=== PATIENT | female | born 2000 | race Caucasian/White ===

== ENCOUNTER 2022-02-15 01:36 | Outpatient (CLI) | payer BC, SELFPAY ==
[2022-02-15 01:51] VITALS: PULSE 109; O2SAT 98
[2022-02-15 01:53] VITALS: BP 129/91; PULSE 98
[2022-02-15 01:55] VITALS: RESP 18; TEMP 37
[2022-02-15 01:56] VITALS: PULSE 97; O2SAT 98
[2022-02-15 02:09] VITALS: BP 124/79; PULSE 98
[2022-02-15 02:24] VITALS: BP 114/77; PULSE 96
[2022-02-15 02:59] LABS: Hematocrit 37.3 % (33.0-51.0); Hemoglobin* 12.6 gm/dL (12.0-16.0); Mean Corpuscular HGB Conc 34 gm/dL (32-36); Mean Corpuscular Hemoglobin 29 pg (26-34); Mean Corpuscular Volume 86 fL (80-100); Platelet Count* 308 K/uL (140-440); Red Blood Count 4.35 m/uL (4.00-5.20); White Blood Count* 15.29 K/uL (4.50-11.00)
[2022-02-15 03:01] LABS: Slide Review Reflex No
[2022-02-15 03:10] LABS: Albumin* 3.7 g/dL (3.3-5.0)
[2022-02-15 03:13] LABS: Aspartate Amino Transferase* 18 U/L (12-35); Bilirubin Direct* 0.2 mg/dL (0.0-0.5); Bilirubin Total* 0.2 mg/dL (0.1-1.5); Total Protein* 6.6 g/dL (6.0-8.3)
[2022-02-15 03:14] LABS: Alanine Aminotransferase* 11 U/L (4-35); Alanine Aminotransferase* 12 U/L (4-35); Alkaline Phosphatase* 138 U/L (40-150); Aspartate Amino Transferase* 19 U/L (12-35); Blood Urea Nitrogen* 11 mg/dL (5-24); Creatinine* 0.7 mg/dL (0.6-1.2); Estimated Glomerular Filt Rate 128 ml/min
--- NOTE | 2022-02-15 03:58 | PC.OBNST ---
NST Note NST Note Start: 02/15/22 01:45 Freq: ONCE Status: Active Protocol: Document 02/15/22 03:30 ANEL (Rec: 02/15/22 03:58 ANEL [id number]) NST Note 1 Para (# of births) 0 EDC 04/03/22 Gestational Age In Weeks & Days 33 Weeks & 2 Days Patient Presented with Complaint(s) of Pain If Pain, describe location abdominal Reactive Yes Appropriate for Gestational Age Yes THOM Ortiz RN Date 02/15/22 Reactive Yes Appropriate for Gestational Age Yes THOM Taylor RNC Date 02/15/22 OB NST charge Yes Complete NST Note via Write Note Yes The provider's electronic signature indicates the NST is reactive/appropriate for gestational age. *Note to provider: If an addendum is required, open the patient's chart and click on the note under the Nurse/Allied Health tab.
== END 2022-02-15 03:35 | disposition home or self-care (01) ==
LOC: OB CLI 01:37 → OB 01:38
PROVIDERS: PCP Family Medicine; Visit Provider Family Medicine
DX: O47.03 False labor before 37 completed weeks of gestation, third trimester (principal); Z3A.33 33 weeks gestation of pregnancy
CPT/HCPCS: 36415; 59025; 80076; 82565; 84450; 84460; 84520; 85027; 99213

== ENCOUNTER 2022-02-24 01:45 | Outpatient (CLI) | payer BC, SELFPAY ==
[2022-02-24] VITALS (10 sets, daily range): BP systolic 125–145; BP diastolic 78–99; PULSE 72–108; RESP 16–18; TEMP 36.6–37.1; O2SAT 96–99; BMI 35.8
[2022-02-24] MEDS: ONDANSETRON ODT 4 MG TAB PO (02:01)
[2022-02-24] MEDS: GI COCKTAIL (VISC LIDO/ANTACID) 30 ML PO (02:13)
--- OUTSIDE RECORDS SUMMARY | 2022-02-24 02:14 | XMS_ITS | Clinical Summary ---
:2000 Author Organization [facility] [place] [address] Care Team Providers Name Role Phone Julita Skelton MD Primary Care Provider Allergies No known active allergies Medications Medication Sig Dispensed Refills Start Date End Date Status multivitamin Chew 1 Tablet by 0 08/23/2021 Active no.36-folate no.6 mouth once daily. (Prenate Chewable) 1 mg chew ondansetron (ZOFRAN Place 4 mg on the 0 09/11/2021 Active ODT) 4 mg tongue every 6 disintegrating tablet hours if needed. aspirin chewable 81 mg Chew 1 Tablet (81 30 Tablet 0 2 Active chewable mg) by mouth once tabletIndications: daily with a COVID-19 affecting meal. Until 36 in third weeks gestation trimester famotidine (PEPCID) 20 Take 1 Tablet (20 60 Tablet 3 2 Active mg tabletIndications: mg) by mouth two Abdominal pain, times daily. epigastric Active Problems Problem Noted Date 08/25/2021 Overview: Formatting of this note is dif ferent from the original. Estimated Date of Delivery: None noted. No LMP recorded. Patient is . Last Tdap- 01/10/2022 Last Flu vaccine- 02/07/2022 Glucose (GTT) result- Component Latest Ref Rng & Units 01/10/2022 ANTIBODY SCREEN Negative Negative SPECIMEN EXPIRATION DATE/TIME 01/13/22 23:59 HEMOGLOBIN 12.0 - 16.0 g/dL 12.5 MCV 80 - 100 fL 87 CREATININE 0.57 - 1.11 mg/dL 0.66 eGFR >90 mL/min/1.73m2 >90 GLUCOSE,GESTATIONAL 65 - 140 mg/dL 93 TREPONEMA PALLIDUM Negative Negative ALT (SGPT) 8 - 45 IU/L 8 AST (SGOT) 2 - 40 IU/L 13 20 week US: FINDINGS: Sonographic imaging demonstrates a singl e living intrauterine gestation. Fetus demonstrates a regular cardiac rate of 150 beats per minute. Fetus has a vertex position. The placenta lies posterior witho ut evidence of placenta previa. Amniotic fluid volume appears normal. Single deepest vertical pocket: 3.6 cm. The cervix is closed and measures 4.2 cm in length. The composite ultrasound gestational age is calculated at 19 weeks 2 days with a n estimated sonographic due date of 04/02/2022. The estimated weight is 278 grams which lies at the 47th %. The following biometric measurements wer e obtained: Biparietal diameter: 4.3 cm/19 weeks 1 d ay 49th% Head circumference: 16.1 cm/19 weeks 0 d ays 30th% Abdominal circumference: 13.4 cm/19 week s 0 days 38th% Femur length: 3.1 cm/19 weeks 4 days 58t h% The HC/AC ratio measures: 1.20 range (1. 09-1.26) On anatomic survey, there is a normal ap pearance of the cerebral ventricles, cavum septi pellucidi, cisterna magna and cerebellum. The nose, lips, and facial profile appear normal. The cervical, t horacic and lumbar spine are well visual ized and appear normal. There is a normal four-chamber heart view and the left and right ventricular outflow tracts appear normal. The diaphragm and stomach appear normal. The kidneys and bladder also appear normal. There is a normal three-vessel cord and cord insertion site. The four extremities appear normal. IMPRESSION: Normal OB ultrasound exam with concordan ce of clinical and sonographic dating. No intrinsic abnormalities noted on anatomic survey. No Known Allergies OB History Para Term AB Living 1 0 0 0 0 0 SAB IAB Ectopic Multiple Live Births 0 0 0 0 0 # Outcome Date GA Lbr Ken[place]/2nd Weight Sex Delivery Anes PTL Lv 1 Current Create lab flowsheet for OB labs- Component Latest Ref Rng & Units 08/23/2021 022 08/23/2021 11:09 AM 11:09 AM 11:09 AM ABORH A Rh Negative ANTIBODY SCREEN Negative Negative SPECIMEN EXPIRATION DATE/TIME 08/26/21 23:59 CHLAMYDIA PROBE N GONORRHOEAE PROBE VARICELLA ZOSTER IGG ANTIBODY Positive 291.4 RUBELLA IGG ANTIBODY HIV-1/HIV-2 ANTIBODY Non-Reactive Non-Reactive TREPONEMA PALLIDUM Negative Negative HBSAG Nonreactive Nonreactive HEPATITIS C ANTIBODY Non-Reactive Non-Reactive Component Latest Ref Rng & Units 08/23/2021 022 08/23/2021 11:09 AM 11:09 AM 11:16 AM ABORH ANTIBODY SCREEN Negative SPECIMEN EXPIRATION DATE/TIME CHLAMYDIA PROBE Negative N GONORRHOEAE PROBE Negative VARICELLA ZOSTER IGG ANTIBODY RUBELLA IGG ANTIBODY Positive 1.51 HIV-1/HIV-2 ANTIBODY Non-Reactive TREPONEMA PALLIDUM Negative HBSAG Nonreactive HEPATITIS C ANTIBODY Non-Reactive Past Medical History: . Date ? ? No Significant Past Medical History Past Surgical History: . Laterality Date ? ? NO PREVIOUS SURGERY No data on file. Problems (from 08/23/21 to pre sent) No problems associated with this episod mango Ramirez RN.....08/25/2021 1:48 PM Sleep concern 07/09/2018 Adjustment disorder with mixed anxiety and depressed m ood 07/09/2018 Estimated Date of Delivery Comments Yes 04/03/2022 Based on Ultrasound Encounters Date Type Specialty Care Team Description 02/21/2022 OB Encounter Julita Skelton, Care (34.1 MD Weeks) 02/21/2022 Travel 02/15/2022 OB Encounter Julita Skelton, ER Follo w up (Seen in ER MD last night for pain along the upper abdomen ); Car e 02/15/2022 Travel 02/07/2022 OB Encounter Julita Skelton, Care (32 weeks MD 1 day) 02/07/2022 Travel 01/26/2022 OB Encounter Julita Skelton, Care (30 weeks MD 3 days); Pregna ncy Problem (unsure of contractions or deborah leach) 01/26/2022 Travel 01/18/2022 Ancillary Procedure 01/18/2022 Office Visit Julita Skelton, Care (29 wks 2 MD days) 01/17/2022 Travel 01/17/2022 Nurse Triage Julita Skelton, Covid-19 Positive Result (OB 29 +1); Sob 01/10/2022 OB Encounter Julita Skelton, Care (28 week 1 MD days) 01/10/2022 Orders Only Lab, [facility] 01/10/2022 Travel 12/08/2021 OB Encounter Julita Skelton, Care (23 wks 3 MD days) 12/08/2021 Travel from Last 3 Months Immunizations Name Administration Dates Next Due DTaP 02/21/2008, 02/21/2007, 04/08/2004, 08/14/2003, 2002 HIB-HepB (Comvax) 04/08/2004, 08/18/2003, 2002 HPV 9 (Gardasil 9) 09/11/2017 Hepatitis A (Peds) 11/12/2017, 08/28/2014 Human Papilloma Virus Vaccine 08/28/2014 Inactivated Polio Vaccine 02/21/2008, 04/08/2005, 04/08/2004 , 08/18/2003, 2002 Influenza, IIV4 02/07/2022, 02/23/2021, 03/25/2019, 04/29/2018 Influenza, IIV4 (=>6mos) MDV 05/13/2019 Influenza,LAIV4 Live Intranasal 03/24/2015 (Flumist) MMR 02/21/2008, 04/08/2004 Meningococcal Vaccine (Menactra) 08/28/2014 Meningococcal Vaccine (Menveo) 08/08/2018 Pneumococcal conj 7-Valent (Prevnar 7) 04/08/2004, 4, 2002 Tdap 01/10/2022, 08/28/2014 Varicella Vaccine 02/21/2008, 04/08/2004 Family History Medical History Relation Name Comments Hyperlipidemia Maternal Grandfather Hypertension Mother Relation Name Status Comments Father (Age 32) suicide Maternal Grandfather Alive Maternal Grandmother Alive Mother Alive Paternal Grandfather Alive Paternal Grandmother Alive Social History Tobacco Use Types Packs/Day Years Used Date Never Smoker Smokeless Tobacco: Never Used Tobacco Cessation: Counseling Given: Yes Comments: no exposure Alcohol Use Standard Drinks/Week Comments No 0 (1 standard drink = 0.6 oz pure alcoho l) Estimated Date of Delivery Comments Yes 04/03/2022 Based on Ultrasound Sex Assigned at Date Recorded Not on file COVID-19 Exposure Response Date Recorded In the last 10 days, have you been in contact with No / Unsu re 02/21/2022 9:34 AM CDT someone who was confirmed or suspected to have Coronavirus/COVID-19? Obstetrics History Para Term AB IAB SAB Ectopic Multiple Living Live Births 1 0 0 0 0 0 0 0 0 0 0 Date Outcome GA Total Labor/2nd/3rd Weight Sex Delivery Anes PTL Beth A 1 A5 Name Clin Labor Current OB Episode Summary Episode Dates Estimated Date of Pregravid Weight TWG (As of ) Delivery 08/23/2021 - Present 04/03/2022 94.6 kg (208 lb 9.6 6.35 kg (14 lb) (02/24/2022) oz) Progress Notes 02/21/2022 - 34w1d - Julita Skelton MD Patient is here for routine pren ata care at 34w1d Concerns: Feels like he has dropped furt her Had contractions yesterday-- felt like t ightening with some pain. Sometimes had to take a break from what she was doing. Had contraction every 10 minutes while at work x 5 hours. Feels it was fairly co nsistent. She is on her feet at work. S he is hoping they will decrease her hours. Did try to hydrate. Paused, then last night had a few more. She is not jillian at all today. No gushes. No bleeding. Had epigastric pain last week. Popped up Sunday again. Hopped in shower and took a warm shower, and that helped. The pepcid is helping with her heart burn. No Headache, vision changes, right upper quadrant pain. Has had some edema. Does have a little m ore swelling on right compared to left. Baby is moving well Discussed signs/symptoms of labo r and when to call. Given contractions have stopped, will not do full work up today-- but would warrant with increasing contractions. Work note given today Reviewed preeclampsia symptoms Follow up in 2 weeks, sooner with concer ns. Julita Skelton MD .................. .. 02/21/2022 10:25 AM CC: [facility] 02/15/2022 - 33w2d - Julita Skelton MD Patient is here for routine pren atal care at 33w2d Concerns: Was at labor and delivery last night for abdominal pain. Had epigastric pain and pain across the upper abdomen. Had pain that worsened with lying down. Lasted for 2-3 hours. [place] like someone was pushing on upper abdomen. Some heart burn, some nausea. Still has gallbladder. No fevers. Had 5 guys for dinner. Had LFTs that were reassuring Has been having pelvic pain today but no abdomen pain today. Pelvic pain: Patient has been having hayley n off and on for the last week. Patient describes achey sharp pain. Has pain in vagina and radiates up. Happens a few times throughout the day. Some contractions on monitor, but not fe eling. Some BH contractions No gushes of fluid. No vaginal discharge. O: BP 128/81 (Cuff Site: Right Arm, Positio n: Sitting, Cuff Size: Adult Regular) Pulse (!) 110 Wt 99.2 kg (218 lb 9.6 oz) LMP 06/01/2021 (Exact Date) SpO2 98% General: Resting comfortably Heart: Regular rate and rhythm Lungs: Clear to auscultation bilaterally Abdomen: gravid, nontender in abdomen Pelvis: Tender over pubic symphysis. Thi s reproduces pain Results for orders placed or performed i n visit on 02/15/22 UA W/ SEDIMENT EXAM REFLEXED PER CRITERI A Result Value Ref Range COLOR Yellow Yellow Color CLARITY Slightly Cloudy (A) Clear Stephenie ty SPECIFIC GRAVITY,URINE 1.020 1.010, 1.0 15, 1.020, 1.025 PH,URINE 7.0 6.0, 7.0, 8.0, 5.5, 6.5, 7 .5, 8.5 UROBILINOGEN,QUALITATIVE Normal Normal EU/dl PROTEIN, URINE Negative Negative mg/dL GLUCOSE, URINE Negative Negative mg/dL KETONES,URINE Negative Negative mg/dL BILIRUBIN,URINE Negative Negative OCCULT BLOOD,URINE Negative Negative NITRITE Negative Negative LEUKOCYTE ESTERASE Negative Negative URINALYSIS MICROSCOPIC Result Value Ref Range RBC 0-2 0-2, None Seen /HPF WBC 0-2 0-2, 3-5, None Seen /HPF BACTERIA Few None Seen, Rare, Few Bacte vianca/HPF EPITHELIAL CELLS Moderate (A) None Seen , Few Epi/HPF Mucus Present A/P: - epigastric pain-- resolved today. Will start pepcid as heart burn has been worse recently. LFTs reassuring. - pubic symphysis pain: Discussed ice, b sapna band, supportive cares Follow up in 1 week as scheduled. Discussed signs/symptoms of labo r and when to call Reviewed preeclampsia symptoms Julita Skelton MD .................. .. 02/15/2022 10:22 AM CC: [facility] 02/07/2022 - 32w1d - Julita Skelton MD Patient is here for routine pren atal care at 32w1d Concerns: No concerns. Some BH contractions. No bleeding, loss of fluid No Headache, vision changes, right upper quadrant pain. Some swelling. Is looking into compression stockings. Baby is moving well Labs today-- none On baby aspirin for history of COVID-19 (will take until 36 weeks) Growth scan at 36 weeks. Flu shot today Discussed signs/symptoms of labo r and when to call Reviewed preeclampsia symptoms RTC in 2 weeks, sooner with concerns. Julita Skelton MD .................. .. 02/07/2022 10:22 AM CC: [facility] 01/26/2022 - 30w3d - Julita Skelton MD Patient is here for routine pren atal care at 30w3d Concerns: Finished COVID-19-- did not ta ke the paxlovid. Has been having more contractions that a re painful. In the past month has been having some BH contractions. At most a few a day. Never more than 4/hour. Is having some back spasms that go up th e back and wrap around. Happens roughly 2 times a day. Yesterday increased. Feels like belly is getting rock hard. She has never had more than 5 in an hour of her contractions. No bleeding, loss of fluid Did have orange urine 3 days ago. No hayley n with urination. No Headache, vision changes, edema, righ t upper quadrant pain. Baby is moving well She is staying hydrated. Doesn't feel she is doing too much. NST done for tachycardia: Baseline 145, moderate vari, accels to 1 65. No decels [place]: No contractions. Will do growth ultrasound at 36 weeks gi loree COVID-19. Discussed signs/symptoms of labo r and when to call. No contractions on monitor. Discussed reasons to return to care. Encouraged stretch, heat, tylenol for ba ck pain. Nontender on exam. Is seeing chiropractics. Reviewed preeclampsia symptoms Follow up in 2 weeks, sooner with concer ns. Julita Skelton MD .................. .. 01/26/2022 1:31 PM CC: [facility] 01/10/2022 - 28w1d - Julita Skelton MD Patient is here for routine pren atal care at 28w1d Concerns: GTT today. Feels good. Yesterday was having some cramping on th e right side. Would lightly touch and it would hurt. However-- this has improved. She feels it is most likely positional with baby as his feet seem to be over there. She is non-tender in RUQ No Contractions, bleeding, loss of fluid No Headache, vision changes, edema Baby is moving well Labs today Results for orders placed or performed i n visit on 01/10/22 GLUCOSE,GESTATIONAL Result Value Ref Range GLUCOSE,GESTATIONAL 93 65 - 140 mg/dL HEMOGLOBIN Result Value Ref Range HEMOGLOBIN 12.5 12.0 - 16.0 g/dL MCV 87 80 - 100 fL Rhogam and Tdap given today. Patient rosalia erated well. Antibody screen pending. Discussed signs/symptoms of labo r and when to call Reviewed preeclampsia symptoms Follow up every 2 weeks until 36, then w eekly until delivery. Julita Skelton MD .................. .. 01/10/2022 9:19 AM CC: [facility] 12/08/2021 - 23w3d - Julita Skelton MD Patient is here for routine pren atal care at 23w3d Concerns: Has been sleeping better. Appetite improved, weight is increasing. No cramping, bleeding, loss of fluid Started lactating last night. No Headache, vision changes, edema, righ t upper quadrant pain. Baby is moving well Follow up in at 28 weeks (4 weeks ) for GTT, Hemoglobin, Rhogam, tdap. Discussed signs/symptoms of labo r and when to call Reviewed preeclampsia symptoms Julita Skelton MD .................. .. 12/08/2021 11:19 AM CC: [facility] 11/08/2021 - w1d - Julita Skelton MD Patient is here for routine pren atal care at 19w1d Concerns: Is not sleeping well. Brain is just raci ng. Having difficulty with anxiety. Can't get to sleep. Has not tried anything over the counter. Melatonin has never worked for her. In the past was on trazodone-- made her too sleepy. Will do trial of unisom Tries to get to bed for about 8 hours. Is not having much of appetite. In the a fternoon she doesn't feel like eating. She doesn't feel hungry in the morning but tries to have breakfast before work. Around 11 for lunch she eats something. Louise sn't have much of an appetite for dinner meal. Last night went to [id number], took a couple bites. No nausea, no heart burn. No Contractions/cramping, bleeding, loss of fluid No Headache, vision changes, edema, righ t upper quadrant pain. Baby is moving -- flutters US OB BASIC ANATOMY SCREEN SINGLE TA Result Date: 11/08/2021 For Patients: As a result of the ntury Cures Act, medical imaging exams and procedure reports are released immediately into your electronic medical record. You may view this report before your re ferring provider. If you have questions, please contact your health care provider. INDICATION: Evaluate anatomy. COMPARISON: 08/23/2021 TECHNIQUE: Real time cárdenas scale imaging of the fetus was per formed as well as color Doppler analysis of the umbilical vessels. FINDINGS: Sonographic imaging demonstrates a single living intrauterine gestation. Fetus demonstrates a regular cardiac rate of 150 leydi ts per minute. Fetus has a vertex positi on. The placenta lies posterior without evidence of placenta previa. Amniotic fluid volume appears normal. Single deepest vertical pocket: 3.6 cm. The cervix is c losed and measures 4.2 cm in length. The composite ultrasound gestational age is calculated at 19 weeks 2 days with an estimated sonographic due date of 04/02/2022. The estimated weight is 278 gra ms which lies at the 47th %. The followi ng biometric measurements were obtained: Biparietal diameter: 4.3 cm/19 weeks 1 day 49th% Head circumference: 16.1 cm/19 weeks 0 days 30th% Abdominal circumferenc e: 13.4 cm/19 weeks 0 days 38th% Femur l ength: 3.1 cm/19 weeks 4 days 58th% The HC/AC ratio measures: 1.20 range (1.09-1.26) On anatomic survey, there is a normal appearance of the cerebral ventricles, cavum septi pellucidi, cisterna magna an d cerebellum. The nose, lips, and facial profile appear normal. The cervical, thoracic and lumbar spine are well visualized and appear normal. There is a no rmal four-chamber heart view and the lef t and right ventricular outflow tracts appear normal. The diaphragm and stomach appear normal. The kidneys and bladder also appear normal. There is a normal three-vessel cord and cord insert ion site. The four extremities appear normal. Normal OB ultrasound exam with concordan ce of clinical and sonographic dating. No intrinsic abnormalities noted on anatomic survey. Dictated by Bogdan Bahena MD @ Nov 08 2021 4:01PM (Electronically Signed) Discussed signs/symptoms of labo r and when to call Reviewed preeclampsia symptoms Follow up in 4 weeks. Julita Skelton MD .................. .. 11/08/2021 9:02 AM CC: [facility] 10/19/2021 - 16w2d - Julita Skelton MD Patient is here for routine pren atal care at 16w2d Concerns: Episode of dizziness yesterday. Started around 10 am. Had eaten lunch and breakfast. Had some juice and that seemed to help some. Did feel hydrated. Was working in a hot kitchen, which didn't help. Working on eating more healthy foods. Encouraged ongoing supportive cares. Chin ght down 8 lbs. No cramping, bleeding, loss of fluid No Headache, vision changes, edema, righ t upper quadrant pain. Baby is moving-- feeling flutters Discussed eating small, frequent meals. Encouraged good hydration. Follow up in 4 weeks for recheck and fet al survey ultrasound. Julita Skelton MD .................. .. 10/19/2021 10:55 AM CC: [facility] 09/21/2021 - 12w2d - Julita Skelton MD Clinic Note: First OB Visit 09/21/2021 Va Tan is a 21 y.o. wit h Estimated Date of Delivery: 04/03/22, here today for a first visit. No significant concerns. Nausea and vomi ting is ok. Feels tired but otherwise ok. 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 /Father of baby: Carlo De Dios Family history of hypertension, le ukemia, brain aneurysm, colitis, brain tumors, diabetes, asthma, ovarian cyst, mental illness. Paternal side: Depression, anxiety, jade ction. Alcoholism. ADHD. ?? Carlo's family history: Low blood press ure, epilepsy (dad and sister, missing heart valve (paternal side). Diabetes, cancer, asthma. MENSTRUAL HISTORY Patient's last menstrual period was 05/05 (exact date).: Cycle Regularity: regular, every 28-30 d ays Flow: normal KARISHMA by LMP Calculator: 03/08/22 Date Reliability: Definite Ultrasound shows dates of 04/03/22. Give n 3 weeks difference, will go with ultrasound dates. IMPRESSION: Single living intrauterine wit h sonographic gestational age 8 weeks 1 day and sonographic due date 04/03/2022. Small mid right subchorionic hemorrhage measuring 14 x 9 x 9 millimeters. MEDICAL HISTORY Medical, surgical, family, and social hi story reviewed today and updated if necessary. Past Medical History: . Date ? ? No Significant Past Medical History Past Surgical History: . Laterality Date ? ? NO PREVIOUS SURGERY Family History Problem Relation Age of Onset ? ? Hypertension Mother ? ? Hyperlipidemia Maternal Grandfather Social History Socioeconomic History ? ? Marital status: Single Tobacco Use ? ? Smoking status: Passive Smoke Exposure - Never Smoker ? ? Smokeless tobacco: Never Used ? ? Tobacco comment: no exposure Vaping Use ? ? Vaping Use: Every day ? ? Substances: Nicotine, Flavoring ? ? Devices: Refillable tank Substance and Sexual Activity ? ? Alcohol use: No ? ? Drug use: No ? ? Sexual activity: Yes Partners: Male control/protection: Condom, Impla nt Current Outpatient Medications Medication Sig Dispense Refill ? ? multivitamin no.36-folate no.6 (Prenate Chewable) 1 mg chew Chew 1 Tablet by mouth once daily. 0 ? ? ondansetron (ZOFRAN ODT) [address] 4 mg on the tongue every 6 hours if needed. RISK FACTORS Seat Belt Use: 100% Alcohol/day: 0 Meds/Drugs/ETOH Since LMP: No Control Method: none High Risk Behavior: body piercing(s) (be lly button) INFECTION HISTORY Current Drug Use: none HIV Risk Evaluation: low risk Hepatitis B Risk Evaluation: low risk Hepatitis B Immunized: yes Personal History of Genital Herpes: no Partner History of Genital Herpes: no Rash/Viral Illness Since LMP: No History of STD: no history of STD's History of Chicken Pox? no Chicken pox i mmunization? yes Family history of - defects: Paternal grandfather has sibling with valve concern. They will get more information about this. Chromosomal problems: no Stillbirths: no Desire Test for CYSTIC FIBROSIS or SMA? no Desire genetic testing otherwise? no REVIEW OF SYSTEMS: General: no fevers, chills, appetite hollie nges, weight changes. + fatigue Eyes: no blurry vision, double vision. L ast saw eye doctor -- not since last year Ears/Nose/Throat: no hearing changes, pa in. Some allergies (nasal congestion). no frequent epistaxis. no throat pain, difficulty swallowing. Last saw dentist years ago. Cardiovascular: no chest pain, chest pre ssure, syncope, orthostatic symptoms Respiratory: no cough, shortness of apple th, dyspnea on exertion, orthopnea Gastrointestinal: + nausea, vomiting. So me constipation. No diarrhea, melena or bright red rectal bleeding Genitourinary - female: no hematuria, dy suria, incontinence, nocturia. no vaginal bleeding, cramping. Musculoskeletal: no back, arm or leg hayley n Skin: no rashes or lesions Neurologic: no numbness, weakness, tingl ing, headaches, falls Psychiatric: no depression, anxiety Endocrine: no polyuria, polydipsia, heat or cold intolerance Heme/Lymphatic: no easy bruising, easy b leeding Allergic/Immunologic: no frequent infect ions PHYSICAL EXAM BP 116/76 (Cuff Site: Left Arm, Position : Sitting, Cuff Size: Adult Regular) Pulse 80 Wt 93.4 kg (205 lb 12.8 oz) LMP 06/01/2021 (Exact Date) SpO2 100% General Appearance: Alert, well-develope d, well-nourished, with appropriate grooming and dress. No acute distress HEENT Exam: PERRL. MMM. TMs pearly bilat erally. Neck / Thyroid Exam: Supple, no masses, nodes or enlargement. Chest/Respiratory Exam: Normal chest wal l and respirations. Clear to auscultation. Breast Exam: deferred Cardiovascular Exam: Regular rate and rh ythm. Normal S1, S2. No murmur, click, gallop, or rubs. Gastrointestinal Exam: Soft, non-tender, no masses or organomegaly. Pelvic Exam: Deferred, no concerns. Not old enough for Pap smear Lymphatic Exam: Non-palpable nodes in ne ck, clavicular regions. Musculoskeletal Exam: Back is straight a nd non-tender, full ROM of upper and lower extremities. Skin: no rash or abnormalities Neurologic Exam: Normal gait and speech, no tremor. DTR's 2+ and symmetric Psychiatric Exam: Alert and oriented, ap propriate affect. Ultrasound: Active fetus on bedside ultr asound. ASSESSMENT/PLAN: ICD-10-CM 1. Supervision of normal first in first trimester Z34.01 US OB BASIC ANATOMY SCREEN SINGLE TA 1. First OB: Satisfactory exam. Demonstrates appropriate and health seeking behaviors toward her . Verbalizes good understanding of care schedule and the importance of coming to each visit as scheduled. Has supporti ve family relationship. Reviewed health maintenance issues including diet, exercise, caffeine intake, handling of cat litter, toxic substances, daily vitamins, ch ild classes, choosing a pediatrici an, and regular exams. - Reviewed lab results - Previously Reviewed [facility] and handouts 2. Nausea/vomiting-- discussed ongoing s upportive cares 3. Dates changed for ultrasound given 3 weeks difference. 4. Declines genetic testing 5. RTC 4 weeks. She was encouraged to ca ll the office with any questions or concerns. Scheduled ultrasound in 8 weeks for survey Follow up sooner with any concerns. Julita Skelton MD .................... 4:19 PM [facility] [phone] CC: [facility] 08/23/2021 - 8w1d - Julita Skelton MD Clinic Note: confirmation Va Tan is a 21 y.o. who is here today for a confirmation. She had a positive test done at home 08/07. LMP was 06/01- 06/04. Was not a typical period for her. Usually they are at least 5 days and this one was only 4. Patient's last menstrual period was 05/05 (exact date). making her estimated due date of 03/08/2022. She is 11w6d today. This was not an intended , and she is happy about it. Has nausea here and there. Vomiting some times in the morning. She has not had pelvic cramping. She trotter s not had any bleeding thus far. This is her first . FOB: Carlo. Family history of hypertension, leukemia , brain aneurysm, coliits, brain tumors, diabets, asthma, ovarian cyst, mental illness. Paternal side: Depression, anxiety, jade ction. Alcoholism. ADHD. Carlo's family history: Low blood press ure, epilepsy (dad and sister0, missing heart valve (paternal side). Diabetes, cancer, asthma. Tolerating vitamin. Works at [employer] Medical, surgical, family, and social hi story reviewed today and updated if necessary. Past Medical History: . Date ? ? No Significant Past Medical History Past Surgical History: . Laterality Date ? ? NO PREVIOUS SURGERY Patient has no known allergies. Family History Problem Relation Age of Onset ? ? Hypertension Mother ? ? Hyperlipidemia Maternal Grandfather OB History Para Term AB Living 1 0 0 0 0 0 SAB IAB Ectopic Multiple Live Births 0 0 0 0 0 # Outcome Date GA Lbr [place]/2nd Weight Sex Delivery Anes PTL Lv 1 Current Current Outpatient Medications Medication Sig ? ? multivitamin no.36-folate no.6 (Prenate Chewable) 1 mg chew Chew 1 Tablet by mouth once daily. No current facility-administered medicat ions for this visit. Medications have been reviewed by me and are current to the best of my knowledge and ability. RISK FACTORS Alcohol/day: 0 Meds/Drugs/ETOH Since LMP: sindi min Street Drug use: none Tobacco use: Does vape, does not smoke c igarettes. Caffeine use: not regularly. Lives with Carlo. PHYSICAL EXAM BP 102/68 (Cuff Site: Left Arm, Position : Sitting, Cuff Size: Adult Large) Pulse 76 Ht 1.665 m (5' 5.55) Wt 94.6 kg (208 lb 9.6 oz) LMP 06/01/2021 (Exact Date) SpO2 100% No BMI 34.13 kg/m?? General Appearance: Alert, well-develope d, well-nourished, with appropriate grooming and dress. No acute distress HEENT Exam: Grossly normal. Chest/Respiratory Exam: Normal chest wal l and respirations. Clear to auscultation. Cardiovascular Exam: Regular rate and rh ythm. Normal S1, S2. No murmur, click, gallop, or rubs. Gastrointestinal Exam: Soft, non-tender, no masses or organomegaly. Uterus not able to be palpated Skin: no rash or abnormalities Neurologic Exam: Normal gait and speech, no tremor. Psychiatric Exam: Alert and oriented, ap propriate affect. Results for orders placed or performed i n visit on 08/23/21 CBC W PLT NO DIFF Result Value Ref Range WHITE BLOOD COUNT 8.6 4.5 - 11.0 thou/c u mm RED BLOOD COUNT 4.79 4.00 - 5.20 mil/cu mm HEMOGLOBIN 13.9 12.0 - 16.0 g/dL HEMATOCRIT 40.5 33.0 - 51.0 % MCV 85 80 - 100 fL MCH 29.0 26.0 - 34.0 pg MCHC 34.3 32.0 - 36.0 g/dL RDW 13.4 11.5 - 15.5 % PLATELET COUNT 324 140 - 440 thou/cu mm MPV 10.3 6.5 - 11.0 fL ANTI HIV 1/2 Result Value Ref Range HIV-1/HIV-2 ANTIBODY Non-Reactive Non-R eactive HBSAG (HBS) Result Value Ref Range HBSAG Nonreactive Nonreactive ANTI HCV Result Value Ref Range HEPATITIS C ANTIBODY Non-Reactive Non-R eactive URINALYSIS W REFLEX MICROSCOPIC IF POSIT NORMAN [59461.2] Result Value Ref Range COLOR Yellow Yellow Color CLARITY Clear Clear Clarity SPECIFIC GRAVITY,URINE 1.015 1.010, 1.0 15, 1.020, 1.025 PH,URINE 7.0 6.0, 7.0, 8.0, 5.5, 6.5, 7 .5, 8.5 UROBILINOGEN,QUALITATIVE Normal Normal EU/dl PROTEIN, URINE Negative Negative mg/dL GLUCOSE, URINE Negative Negative mg/dL KETONES,URINE 15 (A) Negative mg/dL BILIRUBIN,URINE Negative Negative OCCULT BLOOD,URINE Negative Negative NITRITE Negative Negative LEUKOCYTE ESTERASE Negative Negative TYPE AND SCREEN Result Value Ref Range ABORH A Rh Negative ANTIBODY SCREEN Negative Negative SPECIMEN EXPIRATION DATE/TIME 08/26/21 23:59 US OB 1ST TRI SINGLE TA Result Date: 08/23/2021 For Patients: As a result of the ntury Cures Act, medical imaging exams and procedure reports are released immediately into your electronic medical record. You may view this report before your re ferring provider. If you have questions, please contact your health care provider. INDICATION: First trimester scan, establish dates. COMPARISON: None. TECHNIQUE: Real-time cárdenas-scale imaging of the pel vis was performed. FINDINGS: Sonographic imaging demonstrates a single living intrauterine gestation. The embryo demonstrates a regular cardiac rate measuring 170 beats per minute. The embryo`s crown-ru mp length measurement of 1.6 cm correspo nds to a gestational age of 8 weeks 1 day with a sonographic due date of 04/03/2022. There is a normal-appearing yolk sac. There are no gross abnormalities noted within the embryo at this early state of development. The gestational sac has a normal appearance. There is a 14 x 9 x 9 millimeter perigestational hemorrhage. The amount of fluid within the sac appears appropriate for gestational age. The ce rvix is closed. The myometrium appears normal. The ovaries are of normal size. Simple right ovarian cyst measuring 2.3 cm. Corpus luteal cyst left ovary measuring 1.7 cm. There are no suspicious fluid c ollections noted in the cul-de-sac. Single living intrauterine wit h sonographic gestational age 8 weeks 1 day and sonographic due date 04/03/2022. Small mid right subchorionic hemorrhage measuring 14 x 9 x 9 millimeters. Dictate d by Bogdan Bahena MD @ Aug 23 2021 12: 17PM (Electronically Signed) ASSESSMENT/PLAN: 1. Supervision of normal first in first trimester Plan: 1. Dating ultrasound today. KARISHMA by [employer] jonathan is 04/03 at [id number] 2. Routine OB labs ordered including typ e and screen, hemoglobin, HBSAg(HBS), Rubella immune status, Treponema, Urinalysis, Urine culture, HIV 3. Taking vitamin, counseled on its importance. 4. Reviewed health maintenance issues in cluding diet, exercise, foods to avoid, cat litter, and regular exams. Given patient information for first OB including approved OTC medications and beginnings booklet. Return to clinic in 4 weeks for formal f irst OB exam. She was encouraged to call the office or [facility] with any questions or concerns. Julita Skelton MD .................. .. 08/23/2021 9:41 AM Last Filed Vital Signs Vital Sign Reading Time Taken Comments Blood Pressure 126/80 02/21/2022 10:02 AM CDT Pulse 99 02/21/2022 10:02 AM CDT Temperature 37.1 ??C (98.7 ??F) 02/23/2021 10:06 AM CDT Respiratory Rate 20 01/19/2013 9:21 PM CDT Oxygen Saturation 98% 02/21/2022 10:02 AM CDT Inhaled Oxygen Concentration - - Weight 101 kg (222 lb 9.6 oz) 02/21/2022 10:02 AM CDT Height 166.1 cm (5' 5.39) 01/10/2022 9:01 AM CDT Body Mass Index - - Plan of Treatment Upcoming Encounters Date Type Specialty Care Team Description 03/08/2022 Ancillary Procedure 03/08/2022 OB Encounter Julita Skelton MD [address] [phone] (Wo rk) 03/14/2022 OB Encounter Julita Skelton MD [address] [phone] (Wo carmelita) 03/22/2022 OB Encounter Julita Skelton MD [address] [phone] (Wo rk) 03/28/2022 OB Encounter Julita Skelton MD [address] [place] [phone] (Wo rk) Health Maintenance Due Date Last Done Comments Well Child Check for age 3-20 02/22/2008 02/21/2007 COVID-19 vaccine series (3 - 09/21/2021 04/23/2021, 021 Booster for Moderna series) Chlamydia for age 16-24 08/23/2022 08/23/2021, 03/02/2021, 03/25/2019, Additional history exists BMI (ht and wt on same day) for 01/10/2023 01/10/2022, 08/03, age 18+ 02/23/2021, Additional history exists Depression screening for age 12+ 01/26/2023 01/26/2022, , 02/23/2021, Additional history exists Tetanus booster 01/11/2032 01/10/2022, 08/28/2014 HPV series for age 9-26 Completed 09/11/2017, 08/28/2014 Meningococcal series for age 11-21 Completed 08/08/2018, 0 08/28/2014 Hepatitis C screening for age Completed 08/23/2021 18-79 Tdap Completed 01/10/2022, 08/28/2014 Influenza for age 9-49 Completed 02/07/2022, 02/23/2021, 05/13/2019, Additional history exists Procedures Procedure Name Priority Date/Time Associated Diagnosis Comme nts URINALYSIS Routine 02/15/2022 10:41 Pelvic pain in Results f or this MICROSCOPIC AM CDT procedure are i n the results section. PROTEIN/CREAT Routine 02/15/2022 10:41 Abdominal pain, Results for this RATIO,URINE AM CDT epigastric procedure are i n the results section. UA W/ SEDIMENT EXAM Routine 02/15/2022 10:41 Pelvic pain in Re sults for this REFLEXED PER AM CDT procedure are i n CRITERIA the results section. URINE CULTURE Add On 01/26/2022 2:58 PM Urinary symptom or Re sults for this CDT sign procedure are i n the results section. URINALYSIS Routine 01/26/2022 2:58 PM Urinary symptom or Res ults for this MICROSCOPIC CDT sign procedure are i n the results section. UA W/ SEDIMENT EXAM Routine 01/26/2022 2:58 PM Urinary symptom or Results for this REFLEXED PER CDT sign procedure are i n CRITERIA the results section. CREATININE,ISTAT Routine 01/18/2022 4:06 PM COVID-19 virus Res ults for this CDT infection procedure are i n the results section. US OB BIOPHYSICAL Routine 01/18/2022 3:51 PM COVID-19 virus Re sults for this PROFILE SINGLE WO CDT infection procedure are in NST with 29 the result s completed weeks section. gestation ANTIBODY SCREEN Routine 01/10/2022 10:00 Supervision of Result s for this AM CDT normal first procedure are i n in second the resu lts trimester section. CREATININE Routine 01/10/2022 10:00 Right flank pain Results for this AM CDT procedure are i n the results section. AST (SGOT) Routine 01/10/2022 10:00 Right flank pain Results for this AM CDT procedure are i n the results section. ALT (SGPT) Routine 01/10/2022 10:00 Right flank pain Results for this AM CDT procedure are i n the results section. TREPONEMA PALLIDUM Routine 01/10/2022 10:00 Supervision of Res ults for this AM CDT normal first procedure are i n in second the resu lts trimester section. HEMOGLOBIN Routine 01/10/2022 10:00 Supervision of Results f or this AM CDT normal first procedure are i n in second the resu lts trimester section. GLUCOSE,GESTATIONAL Routine 01/10/2022 10:00 Supervision of Re sults for this AM CDT normal first procedure are i n in second the resu lts trimester section. from Last 3 Months Results (ABNORMAL) URINALYSIS MICROSCOPIC (02/15/2022 10:41 AM CDT)Only the most recent of2 resultswithin the time period is included. [facility] gist Method Time Signature RBC 0-2 0-2, None 02/15/2022 [facility] Seen /HPF 10:54 AM CDT [facility] WBC 0-2 0-2, 3-5, 02/15/2022 [facility] None Seen 10:54 AM CDT [place] /HPF CLINIC BACTERIA Few None 02/15/2022 [facility] Seen, 10:54 AM CDT [place] Rare, Few CLINIC Bacteria/ HPF EPITHELIAL Moderate (A) None 02/15/2022 [facility] CELLS Seen, Few 10:54 AM CDT [place] Epi/HPF CLINIC Mucus Present 02/15/2022 [facility] 10:54 AM CDT [facility] Specimen Anatomical Collection Method Collection Time Receive d Time (Source) Location / / Volume Laterality Urine URINE SPECIMEN / Non-Blood / 02/15/2022 10:41 022 Unknown Unknown AM CDT 10:42 AM CDT Julita Skelton MD URINE Performing Organization Address City/State/ZIP Code Phon e Number [facility] [address] [place] [address] PROTEIN/CREAT RATIO,URINE (02/15/2022 10:41 AM CDT) P athologist Signature PROTEIN 13 <=14 mg/dL 02/15/2022 [facility] QUANT,RAND 8:33 PM CDT LABORATORY-CENT URINE RAL LABORATORY CREAT,RANDOM 91.5 mg/dL 02/15/2022 [facility] URINE 8:33 PM CDT LABORATORY-CENT RAL LABORATORY PROT/CREAT 0.1 <0.2 02/15/2022 [facility] RATIO,UR 8:33 PM CDT LABORATORY-CENT RAL LABORATORY Specimen Anatomical Collection Method Collection Time Receive d Time (Source) Location / / Volume Laterality Urine URINE SPECIMEN / Non-Blood / 02/15/2022 10:41 022 Unknown Unknown AM CDT 10:42 AM CDT Julita Skelton MD URINE Performing Organization Address City/State/ZIP Code Phon e Number [facility] [address] [place] [address] LABORATORY-CENTRAL 1999 LABORATORY (ABNORMAL) UA W/ SEDIMENT EXAM REFLEXED PER CRITERIA (02/15/2022 10:41 AM CDT) Only the most recent of2 resultswithin the time period is included. [facility] Method Time Signature COLOR Yellow Yellow Color 02/15/2022 [facility] 10:54 AM [facility] CLARITY Slightly Clear 02/15/2022 [facility] Cloudy (A) Clarity 10:54 AM [facility] SPECIFIC 1.020 1.010, 02/15/2022 [facility] GRAVITY,URINE 1.015, 10:54 AM [place] 1.020, 1.025 [facility] PH,URINE 7.0 6.0, 7.0, 02/15/2022 [facility] 8.0, 5.5, 10:54 AM [place] 6.5, 7.5, T CLINIC 8.5 UROBILINOGEN, Normal Normal EU/dl 02/15/2022 [facility] QUALITATIVE 10:54 AM [facility] PROTEIN, Negative Negative 02/15/2022 [facility] URINE mg/dL 10:54 AM [facility] GLUCOSE, Negative Negative 02/15/2022 [facility] URINE mg/dL 10:54 AM [facility] KETONES,URINE Negative Negative 02/15/2022 [facility] mg/dL 10:54 AM [facility] BILIRUBIN,URI Negative Negative 02/15/2022 [facility] NE 10:54 AM [facility] OCCULT Negative Negative 02/15/2022 [facility] BLOOD,URINE 10:54 AM [facility] NITRITE Negative Negative 02/15/2022 [facility] 10:54 AM [facility] LEUKOCYTE Negative Negative 02/15/2022 [facility] ESTERASE 10:54 AM [facility] Specimen Anatomical Collection Method Collection Time Receive d Time (Source) Location / / Volume Laterality Urine URINE SPECIMEN / Non-Blood / 02/15/2022 10:41 022 Unknown Unknown AM CDT 10:42 AM CDT Julita Skelton MD URINE Performing Organization Address City/State/ZIP Code Phon e Number [facility] [address] [place] [address] URINE CULTURE (01/26/2022 2:58 PM CDT) [facility] Method Time Signature CULTURE 10-50,000 CFU/mL 01/28/2022 [facility] H of multiple 6:58 PM CDT LABORATORY-[facility] organisms, TRAL probable LABORATORY contaminants Specimen Anatomical Collection Method Collection Time Receive d Time (Source) Location / / Volume Laterality Urine URINE SPECIMEN / Non-Blood / 01/26/2022 2:58 PM 01/26 2:58 Unknown Unknown CDT PM CDT Julita Skelton MD MICROBIOLOGY Performing Organization Address City/State/ZIP Code Phon e Number [facility] [address] [place] [address] LABORATORY-CENTRAL 2000 LABORATORY (ABNORMAL) CREATININE,ISTAT (01/18/2022 4:06 PM CDT) Analysis Performed At Patho logist Time Signature CREATININE, 0.50 (L) 0.57 - 01/18/2022 [facility] POCT 1.11 mg/dL 4:09 PM CDT [facility] Comment: Caution: Patients taking Hydrox yurea have falsely increased iStat Creatinine results. Verify creatinine results order ing a Creatinine (68393.2) eGFR >90 >90 mL/min/1.73m2 01/18/2022 4:09 PM CDT [facility] Comment: As of 2021, eGFR is calcu lated by the CKD-EPI creatinine equation without race adjustment. eGFR can be inf luenced by muscle mass, exercise, and diet. The reported eGFR is an estimation only and is only applicable if the renal function is stable. Specimen Anatomical Collection Method Collection Time Receive d Time (Source) Location / / Volume Laterality Blood BLOOD SPECIMEN / 01/18/2022 4:06 PM 01/18 4:09 Unknown CDT PM CDT Julita Skelton MD CHEMISTRY Performing Organization Address City/State/ZIP Code Phon e Number [facility] [address] [place] [address] US OB BIOPHYSICAL PROFILE SINGLE WO NST (01/18/2022 3:51 PM CDT) Anatomical Region Laterality Modality Ultrasound Specimen (Source) Anatomical Collection Method Collection Time Re ceived Time Location / / Volume Laterality 01/18/2022 4:01 PM CDT Impressions 01/18/2022 4:01 PM CDT Normal biophysical profile score of 8 out of 8. Dictated by Bogdan Bahena MD @ Jan 18 2 022 ??4:01PM (Electronically Signed) ?? Narrative 01/18/2022 4:01 PM CDT For Patients: ??As a result of the Cures Act, medical imaging exams and procedure report s are released immediately into your [facility] medical record. ??You may view this report before your referring provider. ??If you have questions, please contact your health care provider. INDICATION: COVID in COMPARISON: 11/08/2021 TECHNIQUE: Real time cárdenas scale imaging of the fetu s was performed as well as color Doppler and spectral Doppler analysis of the umbilical artery. Without non-stress testing. FINDINGS: Sonographic imaging demonstrates a singl e living intrauterine gestation. ??Fetus demonstrates a regular cardiac rate of 151 beats per minute. ??Fetus has a vertex position. The umbilical artery demonstr ates adequate diastolic blood flow. ??Th e S/D ratio measures 2.7. The amniotic fluid volume appears normal and there is a single deepest pocket measurement of 4.8 cm. ??The fetus was active and demonstr ated normal breathing movements. There w as normal flexion and extension of the trunk and extremities. ?? Procedure Note Bogdan Bahena MD - 01/18/2022For matting of this note might be different from the original. For Patients: As a result of the Cures Act, medical imaging exams and procedure reports are released immediately into your electronic medical record. You may view this report before your referring provider. If you have questions, please contact yo ur health care provider. INDICATION: COVID in COMPARISON: 11/08/2021 TECHNIQUE: Real time cárdenas scale imaging of the fetu s was performed as well as color Doppler and spectral Doppler analysis of the umbilical artery. Without non-stress testing. FINDINGS: Sonographic imaging demonstrates a singl e living intrauterine gestation. Fetus demonstrates a regular cardiac rate of 151 beats per minute. Fetus has a vertex position. The umbilical artery demonstrates adequate diastolic blood flow. The S/D ratio bubba ures 2.7. The amniotic fluid volume appears normal and there is a single deepest pocket measurement of 4.8 cm. The fetus was active and demonstrated normal breathing movements. There was normal flexion and extension o f the trunk and extremities. IMPRESSION: Normal biophysical profile score of 8 ou t of 8. Dictated by Bogdan Bahena MD @ Jan 18 2 022 4:01PM (Electronically Signed) Julita Skelton MD TREPONEMA PALLIDUM (01/10/2022 10:00 AM CDT) Analysis Performed At Patho logist Time Signature TREPONEMA Negative Negative 01/11/2022 [facility] PALLIDUM 9:44 AM CDT LABORATORY-[facility] TRAL LABORATORY Specimen Anatomical Collection Method / Collection Time Recei lionel Time (Source) Location / Volume Laterality Blood BLOOD SPECIMEN / Venipuncture / 01/10/2022 10:00 01/10 Unknown Unknown AM CDT 10:04 AM CDT Julita Skelton MD SEND OUTS Performing Organization Address City/State/ZIP Code Phon e Number [facility] [address] [place] [id number] LABORATORY-CENTRAL 2000 LABORATORY ANTIBODY SCREEN (01/10/2022 10:00 AM CDT) [facility] gist Method Time Signature ANTIBODY Negative Negative 01/10/2022 [facility] SCREEN 5:31 PM CDT LAB-CENTRAL LAB BLOOD BANK SPECIMEN 01/13/22 01/10/2022 [facility] EXPIRATION 23:59 5:31 PM CDT LAB-CENTRAL DATE/TIME LAB BLOOD BANK Specimen Anatomical Collection Method / Collection Time Recei lionel Time (Source) Location / Volume Laterality Blood BLOOD SPECIMEN / Venipuncture / 01/10/2022 10:00 01/10 Unknown Unknown AM CDT 10:04 AM CDT Julita Skelton MD BLOOD BANK Performing Organization Address City/State/ZIP Code Phon e Number [email or web address] LAB-CENTRAL LAB [address] [place] [phone] BLOOD BANK HEMOGLOBIN (01/10/2022 10:00 AM CDT) P athologist Signature HEMOGLOBIN 12.5 12.0 - 16.0 01/10/2022 [facility] g/dL 10:07 AM CDT [facility] MCV 87 80 - 100 fL 01/10/2022 [facility] 10:07 AM CDT [facility] Specimen Anatomical Collection Method / Collection Time Recei lionel Time (Source) Location / Volume Laterality Blood BLOOD SPECIMEN / Venipuncture / 01/10/2022 10:00 01/10 Unknown Unknown AM CDT 10:04 AM CDT Julita Skelton MD HEMATOLOGY Performing Organization Address City/[facility]/ZIP Code Phon e Number [facility] [address] [place] [address] GLUCOSE,GESTATIONAL (01/10/2022 10:00 AM CDT) athologist Signature GLUCOSE,GESTAT 93 65 - 140 01/10/2022 [facility] IONAL mg/dL 10:12 AM CDT [facility] Specimen Anatomical Collection Method / Collection Time Recei lionel Time (Source) Location / Volume Laterality Blood BLOOD SPECIMEN / Venipuncture / 01/10/2022 10:00 01/10 Unknown Unknown AM CDT 10:04 AM CDT Julita Skelton MD CHEMISTRY Performing Organization Address [facility] Phon e Number [facility] [address] [place] [address] CREATININE (01/10/2022 10:00 AM CDT) athologist Signature CREATININE 0.66 0.57 - 1.11 01/10/2022 [facility] mg/dL 5:50 PM CDT LABORATORY-CENT RAL LABORATORY eGFR >90 >90 01/10/2022 [facility] mL/min/1.73 5:50 PM CDT LABORATORY-CENT m2 RAL LABORATORY Comment: As of 2021, eGFR is calcu lated by the CKD-EPI creatinine equation without race adjustment. eGFR can be inf luenced by muscle mass, exercise, and diet. The reported eGFR is an estimation only and is only applicable if the renal function is stable. Specimen Anatomical Collection Method / Collection Time Recei lionel Time (Source) Location / Volume Laterality Blood BLOOD SPECIMEN / Venipuncture / 01/10/2022 10:00 01/10 Unknown Unknown AM CDT 10:04 AM CDT Julita Skelton MD CHEMISTRY Performing Organization Address City/[facility]/ZIP Code Phon e Number [facility] [address] [place], [place] [address] [address] LABORATORY-CENTRAL 2000 LABORATORY ALT (SGPT) (01/10/2022 10:00 AM CDT) athologist Signature ALT (SGPT) 8 8 - 45 IU/L 01/10/2022 [facility] 5:52 PM CDT LABORATORY-CENT [facility] LABORATORY Specimen Anatomical Collection Method / Collection Time Recei lionel Time (Source) Location / Volume Laterality Blood BLOOD SPECIMEN / Venipuncture / 01/10/2022 10:00 01/10 Unknown Unknown AM CDT 10:04 AM CDT Julita Skelton MD CHEMISTRY Performing Organization Address City/State/ZIP Code Phon e Number [email or web address] [address] [place] [address] LABORATORY-CENTRAL 2000 LABORATORY AST (SGOT) (01/10/2022 10:00 AM CDT) athologist Signature AST (SGOT) 13 2 - 40 IU/L 01/10/2022 [facility] 5:52 PM CDT LABORATORY-CENT [facility] LABORATORY Specimen Anatomical Collection Method / Collection Time Recei lionel Time (Source) Location / Volume Laterality Blood BLOOD SPECIMEN / Venipuncture / 01/10/2022 10:00 01/10 Unknown Unknown AM CDT 10:04 AM CDT Julita Skelton MD CHEMISTRY Performing Organization Address City/State/ZIP Code Phon e Number [email or web address] [address] [place] [address] LABORATORY-CENTRAL 2000 LABORATORY from Last 3 Months Insurance Payer Benefit Plan / Subscriber ID Effective Dates Phone Addre ss Type Group [employer] MVA PROGRESSIVE [id number] 2019-Prese [address] [place] [address] BLUE CROSS BLUE CROSS OF [id number] 2020-Prese [id number] 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
[2022-02-24] MEDS: MORPHINE 4 MG/ML INJ IVP (02:22)
[2022-02-24 02:26] LABS: Basophils Percent Auto 0.2 % (0.0-3.0); Eosinophils Percent Auto 0.9 % (0.0-7.0); Hematocrit 39.6 % (33.0-51.0); Hemoglobin* 13.4 gm/dL (12.0-16.0); Immature Granulocytes Abs Auto 0.04 K/uL (0.00-0.30); Lymphocytes Percent Auto 18.5 % (20-44); Mean Corpuscular HGB Conc 34 gm/dL (32-36); Mean Corpuscular Hemoglobin 29 pg (26-34); Mean Corpuscular Volume 85 fL (80-100); Neutrophils Percent Auto 69.2 % (42.0-72.0); Platelet Count* 360 K/uL (140-440); RDW Coefficient of Variation % 12.7 % (11.5-15.5); Red Blood Count 4.64 m/uL (4.00-5.20); White Blood Count* 17.05 K/uL (4.50-11.00)
[2022-02-24 02:30] LABS: Slide Review Reflex No
[2022-02-24 02:35] LABS: Appearance Urine Clear (Clear); Bilirubin Urine 1+ (Negative); Blood Urine Negative (Negative); Color Urine Yellow (Yellow); Glucose Urine Negative (Negative); Ketones Urine Negative (Negative); Leukocyte Esterase Urine 1+ (Negative); Nitrite Urine Negative (Negative); Protein Urine 2+ (Negative); Urobilinogen Urine >=8.0 (0.2-1.0); pH Urine 7.5 (5.0-8.5)
[2022-02-24 02:37] LABS: Bacteria Urine Moderate; Squamous Epithelial Cell Urine Moderate (None-Few); WBC Urine 25-50 (0-5)
[2022-02-24 02:38] LABS: Amorphous Sediment Urine Moderate; Chloride* 107 mmol/L (96-114); Potassium* 4.3 mmol/L (3.6-5.1); Sodium* 137 mmol/L (135-149)
--- NOTE | 2022-02-24 02:39 | ED.GENADULT ---
HPI - General Adult General Date Seen: 02/24/22 Chief complaint: Chest Pain Stated complaint: 34wk , chest pain Time Seen by Provider: 02/24/22 01:51 History of Present Illness HPI narrative: Patient is a 21-year-old, , who presents with epigastric pain, nausea and vomiting which started at about 11:00 p.m.. She comes into the ER at around 2:00 a.m.. She tells me that pain was initially somewhat mild to moderate, but she was unable to sleep so she took a shower which helped a little bit. However, pain became progressively worse to the point that it is now severe. She says that she had pain somewhat like this about a week ago, was seen in the center and they thought it was probably acid reflux. She was started on an acid medication and has felt okay until tonight. She says the pain is worse when she lays back, she feels somewhat better sitting up. She has had 2 episodes of vomiting, 1 after arrival here. She has not had any diarrhea. She denies any urinary symptoms or fevers. She presented saying was chest pain but it is really epigastric, slightly to the left of the epigastrium. She does not have right upper quadrant pain. She denies any lower abdominal pain, has not had any vaginal bleeding. Has not had any trauma. She is at 34+ 4 weeks by dates. She has been managed at [facility], says that she has not had any complications to this point, blood pressures by her report have been normal. Related Data Home Medications Medication Instructions Recorded Confirmed aspirin 81 mg chewable tablet 81 mg PO DAILY 02/15/22 02/24/22 multivitamin no.36-folate 1 tab PO DAILY 02/15/22 02/24/22 combination no.6 1 mg chewable tablet (Prenate Chewable) ondansetron 4 mg disintegrating 4 mg translingual Q6H PRN 02/15/22 02/24/22 tablet famotidine 20 mg tablet 20 mg PO DAILY 02/24/22 02/24/22 Allergies Allergy/AdvReac Type Severity Reaction Status Date / Time No Known Drug Allergies Allergy Verified 02/24/22 02:01 Review of Systems Status of ROS: Reports: 10 or more systems reviewed and unremarkable except as noted in History and below PFSH PFS Social History Smoking Status: Former smoker Do you use any of these nicotine containing products: None Second hand tobacco smoke exposure: No How often do you have a drink containing alcohol: never How often do you have six or more drinks on one occasion: Never AUDIT-C Alcohol total score: 0 Non-prescribed substance use: denies use Exam Narrative: Exam Narrative: Vital signs as noted above. In general, an alert, nontoxic young woman, she looks uncomfortable. Head: Normocephalic, atraumatic. Eyes: Pupils are equal reactive. Extraocular movements are full. Conjunctivae are normal. ENT: Mucous membranes are moist. Throat is normal. Neck: Supple without lymphadenopathy. Heart: Regular rate and rhythm. No murmur or rub. Lungs: Clear bilaterally. No increased work of breathing, crackles or wheezes. Abdomen: Gravid, epigastric and left upper quadrant tenderness without rebound guarding or rigidity. No right upper quadrant tenderness. Some CVA tenderness on the left. Extremities: Well perfused. Trace edema in bilateral ankles and feet. No calf tenderness. Pulses intact. Neurologic: Patient is alert and oriented to person and place. Speech is fluent. Face is symmetric. Moves all extremities equally. Affect: Normal. Skin: Warm and dry. Well perfused. Const: Vital Signs, click to edit/add: Vital Signs - 24 hr 02/24/22 01:51 02/24/22 02:29 02/24/22 02:31 Temperature 98.8 F Pulse Rate Pulse Rate [Right Pulse Oximeter] 105 H 91 Respiratory Rate 18 18 Blood Pressure Blood Pressure [Ri ght Upper Arm] 145/89 H 135/89 Pulse Oximetry 99 99 96 Oxygen Delivery Me thod Room Air Room Air 02/24/22 02:33 02/24/22 02:47 Temperature Pulse Rate 108 H 90 Pulse Rate [Right Pulse Oximeter] Respiratory Rate Blood Pressure 132/96 H 141/99 H Blood Pressure [Ri ght Upper Arm] Pulse Oximetry 97 96 Oxygen Delivery Me thod Documenting provider has reviewed patient's vital signs: yes Course Course Hospital Course: Following initial evaluation, we gave her Zofran 0 DT. Labs were drawn an IV was placed. I did try giving her GI cocktail, but she vomited that back up. We then gave her initially 4 mg of morphine, and when that did not help, I gave her 0.5 mg of Dilaudid. She was more comfortable thereafter, but blood pressure remained elevated in the 140/100 range. Diagnostic considerations included gastroesophageal reflux, peptic ulcer disease, pancreatitis, cholecystitis, biliary colic, preeclampsia. Labs were drawn and a urine sample obtained. Urinalysis showed 2+ protein but also showed 25-50 white blood cells. White blood cell count was elevated at 17,000 thousand although I would note that it was 15,000 when checked last week. Platelets were normal. Metabolic panel was entirely within normal limits. LFTs however were elevated with an AST of 154 and an ALT of 78, alk-phos of 195. Lipase was normal. I spoke with Dr. Logan Tijerina who recommended transfer to the center for management of preeclampsia and likely transfer given that the patient is under 35 weeks. She recommended against antihypertensives given that the blood pressures under 160 systolic. At the time of leaving the emergency department, pain was well controlled and patient was comfortable. No new complaints. I explained the plan going forward and she is understandably somewhat distraught about the change in plans, at this time she is here by herself, was calling family for support. Vital Signs Vital signs: Initial Vital Signs Temperature 98.8 F 02/24/22 01:51 Temperature Source Temporal Artery Scan 02/24/22 01:51 Pulse Rate 105 H 02/24/22 01:51 Respiratory Rate 18 02/24/22 01:51 Blood Pressure 145/89 H 02/24/22 01:51 Blood Pressure Mean 107 02/24/22 01:51 Blood Pressure Position Sitting 02/24/22 01:51 Pulse Oximetry 99 02/24/22 01:51 Oxygen Delivery Method 02/24/22 01:51 Vital Signs Temperature 98.8 F 02/24/22 01:51 Pulse Rate 105 H 02/24/22 01:51 Respiratory Rate 18 02/24/22 01:51 Blood Pressure 145/89 H 02/24/22 01:51 Pulse Oximetry 99 02/24/22 01:51 Oxygen Delivery Method 02/24/22 01:51 Temperature 98.8 F 02/24/22 01:51 Pulse Rate 90 02/24/22 02:47 Respiratory Rate 18 02/24/22 02:29 Blood Pressure 141/99 H 02/24/22 02:47 Pulse Oximetry 96 02/24/22 02:47 Oxygen Delivery Method 02/24/22 02:29 Medical Decision Making Lab Data Labs: Lab Results 02/24/22 02/24/22 02/24/22 Range/Units 02:08 02:08 02:08 WBC 17.05 H (4.50-11.00) K/uL RBC 4.64 (4.00-5.20) m/uL Hgb 13.4 (12.0-16.0) gm/dL Hct 39.6 (33.0-51.0) % MCV 85 (80-100) fL MCH 29 (26-34) pg MCHC 34 (32-36) gm/dL RDW Coeff of Farhan 12.7 (11.5-15.5) % Plt Count 360 (140-440) K/uL Neut % (Auto) 69.2 (42.0-72.0) % Lymph % (Auto) 18.5 L (20-44) % Alcorn % (Auto) 11.0 (0.0-11.0) % Eos % (Auto) 0.9 (0.0-7.0) % Baso % (Auto) 0.2 (0.0-3.0) % Neut # (Auto) 11.80 H (1.7-7.0) K/uL Lymph # (Auto) 3.20 H (0.90-2.90) K/uL Alcorn # (Auto) 1.90 H (0.00-0.90) K/UL Eos # (Auto) 0.20 (0.00-0.50) K/uL Baso # (Auto) 0.00 (0.00-0.30) K/uL Abs Immat Gran (auto) 0.04 (0.00-0.30) K/uL Sodium 137 (135-149) mmol/L Potassium 4.3 (3.6-5.1) mmol/L Chloride 107 (96-114) mmol/L Carbon Dioxide 20 (20-32) mmol/L BUN 11 (5-24) mg/dL Creatinine 0.7 (0.6-1.2) mg/dL Estimated Creat Clear 116.32 Estimated GFR 128 ml/min Glucose 106 (60-115) mg/dL Calcium 9.2 (8.7-10.8) mg/dL Total Bilirubin (0.1-1.5) mg/dL Direct Bilirubin (0.0-0.5) mg/dL AST (12-35) U/L ALT (4-35) U/L Alkaline Phosphatase (40-150) U/L Total Protein (6.0-8.3) g/dL Albumin (3.3-5.0) g/dL Lipase (23-300) U/L Urine Color Yellow (Yellow) Urine Appearance Clear (Clear) Urine pH 7.5 (5.0-8.5) Ur Specific Quinton 1.020 (1.000-1.030) Urine Protein 2+ A (Negative) Urine Glucose (UA) Negative (Negative) Urine Ketones Negative (Negative) Urine Blood Negative (Negative) Urine Nitrite Negative (Negative) Urine Bilirubin 1+ A (Negative) Urine Urobilinogen >=8.0 (0.2-1.0) Ur Leukocyte Esterase 1+ A (Negative) Urine RBC 2-5 A (0-2) Urine WBC 25-50 A (0-5) Ur Squamous Epith Cells Moderate A (None-Few) Amorphous Sediment Moderate A (None) Urine Bacteria Moderate A (None) 02/24/22 Range/Units 02:08 WBC (4.50-11.00) K/uL RBC (4.00-5.20) m/uL Hgb (12.0-16.0) gm/dL Hct (33.0-51.0) % MCV (80-100) fL MCH (26-34) pg MCHC (32-36) gm/dL RDW Coeff of Farhan (11.5-15.5) % Plt Count (140-440) K/uL Neut % (Auto) (42.0-72.0) % Lymph % (Auto) (20-44) % Alcorn % (Auto) (0.0-11.0) % Eos % (Auto) (0.0-7.0) % Baso % (Auto) (0.0-3.0) % Neut # (Auto) (1.7-7.0) K/uL Lymph # (Auto) (0.90-2.90) K/uL Alcorn # (Auto) (0.00-0.90) K/UL Eos # (Auto) (0.00-0.50) K/uL Baso # (Auto) (0.00-0.30) K/uL Abs Immat Gran (auto) (0.00-0.30) K/uL Sodium (135-149) mmol/L Potassium (3.6-5.1) mmol/L Chloride (96-114) mmol/L Carbon Dioxide (20-32) mmol/L BUN (5-24) mg/dL Creatinine (0.6-1.2) mg/dL Estimated Creat Clear Estimated GFR ml/min Glucose (60-115) mg/dL Calcium (8.7-10.8) mg/dL Total Bilirubin 0.8 (0.1-1.5) mg/dL Direct Bilirubin 0.6 H (0.0-0.5) mg/dL AST 154 H (12-35) U/L ALT 78 H (4-35) U/L Alkaline Phosphatase 195 H (40-150) U/L Total Protein 6.5 (6.0-8.3) g/dL Albumin 3.8 (3.3-5.0) g/dL Lipase 114 (23-300) U/L Urine Color (Yellow) Urine Appearance (Clear) Urine pH (5.0-8.5) Ur Specific Quinton (1.000-1.030) Urine Protein (Negative) Urine Glucose (UA) (Negative) Urine Ketones (Negative) Urine Blood (Negative) Urine Nitrite (Negative) Urine Bilirubin (Negative) Urine Urobilinogen (0.2-1.0) Ur Leukocyte Esterase (Negative) Urine RBC (0-2) Urine WBC (0-5) Ur Squamous Epith Cells (None-Few) Amorphous Sediment (None) Urine Bacteria (None) Discharge Plan Discharge Prescriptions: No Action ondansetron 4 mg tablet,disintegrating 4 mg translingual Q6H PRN Label Comments: DISSOLVE 1 TABLET ON THE TONGUE EVERY 6 HOURS NEEDED Prenate Chewable 1 mg tablet,chewable 1 tab PO DAILY aspirin 81 mg tablet,chewable 81 mg PO DAILY famotidine 20 mg tablet 20 mg PO DAILY Follow Up/Referrals: Julita Skelton MD [Primary Care Provider] -
[2022-02-24 02:40] LABS: Creatinine* 0.7 mg/dL (0.6-1.2); Est. Creatinine Clearance* 116.32; Estimated Glomerular Filt Rate 128 ml/min
[2022-02-24 02:41] LABS: Blood Urea Nitrogen* 11 mg/dL (5-24); Calcium* 9.2 mg/dL (8.7-10.8); Carbon Dioxide* 20 mmol/L (20-32); Glucose* 106 mg/dL (60-115)
[2022-02-24] MEDS: HYDROmorphone 0.5 mg/0.5 ml inj IVP (02:42)
[2022-02-24 02:49] LABS: Albumin* 3.8 g/dL (3.3-5.0)
[2022-02-24 02:52] LABS: Alanine Aminotransferase* 78 U/L (4-35); Alkaline Phosphatase* 195 U/L (40-150); Aspartate Amino Transferase* 154 U/L (12-35); Bilirubin Direct* 0.6 mg/dL (0.0-0.5); Bilirubin Total* 0.8 mg/dL (0.1-1.5); Lipase* 114 U/L (23-300); Total Protein* 6.5 g/dL (6.0-8.3)
--- NOTE | 2022-02-24 03:05 | ED.NURSE ---
pt. transferred to OB via wheelchair for further monitoring.
--- OUTSIDE RECORDS SUMMARY | 2022-02-24 03:10 | XMS_ITS | Clinical Summary ---
:2000 Author Organization [employer] [place] [address] Care Team Providers Name Role Phone Julita [...] MD .................. .. 02/21/2022 10:25 AM CC: [facility] 02/15/2022 - 33w2d - Julita Skelton MD Patient is here for routine pren atal care at 33w2d Concerns: Was at labor and delivery last night for abdominal pain. Had epigastric pain and pain across the upper abdomen. Had pain that worsened with lying down. Lasted for 2-3 hours. [place] like someone was pushing on upper abdomen. [...] MD .................. .. 02/15/2022 10:22 AM CC: [facility] 02/07/2022 - 32w1d - Julita Skelton MD [...] MD .................. .. 02/07/2022 10:22 AM CC: [facility] 01/26/2022 - 30w3d - Julita Skelton MD [...] vari, accels to 1 65. No decels [place]: No contractions. Will do growth ultrasound at [...] MD .................. .. 01/26/2022 1:31 PM CC: [facility] 01/10/2022 - 28w1d - Julita Skelton [...] MD .................. .. 01/10/2022 9:19 AM CC: [facility] 12/08/2021 - 23w3d - Julita Skelton MD [...] MD .................. .. 12/08/2021 11:19 AM CC: [facility] 11/08/2021 - w1d - Julita Skelton MD [...] for dinner meal. Last night went to [id number], took a couple bites. No nausea, no [...] MD .................. .. 11/08/2021 9:02 AM CC: [facility] 10/19/2021 - 16w2d - Julita Skelton MD [...] MD .................. .. 10/19/2021 10:55 AM CC: [facility] 09/21/2021 - 12w2d - Julita Skelton MD Clinic Note: First OB Visit 09/21/2021 Va Tan is a 21 y.o. wit h Estimated Date of Delivery: 04/03/22, here today for a first visit. No significant concerns. Nausea and vomi ting is ok. Feels tired but otherwise ok. 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 /Father of baby: Carlo De Dios [...] concerns. Julita Skelton MD .................... 4:19 PM [facility] [phone] CC: [facility] 08/23/2021 - 8w1d - [...] Diabetes, cancer, asthma. Tolerating vitamin. Works at [employer] MEDICAL HISTORY Medical, surgical, family, and social [...] URINALYSIS W REFLEX MICROSCOPIC IF POSIT NORMAN [24429.2] Result Value Ref Range COLOR Yellow Yellow [...] Plan: 1. Dating ultrasound today. KARISHMA by [employer] jonathan is 04/03 at [id number] 2. Routine OB labs ordered including typ [...] to call the office or log into [employer] with any questions or concerns. Julita Skelton [...] Encounter Julita Skelton MD [address] [place], [place] [address] (Wo rk) Health Maintenance [...] of2 resultswithin the time period is included. [facility] gist Method Time Signature RBC 0-2 0-2, None 02/15/2022 [facility] Seen /HPF 10:54 AM CDT [facility] WBC 0-2 0-2, 3-5, 02/15/2022 [facility] None Seen 10:54 AM CDT [place] /[facility]INIC BACTERIA Few None 02/15/2022 [facility] Seen, 10:54 AM CDT [place] Rare, Few CLINIC Bacteria/ HPF EPITHELIAL Moderate (A) None 02/15/2022 [facility] CELLS Seen, Few 10:54 AM CDT [place] Epi/HPF CLINIC Mucus Present 02/15/2022 [facility] 10:54 AM CDT [facility] Specimen Anatomical Collection Method Collection Time Receive d Time (Source) Location / / Volume Laterality Urine URINE SPECIMEN / Non-Blood / 02/15/2022 10:41 022 Unknown Unknown AM CDT 10:42 AM CDT Julita Skelton MD URINE Performing Organization Address City/State/ZIP Code Phon e Number [facility] [address] [place] [address] PROTEIN/CREAT RATIO,URINE (02/15/2022 10:41 AM CDT) P athologist Signature PROTEIN 13 <=14 mg/dL 02/15/2022 [facility] QUANT,RAND 8:33 PM CDT LABORATORY-CENT URINE RAL LABORATORY CREAT,RANDOM 91.5 mg/dL 02/15/2022 [facility] URINE 8:33 PM CDT LABORATORY-CENT RAL LABORATORY PROT/CREAT 0.1 <0.2 02/15/2022 [facility] RATIO,UR 8:33 PM CDT LABORATORY-CENT RAL LABORATORY Specimen Anatomical Collection Method Collection Time Receive d Time (Source) Location / / Volume Laterality Urine URINE SPECIMEN / Non-Blood / 02/15/2022 10:41 022 Unknown Unknown AM CDT 10:42 AM CDT Julita Skelton MD URINE Performing Organization Address City/State/ZIP Code Phon e Number [facility] [address] [place] [address] LABORATORY-CENTRAL 1999 LABORATORY (ABNORMAL) UA W/ SEDIMENT EXAM REFLEXED PER CRITERIA (02/15/2022 10:41 AM CDT) Only the most recent of2 resultswithin the time period is included. [facility] Method Time Signature COLOR Yellow Yellow Color 02/15/2022 [facility] 10:54 AM [facility] CLARITY Slightly Clear 02/15/2022 [facility] Cloudy (A) Clarity 10:54 AM [facility] SPECIFIC 1.020 1.010, 02/15/2022 [facility] GRAVITY,URINE 1.015, 10:54 AM [place] 1.020, 1.025 [facility] PH,URINE 7.0 6.0, 7.0, 02/15/2022 [facility] 8.0, 5.5, 10:54 AM [place] 6.5, 7.5, T CLINIC 8.5 UROBILINOGEN, Normal Normal EU/dl 02/15/2022 [facility] QUALITATIVE 10:54 AM [facility] PROTEIN, Negative Negative 02/15/2022 [facility] URINE mg/dL 10:54 AM [facility] GLUCOSE, Negative Negative 02/15/2022 [facility] URINE mg/dL 10:54 AM [facility] KETONES,URINE Negative Negative 02/15/2022 [facility] mg/dL 10:54 AM [facility] BILIRUBIN,URI Negative Negative 02/15/2022 [facility] NE 10:54 AM [facility] OCCULT Negative Negative 02/15/2022 [facility] BLOOD,URINE 10:54 AM [facility] NITRITE Negative Negative 02/15/2022 [facility] 10:54 AM [facility] LEUKOCYTE Negative Negative 02/15/2022 [facility] ESTERASE 10:54 AM [facility] Specimen Anatomical Collection Method Collection Time Receive d Time (Source) Location / / Volume Laterality Urine URINE SPECIMEN / Non-Blood / 02/15/2022 10:41 022 Unknown Unknown AM CDT 10:42 AM CDT Julita Skelton MD URINE Performing Organization Address City/State/ZIP Code Phon e Number [facility] [address] [place] [address] URINE CULTURE (01/26/2022 2:58 PM CDT) [facility] Method Time Signature CULTURE 10-50,000 CFU/mL 01/28/2022 [facility] H of multiple 6:58 PM CDT LABORATORY-MALISSA organisms, TRAL probable LABORATORY contaminants Specimen Anatomical Collection Method Collection Time Receive d Time (Source) Location / / Volume Laterality Urine URINE SPECIMEN / Non-Blood / 01/26/2022 2:58 PM 01/26 2:58 Unknown Unknown CDT PM CDT Julita Skelton MD MICROBIOLOGY Performing Organization Address City/State/ZIP Code Phon e Number [facility] [address] [place] [address] LABORATORY-CENTRAL 2000 LABORATORY (ABNORMAL) CREATININE,ISTAT (01/18/2022 4:06 PM CDT) Analysis Performed At Patho logist Time Signature CREATININE, 0.50 (L) 0.57 - 01/18/2022 [facility] POCT 1.11 mg/dL 4:09 PM CDT [facility] Comment: Caution: Patients taking Hydrox yurea have falsely increased iStat Creatinine results. Verify creatinine results order ing a Creatinine (02158.2) eGFR >90 >90 mL/min/1.73m2 01/18/2022 4:09 PM CDT [facility] Comment: As of 2021, eGFR is [...] Organization Address City/State/ZIP Code Phon e Number [facility] [address] [place] [address] US OB BIOPHYSICAL PROFILE SINGLE WO NST [...] s are released immediately into your [facility] medical record. ??You may view this report [...] Organization Address City/State/ZIP Code Phon e Number [facility] [address] [place] [address] LABORATORY-CENTRAL 2000 LABORATORY ANTIBODY SCREEN (01/10/2022 10:00 AM CDT) [facility] Method Time Signature ANTIBODY Negative Negative 01/10/2022 [facility] SCREEN 5:31 PM CDT LAB-CENTRAL LAB [...] Organization Address City/State/ZIP Code Phon e Number [employer] LAB-CENTRAL LAB [address] [place] [phone] BLOOD BANK HEMOGLOBIN (01/10/2022 10:00 AM CDT) P athologist Signature HEMOGLOBIN 12.5 12.0 - 16.0 01/10/2022 [facility] g/dL 10:07 AM CDT [facility] MCV 87 80 - 100 fL 01/10/2022 [facility] 10:07 AM CDT [facility] Specimen Anatomical Collection Method / Collection Time Recei lionel Time (Source) Location / Volume Laterality Blood BLOOD SPECIMEN / Venipuncture / 01/10/2022 10:00 01/10 Unknown Unknown AM CDT 10:04 AM CDT Julita Skelton MD HEMATOLOGY Performing Organization Address City/[facility]/ZIP Code Phon e Number [facility] [address] [place] [address] GLUCOSE,GESTATIONAL (01/10/2022 10:00 AM CDT) athologist Signature GLUCOSE,GESTAT 93 65 - 140 01/10/2022 [facility] IONAL mg/dL 10:12 AM CDT [facility] Specimen Anatomical Collection Method / Collection Time Recei lionel Time (Source) Location / Volume Laterality Blood BLOOD SPECIMEN / Venipuncture / 01/10/2022 10:00 01/10 Unknown Unknown AM CDT 10:04 AM CDT Julita Skelton MD CHEMISTRY Performing Organization Address [facility] Phon e Number [facility] [address] [place] [address] CREATININE (01/10/2022 10:00 AM CDT) athologist Signature [...] Julita Skelton MD CHEMISTRY Performing Organization Address City/[facility]/ZIP Code Phon e Number [facility] [address] [place], [place] [address] [address] LABORATORY-CENTRAL 2000 LABORATORY ALT (SGPT) (01/10/2022 10:00 AM CDT) athologist Signature ALT (SGPT) 8 8 - 45 IU/L 01/10/2022 [facility] 5:52 PM CDT LABORATORY-[facility] LABORATORY Specimen Anatomical Collection Method / Collection Time Recei lionel Time (Source) Location / Volume Laterality Blood BLOOD SPECIMEN / Venipuncture / 01/10/2022 10:00 01/10 Unknown Unknown AM CDT 10:04 AM CDT Julita Skleton MD CHEMISTRY Performing Organization Address City/State/ZIP Code Phon e Number [employer] [address] [place] [address] LABORATORY-CENTRAL 2000 LABORATORY AST (SGOT) (01/10/2022 10:00 AM CDT) athologist Signature AST (SGOT) 13 2 - 40 IU/L 01/10/2022 [facility] 5:52 PM CDT LABORATORY-[facility] LABORATORY Specimen Anatomical Collection Method / Collection Time Recei lionel Time (Source) Location / Volume Laterality Blood BLOOD SPECIMEN / Venipuncture / 01/10/2022 10:00 01/10 Unknown Unknown AM CDT 10:04 AM CDT Julita Skelton MD CHEMISTRY Performing Organization Address City/State/ZIP Code Phon e Number [employer] [address] [place] [address] LABORATORY-CENTRAL 2000 LABORATORY from Last 3 Months Insurance Payer Benefit Plan / Subscriber ID Effective Dates Phone Addre ss Type Group [employer]GRESSIVE [id number] 2019-Prese [address] [place] [address] BLUE CROSS BLUE CROSS OF [id number] 2020-Prese [address] [facility] [place] [address] BLUE CROSS BLUE CROSS OF [id number] 2018-Presen [id number] [facility] 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
[2022-02-24 03:24] LABS: Total Protein Urine 57 mg/dL
[2022-02-24 03:26] LABS: Creatinine Urine 159.7 mg/dL
[2022-02-24] MEDS: BETAMETHASONE SOD PHOS/ACETATE 6 MG/ML ML 12 MG IM (03:32)
[2022-02-24] MEDS: LACTATED RINGERS 1000 ML 1,000 ML 75 ML IV (03:33)
--- NOTE | 2022-02-24 04:49 | PM.OBHPAP1 ---
OB - H&P; HPI Antepartum History of Present Illness Date Seen: 02/24/22 Chief complaint: 34wk , chest pain Narrative: Va Tan is a 21 year old female who presented to the ER with severe upper abdominal pain that started at 10:00 on 02/23/22. In ER her BP was noted to be elevated and labs were done. She was noted to have elevated AST 154, ALT 78. She was started on Magnesium. She has h/o of covid at 29 wks. She chose not to take Paxlovid and was started on baby ASA. She has h/o of abdominal pain approx 2 wks ago. She had resolution by the time she presented to hospital. R/O labs and bp at that time were normal. She has taken Pepcid as needed. Tonight, when presenting to ER her pain was epigastric and severe. She was given Morphine and Dilaudid in ER for the pain. She has had vomiting. She has noted some LE swelling recently. Currently she denies LOPEZ. She was able to sleep after the pain started but was awoke from sleep with pain. History of Present Dating criteria: other (Early [place]) care: good care complications: infection Infection details: other (None) complications comment: Covid infection at 29 wks Labs Blood type: A (-) negative Rubella: immune RPR/VDLR: nonreactive GBS status: unknown HBsAG: negative Review of Systems Narrative: Positive for Abdominal pain, vomiting and LE swelling. She has no LOPEZ. See HPI otherwise no other symptoms. Abdominal pain resolved prior to transfer Meds Home Medications and Allergies Home Medications Medication Instructions Recorded Confirmed Type aspirin 81 mg chewable tablet 81 mg PO DAILY 02/15/22 02/24/22 History multivitamin no.36-folate 1 tab PO DAILY 02/15/22 02/24/22 History combination no.6 1 mg chewable tablet (Prenate Chewable) ondansetron 4 mg disintegrating 4 mg translingual Q6H PRN 02/15/22 02/24/22 History tablet famotidine 20 mg tablet 20 mg PO DAILY 02/24/22 02/24/22 History Allergies Allergy/AdvReac Type Severity Reaction Status Date / Time No Known Drug Allergies Allergy Verified 02/24/22 02:01 OB - H&P: Exam Physical Exam: Vital signs: Temp Pulse Resp BP Pulse Ox O2 Del Method 97.8 F 87 18 138/89 99 02/24/22 03:15 02/24/22 03:14 02/24/22 03:15 02/24/22 03:14 02/24/22 03:15 02/24/22 03:01 Narrative: HEENT: Eyes: no scleral icterus redness Ears: normal external ears Nose: no drainagel Heart RRR no murmur Lungs: clear Abdomen: pos bowel sounds. She has epigastric tenderness. No RUQ pain to palpation. HSM : gravid non tender uterus Skin: pink and warm Ext: non pitting edema Neurologic: 1 beat clonus on rt slightly less prominent on lt Mental status: appropriate OB - Results Labs Labs: Short CBC 02/24/22 Range/Units 02:08 WBC 17.05 H (4.50-11.00) K/uL Hgb 13.4 (12.0-16.0) gm/dL Hct 39.6 (33.0-51.0) % Plt Count 360 (140-440) K/uL BMP 02/24/22 02:08 Sodium 137 Potassium 4.3 Chloride 107 Carbon Dioxide 20 BUN 11 Creatinine 0.7 Glucose 106 Calcium 9.2 Liver Function 02/24/22 Range/Units 02:08 Total Bilirubin 0.8 (0.1-1.5) mg/dL Direct Bilirubin 0.6 H (0.0-0.5) mg/dL AST 154 H (12-35) U/L ALT 78 H (4-35) U/L Alkaline Phosphatase 195 H (40-150) U/L Albumin 3.8 (3.3-5.0) g/dL Urine 02/24/22 Range/Units 02:08 Urine Color Yellow (Yellow) Urine Appearance Clear (Clear) Urine pH 7.5 (5.0-8.5) Ur Specific [place] 1.020 (1.000-1.030) Urine Protein 2+ A (Negative) Urine Glucose (UA) Negative (Negative) OB - A/P Antepartum Assessment and Plan (1) Pre-eclampsia: Status: Acute (2) : Status: Acute (3) History of COVID-19: Status: Acute Plan 34.4 wk patient with Preeclampsia. She received first dose of Betamethasone at 3:32 and Mag 4 mg loading dose at 0328 followed by maintenance dosing. Discussed case with Dr Krishna who has accepted transfer of the patient to [facility]. Since discussion with Dr Krishna , Patient reports her abdominal pain has now resolved.
--- NOTE | 2022-02-24 05:44 | PM.DST ---
Transfer Discharge Sum: Prov Provider Date Seen: 02/24/22 Primary care physician: Julita Skelton MD Admitting clinician: Kimberly Savage Attending physician on discharge: Kimberly Savage DS: Diagnosis Discharge Diagnosis (1) : Status: Acute (2) Pre-eclampsia: Status: Acute Transfer Discharge Sum: Med Medications Active and Home Medications: Home Medications aspirin 81 mg chewable tablet 81 mg PO DAILY 02/15/22 [History Confirmed 02/24/22] multivitamin no.36-folate combination no.6 1 mg chewable tablet (Prenate Chewable) 1 tab PO DAILY 02/15/22 [History Confirmed 02/24/22] ondansetron 4 mg disintegrating tablet 4 mg translingual Q6H PRN 02/15/22 [History Confirmed 02/24/22] famotidine 20 mg tablet 20 mg PO DAILY 02/24/22 [History Confirmed 02/24/22] Active Medications Betamethasone Acet/Betameth SodPhos (Betamethasone Sod Phos/Acetate 6 Mg/Ml Ml) 12 mg IM Q24H [facility] Stop: 02/25/22 03:31 Last Admin: 02/24/22 03:32 Dose: 12 mg Lactated Ringer's (Lactated Ringers 1000 Ml) 1,000 mls @ 75 mls/hr IV .[id number] [facility] Last Admin: 02/24/22 03:33 Dose: 75 mls/hr Magnesium Sulfate (Magnesium Iv) 40 gm in 1,000 mls @ 50 mls/hr IVPB .Q20H [facility] Last Admin: 02/24/22 04:02 Dose: 2 gm/hr, 50 mls/hr Transfer Discharge Sum: Hosp Hospital Course Hospital course: Va Tan is a 21 year old female who presented to the ER with abdominal pain that started at 10:00 on 02/23/22. In ER her BP was noted to be elevated and labs were done. She was noted to have elevated AST 154, ALT 78. She was started on Magnesium. She has h/o of covid at 29 wks. She chose not to take Paxlovid and was started on baby ASA. She has h/o of abdominal pain approx 2 wks ago. She had resolution by the time she presented to hospital. R/O labs and bp at that time were normal. She has taken Pepcid as needed. Tonight, when presenting to ER her pain was epigastric and severe. She was given Morphine and Dilaudid in ER for the pain. She has noted some LE swelling recently. Currently she denies LOPEZ. She was able to sleep after the pain started but was awoke from sleep with pain. Since transer has been arranged she has had resolution of her abdominal pain Time Spent with Patient Time attestation: Total time spent providing and/or coordinating transfer services: Exam Narrative: Exam Narrative: HEENT: Eyes: no scleral icterus redness Ears: normal external ears Nose: no drainagel Heart RRR no murmur Lungs: clear Abdomen: pos bowel sounds. She has epigastric tenderness. No RUQ pain to palpation. HSM : gravid non tender uterus Skin: pink and warm Ext: non pitting edema Neurologic: 1 beat clonus on rt slightly less prominent on lt Mental status: appropriate Const: Vital Signs, click to edit/add: Vital Signs - 24 hr 02/24/22 01:51 02/24/22 02:29 02/24/22 02:31 Temperature 98.8 F Pulse Rate Pulse Rate [Right Pulse Oximeter] 105 H 91 Respiratory Rate 18 18 Blood Pressure Blood Pressure [Ri ght Upper Arm] 145/89 H 135/89 Pulse Oximetry 99 99 96 Oxygen Delivery Me thod Room Air Room Air 02/24/22 02:33 02/24/22 02:47 02/24/22 03:01 Temperature 98.8 F Pulse Rate 108 H 90 Pulse Rate [Right Pulse Oximeter] 91 Respiratory Rate 18 Blood Pressure 132/96 H 141/99 H Blood Pressure [Ri ght Upper Arm] 141/89 H Pulse Oximetry 97 96 96 Oxygen Delivery Me thod Room Air 02/24/22 03:14 02/24/22 03:15 02/24/22 03:15 Temperature 97.8 F Pulse Rate 87 Pulse Rate [Right Pulse Oximeter] Respiratory Rate 18 Blood Pressure 138/89 Blood Pressure [Ri ght Upper Arm] Pulse Oximetry 99 Oxygen Delivery Me thod 02/24/22 05:01 Temperature Pulse Rate 83 Pulse Rate [Right Pulse Oximeter] Respiratory Rate Blood Pressure 139/88 Blood Pressure [Ri ght Upper Arm] Pulse Oximetry Oxygen Delivery Me thod Discharge Plan Discharge Disposition: er Other Primary Care Provider: Julita Skelton Activity Restrictions/Additional Instructions: Patient verbalized understanding of reviewed discharge instructions. Discharge Medications: No Action ondansetron 4 mg tablet,disintegrating 4 mg translingual Q6H PRN Label Comments: DISSOLVE 1 TABLET ON THE TONGUE EVERY 6 HOURS NEEDED Prenate Chewable 1 mg tablet,chewable 1 tab PO DAILY aspirin 81 mg tablet,chewable 81 mg PO DAILY famotidine 20 mg tablet 20 mg PO DAILY [facility]
--- NOTE | 2022-02-24 06:39 | PC.OBNST ---
NST Note NST Note Start: 02/24/22 05:33 Freq: ONCE Status: Active Protocol: Document 02/24/22 05:35 GUICHO (Rec: 02/24/22 05:36 GUICHO [id number]) NST Note 1 Para (# of births) 0 EDC 04/03/22 Gestational Age In Weeks & Days 34 Weeks & 4 Days High Risk Factors High Blood Pressure - Gestational Patient Presented with Complaint(s) of Nausea and vomiting,Headache, Other If Pain, describe location midline epigastric pain Other Complaints pre-eclampsia diagnosis in ER, transferred to OB for tx and transfer to higher acuity facility Reactive Yes Appropriate for Gestational Age Yes THOM Murray RNC Date 02/24/22 Reactive Yes Appropriate for Gestational Age Yes THOM Taylor RN Date 02/24/22 OB NST charge Yes Complete NST Note via Write Note Yes The provider's electronic signature indicates the NST is reactive/appropriate for gestational age. *Note to provider: If an addendum is required, open the patient's chart and click on the note under the Nurse/Allied Health tab.
== END 2022-02-24 06:27 | disposition other institution (70) ==
LOC: ED 02:12 → OB OUT 03:08 → OB 03:09
PROVIDERS: Emergency Provider Emergency Medicine; PCP Family Medicine; Visit Provider Obstetrics & Gynecology
DX: O14.93 Unspecified pre-eclampsia, third trimester (principal); O21.2 Late vomiting of pregnancy; R07.9 Chest pain, unspecified; R10.13 Epigastric pain; Z86.16 Personal history of COVID-19; Z3A.34 34 weeks gestation of pregnancy
CPT/HCPCS: 36415; 59025; 80048; 80076; 81001; 82570; 83690; 84156; 85025; 87086; 94761; 96372; 96374; 96375; 96376; 99199; 99213; 99239; 99284; A9270; J0702; J1170; J2270; J3475; J7120

== ENCOUNTER 2022-02-24 06:20 | Outpatient (CLI) | payer BC, SELFPAY ==
--- OUTSIDE RECORDS SUMMARY | 2022-03-28 06:06 | XMS_ITS | Clinical Summary ---
:2000 Author Organization [employer] [place] [address] Care Team Providers Name Role Phone Julita Skelton MD Primary Care Provider Allergies Active Allergy Reactions Severity Noted Date Comments Blood-Group Specific Other - Describe In 02/24/2022 Patient has probable Substance Comment Field passive D anti body and a nonspecific a ntibody. Blood products may be delayed. Draw p atient 24 hours prior to transfusion. Fo r GRAVIDI testing, draw one red top and two [...] twice daily. Active Problems Problem Noted Date Symptomatic cholelithiasis 03/23/2022 Vaginal delivery 02/26/2022 Preeclampsia, severe, third trimester [...] Encounters Date Type Specialty Care Team Description 03/27/2022 Office Visit Patricia العلي [facility] eula Martinez MD 03/23/2022 Preop Visit Julita Skelton, Pre-Op E marcelo BROOKE (laparoscopice Cholecystectomy , Dr. العلي, [facility] 03/27/22) 03/23/2022 Travel 03/22/2022 Transcribe Orders Michelle العلي MD 03/22/2022 Telephone [facility] eula Martinez MD 03/21/2022 Telephone Julita Skelton MD 03/20/2022 Office Visit Severiano Consult (gallbl adder) MD Michelle 03/20/2022 Travel 03/15/2022 Nurse Triage Julita Skelton, Abdomina l Pain/problem 03/13/2022 Orders Only Scanner <No scans attac hed> 03/13/2022 Orders Only Scanner <No scans attac hed> 03/08/2022 Office Visit Julita Skelton, Blood Rafael marion MD 03/08/2022 Travel 03/03/2022 Office Visit Julita Skelton, Hospital F/U (03/01 MD discharge) 03/03/2022 Travel 03/02/2022 Telephone [facility] 02/26/2022 Anesthesia Event Deepthi Garcia MD 02/24/2022 - Hospital Encounter Hospitalist, [facility] [place] Rafael eeclampsia, severe, third trimester (Primary Dx); 03/01/2022 Ob Encounter for p ostpartum care of lactating mother Discharge Summary - Eduardo Hayes MD - 03/01/2022 7:52 AM CDT OB HOSPITALIST DISCHARGE [facility] ADMISSION DATE: 02/24/2022 DISCHARGE DATE: 03/01/2022 Primary OB Provider: Julita Skelton ([place]) Referring Provider: Julita Skelton ([place]) INFANT DELIVERY INFORMATION: Baby is a male Delivery [...] Provider during Hosp italization: on-nida or NIcu Infant Provider/Clinic after discharge - specify city or individual clinic name: [facility] Infants last name: Dawit feeding preference [facility] hospital stay: Exclusive /Breastmilk Circumcision preference for male : Yes Preference for Hepatitis B V accine for ?: Yes HOSPITAL COURSE: Va Tan is a 21 y.o. female, whose Estimated Date of Delivery: 04/03/22. The patient was transferred to [facility] secondary to preeclampsia with severe features, severe based on el evated LFTs. Discharged from [facility] in stable condition on day# 3. [...] pumping and planning to breastfeed the infant. Her milk is in. Physical Exam: Patient [...] need: 99 months (lifetime use) Associated Diagnoses: Amrita moreno for care of lactating mother labetaloL (TRANDATE) [...] appointment(s): Return to Clinic in 4-6 wee ks When to follow up: Other Co mment [...] of discharge. [facility]? For the vaginal of a baby. LABS: [...] 10 days, have you been in contact No / Unsure 03/23/2022 12:43 PM CDT with someone who was confirmed or suspected to have Coronavirus/COVID-19? Obstetrics History Para Term AB IAB SAB Ectopic Multiple Living Live Births 1 1 0 1 0 0 0 0 0 1 1 Date Outcome GA Total Labor/2nd/3rd Weight Sex Delivery Anes PTL Beth A 1 A5 Name Clin Labor 02/26 34w 44h 43h 45m/0h 2.11 kg M VAGINAL Epidu Aziza 8 9 ALDRI /2021 6d 35m 47m/0h 03m (4 lb JOHN ral ng CH ,BB n, 10.4 [facility] Yoselyn oz) DO Peg Complications: None Delivery Location: Hospital ([facility] [address] L&D TRIAGE) OB Episode Summary Episode Dates Estimated Date of Pregravid Weight TWG (As of ) Delivery 08/23/2021 - Present 04/03/2022 94.6 kg (208 lb 9.6 17.2 kg (37 lb 14.4 oz) (03/28/2022) oz) Date GA Fund Present FHR Mvmt BP Weight Edema Alb Glu Ket Dil/Eff/S ta 02/26/2022 34w6d Inpatient data not d isplayed here. See encounter summary. 02/26/2022 34w6d Inpatient data not d isplayed here. See encounter summary. 02/24/2022 34w6d Inpatient data not d isplayed here. See encounter summary. Progress Notes 03/08/2022 - 34wd - Julita Skelton MD Clinic Note - [...] MD .................. .. 03/08/2022 10:42 AM Family Medicine [facility] 03/03/2022 - 34w6d - Julita Skelton MD [...] alone Communication Method: Patient is active on [employer] and has been instructed that results/communications will be made via [employer] If a phone call is needed, the [...] Outpatient Provi arsh: Admission and discharge dates ([facility] on ly - last 30 days): 02/24/2022-03/01/2022 Recommendations for outpatient provider from [facility] discharges (past 30 days): No recommendations to [...] Center 03/08/2022 2:00 PM Julita Skelton MD [facility] 03/14/2022 7:55 AM [facility]ita Skelton MD 03/01/2022 - 34w6d - Kaela Segovia R N Problem: DISCHARGE PLANNING Goal: CLINICAL DC CRITERIA MET AND ALISSON EPSTEINY FOLLOW-UP INFORMATION IS AVAILABLE PRIOR TO DISCHARGE Note: Pt discharged home at 1300. Pt edu cated on blood pressure cuff use, BP parameters to notify MD and s/s preeclampsia. Pt given filled labetalol and knows to take medication every 8 hours. Discharge instructions and follow up appointments reviewed with and understood by pt. 03/01/2022 - 34w6clarke - Ignacia Valentine, RN Problem: SAFETY Goal: [...] at 1600 was 131/66 Dr.Hert key called junior copywriter and stated that she wanted pt Labetalol dose to be increased from 300 mg's to 400 mg's every 8 hours. Pt's BP have been 120's-130's/60-70's the st of the evening. Pt denies having [...] DO, 02/28/2022, 7 :42 AM 03/01/2022 - 34w6clarke - Janny Polk, RN Problem: HEMODYNAMIC STABILITY Goal: BLOOD PRESSURE WILL [...] the shift. 03/01/2022 - 34w6d - Daniella Meehan RNF [...] monitor. 03/01/2022 - 34w6d - Danelle Jc MForma tting of this note is different from the original. [facility] Progress Note. Patient [...] Integrat norman Medicine Practitioner 10:23 AM Ext #[id number] 03/01/2022 - 34w6d - Rhiannon Cowart cia, [...] report given. Action: Patient given orientation to [employer] m (nurse call system, room lights/thermostat/ menu/ordering meals). Learning materials given to patient. Patient/family informed about infant safety/security (see note in infant's chart). Plan of care w ent over with patient (pertinent safety issues--to call nurse if needing assistance out of bed re: post epidural/dizziness/pain); pain medication schedule placed on patient's Care Board. Response: Patient/family understands abo ve information and have no further questions at this time. STACY FREEDMAN R.N. 02/26/2022 11:28 AM 03/01/2022 - 34w6d - Khloe Bobby RNFor matting of this [...] who will assume all cares. 03/01/2022 - 34w6clarke - Khloe Bobby RNFor matting of this note might be different from the original. contacted to confirm [facility] lab orders. Orders received to draw [facility] labs. 03/01/2022 - 34w6d - Yoselyn Sifuentes R N of male [...] RN .................... 02/26/2022 6:53 AM 03/01/2022 - 34w6d - Yoselyn Sifuentes R N 2310: Bedside [...] 2:15 AM 03/01/2022 - 34w6d - Monico Llanes RN Problem: SAFETY Goal: CRITICAL LAB VALUES REPORTED TO [facility] Description: - Note lab results and info danica BROOKE of critical values 02/25/20222245 by Monico Llanes RN Note: At 2225 critical Magnesium level c alled to junior copywriter by lab at 6.5. Dr Castro called [...] Llanes RN Note: At 1915 lab called junior copywriter with a c ritical Magnesium level at [...] monitor applied. Patient reported contraction pain a 10/10. Magnesium Sulfate level re -drawn. Call-light within [...] Height: FHT: mod linda, +accels, no decels Lawtell:irregular CX: fingertip/high/anterior/med, Cook ca theter placement attempt [...] in labor Magnesium for seizure prophylaxis Yoselyn Castro DO 02/25/2022 8:41 PM 03/01/2022 - 34w6clarke - [...] SAFETY Goal: CRITICAL LAB VALUES REPORTED TO [facility] Description: - Note lab results and info rm of critical values Note: At 1915 lab called junior copywriter with a c ritical Magnesium level at [...] SAFETY Goal: CRITICAL LAB VALUES REPORTED TO [facility] Note: Report given [...] feeling more cramping than before. 03/01/2022 - 34w6d - Milana Guido, Cervidil removed. Cervix soft, posterior, closed/60/high P/ vaginal cytotec now, Cook when possib le. 03/01/2022 - 34w6d - Milana Guido son, OB Hospitalist Induction Note 34w5d SUBJECTIVE: Pt [...] .............. ...... 02/25/2022 10:00 AM 03/01/2022 - 34w6d - Gina Orozco RNF ormatting of this note might be different from the original. 0715: Report given to Brittany TOMAS. Safety checks completed. Cares relinquished. Gina Orozco RN .................... 7:18 AM 03/01/2022 - 34Gina Hernandez RNF ormatting of this note might be different from the original. 2237: Discussion with Dr. Hayes. Humaira ent requesting [...] still appropriate Note: 2026: Communication with Dr. Silvio braun regarding plan of care. Last dose of Cytotec was at 1815, cervix remained closed at that time. Werner 2. Orders received to place Cervidil Gina Orozco RN .................... 8:30 PM 03/01/2022 - 34benja - Gina Orozco RNF ormatting of this note might be different from the original. 1914: Report received from Allison Cedillo RN. Safety checks performed. Patient resting. Cares assumed. Gina Orozco RN .................... 7:24 PM 03/01/2022 - 34w6d - Carter, Allison L, RN Problem: SAFETY Goal: PATIENT WILL BE KNOWLEDGEABLE REGA RDING NEWLY ORDERED MEDS, INTENDED AND SIDE EFFECTS OF EACH Note: 1514 Bedside report received from Sylvester Zapien RN. Assumed care of patient. Bedside safety check completed. 1914 Verbal report given to Gina Peña RN, patient sleeping at this time. Relinquished care of patient. 03/01/2022 - 34w6d - Violeta Jeffers R N Problem: SAFETY Goal: PATIENT/FAMILY UNDERSTANDS LABOR/D ELIVERY PROCESS AND CARES INVOLVED. Description: - Instruct re-process of la bor and , medical plans for care. Outcome: Transitioning or discharged wit h plan in place* Note: Report given to incoming nurse Brendan Cortez.Care relinquished. Violeta Jeffers RN .................... 02/24/2022 3:19 PM 03/01/2022 - 34w6clarke - Violeta Jeffers R N Problem: PROGRESSION [...] h plan in place* Note: Transfer from [place] ED via am bulance for Upper gastric [...] RN .................... 02/24/2022 11:31 AM 03/01/2022 - 34w6d - Eduardo Hayes MD Patient was seen this morning by SENTHIL, vasyl scussed that she has a diagnosis of [...] MD .................. .. 02/21/2022 10:25 AM CC: [facility] 02/15/2022 - 33w2d - Julita Skelton MD Patient is here for routine pren atal care at 33w2d Concerns: Was at labor and delivery last night for abdominal pain. Had epigastric pain and pain across the upper abdomen. Had pain that worsened with lying down. Lasted for 2-3 hours. Manquin like someone was pushing on upper abdomen. [...] Yellow Color CLARITY Slightly Cloudy (A) Clear Setphenie ty SPECIFIC GRAVITY,URINE 1.020 1.010, 1.0 15, [...] MD .................. .. 02/15/2022 10:22 AM CC: [facility] 02/07/2022 - 32w1d - Julita Skelton [...] MD .................. .. 02/07/2022 10:22 AM CC: [facility] 01/26/2022 - 30w3d - Julita Skelton [...] vari, accels to 1 65. No decels Lawtell: No contractions. Will do growth ultrasound at [...] MD .................. .. 01/26/2022 1:31 PM CC: [facility] 01/10/2022 - 28w1d - Julita Skleton MD Patient is here for routine pren [...] MD .................. .. 01/10/2022 9:19 AM CC: [facility] 12/08/2021 - 233d - Julita Skelton MD Patient is here [...] MD .................. .. 12/08/2021 11:19 AM CC: [facility] 11/08/2021 - - Julita Skelton MD Patient is here [...] for dinner meal. Last night went to [employer], took a couple bites. No nausea, no [...] MD .................. .. 11/08/2021 9:02 AM CC: [facility] 10/19/2021 - 16w2d - Julita Skelton [...] MD .................. .. 10/19/2021 10:55 AM CC: [facility] 09/21/2021 - 12w2d Julita Ackerman MD Clinic Note: First OB Visit 09/21/2021 Va Tan is a 21 y.o. wit h Estimated Date of Delivery: 04/03/22, here today for a first visit. No significant concerns. Nausea and vomi ting is ok. Feels tired but otherwise ok. 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 /Father of baby: Carlo De Dios [...] concerns. Julita Skelton MD .................... 4:19 PM [facility] [phone] CC: [facility] 08/23/2021 - 8w1d - Costa, Julita Santizo MD Clinic Note: confirmation Va Tan is [...] Diabetes, cancer, asthma. Tolerating vitamin. Works at [employer] MEDICAL HISTORY Medical, surgical, family, and social [...] URINALYSIS W REFLEX MICROSCOPIC IF POSIT NORMAN [80907.2] Result Value Ref Range COLOR Yellow Yellow [...] Plan: 1. Dating ultrasound today. KARISHMA by ultra sound is 04/03 at [id number] 2. Routine OB labs ordered including typ [...] to call the office or [facility] into [facility] with any questions or concerns. Julita Skelton MD .................. .. 08/23/2021 9:41 AM Last Filed Vital Signs Vital Sign Reading Time Taken Comments Blood Pressure 119/80 03/23/2022 12:50 PM CDT Pulse 76 03/23/2022 12:59 PM CDT Temperature 36.7 ??C (98 ??F) 03/23/2022 12:50 PM CDT Respiratory Rate 16 03/01/2022 7:00 AM CDT Oxygen Saturation 96% 03/23/2022 12:50 PM CDT Inhaled Oxygen Concentration - - Weight 91.4 kg (201 lb 9.6 oz) 03/23/2022 12:50 PM CDT Height 167.3 cm (5' 5.87) 03/23/2022 12:50 PM CDT Body Mass Index 32.67 03/23/2022 12:50 PM CDT Plan of Treatment Upcoming Encounters Date Type Specialty Care Team Description 04/03/2022 Office Visit Jennifer العلي MD [phone] (Wo carmelita) 04/10/2022 Office Visit Jennifer العلي MD [phone] (Soco mae) Health Maintenance Due Date Last Done Comments Well Child Check for age 3-20 02/22/2008 02/21/2007 COVID-19 vaccine series (3 - 06/18/2021 04/23/2021, 021 Booster for Moderna series) Chlamydia for age 16-24 08/23/2022 08/23/2021, 03/02/2021, 03/25/2019, Additional history exists Depression screening for age 12+ 01/26/2023 01/26/2022, , 02/23/2021, Additional history exists BMI (ht and wt on same day) for 03/23/2023 03/23/2022, 1010/2021, age 18+ 03/03/2022, Additional history exists Tetanus booster 01/11/2032 01/10/2022, 08/28/2014 HPV series for age 9-26 Completed 09/11/2017, 08/28/2014 Meningococcal series for age 11-21 Completed 08/08/2018, 0 08/28/2014 Hepatitis C screening for age Completed 08/23/2021 18-79 Tdap Completed 01/10/2022, 08/28/2014 Influenza for age 9-49 Completed 02/07/2022, 02/23/2021, 05/13/2019, Additional history exists Procedures Procedure Name Priority Date/Time Associated Comments Diagnosis URINE Routine 03/23/2022 1:12 Pre-op exam Results f or this PM CDT procedure are i n the results section. HEPATIC FUNCTION PANEL Routine 03/20/2022 12:43 Biliary colic Results for this PM CDT procedure are i n the results section. SCAN-LABORATORY REPORT 03/13/2022 12:14 R esults for this AM CDT procedure are i n the results section. SCAN-ULTRASOUND REPORT 03/13/2022 12:00 R esults for this AM CDT procedure [...] procedure are i n the results section. [facility] TUBING PR5 Routine 02/26/2022 12:44 Results for this AM CDT procedure are i n the results section. [facility] LABOR EPIDURAL Routine 02/26/2022 12:44 Resu lts for this INITIAL AM CDT procedure are i n the results section. EPIDURAL BLOCK Routine 02/26/2022 12:44 Results f or this AM CDT procedure are i n the results section. [facility] DRSG PR1 Routine 02/26/2022 12:44 Results fo r this AM CDT procedure are i n the results section. [facility] KIT EPIDURAL PR10 Routine 02/26/2022 12:44 R [...] trimester section. from Last 3 Months Results URINE (03/23/2022 1:12 PM CDT) Analysis Performed At [facility] Time Signature ,URIN Negative Negative 03/23/2022 [facility] 1:24 PM CDT [facility] Specimen Anatomical Collection Method Collection Time Receive d Time (Source) Location / / Volume Laterality Urine URINE SPECIMEN / Non-Blood / 03/23/2022 1:12 PM 03/23 1:19 Unknown Unknown CDT PM CDT Julita Skelton MD URINE Performing Organization Address City/State/ZIP Code Phon e Number [facility] [address] [place], [place] [phone] (ABNORMAL) HEPATIC FUNCTION PANEL (03/20/2022 12:43 PM CDT) Analysis Performed At [facility] Time Signature ALBUMIN 4.2 3.5 - 5.2 03/21/2022 [facility] g/dL 9:29 AM CDT [facility]AT[facility] TR[facility] LABORATORY PROTEIN,TOTAL 6.8 6.0 - 8.0 03/21/2022 [facility] g/dL 9:29 AM CDT [facility] GLOBULIN 2.6 2.0 - 3.7 03/21/2022 [facility] g/dL 9:29 AM CDT [facility] A/G RATIO 1.6 1.0 - 2.0 03/21/2022 [facility] 9:29 AM CDT [facility] LABOR[facility] BILIRUBIN,TOTAL 0.4 0.2 - 1.2 03/21/2022 [facility] mg/dL 9:29 AM CDT [facility] LABORATORY BILIRUBIN,DIRECT 0.2 0.1 - 0.5 03/21/2022 [facility] mg/dL 9:29 AM CDT [facility] LABOR[facility] BILIRUBIN,INDIRE 0.2 0.2 - 0.8 03/21/[address] [facility] [address] mg/dL 9:29 AM CDT [facility] LABOR[facility] ALK PHOSPHATASE 197 58 - 237 03/21/2022 [facility] IU/L 9:29 AM CDT [facility] ALT (SGPT) 49 (H) 8 - 45 03/21/2022 [facility] IU/L 9:29 AM CDT [facility] AST (SGOT) 18 2 - 40 03/21/2022 [facility] IU/L 9:29 AM CDT [facility] Specimen Anatomical Collection Method / Collection Time Recei lionel Time (Source) Location / Volume Laterality Blood BLOOD SPECIMEN / Venipuncture / 03/20/2022 12:43 03/20 Unknown Unknown PM CDT 12:45 PM CDT Michelle العلي MD CHEMISTRY Performing Organization Address City/State/ZIP Code Phon e Number [facility] [address] [place] [phone] LABORATORY-[facility] [address] LABORATORY SCAN-LABORATORY REPORT (03/13/2022 12:14 AM CDT) Narrative This result has an attachment that is no t available. Scanner OTHER SCAN-ULTRASOUND REPORT (03/13/2022 12:00 AM CDT) Narrative This result has an attachment that is no t available. Scanner OTHER (ABNORMAL) Type & Screen (02/27/2022 3:20 PM CDT)Only the most recent of2 resultswithin the time period is included. [facility] Method Time Signature ABORH A Rh 02/27/2022 [facility] Negative 6:00 PM CDT HOSPITAL LABORATORY BLOOD BANK ANTIBODY Positive (A) Negative 02/27/2022 [facility] SCREEN 6:00 PM CDT [facility] LABORATORY BLOOD BANK SPECIMEN 03/02/22 02/27/2022 [facility] EXPIRATION 23:59 6:00 PM CDT HOSPITAL DATE/TIME LABORATORY BLOOD BANK Specimen Anatomical Collection Method / Collection Time Recei lionel Time (Source) Location / Volume Laterality Blood BLOOD SPECIMEN / Venipuncture / 02/27/2022 3:20 2021 3:29 Unknown Unknown PM CDT PM CDT [facility] BLOOD BANK Performing Organization Address City/[facility]/ZIP Code Phon e Number [facility] [address] [place] [address] BLOOD BANK (ABNORMAL) ANTIBODY IDENTIFICATION LAB USE ONLY (02/27/2022 3:20 PM CDT)Only the most recent of2 resultswithin the time period is included. Monitor Method Time Signature ANTIBODY Non-speci 02/27/2022 [facility] IDENTIFICATION fic (A) 6:05 PM CDT [facility] BLOOD BANK Specimen Anatomical Collection Method / Collection Time Recei lionel Time (Source) Location / Volume Laterality Blood BLOOD SPECIMEN / Venipuncture / 02/27/2022 3:20 2021 3:29 Unknown Unknown PM CDT PM CDT Narrative [facility] BLOOD BANK - 02/27/2022 6:05 [...] is required, please contact the performing laboratory [facility] BLOOD BANK Performing Organization Address City/[facility] Phon e Number [facility] [address] [place] [id number] BLOOD BANK ANTIBODY IDENTIFICATION EACH PANEL (02/27/2022 3:20 PM CDT)Only the most recent of2 resultswithin the time period is included. Monitor Method Time Signature QUANTITY 1 [facility] BLOOD BANK PANEL SHABBIR ID Panel [facility] Antibody ID [facility] BLOOD BANK Specimen (Source) Anatomical Location Collection Method / Collectio n Time Received Time / Laterality Volume [facility] BLOOD BANK Performing Organization Address City/[facility] Phon e Number [facility] [address] [place] [id number] BLOOD BANK RED BLOOD CELLS EA UNIT (02/27/2022 3:20 PM CDT)Only the most recent of2 results within the time period is included. [facility] Method Time Signature CROSSMATCH Compatible Compatible [facility] BLOOD BANK PRODUCT BLOOD A Rh Negative [facility] BLOOD BANK PRODUCT ID [id number] [facility] BLOOD BANK PRODUCT STATUS /Relea [facility] BLOOD BANK PRODUCT RBC -1 LR [facility] BLOOD BANK PRODUCT CODE [id number] [facility] BLOOD BANK Specimen (Source) Anatomical Location Collection Method / Collectio n Time Received Time / Laterality Volume [facility] KilpatrickCastro DO BLOOD BANK Performing Organization Address City/[facility] Phon e Number [facility] [address] [place] [phone] BLOOD BANK RH IMMUNE GLOBULIN PREP (02/27/2022 2:34 PM CDT) P athologist Signature QUANTITY 1 02/27/2022 [facility] 2:52 PM CDT LABORATORY BLOOD BANK Specimen Anatomical Collection Method / Collection Time Recei lionel Time (Source) Location / Volume Laterality Blood BLOOD SPECIMEN / Venipuncture / 02/27/2022 2:34 2021 2:44 Unknown Unknown PM CDT PM CDT Yoselyn Peg [facility] BLOOD BANK Performing Organization Address City/[facility] Phon e Number [facility] [address] [place] [phone] BLOOD BANK (ABNORMAL) CBC W PLT NO DIFF (02/26/2022 7:34 AM CDT)Only the most recent of2 resultswithin the time period is included. [facility] Method Time Signature WHITE BLOOD 16.7 (H) 4.5 - 11.0 02/26/2022 [facility] COUNT thou/cu mm 7:57 AM T HOSPITAL LABORATORY RED BLOOD COUNT 3.72 (L) 4.00 - 02/26/2022 [facility] 5.20 7:57 AM [facility] mil/cu mm LABORATORY HEMOGLOBIN 10.6 (L) 12.0 - 02/26/2022 [facility] 16.0 g/dL 7:57 AM T HOSPITAL LABORATORY HEMATOCRIT 31.7 (L) 33.0 - 02/26/2022 [facility] 51.0 % 7:57 AM [facility] LABORATORY MCV 85 80 - 100 02/26/2022 [facility] fL 7:57 AM T HOSPITAL LABORATORY MCH 28.5 26.0 - 02/26/2022 [facility] 34.0 pg 7:57 AM T HOSPITAL LABORATORY MCHC 33.4 32.0 - 02/26/2022 [facility] 36.0 g/dL 7:57 AM T HOSPITAL LABORATORY RDW 13.1 11.5 - 02/26/2022 [facility] 15.5 % 7:57 AM T HOSPITAL LABORATORY PLATELET COUNT 213 140 - 440 02/26/2022 [place] thou/cu mm 7:57 AM T HOSPITAL LABORATORY MPV 10.9 6.5 - 11.0 02/26/2022 [place] fL 7:57 AM T HOSPITAL LABORATORY NRBC 0.0 % 02/26/2022 [facility] 7:57 AM T HOSPITAL LABORATORY ABS NRBC 0.0 thou /cu 02/26/2022 [facility] [place] mm 7:57 AM [facility] Specimen Anatomical Collection Method / Collection Time Recei lionel Time (Source) Location / Volume Laterality Blood BLOOD SPECIMEN / Venipuncture / 02/26/2022 7:34 2021 7:52 Unknown Unknown AM CDT AM CDT Yoselyn Castro DO HEMATOLOGY Performing Organization Address City/State/ZIP Code Phon e Number [facility] LABORATORY SENDOUT INTERNAL ZIP [place] [phone] [place] [address] CREATININE (02/26/2022 7:34 AM CDT)Only the most recent of6 resultswithin the time period is included. P athologist Signature CREATININE 0.80 0.57 - 1.11 02/26/2022 [facility] mg/dL 8:20 AM CDT LABORATORY eGFR >90 >90 02/26/2022 [facility] mL/min/1.73 8:20 AM CDT LABORATORY [...] Yoselyn Castro DO CHEMISTRY Performing Organization Address City/[facility]/ZIP [facility] [place] Number [facility] LABORATORY SENDOUT INTERNAL [place] [phone] [place] [address] AST (SGOT) (02/26/2022 7:34 AM CDT)Only the most recent of6 resultswithin the time period is included. P athologist Signature AST (SGOT) 25 2 - 40 IU/L 02/26/2022 [facility] 8:22 AM CDT LABORATORY Specimen Anatomical Collection Method / Collection Time Recei lionel Time (Source) Location / Volume Laterality Blood BLOOD SPECIMEN / Venipuncture / 02/26/2022 7:34 2021 7:52 Unknown Unknown AM CDT AM CDT Yoselyn Castro DO CHEMISTRY Performing Organization Address [facility] Phon e Number [facility] LABORATORY SENDOUT INTERNAL [place] [phone] [place] [address] (ABNORMAL) Magnesium - PRN (02/26/2022 7:34 AM CDT)Only the most recent of3 resultswithin the time period is included. P athologist Signature MAGNESIUM 4.7 (H) 1.7 - 2.2 02/26/2022 [facility] mg/dL 8:50 AM CDT LABORATORY Specimen Anatomical Collection Method / Collection Time Recei lionel Time (Source) Location / Volume Laterality Blood BLOOD SPECIMEN / Venipuncture / 02/26/2022 7:34 2021 7:52 Unknown Unknown AM CDT AM CDT Yoselyn Castro DO CHEMISTRY Performing Organization Address City/[facility] Phon e Number [facility] LABORATORY SENDOUT INTERNAL [place] [phone] [place] [address] PATH TISSUE EXAM (02/26/2022 7:09 AM CDT) Component Value Ref Test Analysis Performed At Patholo gist Range Method Time Signature Case Report Pathology Report ?Case: [id number] ? 03/01/2022 [facility] Authorizing Provider: ??Lizbeth hernadez, Yoselyn Ruvalcaba, DO ? Collected: ? 02/26/2022 0709 ? 2:19 PM HEALTH Ordering Location: ? [facility] ?Received: ?02/27/2022 0733 ? CDT L ABORATORY-C Pathologist: ? Kristopher Iyer MD ? ENTRAL Specimen: ?Placenta ? LABORATORY Final A) PLACENTA, VAGINAL DELIVERY: 2 [facility] Electronically Diagnosis 1. Third trimester stein placenta with the following characteristics: 2:19 PM HEALTH signed by Clarke watt, ?? a. Weight: 265 grams (< 5th percentile for gestational age 34 weeks) CDT LABORATORY-Liliya Ruiz, ?? b. Membranes with no significant [...] weeks ?? wt (g): 2110 grams ?? sex: Female [...] entire surface. ??No other lesions are identified. Soil Science Professor sections are submitted: 1. ?? membranes [...] appropriate sections of all specimens. Additional 03/01/2022 [facility] Information Interpreted at [facility], Central Laboratory - [address], [place] [address] 2:19 PM HEALTH CDT LABORATORY-C ENTRAL LABORATORY Specimen Anatomical Collection Method Collection Time Receive d Time (Source) Location / / Volume Laterality Other SPECIMEN FROM Non-Blood / 02/26/2022 7:09 AM 02/28/20 22 7:33 PLACENTA / Unknown Unknown CDT AM [...] Organization Address City/State/ZIP Code Phon e Number [facility] [address] [place] [address] LABORATORY-CENTRAL 2000 LABORATORY [facility] LABORATORY SENDOUT INTERNAL ZIP [place] [phone] [place] [address] HCHG KIT EPIDURAL PR10, HCHG DRSG PR1, [...] lumbar Needle and Epidural Catheter Needle type: VideoClix Needle gauge: 18 G Needle length: 3.5 [...] PLATELET COUNT 246 140 - 440 02/26/2022 [facility] L thou/cu mm 12:23 AM CDT LABORATORY MPV 10.8 6.5 - 11.0 02/26/2022 [facility] fL 12:23 AM CDT LABORATORY Specimen Anatomical Collection Method / Collection Time Recei lionel Time (Source) Location / Volume Laterality Blood BLOOD SPECIMEN / Non-Lab 02/26/2022 12:15 022 Unknown Venipuncture / AM CDT 12:21 AM CDT Unknown Deepthi Garcia MD HEMATOLOGY Performing Organization Address City/[facility]/ZIP Code Phon e Number [facility] LABORATORY SENDOUT INTERNAL [place] [phone] [place] [address] APTT (02/26/2022 12:15 AM CDT) P athologist Signature APTT 25 24 - 33 sec 02/26/2022 [facility] 12:33 AM CDT LABORATORY Specimen Anatomical Collection Method / Collection Time Recei lionel Time (Source) Location / Volume Laterality Blood BLOOD SPECIMEN / Non-Lab 02/26/2022 12:15 022 Unknown Venipuncture / AM CDT 12:21 AM CDT Unknown Narrative [facility] LABORATORY - 02/26/2022 12:33 AM CDT Therapeutic Range: 70-95 seconds Deepthi Garcia MD HEMATOLOGY Performing Organization Address City/State/ZIP Code Phon e Number [facility] LABORATORY SENDOUT INTERNAL [place] [phone] [place] [address] (ABNORMAL) PROTIME-INR (02/26/2022 12:15 AM CDT) P athologist Signature INR 0.9 <1.3 02/26/2022 [facility] 12:32 AM CDT LABORATORY PROTIME 11.8 (L) 12.0 - 13.8 02/26/2022 [facility] sec 12:32 AM CDT LABORATORY Specimen Anatomical Collection Method / Collection Time Recei lionel Time (Source) Location / Volume Laterality Blood BLOOD SPECIMEN / Non-Lab 02/26/2022 12:15 022 Unknown Venipuncture / AM CDT 12:21 AM CDT Unknown Narrative [facility] LABORATORY - 02/26/2022 12:32 AM CDT ?Therapeutic [...] Deepthi Garcia MD HEMATOLOGY Performing Organization Address [facility] e Number [facility] LABORATORY SENDOUT INTERNAL [place] [phone] [place] [address] (ABNORMAL) ALT (SGPT) (02/25/2022 5:55 AM CDT)Only the most recent of4 results within the time period is included. P athologist Signature ALT (SGPT) 79 (H) 8 - 45 IU/L 02/25/2022 [facility] 6:34 AM CDT LABORATORY Specimen Anatomical Collection Method / Collection Time Recei lionel Time (Source) Location / Volume Laterality Blood BLOOD SPECIMEN / Non-Lab 02/25/2022 5:55 02/26/20 22 6:07 Unknown Venipuncture / AM CDT AM CDT Unknown Eduardo Hayes MD CHEMISTRY Performing Organization Address [facility] Phon e Number [facility] LABORATORY SENDOUT INTERNAL [place] [phone] [place] [address] Brain Natriuetric Peptide (BNP) (02/24/2022 9:49 AM CDT) P athologist Signature BRAIN MAINOR 18 <150 pg/mL 02/24/2022 [facility] 10:30 AM CDT LABORATORY Specimen Anatomical Collection Method / Collection Time Recei lionel Time (Source) Location / Volume Laterality Blood BLOOD SPECIMEN / Non-Lab 02/24/2022 9:49 02/25/20 9:59 Unknown Venipuncture / AM CDT AM CDT Unknown Eduardo Hayes MD CHEMISTRY Performing Organization Address City/State/ZIP Code Phon e Number [facility] LABORATORY SENDOUT INTERNAL ZIP [place], [place] [phone] [place] [address] VAGINAL/RECTAL OB STREP PCR (02/24/2022 9:41 AM CDT) Analysis Performed At Patho logist Time Signature Vaginal/Rectal Negative 02/26/2022 [facility] OB Strep B PCR 12:32 PM CDT LABORATORY-C EN TRAL LABORATORY Specimen Anatomical Collection Method Collection Time Receive d Time (Source) Location / / Volume Laterality Other Non-Blood / 02/24/2022 9:41 AM 9:59 (Vaginal/Rectal) Unknown CDT AM CDT Eduardo Hayes MD MICROBIOLOGY Performing Organization Address City/[facility]/ZIP Code Phon e Number [facility] [address] [place] [address] LABORATORY-CENTRAL 2000 LABORATORY (ABNORMAL) PROTEIN/CREAT RATIO,URINE (02/24/2022 9:41 AM CDT)Only the most recent of2 resultswithin the time period is included. P athologist Signature PROTEIN 9 <=14 mg/dL 02/24/2022 [facility] 10:25 AM CDT [facility] URINE LABORATORY CREAT,RANDOM 45.3 mg/dL 02/24/2022 [facility] URINE 10:25 AM CDT [facility] LABORATORY PROT/CREAT 0.2 (H) <0.2 02/24/2022 [facility] RATIO,UR 10:25 AM CDT HOSPITAL LABORATORY Specimen Anatomical Collection Method Collection Time Receive d Time (Source) Location / / Volume Laterality Urine URINE SPECIMEN / Non-Blood / 02/24/2022 9:41 AM 02/24 9:58 Unknown Unknown CDT AM CDT Eduardo Hayes MD URINE Performing Organization Address City/[facility]/ZIP Code Phon e Number [facility] LABORATORY SENDOUT INTERNAL ZIP [place], [place] [phone] [place] [address] (ABNORMAL) URINALYSIS MICROSCOPIC (02/15/2022 10:41 AM CDT)Only the most recent of2 resultswithin the time period is included. [facility] Method Time Signature RBC 0-2 0-2, None 02/15/2022 [facility] Seen /HPF 10:54 AM T [facility] WBC 0-2 0-2, 3-5, 02/15/2022 [facility] None Seen 10:54 AM CDT [place] /HPF CLINIC BACTERIA Few None 02/15/2022 [facility] Seen, 10:54 AM T [place] Rare, Few CLINIC Bacteria/ [facility]PF EPITHELIAL Moderate (A) None 02/15/2022 [facility] CELLS Seen, Few 10:54 AM T [place] Epi/HPF CLINIC Mucus Present 02/15/2022 [facility] 10:54 AM [facility] Specimen Anatomical Collection Method Collection Time Receive d Time (Source) Location / / Volume Laterality Urine URINE SPECIMEN / Non-Blood / 02/15/2022 10:41 022 Unknown Unknown AM CDT 10:42 AM CDT Julita Skelton MD URINE Performing Organization Address City/State/ZIP Code Phon e Number [facility] [address] [place] [address] (ABNORMAL) UA W/ SEDIMENT EXAM REFLEXED PER CRITERIA (02/15/2022 10:41 AM CDT) Only the most recent of2 resultswithin the time period is included. [facility] Method Time Signature COLOR Yellow Yellow Color 02/15/2022 [facility] 10:54 AM [facility] CLARITY Slightly Clear 02/15/2022 [facility] Cloudy (A) Clarity 10:54 AM [facility] SPECIFIC 1.020 1.010, 02/15/2022 [facility] GRAVITY,URINE 1.015, 10:54 AM [place] 1.020, 1.025 [facility] PH,URINE 7.0 6.0, 7.0, 02/15/2022 [facility] 8.0, 5.5, 10:54 AM [place] 6.5, 7.5, T CLINIC 8.5 UROBILINOGEN, Normal Normal EU/dl 02/15/2022 [facility] 10:54 AM [facility] PROTEIN, Negative Negative 02/15/2022 [facility] URINE mg/dL 10:54 AM [facility] GLUCOSE, Negative Negative 02/15/2022 [facility] URINE mg/dL 10:54 AM [facility] KETONES,URINE Negative Negative 02/15/2022 [facility] mg/dL 10:54 AM [facility] BILIRUBIN,URI Negative Negative 02/15/2022 [facility] NE 10:54 AM [facility] OCCULT Negative Negative 02/15/2022 [facility] BLOOD,URINE 10:54 AM [facility] NITRITE Negative Negative 02/15/2022 [facility] 10:54 AM [facility] LEUKOCYTE Negative Negative 02/15/2022 [facility] ESTERASE 10:54 AM [facility] Specimen Anatomical Collection Method Collection Time Receive d Time (Source) Location / / Volume Laterality Urine URINE SPECIMEN / Non-Blood / 02/15/2022 10:41 022 Unknown Unknown AM CDT 10:42 AM CDT Julita Skelton MD URINE Performing Organization Address City/State/ZIP Code Phon e Number [facility] [address] [place] [address] URINE CULTURE (01/26/2022 2:58 PM CDT) [facility] Method Time Signature CULTURE 10-50,000 CFU/mL 01/28/2022 [facility] H of multiple 6:58 PM CDT LABORATORY-[place] organisms, TRAL probable LABORATORY contaminants Specimen Anatomical Collection Method Collection Time Receive d Time (Source) Location / / Volume Laterality Urine URINE SPECIMEN / Non-Blood / 01/26/2022 2:58 PM 01/26 2:58 Unknown Unknown CDT PM CDT Julita Skelton MD MICROBIOLOGY Performing Organization Address City/State/ZIP Code Phon e Number [facility] [address] [place] [phone] LABORATORY-CENTRAL 2000 LABORATORY (ABNORMAL) CREATININE,ISTAT (01/18/2022 4:06 PM CDT) Analysis Performed At [facility] logist Time Signature CREATININE, 0.50 (L) 0.57 - 01/18/2022 [facility] POCT 1.11 mg/dL 4:09 PM CDT [facility] Comment: Caution: Patients taking Hydrox yurea have falsely increased iStat Creatinine results. Verify creatinine results order ing a Creatinine (92261.2) eGFR >90 >90 mL/min/1.73m2 01/18/2022 4:09 PM CDT [facility] Comment: As of 2021, eGFR [...] Organization Address City/State/ZIP Code Phon e Number [facility] [address] [place] [address] US OB BIOPHYSICAL PROFILE SINGLE WO NST [...] For Patients: ??As a result of the 21st Century Cures Act, medical imaging exams and procedure report s are released immediately into your [facility] medical record. ??You may view this report [...] provider. If you have questions, please contact [facility] care provider. INDICATION: COVID in COMPARISON: 11/08/2021 [...] logist Time Signature TREPONEMA Negative Negative 01/11/2022 [facility] [place] 9:44 AM CDT LABORATORY-[place] TRAL LABORATORY Specimen Anatomical Collection Method / Collection Time Recei lionel Time (Source) Location / Volume Laterality Blood BLOOD SPECIMEN / Venipuncture / 01/10/2022 10:00 01/10 Unknown Unknown AM CDT 10:04 AM CDT Julita Skelton MD SEND OUTS Performing Organization Address City/State/ZIP Code Phon e Number [facility] [address] [place] [address] LABORATORY-CENTRAL 2000 LABORATORY ANTIBODY SCREEN (01/10/2022 10:00 AM CDT) [facility] Method Time Signature ANTIBODY Negative Negative 01/10/2022 [facility] SCREEN 5:31 PM CDT LAB-CENTRAL LAB BLOOD [...] Organization Address City/State/ZIP Code Phon e Number [facility] LAB-CENTRAL LAB [address] [place], [place] [address] BLOOD BANK HEMOGLOBIN (01/10/2022 10:00 AM CDT) athologist Signature HEMOGLOBIN 12.5 12.0 - 16.0 01/10/2022 [facility] g/dL 10:07 AM CDT [facility] MCV 87 80 - 100 fL 01/10/2022 [facility] 10:07 AM CDT [facility] Specimen Anatomical Collection Method / Collection Time Recei lionel Time (Source) Location / Volume Laterality Blood BLOOD SPECIMEN / Venipuncture / 01/10/2022 10:00 01/10 Unknown Unknown AM CDT 10:04 AM CDT Julita Skelton MD HEMATOLOGY Performing Organization Address City/State/ZIP Code Phon e Number [facility] [address] [place] [address] GLUCOSE,GESTATIONAL (01/10/2022 10:00 AM CDT) athologist Signature GLUCOSE,GESTAT 93 65 - 140 01/10/2022 [facility] ION[facility] mg/dL 10:12 AM CDT [facility] Specimen Anatomical Collection Method / Collection Time Recei lionel Time (Source) Location / Volume Laterality Blood BLOOD SPECIMEN / Venipuncture / 01/10/2022 10:00 01/10 Unknown Unknown AM CDT 10:04 AM CDT Julita Skelton MD CHEMISTRY Performing Organization Address City/State/ZIP Code Phon e Number [facility] [address] [place] [address] from Last 3 Months Insurance Payer Benefit Plan / Subscriber ID Effective Dates Phone Addre ss Type Group [employer] [id number] 2019-Prese [address] [place] [address] [employer] OF [id number] 2020-Prese [id number] [place] [address] (Home) [place], [place] [phone] [address] (Work) [employer] Father [address] (Home) WAY [phone] EMMY SABRINA , ([place]) [place] [address] Advance Directives Latest Code Status on File Code Status Date Activated Date Inactivated Comments Full Code 02/24/2022 8:52 AM 03/01/2022 6:26 PM Code Status Discussion: Reviewed Preferences Care Teams [employer] Relationship Specialty Start Date End Date Julita Skelton MD PCP - General Family Practice 08/23/21 [address] [place] [address]
== END 2022-02-24 06:21 | disposition home or self-care (01) ==
LOC: AMB 03-28 06:04
PROVIDERS: PCP Family Medicine; Visit Provider Emergency Medicine
DX: O14.93 Unspecified pre-eclampsia, third trimester (principal); Z3A.34 34 weeks gestation of pregnancy
CPT/HCPCS: A0425; A0434

== ENCOUNTER 2022-03-12 22:27 | Emergency (ER) | payer BC, MEDICAID, SELFPAY ==
[2022-03-12 22:45] VITALS: BP 120/74; PULSE 84; RESP 18; TEMP 36.7; O2SAT 99; BMI 34.1
--- NOTE | 2022-03-12 23:00 | ED.GENADULT ---
HPI - General Adult General Time Seen by Provider: 23:00 Date Seen: 03/12/22 Chief complaint: Abdominal Pain Stated complaint: Abdominal Pain Time Seen by Provider: 03/12/22 22:28 Source: patient Mode of arrival: ambulatory Limitations: no limitations History of Present Illness HPI narrative: Patient is a 21 year white female has had history of epigastric pain during her , she had preeclampsia and delivered her baby vaginally 2 weeks ago at 34 weeks and epigastric pain radiates across her abdomen, not associated with food or 5th eating S, no other symptoms, she has not had an ultrasound of her gallbladder. Her blood pressures been under good control. She sees Dr. Cancino is aunt at a [facility] for primary care no leg swelling or edema, no history of chronic abdominal pain prior to . Related Data Home Medications Medication Instructions Recorded Confirmed aspirin 81 mg chewable tablet 81 mg PO DAILY 02/15/22 03/12/22 famotidine 20 mg tablet 20 mg PO DAILY 02/24/22 03/12/22 labetalol 200 mg tablet 200 mg PO TID 03/12/22 03/12/22 Allergies Allergy/AdvReac Type Severity Reaction Status Date / Time No Known Drug Allergies Allergy Verified 03/12/22 22:50 Review of Systems Status of ROS: Reports: 6 or more systems reviewed and unremarkable except as noted in History and below [facility] Medical History (Updated 03/12/22 @ 23:06 by Mik Collins MD) Adjustment disorder with mixed anxiety and depressed mood Pre-eclampsia, severe, third trimester Surgical History (Updated 03/12/22 @ 23:02 by Carlos Dang RN) No significant past surgical history Social History Smoking Status: Former smoker Do you use any of these nicotine containing products: None Second hand tobacco smoke exposure: No How often do you have a drink containing alcohol: never How often do you have six or more drinks on one occasion: Never AUDIT-C Alcohol total score: 0 Non-prescribed substance use: denies use Exam Narrative: Exam Narrative: Objective: The patient reports the pain is gone now last about 45 minutes today Vital signs unremarkable Abdomen benign soft nontender no masses no peritonitis no rebound Extremities are no edema neurologic nonfocal Const: Vital Signs, click to edit/add: Vital Signs - 24 hr 10/09/22 22:45 Temperature 98.0 F Pulse Rate [Right Pulse Oximeter] 84 Respiratory Rate 18 Blood Pressure [Ri ght Upper Arm] 120/74 Pulse Oximetry 99 Oxygen Delivery Me thod Room Air Course Vital Signs Vital signs: Initial Vital Signs Temperature 98.0 F 03/12/22 22:45 Temperature Source Temporal Artery Scan 03/12/22 22:45 Pulse Rate 84 03/12/22 22:45 Respiratory Rate 18 03/12/22 22:45 Blood Pressure 120/74 03/12/22 22:45 Blood Pressure Mean 89 03/12/22 22:45 Blood Pressure Position Sitting 03/12/22 22:45 Pulse Oximetry 99 03/12/22 22:45 Oxygen Delivery Method 03/12/22 22:45 Vital Signs Temperature 98.0 F 03/12/22 22:45 Pulse Rate 84 03/12/22 22:45 Respiratory Rate 18 03/12/22 22:45 Blood Pressure 120/74 03/12/22 22:45 Pulse Oximetry 99 03/12/22 22:45 Oxygen Delivery Method 03/12/22 22:45 Temperature 98.0 F 03/12/22 22:45 Pulse Rate 84 03/12/22 22:45 Respiratory Rate 18 03/12/22 22:45 Blood Pressure 120/74 03/12/22 22:45 Pulse Oximetry 99 03/12/22 22:45 Oxygen Delivery Method 03/12/22 22:45 Medical Decision Making MDM Narrative Medical decision making narrative: The patient has a history of epigastric pain vital signs look unremarkable at this time, concern would be for gastritis versus biliary colic patient should get an ultrasound of her gallbladder, this will be ordered for tomorrow, will check labs tonight to make sure she has no inflammatory condition, currently she is asymptomatic. The patient's white count is at the upper limit of normal, her rest of her labs are pending. She is asymptomatic at present would like to go home I think that is reasonable, will get an ultrasound scheduled for tomorrow, she can follow up with Dr. Singh in the next few days. Light diet recommended, light activity. Lab Data Labs: Lab Results 03/12/22 Range/Units 23:15 WBC 11.86 H (4.50-11.00) K/uL RBC 4.23 (4.00-5.20) m/uL Hgb 12.1 (12.0-16.0) gm/dL Hct 37.6 (33.0-51.0) % MCV 89 (80-100) fL MCH 29 (26-34) pg MCHC 32 (32-36) gm/dL RDW Coeff of Farhan 12.6 (11.5-15.5) % Plt Count 407 (140-440) K/uL Neut % (Auto) 62.3 (42.0-72.0) % Lymph % (Auto) 22.7 (20-44) % [place] % (Auto) 6.2 (0.0-11.0) % Eos % (Auto) 7.9 H (0.0-7.0) % Baso % (Auto) 0.4 (0.0-3.0) % Neut # (Auto) 7.40 H (1.7-7.0) K/uL Lymph # (Auto) 2.70 (0.90-2.90) K/uL [place] # (Auto) 0.70 (0.00-0.90) K/UL Eos # (Auto) 0.90 H (0.00-0.50) K/uL Baso # (Auto) 0.00 (0.00-0.30) K/uL Abs Immat Gran (auto) 0.06 (0.00-0.30) K/uL Discharge Plan Discharge Clinical Impression: Abdominal pain Patient Disposition: Home, Self-Care Condition: Improved Additional Instructions: Will try and get an ultrasound tomorrow, NPO after midnight, Tylenol or Advil as needed, light low-fat diet, follow-up with Dr. Reyna within the next couple of days, ultrasound will be ordered for tomorrow. Activity Level: Light activity Discharge Diet: Low Fat/Low Cholesterol Prescriptions: No Action aspirin 81 mg tablet,chewable 81 mg PO DAILY famotidine 20 mg tablet 20 mg PO DAILY labetalol 200 mg tablet 200 mg PO TID Follow Up/Referrals: Julita Skelton MD [Primary Care Provider] - Stand Alone Forms: [employer] Info Instructions
--- OUTSIDE RECORDS SUMMARY | 2022-03-12 23:15 | XMS_ITS | Clinical Summary ---
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 Labetalol dose to be increased from 300 mg's to 400 mg's every 8 hours. Pt's BP have been 120's-130's/60-70's the re st of the evening. Pt denies having any PIH sx's. Pt has been pumped every 2-3 hours and is getting 40 ml's out at a time. Pt likes to spend most of her time over in the NICU. Will continue to monitor. 03/01/2022 - 34w6d - Kaela Segovia R N Problem: HEMODYNAMIC STABILITY Goal: BLOOD PRESSURE WILL BE MAINTAINED BETWEEN DEFINED PARAMETERS THROUGHOUT HOSPITAL STAY. Note: BP stable, denies s/s preeclampsia , good urine output. 03/01/2022 - 34w6d - Charis Qiu DO PROGRESS NOTE ASSESSMENT Va Tan is a 21 y.o. female at H ospital Day ( LOS: 4 days ) Day 2 s/p spontaneous vaginal delivery Hemodynamically stable, showing good GI function, afebrile. Severe preeclampsia Principal Problem: Vaginal delivery Active Problems: Preeclampsia, severe, third trimester PLAN Continue routine care Labetalol started just after midnight th is morning; will increase to 300mg PO q8h this morning. Anticipate discharge home tomorrow; Armando cavanaugh is hopeful to go home tomorrow SUBJECTIVE Va feels well. She does not have any complaints. Her pain is Controlled with current medications. Her baby is doing well in NICU. OBJECTIVE BP 133/80 (Cuff Size: Adult Large) Pul se 87 Temp 98.2 ??F (36.8 ??C) Resp 16 Ht 1.651 m (5' 5) Wt 100.6 kg (221 lb 11.2 oz) LMP 06/01/2021 (Exact Date) SpO2 97% Yes BMI 36.89 kg/m?? General: healthy, alert and cooperative Lungs: nonlabored breathing I&O: Intake/Output Summary (Last 24 hours) at 02/28/2022 0742 Last data filed at 02/27/2022 2110 Gross per 24 hour Intake 3200 ml Output 4250 ml Net -1050 ml Lab Review: No results found for this or any previou s visit (from the past 12 hour(s)). SIGNED: Charis Qiu DO, 02/28/2022, 7 :42 AM 03/01/2022 - 34w6d - Janny Polk, JOHANAormatting of this note might be different from the original. Problem: HEMODYNAMIC STABILITY Goal: BLOOD PRESSURE WILL BE MAINTAINED BETWEEN DEFINED PARAMETERS THROUGHOUT HOSPITAL STAY. Outcome: Problem reviewed and goal still appropriate Provider Notification Note DATA Reason for Notification: Patient's BP 15 4/87 upon shift change assessment. Rechecked again after 15 mins = 157/87. Asymptomatic. Neuros intact. BLE +1 pitting edema. Denies any pain. ACTION Provider Notified: Dr. Cowart at 0025 via Phone call RESPONSE New orders received. Start labetalol 200 mg Q8H. BP came down to 139/79 upon recheck. Aric quent VS continued per protocol. Will continue to monitor s/s of HTN throughout the shift. 03/01/2022 - 34w6d - Daniella Meehan, JOHANA ormatting of this note might be different from the original. Problem: HEMODYNAMIC STABILITY Goal: BLOOD PRESSURE WILL BE MAINTAINED BETWEEN DEFINED PARAMETERS THROUGHOUT HOSPITAL STAY. Description: - Monitor vital signs per o rders and acuity - Intake and output and daily weights - Note edema, location and degree of jad ma - Monitor lung sounds and observe for sy mptoms of pulmonary edema - Observe for elevated liver function la bs and decreasing platelets - Observe for worsening signs of preecla mpsia i.e. labs, headache, epigastric pain or visual disturbances; edema and weight gain - Administer IV and /or oral antihyperte nsive medications using the appropriate order set. - Administer magnesium sulfate per order s and observe for signs and symptoms of complications from magnesium use ie check hand grasps, reflexes , lung sounds, daily weight s, intake and out put Note: Pt's BP this evening was 135/81. P t denies having any blurred vision, epigastric pain, RUQ pain,SOB or headaches. Pt has been voiding large amount urine and her feet are less swollen then yesterda y. Pt has normal reflexes and no clonus. Will continue to monitor. 03/01/2022 - 34w6d - Danelle Jc tting of this note is different from the original. [facility] Progress Note. Patient unavailable. Please refer to ? Therapeutic Session/[facility] Therapeutic Session? Doc Flowsheet for detailed data on the interventions performed during this session. Consult received via automatic order set from physician. Attempted to see patient today for assessment of needs in PP. Upon arrival the patient was unavailable/ not present in room. Will make 2nd attempt. Plan of Care This treatment plan will be re-assessed each morning based on clinical indications and staff availability. Thank you for involving [facility] in the care of this patient. ELISA Jason, LMT, RYT [facility] Practitioner 10:23 AM Ext #[phone] 03/01/2022 - 34w6clarke - Rhiannon Cowart cia, MD OB Hospitalist Progress Note Day 1 : Vaginal Delivery at 3 4w6d weeks complicated by PreE with severe features based on LFTs and epigastric pain Patient Active Problem List Diagnosis Code ? ? Sleep concern Z76.89 ? ? Adjustment disorder with mixed anxiety and depressed mood F43.23 ? ? Z34.90 ? ? Preeclampsia, severe, third trimester O14.13 ? ? Vaginal delivery O80 Subjective: The patient feels well. The pain is well controlled with current medications. She has no new complaints. Urinary outp ut is adequate and she is voiding without difficulty. Has a good appetite, is tolerating a general diet. Has small amount of rubra lochia. She is ambulating well. She denies headache, RUQ/ epigastric pa in, vision disturbance, chest pain, SOB. The patient is pumping and planning to breastfeed the . Objective: BP 131/82 (Cuff Size: Adult Large) Pul se 80 Temp 98 ??F (36.7 ??C) Resp 18 Ht 1.651 m (5' 5) Wt 111.8 kg (246 lb 8 oz) LMP 06/01/2021 (Exact Date) SpO2 98% Unknown BMI 41.02 kg/m?? BP 131/82 (Cuff Size: Adult Large) Pul se 80 Temp 98 ??F (36.7 ??C) Resp 18 Ht 1.651 m (5' 5) Wt 111.8 kg (246 lb 8 oz) LMP 06/01/2021 (Exact Date) SpO2 98% Unknown BMI 41.02 kg/m?? Temp (24hrs), Av.2 ??F (36.8 ??C), M in:98 ??F (36.7 ??C), Max:98.6 ??F (37 ??C) Patient Vitals for the past 72 hrs: Weight 02/24/22 0759 111.8 kg (246 lb 8 oz) Intake/Output Summary (Last 24 hours) at 02/27/2022 0757 Last data filed at 02/27/2022 0430 Gross per 24 hour Intake 5337.5 ml Output 3600 ml Net 1737.5 ml GENERAL APPEARANCE:normal affect, alert, no distress MOOD: appropriate CHEST: Non labored respirations ABDOMEN: soft, non-tender the uterine fu ndus is Status: Firm;Midline;U/1 and is appropriate for the stage of recovery. PERINEUM: deferred EXTREMITIES: Trace edema LABS Recent Labs 02/26/22 0734 02/26/22 0015 02/25/22 1829 02/25/22 0555 02/24/22 1614 02/24/22 0949 AST 25 -- 39 59 H 119 H 186 H ALT -- -- -- 79 H 112 H 140 H CREATININE 0.80 -- 0.83 0.72 0.71 0.72 PLT 213 246 232 204 241 234 HGB 10.6 L -- 12.2 -- -- -- Recent Labs 02/24/22 0941 02/15/22 1041 PROTCREATUR 0.2 H 0.1 No results for input(s): PROTTIMEDUR in the last 720 hours. ABORH Date Value Ref Range Status 02/24/2022 A Rh Negative Final , No results found for: RUBABY HEMOGLOBIN Date Value Ref Range Status 02/26/2022 10.6 (L) 12.0 - 16.0 g/dL Fin al 02/25/2022 12.2 12.0 - 16.0 g/dL Final 01/10/2022 12.5 12.0 - 16.0 g/dL Final Assessment/Plan: 21 y.o. y.o. PPD# 1 with PreE wi th severe features 1) Normal course. 2) NO signs/ symptoms of worsening Preec lampsia 3) Start antihypertensives when indicate d All questions answered, plan of care rev iewed, patient in agreeance Rhiannon Cowart MD .............. ...... 02/27/2022 7:56 AM 03/01/2022 - 34w6d - Kimberly Murray R N Problem: PAIN/COMFORT Goal: PATIENTS' PAIN IS </= STATED ACCEP TABLE COMFORT GOAL THROUGHOUT HOSPITALIZATION Outcome: Problem reviewed and goal still appropriate Care Plan Progress Note Data: Patient is stable, vital signs are stable and afebrile. Patient c/o of uterine cramping and rates the cramps 2/10. Patient's OB's checks are WNL. Patient's Magnesium was stopped at 0430. Action: Assessed and anticipated patient needs during the night. Patient received schedule tylenol and Ibuprofen for pain. all light within reach. Response: Patient sleeping during rounds . Up to the bathroom x1. Will continue to monitor patient. 03/01/2022 - 34w6d - Daniella Meehan RNF ormatting of this note might be different from the original. Problem: HEMODYNAMIC STABILITY Goal: BLOOD PRESSURE WILL BE MAINTAINED BETWEEN DEFINED PARAMETERS THROUGHOUT HOSPITAL STAY. Description: - Monitor vital signs per o rders and acuity - Intake and output and daily weights - Note edema, location and degree of jad ma - Monitor lung sounds and observe for sy mptoms of pulmonary edema - Observe for elevated liver function la bs and decreasing platelets - Observe for worsening signs of preecla mpsia i.e. labs, headache, epigastric pain or visual disturbances; edema and weight gain - Administer IV and /or oral antihyperte nsive medications using the appropriate order set. - Administer magnesium sulfate per order s and observe for signs and symptoms of complications from magnesium use ie check hand grasps, reflexes , lung sounds, daily weight s, intake and out put Note: Care Plan Progress Note Data: Pt continues on magnesium sulfate per orders, vital signs have been stable and BP within normal limits. Pt denies any headache, visual changes, epigastric pain or RUQ pain. Pt voiding large amount s. Fundus firm and lochia minimal. MD vargas ated that pt can go over to the NICU for 2 hours at a time to see her baby while her IV Magnesium is running. Action: Pt medicated with ibuprofen and Tylenol per orders for pain relief. Will reassess pain/comfort and offer alternate intervention as appropriate. Continue to observe for signs and symptoms of complications from magnesium. 03/01/2022 - 34w6d - Stacy Freedman RN Problem: SAFETY Goal: MOTHER AND INFANT PHYSICAL SAFETY NEEDS WILL BE MET THROUGHOUT HOSPITALIZATION Description: - Complete communication of patient status to other caregivers at time of admission, transfer, and discharge - Instruct pt/family on safety and secur ity measures, hand washing and contact precautions - Implement fall risk interventions if f all risk score >5 - Provide safety measures--bed in low po sition, light in reach, adequate lighting, unobstructed walkway - Note lab results and inform MD of crit ical values Note: TRANSFER & INTRODUCTION TO ROOM NOTE Data: Patient received into room 2334 Re port received from Khloe, LDU nurse, and bedside report given. Action: Patient given orientation to mary m (nurse call system, room lights/thermostat/ menu/ordering meals). Learning materials given to patient. Patient/family informed about safety/security (see note in infant's chart). Plan of care w ent over with patient (pertinent safety issues--to call nurse if needing assistance out of bed re: post epidural/dizziness/pain); pain medication schedule placed on patient's Care Board. Response: Patient/family understands abo ve information and have no further questions at this time. STACY FREEDMAN R.N. 02/26/2022 11:28 AM 03/01/2022 - 34w6clarke - Khloe Bobby RNFor matting of this note might be different from the original. MD updated on preeclampsia order set not in place . Orders received for preeclampsia orderset with LR at 75 mL/hr, no PO antihypertensives, and continue magnesium sulfate at 0.5. Patient transferred to 2334, following N ICU visit with . Patient VS are stable and WNL. Report given to THOM Orellana who will assume all cares. 03/01/2022 - 34wjose - Khloe Bobby RNFor matting of this note might be different from the original. MD contacted to confirm PIH lab orders. Orders received to draw PIH labs. 03/01/2022 - 34benja - Yoselyn Sifuentes R N of male born at 0432. Baby pl aced on mother's abdomen and dried and stimulated. Baby brought to warmer to be assessed by NICU d/t GA. No laceration needing repair. QBL: 200cc. TXA, pitocin, a nd cytotec given prophylactic for bleedi ng. See Dr. Castro's delivery note for further details. Yoselyn Sifuentes RN .................... 02/26/2022 6:53 AM 03/01/2022 - 34benja - Yoselyn Sifuentes R N 2310: Bedside report received from Monico Jeong RN. Care assumed. IV lines double checked. Pt breathing through ctx at this time. Ctx palpate moderate. 2330: Pt's Magnesium had been turned off d/t elevated mag level. DTR's at this time 2+, 1 beat of clonus noted on left side. Pt reports she does not feel as weak and her TROTTER has subsided. Pt just uncomfortable with her ctx at this time. 2334: Dr. Castro notified of above infor mation. Orders received to restart Magnesium at 0.5g/hr, and recheck cervix when next dose of Cytotec is due. 2340: IV fentanyl given as noted in MAR per pt request. Pt reports some relief with fentanyl, but states it is not providing as much relief anymore. 2352: SVE 1.5/90/-2 and pt jillian e very 2-3 minutes palpating moderate. Cytotec held at this time. Pt requesting labor epidural for pain management as fentanyl is not helping as much anymore. 2358: Dr. Garcia called to notify of pt request for epidural. Orders received to draw coag's because of severe pre-eclampsia diagnosis. Labs drawn and sent. Okay for pt to only receive 500cc fluid bolus as well. 0010: IV fluid bolus started. 0018: Dr. Castro notified of above infor mation. Okay with pt getting epidural at this time. Orders received to start pitocin augmentation if contractions space out. 0038: Coag results back. Called Dr. Dakotah lowe to come to bedside for epidural placement. 0045: Dr. Garcia at bedside for placeme nt. See Dr. Garcia's note for further details on placement. Pt did have +test dose with ringing in ears and elevated HR. Dr. Garcia replaced epidural catheter w ith no positive test dose the second jan e. Pt tolerated procedure well. 0130: Pt resting comfortably on right la teral side after placement. Reports adequate pain relief. 0135: SVE 3.5/90/-2. Pt repositioned to left lateral side and resting with adequate pain relief at this time. Yoselyn Sifuentes RN .................... 02/26/2022 2:15 AM 03/01/2022 - 34w6d - Monico Llanes, RN Problem: SAFETY Goal: CRITICAL LAB VALUES REPORTED TO [place] [facility] NECESSARY THROUGHOUT HOSPITALIZATION Description: - Note lab results and info rm of critical values 02/25/20222245 by Monico Llanes, RN Note: At 2225 critical Magnesium level c alled to narrative writer by lab at 6.5. Dr Castro called and updated. Order received to stop Magnesium Sulfate for 1 hour then reevaluate patient for Magnesium toxicity an d update Dr Castro. Magnesium Sulfate of f at 2230. Patient also reports her contractions are back to 10/10 on the pain scale. Patient is noted to be breathing through contractions. Fentanyl 100 mcg IVP given. Will continue to monitor. MONICO LLANES RN .................... 02/25/2022 10:50 PM 02/25/20221920 by Monico Llanes RN Note: At 1915 lab called narrative writer with a c ritical Magnesium level at 7.8. Dr Castro called and informed of lab result and order received to decrease Magnesium Sulfate to 0.5 g/hr. Magnesium Sulfate decrea sed. Patient alert and able to ambulate to the bathroom. Will place an order for a Magnesium level re-check in 2 hrs from decrease dose. Will continue to monitor. MONICO LLANES RN .................... 02/25/2022 7:23 PM 03/01/2022 - 34w6d - Monico Llanes, RN Problem: PAIN/COMFORT Goal: PATIENT'S PAIN IS </= STATED ACCEP TABLE COMFORT GOAL. Description: - Evaluate effectiveness of pain management-revise plan if necessary. 02/25/20222212 by Monico Llanes, RN Note: At [address] Castro and pain re-evaluated. Headache resolved per patient report. Dr Castro attempted to place a cervical ripening balloon and it was unsuccessful. Patient very uncomfort ably during the procedure and refused fu rther attempt at that time. Plan made to give Cytotec 50mcg IV X 2 doses then re-evaluate. At 2099 Cytotec 50mcg placed and patient repositioned to LL position. P atient was offered Fentanyl for discomfo rt and patient agreed. At 2124 Fentanyl 50 mcg given IV push. O2 saturation monitor applied. Patient reported contraction pain a 03/13. Magnesium Sulfate level re -drawn. Call-light within reach. Will co ntinue to monitor. MONICO LLANES RN .................... 02/25/2022 10:20 PM 02/25/20222008 by Monico Llanes RN Note: Patient reported a headache she ra mike 08/11. Tylenol offered and given at 1950. Will continue to monitor. MONICO LLANES RN .................... 02/25/2022 8:10 PM 03/01/2022 - 34w6d - Yoselyn Castro, DO OB Hospitalist Labor Progress Note Subjective: Headache improved. No concer ns. Magnesium at 0.5g/h. S/p ORAL cyotec, cervidil, PV 25mcg cytotec. Objective: Vitals: 02/25/22 0900 02/25/22 1030 02/25/22 13 00 02/25/22 1700 BP: 125/86 105/53 108/59 Cuff Size: Adult Large Adult Large Pulse: 96 90 91 Resp: 16 16 16 Temp: 98.2 ??F (36.8 ??C) 97.9 ??F (36.6 ??C) 98.5 ??F (36.9 ??C) SpO2: 96% 98% Weight: Height: FHT: mod linda, +accels, no decels [place]:irregular CX: fingertip/high/anterior/med, Cook ca theter placement attempt with speculum and ring forceps as well as by feel was unsuccessful. Active Problems: Preeclampsia, severe, third trimester Assessment: 21 y.o. with intrauterine at 34w5d undergoing IOL 2' preeclampsia with severe features and abnormal LFTs GBS: pending Plan: Cytotec 50mcg PV x 2 Fentanyl IV now Analgesia: Labor Epidural as needed Amp in labor Magnesium for seizure prophylaxis Yoselyn Castro, 02/25/2022 8:41 PM 03/01/2022 - 34w6d - Monico Llanes, RN Problem: PAIN/COMFORT Goal: PATIENT'S PAIN IS </= STATED ACCEP TABLE COMFORT GOAL. Description: - Evaluate effectiveness of pain management-revise plan if necessary. Note: Patient reported a headache she ra mike 3/10. Tylenol offered and given at 1950. Will continue to monitor. MONICO LLANES RN .................... 02/25/2022 8:10 PM 03/01/2022 - 34w6d - Monico Llanes, RN Problem: SAFETY Goal: CRITICAL LAB VALUES REPORTED TO [place] [facility] NECESSARY THROUGHOUT HOSPITALIZATION Description: - Note lab results and info danica BROOKE of critical values Note: At 1915 lab called narrative writer with a c ritical Magnesium level at 7.8. Dr Castro called and informed of lab result and order received to decrease Magnesium Sulfate to 0.5 g/hr. Magnesium Sulfate decrea sed. Patient has been alert and able to ambulate to the bathroom but upon explaining the lab result, patient reported she is feeling very weak and is noticing a headache that she rates 3/10. Will place an order for a Magnesium level re-check in 2 hrs from decrease dose and update Dr Castro on patient current symptoms. Will continue to monitor. MONICO LLANES RN .................... 02/25/2022 7:23 PM 03/01/2022 - 34w6d - Monico Llanes RN Problem: SAFETY Goal: PATIENT WILL BE KNOWLEDGEABLE REGA RDING NEWLY ORDERED MEDS, INTENDED AND SIDE EFFECTS OF EACH Description: - Provide care notes for ea ch medication, answer any questions about meds Note: At 1515 bedside shift report recei lionel. Safety checks performed. IV infusing and site intact. Second SL in place and intact. Discussed POC with patient and mom present at bedside. Patient denies pa in or discomfort at this time. Instructe d on room service menu. Call light within reach. Will continue to monitor. MONICO LLANES RN .................... 02/25/2022 3:41 PM 03/01/2022 - 34w6clarke - Brittany Adorno R N Problem: SAFETY Goal: CRITICAL LAB VALUES REPORTED TO [place] [facility] NECESSARY THROUGHOUT HOSPITALIZATION Note: Report given to Monico Jeong RN at 151 5. Care relinquished. 03/01/2022 - 34w6clarke - Brittany Adorno R N Problem: PROGRESSION OF LABOR Goal: PRESUMED ADEQUATE OXYGENATIO N THROUGHOUT LABOR AND Note: [address] Mery posey. Pt agreeable to vaginal cytotec 1138 Vaginal cytotec administered 1445 second dose of Cytotec administered . Pt states she is feeling more cramping than before. 03/01/2022 - 34w6clarke - Milana Guido MD Cervidil removed. Cervix soft, posterior, closed/60/high P/ vaginal cytotec now, Cook when possib le. 03/01/2022 - 34w6d - Milana Guido MD OB Hospitalist Induction Note 34w5d SUBJECTIVE: Pt is comfortable after cervidil overni ght. No complaints. A little sleepy from magnesium, otherwise tolerating it well. No headache or visual changes. Baby is a boy (Tru) OBJECTIVE: BP 123/69 Pulse 80 Temp 98.2 ??F (3 6.8 ??C) Resp 16 Ht 1.651 m (5' 5) Wt 111.8 kg (246 lb 8 oz) LMP 06/01/2021 (Exact Date) SpO2 98% Yes BMI 41.02 kg/m?? Patient Vitals for the past 24 hrs: BP Temp Pulse Resp SpO2 02/25/22 0900 -- 98.2 ??F (36.8 ??C) -- 16 -- 02/25/22 0845 123/69 -- 80 -- -- 02/25/22 0458 132/74 97.9 ??F (36.6 ??C) 93 16 98 % 02/25/22 0116 120/55 97.8 ??F (36.6 ??C) 93 16 97 % 02/24/22 2109 122/74 97.8 ??F (36.6 ??C) 96 18 98 % 02/24/22 1715 117/62 -- 75 20 97 % 02/24/22 1515 116/70 97.7 ??F (36.5 ??C) 85 20 98 % 02/24/22 1457 -- -- -- -- 97 % 02/24/22 1455 -- -- -- -- 97 % 02/24/22 1452 -- -- -- -- 97 % 02/24/22 1447 -- -- -- -- 98 % 02/24/22 1442 -- -- -- -- 98 % 02/24/22 1437 -- -- -- -- 98 % 02/24/22 1432 -- -- -- -- 97 % 02/24/22 1422 -- -- -- -- 97 % 02/24/22 1300 118/73 -- 83 -- -- 02/24/22 1224 125/81 -- 75 -- -- 02/24/22 1216 -- -- -- -- 97 % 02/24/22 1156 -- -- -- -- 97 % 02/24/22 1155 99/54 -- 67 -- -- 02/24/22 1146 -- -- -- -- 98 % 02/24/22 1141 -- -- -- -- 97 % 02/24/22 1125 95/53 -- 75 -- -- 02/24/22 1121 -- -- -- -- 97 % 02/24/22 1116 -- -- -- -- 97 % 02/24/22 1111 -- -- -- -- 97 % 02/24/22 1100 115/73 -- 82 -- 97 % 02/24/22 1056 -- -- -- -- 97 % 02/24/22 1051 -- -- -- -- 98 % 02/24/22 1046 -- -- -- -- 98 % 02/24/22 1041 -- -- -- -- 98 % 02/24/22 1036 -- -- -- -- 97 % 02/24/22 1026 -- -- -- -- 97 % HEENT: within normal limits Lungs: clear Heart: RRR w/o murmur Abd: soft NT; contractions mild, q 3-4 Ext: 1+ edema, DTRs 0, no clonus EFM: Baseline FHR: 130 Accelerations:present Monitor Mode: External/US Movement: Present Decelerations / Type: None Cervix: Will check with Cervidil removal at 11 AST (SGOT) Date Value Ref Range Status 02/25/2022 59 (H) 2 - 40 IU/L Final CREATININE Date Value Ref Range Status 02/25/2022 0.72 0.57 - 1.11 mg/dL Final PLATELET COUNT Date Value Ref Range Status 02/25/2022 204 140 - 440 thou/cu mm Tawnya l HEMOGLOBIN Date Value Ref Range Status 01/10/2022 12.5 12.0 - 16.0 g/dL Final ASSESSMENT : 21 y.o. at 34w5d with ripening cervix. Patient Active Problem List Diagnosis Code ? ? Sleep concern Z76.89 ? ? Adjustment disorder with mixed anxiety and depressed mood F43.23 ? ? Z34.90 ? ? Preeclampsia, severe, third trimester O14.13 PLAN: Continue magnesium Recheck labs at 6 pm Remove Cervidil at 11, consider Cook if cx <3 Milana Guido MD .............. ...... 02/25/2022 10:00 AM 03/01/2022 - 34w6clarke - Gina Orozco RNF ormatting of this note might be different from the original. 0715: Report given to Brittany TOMAS. Safety checks completed. Cares relinquished. Gina Orozco RN .................... 7:18 AM 03/01/2022 - 34w6clarke - Gina Orozco RNF ormatting of this note might be different from the original. 2238: Discussion with Dr. Hayes. Humaira ent requesting pain medication prior to Cervidil placement. Verbal order received for Fentanyl 50-100 mcg Q1H PRN. Discussion regarding lab draw frequency- plan to draw PreE labs at 0600 and discontinue the Q6H lab draws per Dr. Hayes. Gina Orozco RN .................... 11:04 PM 03/01/2022 - 34w6clarke - Gina Orozco RNF ormatting of this note might be different from the original. Problem: PROGRESSION OF LABOR Goal: PRESUMED ADEQUATE OXYGENATIO N THROUGHOUT LABOR AND Outcome: Problem reviewed and goal still appropriate Note: 2026: Communication with Dr. Anguiano son regarding plan of care. Last dose of Cytotec was at 1815, cervix remained closed at that time. Werner 2. Orders received to place Cervidil Gina Orozco RN .................... 8:30 PM 03/01/2022 - 34w6d - Gina Orozco RNF ormatting of this note might be different from the original. 1914: Report received from Allison Cedillo RN. Safety checks performed. Patient resting. Cares assumed. Gina Orozco RN .................... 7:24 PM 03/01/2022 - 34w6d - Allison Carter, RN Problem: SAFETY Goal: PATIENT WILL BE KNOWLEDGEABLE REGA RDING NEWLY ORDERED MEDS, INTENDED AND SIDE EFFECTS OF EACH Note: 1514 Bedside report received from Sylvester Zapien RN. Assumed care of patient. Bedside safety check completed. 1914 Verbal report given to Gina Peña RN, patient sleeping at this time. Relinquished care of patient. 03/01/2022 - 34w6Violeta Zamora R N Problem: SAFETY Goal: PATIENT/FAMILY UNDERSTANDS LABOR/D ELIVERY PROCESS AND CARES INVOLVED. Description: - Instruct re-process of la bor and , medical plans for care. Outcome: Transitioning or discharged wit h plan in place* Note: Report given to incoming nurse Brendan Cortez.Care relinquished. Violeta Jeffers RN .................... 02/24/2022 3:19 PM 03/01/2022 - 34w6d - Violeta Jeffers R N Problem: PROGRESSION OF LABOR Goal: PATIENT DEMONSTRATES NORMAL PROGRE SSION THROUGHOUT LABOR AND WITHOUT COMPLICATIONS Outcome: Transitioning or discharged wit h plan in place* Note: Patient feeling one ctx and still comfortable. Violeta Jeffers RN .................... 02/24/2022 2:53 PM Problem: HEMODYNAMIC STABILITY Goal: BLOOD PRESSURE WILL BE MAINTAINED BETWEEN DEFINED PARAMETERS THROUGHOUT HOSPITAL STAY. Description: - Monitor vital signs per o rders and acuity - Intake and output and daily weights - Administer IV and /or oral antihyperte nsive medications using the appropriate order set - Observe for worsening signs of preecla mpsia i.e. labs, headache, epigastric pain or visual disturbances; edema and weight gain - Administer magnesium sulfate per order s and observe for signs and symptoms of complications from magnesium use i.e. check hand grasps, reflexes, lung sounds, daily weight, monitor Intake and Output Outcome: Transitioning or discharged wit h plan in place* Note: Denies any TROTTER,blurry vision or epi gastric pain. BP 120/70 in this shift one above 140/90 when she came in. Violeta Jeffers RN .................... 02/24/2022 2:52 PM Problem: STABILITY Goal: PATIENT HAS A NONPALPABLE BLADDER. Description: - Assess/monitor fluid volu me status. - Monitor for s/s retention/bladder dist ention. - Consider placement of urinary catheter based on patient condition Outcome: Transitioning or discharged wit h plan in place* Note: Denies any lightheadedness when wa lking to bathroom. Violeta Jeffers RN .................... 02/24/2022 2:53 PM 03/01/2022 - 34w6d - Chary Burgess RN [id number] RN got a call from Blood bank, they relayed that patient has positive antibody in type and screen. 03/01/2022 - 34w6d - Violeta Jeffers R N Problem: SAFETY Goal: INFANT/MOTHER SAFETY IS MAINTAINED DURING LABOR AND DELIVERY PERIOD Description: - Instruct patient/family o n safety and security measures. - Up with assist per fall risk assessmen t. Outcome: Transitioning or discharged wit h plan in place* Note: Transfer from [facility] via am bulance for Upper gastric pain. Rule pre-eclampsia lab AST,alt was elevated And UA PCR was 0.30 ,They started amg lo ading dose and !st dose betamethasone at 0332. Admitted for cervical ripening for pre-e clampsia. Us at Bedside done and head down by .MPP was seen today.Lab drawn TS,ALT,AST, GBS Ua PCR was sent .Denies any pain, TROTTER,blurry vision or epigastric pain.Lower extremities edema noted Violeta Jeffers RN .................... 02/24/2022 11:31 AM 03/01/2022 - 34w6clarke - Eduardo Hayes MD Patient was seen this morning by [facility], di scussed that she has a diagnosis of severe preeclampsia and delivery is indicated. Bedside ultrasound by myself: vertex. SVE: closed, thick, high. Will proceed with IOL with PO cytotec. P atient understands process and has no questions or concerns. Eduardo Hayes MD I reviewed the patient's chart and plan of care. The Compass has not been completed. Eduardo Hayes MD 02/21/2022 - 34w1d - Julita Skelton MD Patient is here for routine pren atal care at 34w1d Concerns: Feels like he [...] MD .................. .. 02/21/2022 10:25 AM CC: [facility] 02/15/2022 - 33w2d - Julita Skelton MD Patient is here for routine pren atal care at 33w2d Concerns: Was at labor and delivery last night for abdominal pain. Had epigastric pain and pain across the upper abdomen. Had pain that worsened with lying down. Lasted for 2-3 hours. [place] like someone was pushing on upper abdomen. [...] MD .................. .. 02/15/2022 10:22 AM CC: [facility] 02/07/2022 - 32w1d - Julita Skelton [...] MD .................. .. 02/07/2022 10:22 AM CC: [facility] 01/26/2022 - 30w3d - Julita Skelton [...] vari, accels to 1 65. No decels [place]: No contractions. Will do growth ultrasound at [...] MD .................. .. 01/26/2022 1:31 PM CC: [facility] 01/10/2022 - w - Julita Skelton MD Patient is here [...] MD .................. .. 01/10/2022 9:19 AM CC: [facility] 12/08/2021 - w3d - Julita Skelton MD Patient is here [...] MD .................. .. 12/08/2021 11:19 AM CC: [facility] 11/08/2021 - 19w1d - Julita Skelton MD Patient is here [...] for dinner meal. Last night went to [id number], took a couple bites. No nausea, no [...] MD .................. .. 11/08/2021 9:02 AM CC: [facility] 10/19/2021 - w2d - Julita Skelton MD Patient is here for routine pren ata care at 16w2d Concerns: Episode of dizziness [...] MD .................. .. 10/19/2021 10:55 AM CC: [facility] 09/21/2021 - w2d - Julita Skelton MD Clinic Note: First OB Visit 09/21/2021 Va Tan is a 21 y.o. wit h Estimated Date of Delivery: 04/03/22, here today for a first visit. No significant concerns. Nausea and vomi ting is ok. Feels tired but otherwise ok. 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 /Father of baby: Carlo De Dios Family [...] concerns. Julita Skelton MD .................... 4:19 PM [facility] [phone] CC: [facility] 08/23/2021 - 8w1d - Julita [...] Diabetes, cancer, asthma. Tolerating vitamin. Works at [employer] MEDICAL HISTORY Medical, surgical, family, and social [...] URINALYSIS W REFLEX MICROSCOPIC IF POSIT NORMAN [10493.2] Result Value Ref Range COLOR Yellow Yellow [...] Plan: 1. Dating ultrasound today. KARISHMA by [employer] sound is 04/03 at [id number] 2. Routine OB labs ordered including typ [...] to call the office or log into TASCET[employer] with any questions or concerns. Julita Skelton MD .................. .. 08/23/2021 9:41 AM Last Filed Vital Signs Vital Sign Reading Time Taken Comments Blood Pressure 100/69 03/08/2022 10:10 AM CDT Pulse 93 03/08/2022 10:10 AM CDT Temperature 36.7 ??C (98.1 ??F) 03/03/2022 12:51 PM CDT Respiratory Rate 16 03/01/2022 7:00 AM CDT Oxygen Saturation 96% 03/08/2022 10:10 AM CDT Inhaled Oxygen Concentration - - Weight 92.8 kg (204 lb 9.6 oz) 03/08/2022 10:10 AM CDT Height 167.8 cm (5' 6.06) 03/08/2022 10:10 AM CDT Body Mass Index 32.96 03/08/2022 10:10 AM CDT Plan of Treatment Health Maintenance Due Date Last Done Comments Well Child Check for age 3-20 02/22/2008 02/21/2007 COVID-19 vaccine series (3 - 06/18/2021 04/23/2021, 021 Booster for Moderna series) Chlamydia for age 16-24 08/23/2022 08/23/2021, 03/02/2021, 03/25/2019, Additional history exists Depression screening for age 12+ 01/26/2023 01/26/2022, , 02/23/2021, Additional history exists BMI (ht and wt on same day) for 03/08/2023 03/08/2022, 02/04, age 18+ 01/10/2022, Additional history exists Tetanus booster 01/11/2032 01/10/2022, 08/28/2014 HPV series for age 9-26 Completed 09/11/2017, 08/28/2014 Meningococcal series for age 11-21 Completed 08/08/2018, 0 08/28/2014 Hepatitis C screening for age Completed 08/23/2021 18-79 Tdap Completed 01/10/2022, 08/28/2014 Influenza for age 9-49 Completed 02/07/2022, 02/23/2021, 05/13/2019, Additional history exists Procedures Procedure Name Priority Date/Time Associated Comments Diagnosis RED BLOOD CELLS EA UNIT STAT 02/27/2022 3:20 R esults for this PM CDT procedure are i n the results section. RED BLOOD CELLS EA UNIT STAT 02/27/2022 3:20 R esults for this PM CDT procedure are i n the results section. ANTIBODY IDENTIFICATION STAT 02/27/2022 3:20 R esults for this LAB USE ONLY PM CDT procedure are i n the results section. ANTIBODY IDENTIFICATION STAT 02/27/2022 3:20 R esults for this EACH PANEL PM CDT procedure are i n the results section. TYPE & SCREEN STAT 02/27/2022 3:20 Results for this PM CDT procedure are i n the results section. RH IMMUNE GLOBULIN PREP Today 02/27/2022 2:34 R esults for this PM CDT procedure are i n the results section. CREATININE Timed 02/26/2022 7:34 Results for this AM CDT procedure are i n the results section. MAGNESIUM Timed 02/26/2022 7:34 Results for this AM CDT procedure are i n the results section. CBC W PLT NO DIFF Timed 02/26/2022 7:34 Results for this AM CDT procedure are i n the results section. AST (SGOT) Timed 02/26/2022 7:34 Results for this AM CDT procedure are i n the results section. PATH TISSUE EXAM Today 02/26/2022 7:09 Results for this AM CDT procedure are i n the results section. [facility] TUBING PR5 Routine 02/26/2022 12:44 Results for this AM CDT procedure are i n the results section. [facility] LABOR EPIDURAL Routine 02/26/2022 12:44 Resu lts for this INITIAL AM CDT procedure are i n the results section. EPIDURAL BLOCK Routine 02/26/2022 12:44 Results f or this AM CDT procedure are i n the results section. [facility] DRSG PR1 Routine 02/26/2022 12:44 Results fo r this AM CDT procedure are i n the results section. [facility] KIT EPIDURAL PR10 Routine 02/26/2022 12:44 R esults for this AM CDT procedure are i n the results section. PLATELET COUNT STAT 02/26/2022 12:15 Results f or this AM CDT procedure are i n the results section. APTT STAT 02/26/2022 12:15 Results for this AM CDT procedure are i n the results section. PROTIME-INR STAT 02/26/2022 12:15 Results for this AM CDT procedure are i n the results section. MAGNESIUM Timed 02/25/2022 9:38 Results for this PM CDT procedure are i n the results section. MAGNESIUM Timed 02/25/2022 6:29 Results for this PM CDT procedure are i n the results section. CBC W PLT NO DIFF Timed 02/25/2022 6:29 Results for this PM CDT procedure are i n the results section. CREATININE Timed 02/25/2022 6:29 Results for this PM CDT procedure are i n the results section. AST (SGOT) Timed 02/25/2022 6:29 Results for this PM CDT procedure are i n the results section. PLATELET COUNT Early AM 02/25/2022 5:55 Results fo r this AM CDT procedure are i n the results section. CREATININE Early AM 02/25/2022 5:55 Results for this AM CDT procedure are i n the results section. ALT (SGPT) Early AM 02/25/2022 5:55 Results for this AM CDT procedure are i n the results section. AST (SGOT) Early AM 02/25/2022 5:55 Results for this AM CDT procedure are i n the results section. PLATELET COUNT Timed 02/24/2022 4:14 Results fo r this PM CDT procedure are i n the results section. CREATININE Timed 02/24/2022 4:14 Results for this PM CDT procedure are i n the results section. ALT (SGPT) Timed 02/24/2022 4:14 Results for this PM CDT procedure are i n the results section. AST (SGOT) Timed 02/24/2022 4:14 Results for this PM CDT procedure are i n the results section. ANTIBODY IDENTIFICATION Timed 02/24/2022 9:49 R esults for this LAB USE ONLY AM CDT procedure are i n the results section. ANTIBODY IDENTIFICATION Today 02/24/2022 9:49 R esults for this EACH PANEL AM CDT procedure are i n the results section. TYPE & SCREEN Today 02/24/2022 9:49 Results for this AM CDT procedure are i n the results section. BRAIN NATRIURETIC STAT 02/24/2022 9:49 Results for this PEPTIDE AM CDT procedure are i n the results section. CREATININE PARVIN 02/24/2022 9:49 Results for this AM CDT procedure are i n the results section. PLATELET COUNT PARVIN 02/24/2022 9:49 Results fo r this AM CDT procedure are i n the results section. ALT (SGPT) Today 02/24/2022 9:49 Results for this AM CDT procedure are i n the results section. AST (SGOT) PARVIN 02/24/2022 9:49 Results for this AM CDT procedure are i n the results section. VAGINAL/RECTAL OB STREP Today 02/24/2022 9:41 R esults for this PCR AM CDT procedure are i n the results section. PROTEIN/CREAT Today 02/24/2022 9:41 Results for this RATIO,URINE AM CDT procedure are i n the results section. URINALYSIS MICROSCOPIC Routine 02/15/2022 10:41 Pelvic pain in Results for this AM CDT procedure are i n the results section. PROTEIN/CREAT Routine 02/15/2022 10:41 Abdominal pain, Results for this RATIO,URINE AM CDT epigastric procedure are i n the results section. UA W/ SEDIMENT EXAM Routine 02/15/2022 10:41 Pelvic pain in Re sults for this REFLEXED PER CRITERIA AM CDT proced ure are in the results section. URINE CULTURE Add On 01/26/2022 2:58 Urinary symptom or Resul ts for this PM CDT sign procedure are i n the results section. URINALYSIS MICROSCOPIC Routine 01/26/2022 2:58 Urinary symptom or Results for this PM CDT sign procedure are i n the results section. UA W/ SEDIMENT EXAM Routine 01/26/2022 2:58 Urinary symptom or Results for this REFLEXED PER CRITERIA PM CDT sign proced ure are in the results section. CREATININE,ISTAT Routine 01/18/2022 4:06 COVID-19 virus Result s for this PM CDT infection procedure are i n the results section. US OB BIOPHYSICAL Routine 01/18/2022 3:51 COVID-19 virus Resul ts for this PROFILE SINGLE WO NST PM CDT infection procedure are in with 29 the result s completed weeks [...] section. from Last 3 Months Results (ABNORMAL) Type & Screen (02/27/2022 3:20 PM CDT)Only the most recent of2 resultswithin the time period is included. [facility] Method Time Signature ABORH A Rh 02/27/2022 [facility] Negative 6:00 PM CDT [facility] BLOOD BANK ANTIBODY Positive (A) Negative 02/27/2022 [facility] SCREEN 6:00 PM T [facility] BLOOD BANK SPECIMEN 03/02/22 02/27/2022 [facility] EXPIRATION 23:59 6:00 PM T HOSPITAL DATE/TIME LABORATORY BLOOD BANK Specimen Anatomical Collection Method / Collection Time Recei lionel Time (Source) Location / Volume Laterality Blood BLOOD SPECIMEN / Venipuncture / 02/27/2022 3:20 2021 3:29 Unknown Unknown PM CDT PM CDT Yoselyn Castro DO BLOOD BANK Performing Organization Address City/State/ZIP Code Phon e Number [facility] [address] [place] [address] BLOOD BANK (ABNORMAL) ANTIBODY IDENTIFICATION LAB USE ONLY (02/27/2022 3:20 PM CDT)Only the most recent of2 resultswithin the time period is included. [facility] Method Time Signature ANTIBODY Non-speci 02/27/2022 [facility] IDENTIFICATION fic (A) 6:05 PM T [facility] BLOOD BANK Specimen Anatomical Collection Method / Collection Time Recei lionel Time (Source) Location / Volume Laterality Blood BLOOD SPECIMEN / Venipuncture / 02/27/2022 3:20 2021 3:29 Unknown Unknown PM CDT PM CDT Narrative [facility] BLOOD BANK - 02/27/2022 6:05 PM CDT Blood products may be delayed. Draw patient 24 hours prior to transfusion. Draw one red top and two purple top tubes for all Type and Screen orders. This patient's serological work-up may h ave included protocols and/or reagents that have not been cleared or approved by the U.S. Food and Drug Administration. If specific information is required, please contact the performing laboratory [facility] BLOOD BANK Performing Organization Address City/[facility] Phon e Number [address] [address] BLOOD BANK ANTIBODY IDENTIFICATION EACH PANEL (02/27/2022 3:20 PM CDT)Only the most recent of2 resultswithin the time period is included. [facility] Glycobia Method Time Signature QUANTITY 1 [facility] BLOOD BANK PANEL SHABBIR ID Panel [place] Antibody ID [facility] BLOOD BANK Specimen (Source) Anatomical Location Collection Method / Collectio n Time Received Time / Laterality Volume [facility] BLOOD BANK Performing Organization Address City/[facility] Phon e Number [address] [address] BLOOD BANK RED BLOOD CELLS EA UNIT (02/27/2022 3:20 PM CDT)Only the most recent of2 results within the time period is included. [facility] Method Time Signature CROSSMATCH Compatible Compatible [facility] BLOOD BANK PRODUCT BLOOD A Rh Negative [facility] BLOOD BANK PRODUCT ID [id number] [facility] BLOOD BANK PRODUCT STATUS /Relea [facility] BLOOD BANK PRODUCT RBC -1 LR [facility] BLOOD BANK PRODUCT CODE [id number] [facility] BLOOD BANK Specimen (Source) Anatomical Location Collection Method / Collectio n Time Received Time / Laterality Volume [facility] BLOOD BANK Performing Organization Address City/[facility] Phon e Number [address] [address] BLOOD BANK RH IMMUNE GLOBULIN PREP (02/27/2022 2:34 PM CDT) P athologist Signature QUANTITY 1 02/27/2022 [facility] 2:52 PM CDT LABORATORY BLOOD BANK Specimen Anatomical Collection Method / Collection Time Recei lionel Time (Source) Location / Volume Laterality Blood BLOOD SPECIMEN / Venipuncture / 02/27/2022 2:34 2021 2:44 Unknown Unknown PM CDT PM CDT Yoselynthalia Ruvalcaba Matthew DO BLOOD BANK Performing Organization Address City/State/ZIP Code Phon e Number [facility] [address] [place] [address] BLOOD BANK (ABNORMAL) CBC W PLT NO DIFF (02/26/2022 7:34 AM CDT)Only the most recent of2 resultswithin the time period is included. Patholo gist Method Time Signature WHITE BLOOD 16.7 (H) 4.5 - 11.0 02/26/2022 [facility] COUNT thou/cu mm 7:57 AM T HOSPITAL LABORATORY RED BLOOD COUNT 3.72 (L) 4.00 - 02/26/2022 [facility] 5.20 7:57 AM [facility] mil/cu mm LABORATORY HEMOGLOBIN 10.6 (L) 12.0 - 02/26/2022 [facility] 16.0 g/dL 7:57 AM T HOSPITAL LABORATORY HEMATOCRIT 31.7 (L) 33.0 - 02/26/2022 [facility] 51.0 % 7:57 AM T [facility]OSPITAL LABORATORY MCV 85 80 - 100 02/26/2022 [facility] fL 7:57 AM [facility] LABORATORY MCH 28.5 26.0 - 02/26/2022 [facility] 34.0 pg 7:57 AM [facility] LABORATORY MCHC 33.4 32.0 - 02/26/2022 [facility] 36.0 g/dL 7:57 AM [facility] LABORATORY RDW 13.1 11.5 - 02/26/2022 [facility] 15.5 % 7:57 AM T [facility]OSPITAL LABORATORY PLATELET COUNT 213 140 - 440 02/26/2022 [facility] thou/cu mm 7:57 AM [facility] LABORATORY MPV 10.9 6.5 - 11.0 02/26/2022 [facility] fL 7:57 AM [facility] LABORATORY NRBC 0.0 % 02/26/2022 [facility] 7:57 AM T [facility]OSPITAL LABORATORY ABS NRBC 0.0 thou /cu 02/26/2022 [facility] mm 7:57 AM CDT HOSPITAL LABORATORY Specimen Anatomical Collection Method / Collection Time Recei lionel Time (Source) Location / Volume Laterality Blood BLOOD SPECIMEN / Venipuncture / 02/26/2022 7:34 2021 7:52 Unknown Unknown AM CDT AM CDT Yoselynthalia Wintersafshan Castro DO HEMATOLOGY Performing Organization Address City/[facility] e Number [facility] S[employer] [place] [phone] [place] [address] CREATININE (02/26/2022 7:34 AM CDT)Only the most recent of6 resultswithin the time period is included. athologist Signature CREATININE 0.80 0.57 - 1.11 02/26/2022 [facility] mg/dL 8:20 AM CDT LABORATORY eGFR >90 >90 02/26/2022 [facility] mL/min/1.73 8:20 AM CDT LABORATORY m2 Comment: As of 2021, eGFR is calcu [...] Laterality Blood BLOOD SPECIMEN / Venipuncture / 02/26/2022 7:34 2021 7:52 Unknown Unknown AM CDT AM CDT Yoselyn Peg Castro DO CHEMISTRY Performing Organization Address City/[facility] Phon e Number [facility] [employer] [place] [place] [phone] [place] [address] AST (SGOT) (02/26/2022 7:34 AM CDT)Only the most recent of6 resultswithin the time period is included. athologist Signature AST (SGOT) 25 2 - 40 IU/L 02/26/2022 [facility] 8:22 AM CDT LABORATORY Specimen Anatomical Collection Method / Collection Time Recei lionel Time (Source) Location / Volume Laterality Blood BLOOD SPECIMEN / Venipuncture / 02/26/2022 7:34 2021 7:52 Unknown Unknown AM CDT AM CDT Yoselyn Castro DO CHEMISTRY Performing Organization Address City/State/ZIP Code Phon e Number [facility] SENDOUT INTERNAL ZIP [place] [phone] [place] [address] (ABNORMAL) Magnesium - PRN (02/26/2022 7:34 AM CDT)Only the most recent of3 resultswithin the time period is included. P athologist Signature MAGNESIUM 4.7 (H) 1.7 - 2.2 02/26/2022 [facility] mg/dL 8:50 AM CDT LABORATORY Specimen Anatomical Collection Method / Collection Time Recei lionel Time (Source) Location / Volume Laterality Blood BLOOD SPECIMEN / Venipuncture / 02/26/2022 7:34 2021 7:52 Unknown Unknown AM CDT AM CDT Yoselyn Castro DO CHEMISTRY Performing Organization Address City/[facility] Code Phon e Number [facility] [employer] [place] [place] [phone] [place] [address] PATH TISSUE EXAM (02/26/2022 7:09 AM CDT) Component Value Ref Test Analysis Performed At Patholo gist Range Method Time Signature Case Report Pathology Report ?Case: [id number] ? 03/01/2022 [facility] Authorizing Provider: ??Lizbeth on, Yoselynthalia Ruvalcaba, DO ? Collected: ? 02/26/2022 0709 ? 2:19 PM HEALTH Ordering Location: ? [facility] ?Received: ?02/27/2022 0733 ? CDT L ABORATORY-C Pathologist: ? Kristopher Iyer MD ? ENTRAL Specimen: ?Placenta ? LABORATORY Final A) PLACENTA, VAGINAL DELIVERY: 2 [facility] Electronically Diagnosis 1. Third trimester stein placenta with the following characteristics: 2:19 PM HEALTH signed by Clarke watt, ?? a. Weight: 265 grams (< 5th percentile for gestational age 34 weeks) CDT LABORATORY-C Kristopher Ruiz, ?? b. Membranes with no significant histologic alterations ENTRAL MD on 03/01/2022 ?? c. Three vessel umbilical cord with no signi ficant histologic alterations LABORATORY at 2:19 PM ?d. Subchorionic fibrin ?? e. Placental disc with infarcts (< 5% placental volume) ?? f. Placental disc without intervillous thrombi ?? g. Chorionic villi hyper mature for gestational age with increased syncytial knotting ?? h. Decidual arteriopathy present 2. Negative for chorioamnionitis, funisitis, and villitis Comment The patient's clinical histo ry of hypertension is noted. Some histologic features include decidual arteriopathy, infarcts, villous maldevelopment (all seen here), or abruption can be associated with hyp [facility] ertension/eclampsia. Of note these placental pathologic features do not necessarily correlate with the severity of clinical disease. Decidual arteriopathy has also been associated with chronic hypertens 2:19 PM HEALTH ion (as opposed to induced hypertension). CDT LABORATORY-C ENTRAL Subchorionic fibrin is a nor mal finding in placentas, often increasing in amount with advancing gestational age.??When severe, it may be associated with maternal coagulopathies or hypertension/preeclampsia. LABORATORY Clinical Indications- ?? 03/01/2022 [facility] Information : Prematurity ?? 2:19 PM HEALTH Maternal: Pre-Eclampsia CDT LABORA TORY-C Infections specimen (eg. Maternal HIV or HCV)? No ENTRAL Delivery- ??Date: 02/26/2022 ??Time: 431 ?? LABORATORY Type: Vaginal ?? Live born: Yes ? Gestational age (wks): 34w6d weeks ?? wt (g): 2110 grams ?? Infant sex: Female Pertinent maternal history- ?? , Term, Premature, AB, Living: ?? Diabetes: no ?? Hypertension: yes ?? Eclampsia: no ?? Smoking: no ?? Other: none Autopsy info: Not applicable Gross A) Received fresh labeled wi th the patient's name and placenta, is a 265 gram, 15.0 x 13.7 x 2.3 cm stein placenta. The surface is blue-cárdenas with evenly distributed vasculature. 03/01/2022 UNIT ED Description 2:19 PM HOSPITAL The 36.0 cm long, 1.5 cm chayo meter trivascular glistening white umbilical cord is eccentrically inserted 1.8 cm from the nearest edge of the placental plate. ??The cord displays 2-3 twists per 10 cm. ??T CDT LABORATORY rue knots are not present. ? ?No lesions are identified. ??The marginally inserted extraplacental membranes are proctor-pink and semitranslucent. The maternal surface is red- brown and displays focally disrupted cotyledons that can be reapproximated with loosely adherent blood clots. ??Sectioning reveals a proctor-pink, spongy cut surface with a singl e 1.3 x 1.0 x 0.8 cm proctor-bro wn, slightly firm and discolored area resembling a thrombus and a 0.4 cm in greatest dimension yellow-proctor, firm, basal area, both encompassing less than 5% of the entire surface. ??No other lesions are identified. Computer Engineering Professor sections are submitted: 1. ?? membranes and insertion 2. ??Umbilical cord 3. ??Umbilical cord resection site, full-thickness 4-5. ??Central sections, full-thickness 6. ??Possible thrombus 7. ??Yellow-proctor slightly discolored area Time and date in formalin: 1049 on 02/27/2022 DS 02/27/2022 Microscopic The final 03/01/2022 [facility] Description diagnosis is 2:19 PM HEALTH based on CDT LABORATORY-C microscopic ENTRAL examination of LABORATORY appropriate sections of all specimens. Additional 03/01/2022 [facility] Information Interpreted at [facility] Laboratory, Central Laboratory - [address], [place] [address] 2:19 PM HEALTH CDT LABORATORY-C ENTRAL LABORATORY Specimen Anatomical Collection Method Collection Time Receive d Time (Source) Location / / Volume Laterality Other SPECIMEN FROM Non-Blood / 02/26/2022 7:09 AM 02/28/20 7:33 PLACENTA / Unknown Unknown CDT AM CDT Comment: Recommended:Indications- : Prematurity Maternal: Pre-EclampsiaInfections specimen (eg. Ma ternal HIV or HCV)? NoDelivery- Date: 02/26/2022 Time: 431 Type: Vaginal Live born: Yes Gestational age (wks): 34w6d weeks Infant wt (g): 2110 grams s ex: FemalePertinent maternal history- , Term, Premature, AB, Living: Diabetes: no Hypertension: yes Eclampsia: no Smoking: no Other: noneAut opsy info: Not applicable Yoselyn Castro DO PATHOLOGY/CYTOLOGY Performing Organization Address City/State/ZIP Code Phon e Number [employer] [address] [place] [address] LABORATORY-CENTRAL [address] [facility] LABORATORY SENDOUT INTERNAL ZIP [place] [phone] [place] [address] HCHG KIT EPIDURAL PR10, HCHG DRSG PR1, EPIDURAL BLOCK, HCHG LABOR EPIDURAL INITIAL, HCHG TUBING PR5 (02/26/2022 12:44 AM CDT) Narrative Deepthi Garcia MD - 02/26/2022 12:4 4 AM CDT Deepthi Garcia MD ? 02/26/2022 ??1:12 AM Labor Analgesia Labor Analgesia Type: epidural Patient location during procedure: OB Time Requested: 02/26/2022 12:40 AM Start time: 02/26/2022 12:44 AM End time: 02/26/2022 1:06 AM Diagnosis: labor pain ASA: 3 Completed: patient identified, risks and benefits discussed, timeout performed, chloraprep used and completel y dried prior to procedure and surgical consent Patient position: sitting Patient monitoring: continuous pulse oxi metry and blood pressure Approach: midline Prep: chloraprep Lumbar location: L2-3 Skin Infiltration: lidocaine 1% CLARI: saline Epidural Location: lumbar Needle and Epidural Catheter Needle type: Natali Needle gauge: 18 G Needle length: 3.5 in Needle insertion depth: 6 cm Catheter type: closed tip Catheter size: 20 G Aspiration of Catheter: negative Catheter at skin depth: 12 cm Test dose amount: 3 ml Test dose result: positive IV Assessment Events: other event and other event Additional Notes Initial catheter placed, aspiration nega tive for heme/CSF. ??Test dose given and patient immediately had an inc rease in HR and stated that her ears were ringing. ??Catheter aspirated again and small amount of heme noted. ??Catheter removed, replaced easi ly at the same level, where aspiration was negative for heme again, but test dose was also negative. ?? Epidural slowly dosed. ??Ringing in ears resolved before epidural was dosed. Electronically signed by Deepthi Garcia MD ? Deepthi Garcia MD ANESTHESIA PX NOTE ORDERABLE S PLATELET COUNT (02/26/2022 12:15 AM CDT)Only the most recent of4 resultswithin the time period is included. P athologist Signature PLATELET COUNT 246 140 - 440 02/26/2022 [facility] L thou/cu mm 12:23 AM CDT LABORATORY MPV 10.8 6.5 - 11.0 02/26/2022 [facility] fL 12:23 AM CDT LABORATORY Specimen Anatomical Collection Method / Collection Time Recei lionel Time (Source) Location / Volume Laterality Blood BLOOD SPECIMEN / Non-Lab 02/26/2022 12:15 022 Unknown Venipuncture / AM CDT 12:21 AM CDT Unknown Deepthi Garcia MD HEMATOLOGY Performing Organization Address City/[facility]/ZIP Code Phon e Number [facility] LABORATORY SENDOUT INTERNAL [place] [phone] [place] [address] APTT (02/26/2022 12:15 AM CDT) P athologist Signature APTT 25 24 - 33 sec 02/26/2022 [facility] 12:33 AM CDT LABORATORY Specimen Anatomical Collection Method / Collection Time Recei lionel Time (Source) Location / Volume Laterality Blood BLOOD SPECIMEN / Non-Lab 02/26/2022 12:15 022 Unknown Venipuncture / AM CDT 12:21 AM CDT Unknown [facility] LABORATORY - 02/26/2022 12:33 AM CDT Therapeutic Range: 70-95 seconds Deepthi Garcia MD HEMATOLOGY Performing Organization Address [facility] Phon e Number [facility] LABORATORY SENDOUT INTERNAL [place] [phone] [place] [address] (ABNORMAL) PROTIME-INR (02/26/2022 12:15 AM CDT) P athologist Signature INR 0.9 <1.3 02/26/2022 [facility] 12:32 AM CDT LABORATORY PROTIME 11.8 (L) 12.0 - 13.8 02/26/2022 [facility] sec 12:32 AM CDT LABORATORY Specimen Anatomical Collection Method / Collection Time Recei lionel Time (Source) Location / Volume Laterality Blood BLOOD SPECIMEN / Non-Lab 02/26/2022 12:15 022 Unknown Venipuncture / AM CDT 12:21 AM CDT Unknown [facility] LABORATORY - 02/26/2022 12:32 AM CDT ?Therapeutic Range 2.0-3.0 for most anticoagulated patients 2.5-3.5 or 4.0 for high risk patients The INR is only used for patients on sta ble oral anticoagulant therapy. It makes no significant contribution to the diagnosis or treatment of patients whose Protime is prolonged f or other reasons. INR results are increased when heparin l evels exceed 1.0 U/mL, which corresponds to an aPTT >125 seconds if the patient is on UFH. Deepthi Garcia MD HEMATOLOGY Performing Organization Address City/[facility]/ZIP Code Phon e Number [facility] LABORATORY SENDOUT INTERNAL [place], [place] [phone] [place] [address] (ABNORMAL) ALT (SGPT) (02/25/2022 5:55 AM CDT)Only the most recent of4 results within the time period is included. P athologist Signature ALT (SGPT) 79 (H) 8 - 45 IU/L 02/25/2022 [facility] 6:34 AM CDT LABORATORY Specimen Anatomical Collection Method / Collection Time Recei lionel Time (Source) Location / Volume Laterality Blood BLOOD SPECIMEN / Non-Lab 02/25/2022 5:55 02/26/20 6:07 Unknown Venipuncture / AM CDT AM CDT Unknown Eduardo Hayes MD CHEMISTRY Performing Organization Address [facility] Code Phon e Number [facility] LABORATORY SENDOUT INTERNAL [place] [phone] [place] [address] Brain Natriuetric Peptide (BNP) (02/24/2022 9:49 AM CDT) P athologist Signature BRAIN MAINOR 18 <150 pg/mL 02/24/2022 [facility] PEPTIDE 10:30 AM CDT LABORATORY Specimen Anatomical Collection Method / Collection Time Recei lionel Time (Source) Location / Volume Laterality Blood BLOOD SPECIMEN / Non-Lab 02/24/2022 9:49 02/25/20 22 9:59 Unknown Venipuncture / AM CDT AM CDT Unknown Eduardo Hayes MD CHEMISTRY Performing Organization Address City/[facility] Phon e Number [facility] LABORATORY SENDOUT INTERNAL [place] [phone] [place] [address] VAGINAL/RECTAL OB STREP PCR (02/24/2022 9:41 AM CDT) Analysis Performed At Patho logist Time Signature Vaginal/Rectal Negative 02/26/[address] [facility] OB Strep B PCR 12:32 PM CDT LABORATORY-C EN TRAL LABORATORY Specimen Anatomical Collection Method Collection Time Receive d Time (Source) Location / / Volume Laterality Other Non-Blood / 02/24/2022 9:41 AM 9:59 (Vaginal/Rectal) Unknown CDT AM CDT Eduardo Hayes MD MICROBIOLOGY Performing Organization Address City/State/ZIP Code Phon e Number [facility] [address] [place] [address] LABORATORY-CENTRAL [facility] LABORATORY (ABNORMAL) PROTEIN/CREAT RATIO,URINE (02/24/2022 9:41 AM CDT)Only the most recent of2 resultswithin the time period is included. P athologist Signature PROTEIN 9 <=14 mg/dL 02/24/2022 [facility] QUANT,RAND 10:25 AM CDT [facility] URINE LABORATORY CREAT,RANDOM 45.3 mg/dL 02/24/2022 [facility] URINE 10:25 AM CDT [facility] LABORATORY PROT/CREAT 0.2 (H) <0.2 02/24/2022 [facility] RATIO,UR 10:25 AM [facility] LABORATORY Specimen Anatomical Collection Method Collection Time Receive d Time (Source) Location / / Volume Laterality Urine URINE SPECIMEN / Non-Blood / 02/24/2022 9:41 AM 02/24 9:58 Unknown Unknown CDT AM CDT Eduardo Hayes MD URINE Performing Organization Address City/State/ZIP Code Phon e Number [facility] LABORATORY SENDOUT INTERNAL ZIP [place] [phone] [place] [address] (ABNORMAL) URINALYSIS MICROSCOPIC (02/15/2022 10:41 AM CDT)Only the most recent of2 resultswithin the time period is included. [facility] Method Time Signature RBC 0-2 0-2, None 02/15/[address] [facility] Seen /HPF 10:54 AM CDT [facility] WBC 0-2 0-2, 3-5, 02/15/[address] [facility] None Seen 10:54 AM CDT [facility] /HPF CLINIC BACTERIA Few None 02/15/[address] [facility] Seen, 10:54 AM CDT [facility] Rare, Few CLINIC Bacteria/ HPF EPITHELIAL Moderate (A) None 02/15/[address] [facility] CELLS Seen, Few 10:54 AM CDT [facility] Epi/HPF CLINIC Mucus Present 02/15/[address] [facility] 10:54 AM T [facility] Specimen Anatomical Collection Method Collection Time Receive d Time (Source) Location / / Volume Laterality Urine URINE SPECIMEN / Non-Blood / 02/15/2022 10:41 022 Unknown Unknown AM CDT 10:42 AM CDT Julita Skelton MD URINE Performing Organization Address City/State/ZIP Code Phon e Number [facility] [address] [place] [address] (ABNORMAL) UA W/ SEDIMENT EXAM REFLEXED PER CRITERIA (02/15/2022 10:41 AM CDT) Only the most recent of2 resultswithin the time period is included. [facility] Method Time Signature COLOR Yellow Yellow Color 02/15/[address] [facility] 10:54 AM [facility] CLARITY Slightly Clear 02/15/[address] [facility] Cloudy (A) Clarity 10:54 AM [facility] SPECIFIC 1.020 1.010, 02/15/[address] [facility] GRAVITY,URINE 1.015, 10:54 AM [facility] 1.020, 1.025 T [facility] PH,URINE 7.0 6.0, 7.0, 02/15/[address] [facility] 8.0, 5.5, 10:54 AM [facility] 6.5, 7.5, T CLINIC 8.5 UROBILINOGEN, Normal Normal EU/dl [facility]20[facility] 10:54 AM [facility] PROTEIN, Negative Negative 02/15/[address] [facility] URINE mg/dL 10:54 AM [facility] GLUCOSE, Negative Negative 02/15/[address] [facility] URINE mg/dL 10:54 AM [facility] KETONES,URINE Negative Negative 02/15/[address] [facility] mg/dL 10:54 AM [facility] BILIRUBIN,URI Negative Negative 02/15/[address] [facility] NE 10:54 AM [facility] OCCULT Negative Negative 02/15/[address] [facility] BLOOD,URINE 10:54 AM [facility] NITRITE Negative Negative 02/15/[address] [facility] 10:54 AM [facility] LEUKOCYTE Negative Negative 02/15/[address] [facility] ESTERASE 10:54 AM [facility] Specimen Anatomical Collection Method Collection Time Receive d Time (Source) Location / / Volume Laterality Urine URINE SPECIMEN / Non-Blood / 02/15/2022 10:41 022 Unknown Unknown AM CDT 10:42 AM CDT Julita Skelton MD URINE Performing Organization Address City/State/ZIP Code Phon e Number [facility] [address] [place] [address] URINE CULTURE (01/26/2022 2:58 PM CDT) [facility] gist Method Time Signature CULTURE 10-50,000 CFU/mL 01/28/2022 [...] Organization Address City/State/ZIP Code Phon e Number [facility] [address] [facility] [place] [address] LABORATORY-CENTRAL 2000 LABORATORY (ABNORMAL) CREATININE,ISTAT (01/18/2022 4:06 PM CDT) [facility] Signature CREATININE, 0.50 (L) 0.57 - 01/18/[address] [facility] POCT 1.11 mg/dL 4:09 PM CDT [facility] Comment: Caution: Patients taking Hydrox yurea have falsely increased iStat Creatinine results. Verify creatinine results order ing a Creatinine (99808.2) eGFR >90 >90 mL/min/1.73m2 01/18/2022 4:[address] [facility] Comment: As of 2021, eGFR [...] Organization Address City/State/ZIP Code Phon e Number [facility] [address] [place] [address] US OB BIOPHYSICAL PROFILE SINGLE WO NST [...] s are released immediately into your [facility]. ??You may view this report [...] provider. If you have questions, please contact [facility] health care provider. INDICATION: COVID in COMPARISON: [...] Organization Address City/State/ZIP Code Phon e Number [employer] [address] [place] [address] LABORATORY-CENTRAL 2000 LABORATORY ANTIBODY SCREEN (01/10/2022 10:00 AM CDT) Patholo gist Method Time Signature ANTIBODY Negative Negative 01/10/2022 [facility] SCREEN 5:31 PM CDT LAB-CENTRAL LAB [...] Organization Address City/State/ZIP Code Phon e Number [facility] LAB-CENTRAL LAB [address] [place], [place] [address] BLOOD BANK HEMOGLOBIN (01/10/2022 10:00 AM CDT) athologist Signature HEMOGLOBIN 12.5 12.0 - 16.0 01/10/[address] [facility] g/dL 10:07 AM CDT [facility] MCV 87 80 - 100 fL 01/10/[address] [facility] 10:07 AM CDT [facility] Specimen Anatomical Collection Method / Collection Time Recei lionel Time (Source) Location / Volume Laterality Blood BLOOD SPECIMEN / Venipuncture / 01/10/2022 10:00 01/10 Unknown Unknown AM CDT 10:04 AM CDT Julita Skelton MD HEMATOLOGY Performing Organization Address City/[facility]/ZIP Code Phon e Number [facility] [address] [place] [address] GLUCOSE,GESTATIONAL (01/10/2022 10:00 AM CDT) athologist Signature GLUCOSE,GESTAT 93 65 - 140 01/10/[address] [facility] IONAL mg/dL 10:12 AM CDT [facility] Specimen Anatomical Collection Method / Collection Time Recei lionel Time (Source) Location / Volume Laterality Blood BLOOD SPECIMEN / Venipuncture / 01/10/2022 10:00 01/10 Unknown Unknown AM CDT 10:04 AM CDT Julita Skelton MD CHEMISTRY Performing Organization Address City/[facility]/ZIP Code Phon e Number [facility] [address] [place] [address] from Last 3 Months Insurance Payer Benefit Plan / Subscriber ID Effective Dates Phone Addre ss Type Group [employer] [id number] 2019-Prese [address] [place] [address] BLUE CROSS BLUE [employer] OF [id number] 2020-Prese [id number] [place] [facility] [place] [phone] (Home) [place] [phone] (Work) [employer] Father [id number] [employer] (Home) [facility] [phone] [place] ([place]) [place] [address] Advance Directives Latest Code Status on File Code Status Date Activated Date Inactivated Comments Full Code 02/24/2022 8:52 AM 03/01/2022 6:26 PM Code Status Discussion: Reviewed Preferences Care Teams Cyber Instructor Relationship Specialty Start Date End Date Julita Skelton MD PCP - General Family Practice 08/23/21 [address] [place] [id number]
[2022-03-12 23:30] VITALS: BP 118/74; PULSE 79; RESP 18; TEMP 36.7; O2SAT 99
[2022-03-12 23:31] LABS: Basophils Percent Auto 0.4 % (0.0-3.0); Eosinophils Percent Auto 7.9 % (0.0-7.0); Hematocrit 37.6 % (33.0-51.0); Hemoglobin* 12.1 gm/dL (12.0-16.0); Immature Granulocytes Abs Auto 0.06 K/uL (0.00-0.30); Lymphocytes Percent Auto 22.7 % (20-44); Mean Corpuscular HGB Conc 32 gm/dL (32-36); Mean Corpuscular Hemoglobin 29 pg (26-34); Mean Corpuscular Volume 89 fL (80-100); Monocytes Percent Auto 6.2 % (0.0-11.0); Neutrophils Percent Auto 62.3 % (42.0-72.0); Platelet Count* 407 K/uL (140-440); RDW Coefficient of Variation % 12.6 % (11.5-15.5); Red Blood Count 4.23 m/uL (4.00-5.20); White Blood Count* 11.86 K/uL (4.50-11.00)
[2022-03-12 23:36] LABS: Slide Review Reflex No
[2022-03-12 23:46] LABS: Albumin* 4.4 g/dL (3.3-5.0)
[2022-03-12 23:47] LABS: Chloride* 100 mmol/L (96-114); Sodium* 138 mmol/L (135-149)
[2022-03-12 23:48] LABS: Potassium* 4.1 mmol/L (3.6-5.1)
[2022-03-12 23:49] LABS: Aspartate Amino Transferase* 72 U/L (12-35); Bilirubin Direct* 0.2 mg/dL (0.0-0.5); Bilirubin Total* 0.3 mg/dL (0.1-1.5); Total Protein* 7.2 g/dL (6.0-8.3)
[2022-03-12 23:50] LABS: Alanine Aminotransferase* 39 U/L (4-35); Alkaline Phosphatase* 154 U/L (40-150); Amylase* 62 U/L (18-89); Creatinine* 0.9 mg/dL (0.6-1.2); Est. Creatinine Clearance* 90.47; Estimated Glomerular Filt Rate 94 ml/min
[2022-03-12 23:51] LABS: Blood Urea Nitrogen* 19 mg/dL (5-24); Calcium* 9.7 mg/dL (8.7-10.8); Carbon Dioxide* 29 mmol/L (20-32); Glucose* 87 mg/dL (60-115)
[2022-03-13] LABS: C Reactive Protein* < 0.5 mg/dL (0.5-1.0)
== END 2022-03-12 23:30 | disposition home or self-care (01) ==
LOC: ED 23:13
PROVIDERS: Emergency Provider Family Medicine; PCP Family Medicine
DX: R10.9 Unspecified abdominal pain (principal)
CPT/HCPCS: 36415; 80048; 80076; 82150; 85025; 86140; 99282; 99283; 99284

== ENCOUNTER 2022-03-13 13:52 | Outpatient (CLI) | payer BC, SELFPAY ==
--- OUTSIDE RECORDS SUMMARY | 2022-03-13 13:55 | XMS_ITS | Clinical Summary ---
:2000 Author Organization [employer] [place] [address] Care Team Providers Name Role Phone Julita Skelton MD Primary Care Provider Allergies Active Allergy Reactions Severity Noted Date Comments Blood-Group Specific Other - Describe In 02/24/2022 Patient has probable Substance Comment Field passive D anti body and a nonspecific a ntibody. Blood products may be delayed. Draw p atient 24 hours prior to transfusion. Fo r Disconnect testing, draw one red top and two [...] 0 0 # Outcome Date GA Lbr Kenryo/2nd Weight Sex Delivery Anes PTL Lv 1 [...] DATE: 03/01/2022 Primary OB Provider: Julita Skelton ([place]) Referring Provider: Julita Skelton ([place]) DELIVERY INFORMATION: Baby is a male Delivery [...] - specify city or individual clinic name: [facility] Infants last name: Dawit Infant feeding preference du ring hospital stay: Exclusive /Breastmilk Circumcision preference for male : Yes Preference for Hepatitis B V accine for ?: Yes HOSPITAL COURSE: Va Tan is a 21 y.o. female, whose Estimated Date of Delivery: 04/03/22. The patient was transferred to [facility] secondary to preeclampsia with severe features, severe based on el evated LFTs. Discharged from [facility] in stable condition on day# 3. Labor [...] appointment(s): Return to Clinic in 4-6 wee wy When to follow up: Other Co mment [...] of discharge. [facility] For the vaginal of a baby. [...] DO Peg Complications: None Delivery Location: Hospital ([address] L&D TRIAGE) OB Episode Summary Episode Dates Estimated Date of Pregravid Weight TWG (As of ) Delivery 08/23/2021 - Present 04/03/2022 94.6 kg (208 lb 9.6 17.2 kg (37 lb 14.4 oz) (03/13/2022) oz) Date GA Fund Present FHR Mvmt [...] MD .................. .. 03/08/2022 10:42 AM Family [facility] 03/03/2022 - 34w6d - Julita Skelton [...] alone Communication Method: Patient is active on Osito and has been instructed that results/communications will be made via Osito If a phone call is needed, the [...] Outpatient Provi arsh: Admission and discharge dates ([facility] ly - last 30 days): 02/24/2022-03/01/2022 Recommendations for outpatient provider from [facility] discharges (past 30 days): No [...] Valentine, RN Problem: SAFETY Goal: MOTHER AND INFANT [...] at 1600 was 131/66 Dr.Hert key called auto service writer and stated that she wanted pt [...] this note is different from the original. [facility] Progress Note. Patient unavailable. [...] [facility]at [facility] Practitioner 10:23 AM Ext #[id number] 03/01/2022 - 34w6clarke - Rhiannon Cowart cia, [...] is pumping and planning to breastfeed the infant. Objective: BP 131/82 (Cuff Size: Adult Large) [...] materials given to patient. Patient/family informed about infant safety/security (see note in 's chart). Plan of care w ent over [...] - Yoselyn Sifuentes R N of male infant born at 0432. Baby pl aced on [...] SAFETY Goal: CRITICAL LAB VALUES REPORTED TO [facility] Description: - Note lab results and info rm of critical values 02/25/20222245 by Monico Llanes, RN Note: At 2225 critical Magnesium level c alled to auto service writer by lab at 6.5. Dr Castro [...] Llanes RN Note: At 1915 lab called auto service writer with a c ritical Magnesium level [...] Height: FHT: mod linda, +accels, no decels [place]:irregular CX: fingertip/high/anterior/med, Cook ca theter placement attempt [...] SAFETY Goal: CRITICAL LAB VALUES REPORTED TO [facility] Description: - Note lab results and info danica BROOKE of critical values Note: At 1915 lab called auto service writer with a c ritical Magnesium level [...] SAFETY Goal: CRITICAL LAB VALUES REPORTED TO [facility]PITAL[facility]ATION Note: Report given [...] h plan in place* Note: Transfer from [place] [facility] via [facility] for Upper gastric [...] MD Patient was seen this morning by [facility], di scussed that she has a diagnosis [...] MD .................. .. 02/21/2022 10:25 AM CC: [facility] 02/15/2022 - 33w2d - Julita Skelton MD Patient is here for routine pren atal care at 33w2d Concerns: Was at labor and delivery last night for abdominal pain. Had epigastric pain and pain across the upper abdomen. Had pain that worsened with lying down. Lasted for 2-3 hours. [place] like someone was pushing on upper abdomen. [...] MD .................. .. 02/15/2022 10:22 AM CC: [facility] 02/07/2022 - 32w1d - Julita Skelton [...] MD .................. .. 02/07/2022 10:22 AM CC: [facility] 01/26/2022 - 30w3d - Julita [...] vari, accels to 1 65. No decels [place]: No contractions. Will do growth ultrasound at [...] MD .................. .. 01/26/2022 1:31 PM CC: [facility] 01/10/2022 - w - Julita Skelton [...] MD .................. .. 01/10/2022 9:19 AM CC: [facility] 12/08/2021 - w3d - Julita Skelton [...] MD .................. .. 12/08/2021 11:19 AM CC: [facility] 11/08/2021 - 19w1d - Julita Skelton [...] for dinner meal. Last night went to [id number], took a couple bites. No nausea, no [...] MD .................. .. 11/08/2021 9:02 AM CC: [facility] 10/19/2021 - w2d - Julita Skelton [...] MD .................. .. 10/19/2021 10:55 AM CC: [facility] 09/21/2021 - w2d - Julita Skelton MD Clinic Note: First OB Visit 09/21/2021 Va Tan is a 21 y.o. wit h Estimated Date of Delivery: 04/03/22, here today for a first visit. No significant concerns. Nausea and vomi ting is ok. Feels tired but otherwise ok. 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 /Father of baby: Carlo De Dios Family [...] concerns. Julita Skelton MD .................... 4:19 PM [facility] [phone] CC: [facility] 08/23/2021 - 8w1d - Julita Skelton [...] Diabetes, cancer, asthma. Tolerating vitamin. Works at [employer] MEDICAL HISTORY Medical, surgical, family, and social [...] URINALYSIS W REFLEX MICROSCOPIC IF POSIT NORMAN [[id number]] Result Value Ref Range COLOR Yellow Yellow [...] Plan: 1. Dating ultrasound today. KARISHMA by [place] sound is 04/03 at [id number] 2. Routine OB labs ordered including typ [...] to call the office or log into [employer] with any questions or concerns. Julita Skelton [...] procedure are i n the results section. [facility] TUBING PR5 Routine 02/26/2022 12:44 Results for this AM CDT procedure are i n the results section. [facility] LABOR EPIDURAL Routine 02/26/2022 12:44 Resu lts for this INITIAL AM CDT procedure are i n the results section. EPIDURAL BLOCK Routine 02/26/2022 12:44 Results f or this AM CDT procedure are i n the results section. [facility] DRSG PR1 Routine 02/26/2022 12:44 Results fo r this AM CDT procedure are i n the results section. [facility] KIT EPIDURAL PR10 Routine 02/26/2022 12:44 R [...] of2 resultswithin the time period is included. [facility] Method Time Signature ABORH A Rh 02/27/2022 [facility] Negative 6:00 PM CDT [facility] LABORATORY BLOOD BANK ANTIBODY Positive (A) Negative 02/27/2022 [facility] SCREEN 6:00 PM T [facility] LABORATORY BLOOD BANK SPECIMEN 03/02/22 02/27/2022 [facility] EXPIRATION 23:59 6:00 PM T HOSPITAL DATE/TIME LABORATORY BLOOD BANK Specimen Anatomical Collection Method / Collection Time Recei lionel Time (Source) Location / Volume Laterality Blood BLOOD SPECIMEN / Venipuncture / 02/27/2022 3:20 2021 3:29 Unknown Unknown PM CDT PM CDT Yoselyn Castro DO BLOOD BANK Performing Organization Address City/State/ZIP Code Phon e Number [facility] LABORATORY [address] [place] [address] BLOOD BANK (ABNORMAL) ANTIBODY IDENTIFICATION LAB USE ONLY (02/27/2022 3:20 PM CDT)Only the most recent of2 resultswithin the time period is included. [facility] Method Time Signature ANTIBODY Non-speci 02/27/2022 [facility] IDENTIFICATION fic (A) 6:05 PM T [facility] LABORATORY BLOOD BANK Specimen Anatomical Collection Method / Collection Time Recei lionel Time (Source) Location / Volume Laterality Blood BLOOD SPECIMEN / Venipuncture / 02/27/2022 3:20 2021 3:29 Unknown Unknown PM CDT PM CDT Narrative [facility] BLOOD BANK - 02/27/2022 6:05 PM [...] is required, please contact the performing laboratory [facility] BLOOD BANK Performing Organization Address City/[facility] Phon e Number [address] [address] BLOOD BANK ANTIBODY IDENTIFICATION EACH PANEL (02/27/2022 3:20 PM CDT)Only the most recent of2 resultswithin the time period is included. [facility] Layer Method Time Signature QUANTITY 1 [facility] BLOOD BANK PANEL SHABBIR ID Panel [place] Antibody ID [facility] BLOOD BANK Specimen (Source) Anatomical Location Collection Method / Collectio n Time Received Time / Laterality Volume [facility] BLOOD BANK Performing Organization Address City/[facility] Phon e Number [address] [address] BLOOD BANK RED BLOOD CELLS EA UNIT (02/27/2022 3:20 PM CDT)Only the most recent of2 results within the time period is included. [facility] gist Method Time Signature CROSSMATCH Compatible Compatible [facility] BLOOD BANK PRODUCT BLOOD A Rh Negative [facility] BLOOD BANK PRODUCT ID [id number] [facility] BLOOD BANK PRODUCT STATUS /[facility] BLOOD BANK PRODUCT RBC -1 LR [facility] BLOOD BANK PRODUCT CODE [id number] [facility] BLOOD BANK Specimen (Source) Anatomical Location Collection Method / Collectio n Time Received Time / Laterality Volume [facility] BLOOD BANK Performing Organization Address City/[facility] Phon e Number [address] [address] BLOOD BANK RH IMMUNE GLOBULIN PREP (02/27/2022 2:34 PM CDT) P athologist Signature QUANTITY 1 02/27/2022 [facility] 2:52 PM CDT LABORATORY BLOOD BANK Specimen Anatomical Collection Method / Collection Time Recei lionel Time (Source) Location / Volume Laterality Blood BLOOD SPECIMEN / Venipuncture / 02/27/2022 2:34 2021 2:44 Unknown Unknown PM CDT PM CDT Yoselynthalia Ruvalcaba Matthew DO BLOOD BANK Performing Organization Address City/State/ZIP Code Phon e Number [facility]OR[facility]ORY [address] [place] [address] BLOOD BANK (ABNORMAL) CBC W PLT NO DIFF (02/26/2022 7:34 AM CDT)Only the most recent of2 resultswithin the time period is included. Patholo gist Method Time Signature WHITE BLOOD 16.7 (H) 4.5 - 11.0 02/26/2022 [facility] COUNT thou/cu mm 7:57 AM T HOSPITAL LABORATORY RED BLOOD COUNT 3.72 (L) 4.00 - 02/26/2022 [facility] 5.20 7:57 AM [facility] mil/cu mm LABORATORY HEMOGLOBIN 10.6 (L) 12.0 - 02/26/2022 [facility] 16.0 g/dL 7:57 AM T [facility]OS[facility]ITAL LABORATORY HEMATOCRIT 31.7 (L) 33.0 - 02/26/2022 [facility] 51.0 % 7:57 AM [facility] LABORATORY MCV 85 80 - 100 02/26/2022 [facility] fL 7:57 AM [facility] LABORATORY MCH 28.5 26.0 - 02/26/2022 [facility] 34.0 pg 7:57 AM [facility] LABORATORY MCHC 33.4 32.0 - 02/26/2022 [facility] 36.0 g/dL 7:57 AM [facility] LABORATORY RDW 13.1 11.5 - 02/26/2022 [facility] 15.5 % 7:57 AM T [facility]ITAL LABORATORY PLATELET COUNT 213 140 - 440 02/26/2022 [facility] thou/cu mm 7:57 AM [facility] LABORATORY MPV 10.9 6.5 - 11.0 02/26/2022 [facility] fL 7:57 AM [facility] LABORATORY NRBC 0.0 % 02/26/2022 [facility] [...] Wintersafshan Castro DO HEMATOLOGY Performing Organization Address City/[facility] e Number [facility] LABORATORY SENDOUT [place]NAL [place] [phone] [place] [address] CREATININE (02/26/2022 7:34 AM CDT)Only the most recent of6 resultswithin the time period is included. athologist Signature CREATININE 0.80 0.57 - 1.11 02/26/2022 [facility] mg/dL 8:20 AM CDT LABORATORY eGFR >90 >90 02/26/2022 [facility] mL/min/1.73 8:20 AM CDT LABORATORY m2 Comment: [...] Peg Castro DO CHEMISTRY Performing Organization Address City/[facility] Phon e Number [facility] LABORATORY SENDOUT [place] [phone] [place] [address] AST (SGOT) (02/26/2022 7:34 AM CDT)Only the most recent of6 resultswithin the time period is included. athologist Signature AST (SGOT) 25 2 - 40 IU/L 02/26/2022 [facility] 8:22 AM CDT LABORATORY Specimen Anatomical Collection Method / Collection Time Recei lionel Time (Source) Location / Volume Laterality Blood BLOOD SPECIMEN / Venipuncture / 02/26/2022 7:34 2021 7:52 Unknown Unknown AM CDT AM CDT Yoselyn Castro DO CHEMISTRY Performing Organization Address City/State/ZIP Code Phon e Number [facility] LABORATORY SENDOUT INTERNAL ZIP [place] [phone] [place] [address] (ABNORMAL) Magnesium - PRN (02/26/2022 7:34 AM CDT)Only the most recent of3 resultswithin the time period is included. P athologist Signature MAGNESIUM 4.7 (H) 1.7 - 2.2 02/26/2022 [facility] mg/dL 8:50 AM CDT LABORATORY Specimen Anatomical Collection Method / Collection Time Recei lionel Time (Source) Location / Volume Laterality Blood BLOOD SPECIMEN / Venipuncture / 02/26/2022 7:34 2021 7:52 Unknown Unknown AM CDT AM CDT Yoselyn Castro DO CHEMISTRY Performing Organization Address City/[facility] Code Phon e Number [facility] LABORATORY SENDOUT [place] [phone] [place] [address] PATH TISSUE EXAM (02/26/2022 7:09 AM CDT) Component Value Ref Test Analysis Performed At [facility] Method Time Signature Case Report Pathology Report ?Case: [id number] ? 03/01/2022 [facility] Authorizing Provider: ??Lizbeth on, Yoselynthalia Ruvalcaba, DO ? Collected: ? 02/26/2022 0709 ? 2:19 PM HEALTH Ordering Location: ? [facility] ?Received: ?02/27/2022 0733 ? CDT L ABORATORY-C [...] ? Gestational age (wks): 34w6d weeks ?? Infant wt (g): 2110 grams ?? sex: Female Pertinent maternal history- ?? , [...] entire surface. ??No other lesions are identified. Ballroom Dancer sections are submitted: 1. ?? membranes and [...] appropriate sections of all specimens. Additional 03/01/2022 [facility] Information Interpreted at [facility], Central Laboratory - [address], [place] [address] 2:19 PM HEALTH CDT LABORATORY-C ENTRAL LABORATORY [...] born: Yes Gestational age (wks): 34w6d weeks wt (g): 2110 grams Infant s ex: FemalePertinent maternal history- , Term, Premature, AB, Living: Diabetes: no Hypertension: yes Eclampsia: no Smoking: no Other: noneAut opsy info: Not applicable Yoselyn Castro DO PATHOLOGY/CYTOLOGY Performing Organization Address City/State/ZIP Code Phon e Number [facility] [address] [place] [address] LABORATORY-CENTRAL [address] LABORATORY [facility] LABORATORY SENDOUT INTERNAL ZIP [place] [phone] [place] [address] HCHG KIT EPIDURAL PR10, HCHG DRSG PR1, [...] PLATELET COUNT 246 140 - 440 02/26/2022 [facility] L thou/cu mm 12:23 AM CDT LABORATORY MPV 10.8 6.5 - 11.0 02/26/2022 [facility] fL 12:23 AM CDT LABORATORY Specimen Anatomical Collection Method / Collection Time Recei lionel Time (Source) Location / Volume Laterality Blood BLOOD SPECIMEN / Non-Lab 02/26/2022 12:15 022 Unknown Venipuncture / AM CDT 12:21 AM CDT Unknown Deepthi Garcia MD HEMATOLOGY Performing Organization Address City/[facility]/ZIP Code Phon e Number [facility] LABORATORY SEND[place] [phone] [place] [address] APTT (02/26/2022 12:15 AM CDT) P athologist Signature APTT 25 24 - 33 sec 02/26/2022 [facility] 12:33 AM CDT LABORATORY Specimen Anatomical Collection Method / Collection Time Recei lionel Time (Source) Location / Volume Laterality Blood BLOOD SPECIMEN / Non-Lab 02/26/2022 12:15 022 Unknown Venipuncture / AM CDT 12:21 AM CDT Unknown [facility] LABORATORY - 02/26/2022 12:33 AM CDT Therapeutic Range: 70-95 seconds Deepthi Garcia MD HEMATOLOGY Performing Organization Address [facility] Phon e Number [facility] LABORATORY SEND[place] [phone] [place] [address] (ABNORMAL) PROTIME-INR (02/26/2022 12:15 AM CDT) P athologist Signature INR 0.9 <1.3 02/26/2022 [facility] 12:32 AM CDT LABORATORY PROTIME 11.8 (L) 12.0 - 13.8 02/26/2022 [facility] sec 12:32 AM CDT LABORATORY Specimen Anatomical [...] Deepthi Garcia MD HEMATOLOGY Performing Organization Address City/[facility]/ZIP Code Phon e Number [facility] LABORATORY SENDOUT [place]NAL [place], [place] [phone] [place] [address] (ABNORMAL) ALT (SGPT) (02/25/2022 5:55 AM CDT)Only the most recent of4 results within the time period is included. P athologist Signature ALT (SGPT) 79 (H) 8 - 45 IU/L 02/25/2022 [facility] 6:34 AM CDT LABORATORY Specimen Anatomical Collection Method / Collection Time Recei lionel Time (Source) Location / Volume Laterality Blood BLOOD SPECIMEN / Non-Lab 02/25/2022 5:55 02/26/20 6:07 Unknown Venipuncture / AM CDT AM CDT Unknown Eduardo Hayes MD CHEMISTRY Performing Organization Address [facility] Code Phon e Number [facility] LABORATORY SENDOUT [place] [phone] [place] [address] Brain Natriuetric Peptide (BNP) (02/24/2022 9:49 AM CDT) P athologist Signature BRAIN MAINOR 18 <150 pg/mL 02/24/2022 [facility] PEPTIDE 10:30 AM CDT LABORATORY Specimen Anatomical Collection Method / Collection Time Recei lionel Time (Source) Location / Volume Laterality Blood BLOOD SPECIMEN / Non-Lab 02/24/2022 9:49 02/25/20 22 9:59 Unknown Venipuncture / AM CDT AM CDT Unknown Eduardo Hayes MD CHEMISTRY Performing Organization Address City/[facility] Phon e Number [facility] LABORATORY SEND[place] [phone] [place] [address] VAGINAL/RECTAL OB STREP PCR (02/24/2022 9:41 AM CDT) Analysis Performed At Patho logist Time Signature Vaginal/Rectal Negative 02/26/2022 [facility] OB Strep B PCR 12:32 PM CDT LABORATORY-C EN TRAL LABORATORY Specimen Anatomical Collection Method Collection Time Receive d Time (Source) Location / / Volume Laterality Other Non-Blood / 02/24/2022 9:41 AM 9:59 (Vaginal/Rectal) Unknown CDT AM CDT Eduardo Hayes MD MICROBIOLOGY Performing Organization Address City/State/ZIP Code Phon e Number [facility] [address] [place] [address] LABORATORY-CENTRAL [facility] LABORATORY (ABNORMAL) PROTEIN/CREAT RATIO,URINE (02/24/2022 9:41 AM CDT)Only the most recent of2 resultswithin the time period is included. P athologist Signature PROTEIN 9 <=14 mg/dL 02/24/2022 [facility] 10:25 AM CDT [facility] URINE LABORATORY CREAT,RANDOM 45.3 mg/dL 02/24/2022 [facility] URINE 10:25 AM CDT [facility] LABORATORY PROT/CREAT 0.2 (H) <0.2 02/24/2022 [facility] RATIO,UR 10:25 AM [facility] LABORATORY Specimen Anatomical Collection Method Collection Time Receive d Time (Source) Location / / Volume Laterality Urine URINE SPECIMEN / Non-Blood / 02/24/2022 9:41 AM 02/24 9:58 Unknown Unknown CDT AM CDT Eduardo Hayes MD URINE Performing Organization Address City/State/ZIP Code Phon e Number [facility] LABORATORY SENDOUT INTERNAL [place]IP [place] [phone] [place] [address] (ABNORMAL) URINALYSIS MICROSCOPIC (02/15/2022 10:41 AM CDT)Only the most recent of2 resultswithin the time period is included. [facility] Method Time Signature RBC 0-2 0-2, None [facility] /H[facility] 10:54 AM CDT [place] [facility] WBC 0-2 0-2, 3-5, 02/15/2022 [facility] None Seen 10:54 AM CDT [place] /HPF CLINIC BACTERIA Few None 02/[facility]/2022 [facility] Seen, 10:54 AM CDT [place] Rare, Few CLINIC Bacteria/ [facility] EPITHELIAL Moderate (A) None 02/15/2022 [facility] CELLS Seen, Few 10:54 AM CDT [place] Epi/HPF CLINIC Mucus Present 02/15/2022 [facility] 10:54 AM T [facility] Specimen Anatomical Collection Method Collection Time Receive d Time (Source) Location / / Volume Laterality Urine URINE SPECIMEN / Non-Blood / 02/15/2022 10:41 022 Unknown Unknown AM CDT 10:42 AM CDT Julita Skelton MD URINE Performing Organization Address City/State/ZIP Code Phon e Number [facility] [address] [place] [address] (ABNORMAL) UA W/ SEDIMENT EXAM REFLEXED PER CRITERIA (02/15/2022 10:41 AM CDT) Only the most recent of2 resultswithin the time period is included. [facility] Method Time Signature COLOR Yellow Yellow Color 02/15/2022 [facility] 10:54 AM [facility] CLARITY Slightly Clear 02/15/2022 [facility] Cloudy (A) Clarity 10:54 AM [facility] SPECIFIC 1.020 1.010, 02/15/2022 [facility] GRAVITY,URINE 1.015, 10:54 AM [place] 1.020, 1.025 T [facility] PH,URINE 7.0 6.0, 7.0, 02/15/2022 [facility] 8.0, 5.5, 10:54 AM [place] 6.5, 7.5, T CLINIC 8.5 UROBILINOGEN, Normal Normal EU/dl 02/15/2022 [facility] 10:54 AM [facility] PROTEIN, Negative Negative 02/15/2022 [facility] URINE mg/dL 10:54 AM [facility] GLUCOSE, Negative Negative 02/15/2022 [facility] URINE mg/dL 10:54 AM [facility] KETONES,URINE Negative Negative 02/15/2022 [facility] mg/dL 10:54 AM [facility] BILIRUBIN,URI Negative Negative 02/15/2022 [facility] NE 10:54 AM [facility] OCCULT Negative Negative 02/15/2022 [facility] BLOOD,URINE 10:54 AM [facility] NITRITE Negative Negative 02/15/2022 [facility] 10:54 AM [facility] LEUKOCYTE Negative Negative 02/15/2022 [facility] ESTERASE 10:54 AM [facility] Specimen Anatomical Collection Method Collection Time Receive d Time (Source) Location / / Volume Laterality Urine URINE SPECIMEN / Non-Blood / 02/15/2022 10:41 022 Unknown Unknown AM CDT 10:42 AM CDT Julita Skelton MD URINE Performing Organization Address City/State/ZIP Code Phon e Number [facility] [address] [place] [address] URINE CULTURE (01/26/2022 2:58 PM CDT) [facility] gist Method Time Signature CULTURE 10-50,000 CFU/mL 01/28/2022 [facility] H of multiple 6:58 PM CDT LABORATORY-[place]ALIS[place] organisms, TRAL probable LABORATORY contaminants Specimen Anatomical Collection Method Collection Time Receive d Time (Source) Location / / Volume Laterality Urine URINE SPECIMEN / Non-Blood / 01/26/2022 2:58 PM 01/26 2:58 Unknown Unknown CDT PM CDT Julita Skelton MD MICROBIOLOGY Performing Organization Address City/State/ZIP Code Phon e Number [facility] [address] [place] [address] LABORATORY-CENTRAL 2000 LABORATORY (ABNORMAL) CREATININE,ISTAT (01/18/2022 4:06 PM CDT) [facility] CREATININE, 0.50 (L) 0.57 - 01/18/2022 [facility] POCT 1.11 mg/dL 4:09 PM CDT [facility] Comment: Caution: Patients taking Hydrox yurea have falsely increased iStat Creatinine results. Verify creatinine results order ing a Creatinine (30292.2) eGFR >90 >90 mL/min/1.73m2 01/18/2022 4:09 PM CDT [facility] Comment: As of 2021, eGFR is calcu [...] Organization Address City/State/ZIP Code Phon e Number [facility] [address] [place] [address] US OB BIOPHYSICAL PROFILE SINGLE WO NST [...] s are released immediately into your [facility]. ??You may view this report [...] provider. If you have questions, please contact [facility] health care provider. INDICATION: COVID in [...] Organization Address City/State/ZIP Code Phon e Number [facility] [address] [place] [id number] LABORATORY-CENTRAL 2000 LABORATORY ANTIBODY SCREEN (01/10/2022 10:00 [...] Organization Address City/State/ZIP Code Phon e Number [facility] LAB-CENTRAL LAB [address] [place], [place] [address] BLOOD BANK HEMOGLOBIN (01/10/2022 10:00 AM CDT) athologist Signature HEMOGLOBIN 12.5 12.0 - 16.0 01/10/2022 [facility] g/dL 10:07 AM CDT [facility] MCV 87 80 - 100 fL 01/10/2022 [facility] 10:07 AM CDT [facility] Specimen Anatomical Collection Method / Collection Time Recei lionel Time (Source) Location / Volume Laterality Blood BLOOD SPECIMEN / Venipuncture / 01/10/2022 10:00 01/10 Unknown Unknown AM CDT 10:04 AM CDT Julita Skelton MD HEMATOLOGY Performing Organization Address City/[facility]/ZIP Code Phon e Number [facility] [address] [place] [address] GLUCOSE,GESTATIONAL (01/10/2022 10:00 AM CDT) athologist Signature GLUCOSE,GESTAT 93 65 - 140 01/10/2022 [facility] IONAL mg/dL 10:12 AM CDT [facility] Specimen Anatomical Collection Method / Collection Time Recei lionel Time (Source) Location / Volume Laterality Blood BLOOD SPECIMEN / Venipuncture / 01/10/2022 10:00 01/10 Unknown Unknown AM CDT 10:04 AM CDT Julita Skelton MD CHEMISTRY Performing Organization Address City/[facility]/ZIP Code Phon e Number [facility] [address] [place] [address] from Last 3 Months Insurance Payer Benefit Plan / Subscriber ID Effective Dates Phone Addre ss Type Group [employer] [id number] 2019-Prese [address] [place] [address] [employer] OF [id number] 2020-Prese [address] [place] [address] (Home) [place] [phone] [id number] (Work) [employer] Father [id number] [employer] (Home) [facility] [phone] [place] ([place]) [place] [id number] Advance Directives Latest Code Status on File Code Status Date Activated Date Inactivated Comments Full Code 02/24/2022 8:52 AM 03/01/2022 6:26 PM Code Status Discussion: Reviewed Preferences Care Teams Residential Youth Counselor Relationship Specialty Start Date End Date Julita Skelton MD PCP - General Family Practice 08/23/21 [address] [place] [id number]
--- NOTE | 2022-03-13 14:00 | CRLHL7_ITS ---
For Patients: As a result of the Century Cures Act, medical imaging exams and procedure reports are released immediately into your electronic medical record. You may view this report before your referring provider. If you have questions, please contact your health care provider. INDICATION: RUQ PAIN COMPARISON: none TECHNIQUE: Real time cárdenas scale imaging and color Doppler analysis was performed of the right upper quadrant. FINDINGS: The patient`s liver is of normal size and has uniform echogenicity. There is a normal appearance of the hepatic IVC and proximal abdominal aorta. There is no evidence of ascites. The gallbladder is slightly contracted. Multiple echogenic stones are present within the gallbladder lumen. There is also a non mobile echogenic focus associated with the nondependent wall measuring 5 millimeters. The gallbladder wall measures 4 mm in thickness. The common bile duct is of normal size and measures 4 mm in diameter at the level of the criselda hepatis. The pancreas appears normal. There is no evidence of a stone or hydronephrosis within the right kidney. The right kidney measures 9.8 cm in length. IMPRESSION: Multiple gallstones in the gallbladder lumen which is slightly contracted compatible with cholelithiasis. The gallbladder wall is mildly thickened and there is an echogenic focus associated with the nondependent gallbladder wall measuring 5 millimeters representing either adherent sludge ball or polyp. Surgical consultation recommended. Dictated by Bogdan Bahena MD @ 03/14/2022 8:53:03 AM (Electronically Signed)
== END 2022-03-13 13:53 | disposition home or self-care (01) ==
PROVIDERS: PCP Family Medicine; Visit Provider Family Medicine
DX: R10.11 Right upper quadrant pain (principal); K80.80 Other cholelithiasis without obstruction
CPT/HCPCS: 76705

== ENCOUNTER 2022-03-15 23:55 | Emergency (ER) | payer BC, MEDICAID, SELFPAY ==
[2022-03-16 00:12] VITALS: BP 120/85; PULSE 80; RESP 18; TEMP 36.7; O2SAT 99; BMI 30.4
[2022-03-16] MEDS: ONDANSETRON ODT 4 MG TAB PO (00:30)
--- NOTE | 2022-03-16 00:39 | ED.ABDPAIN ---
HPI - Abdominal Pain General Chief Complaint: Abdominal Pain Stated Complaint: Abdominal Pain Time Seen by Provider: 03/16/22 00:16 History of Present Illness HPI narrative: 21-year-old young woman presenting with pain in the epigastrium similar to pain she has experienced before prompting presentation to this emergency department 4 days ago. Was arranged for outpatient ultrasound and surgical consultation in follow-up. Numerous episodes of epigastric pain throughout the . Second episode in 4 days. This is the most intense 1 to date. Due to preeclampsia delivered at 34 weeks approximately 2 and half weeks ago. She is nauseated but has not vomited. Pain present for about 5 minutes prior to presenting to this emergency department tonight. No pain medications available. Findings from ultrasound IMPRESSION: Multiple gallstones in the gallbladder lumen which is slightly contracted compatible with cholelithiasis. The gallbladder wall is mildly thickened and there is an echogenic focus associated with the nondependent gallbladder wall measuring 5 millimeters representing either adherent sludge ball or polyp. Surgical consultation recommended. Related Data Home Medications Medication Instructions Recorded Confirmed aspirin 81 mg chewable tablet 81 mg PO DAILY 02/15/22 03/12/22 famotidine 20 mg tablet 20 mg PO DAILY 02/24/22 03/12/22 labetalol 200 mg tablet 200 mg PO TID 03/12/22 03/12/22 Allergies Allergy/AdvReac Type Severity Reaction Status Date / Time No Known Drug Allergies Allergy Verified 03/12/22 22:50 [facility] Medical History Adjustment disorder with mixed anxiety and depressed mood Pre-eclampsia, severe, third trimester Surgical History No significant past surgical history Social History Smoking Status: Former smoker Do you use any of these nicotine containing products: None Second hand tobacco smoke exposure: No How often do you have a drink containing alcohol: never How often do you have six or more drinks on one occasion: Never AUDIT-C Alcohol total score: 0 Non-prescribed substance use: denies use Exam Narrative: Exam Narrative: She is standing trembling in clear discomfort. Diaphoretic. Labored in her breathing. Lungs appear to be clear. Cardiovascular with regular rate and rhythm Abdomen is soft and tender in the epigastrium little bit into the right upper quadrant just under the ribs as well. Extremities are without edema. No flank pain. Const: Vital Signs, click to edit/add: Vital Signs - 24 hr 03/16/22 00:12 Temperature 98.0 F Pulse Rate [Right Pulse Oximeter] 80 Respiratory Rate 18 Blood Pressure [Ri ght Upper Arm] 120/85 Pulse Oximetry 99 Oxygen Delivery Me thod Room Air Documenting provider has reviewed patient's vital signs: yes Course Course Hospital Course: Just had evaluation with outpatient plan. She preferred a try to break the pain 1st. Did not have pain medication otherwise available to try. While intense and perhaps her most intense yet has only been present briefly. Given IM ketorolac, ODT Zofran, IM Dilaudid as understandably requesting more immediate relief of pain if possible. Reevaluation(s) Reevaluation #1: Marked improvement on re-evaluation. Clearly more relaxed. And felt she could return home. Vital Signs Vital signs: Initial Vital Signs Temperature 98.0 F 03/16/22 00:12 Temperature Source Temporal Artery Scan 03/16/22 00:12 Pulse Rate 80 03/16/22 00:12 Respiratory Rate 18 03/16/22 00:12 Blood Pressure 120/85 03/16/22 00:12 Blood Pressure Mean 96 03/16/22 00:12 Blood Pressure Position Sitting 03/16/22 00:12 Pulse Oximetry 99 03/16/22 00:12 Oxygen Delivery Method 03/16/22 00:12 Vital Signs Temperature 98.0 F 03/16/22 00:12 Pulse Rate 80 03/16/22 00:12 Respiratory Rate 18 03/16/22 00:12 Blood Pressure 120/85 03/16/22 00:12 Pulse Oximetry 99 03/16/22 00:12 Oxygen Delivery Method 03/16/22 00:12 Temperature 98.0 F 03/16/22 01:20 Pulse Rate 74 03/16/22 01:20 Respiratory Rate 18 03/16/22 01:20 Blood Pressure 118/78 03/16/22 01:20 Pulse Oximetry 99 03/16/22 01:20 Oxygen Delivery Method 03/16/22 01:20 Discharge Plan Discharge Clinical Impression: Epigastric abdominal pain, Biliary colic Patient Disposition: Home w/ Parent or Adult Condition: Improved Additional Instructions: Stay well-hydrated. Please follow-up for your preop and surgical consultation as planned. If pain returns, take anti-nausea meds and pain pills as prescribed. If not improved in 1/2-2 hours or having intractable vomiting such that you cannot maintain your medications or experiencing fever, return to the emergency department. Zofran and Percocet from [facility] Prescriptions: No Action aspirin 81 mg tablet,chewable 81 mg PO DAILY famotidine 20 mg tablet 20 mg PO DAILY labetalol 200 mg tablet 200 mg PO TID Follow Up/Referrals: Julita Skelton MD [Primary Care Provider] - Stand Alone Forms: [employer] Info Instructions
[2022-03-16 00:40] VITALS: TEMP 36.7
[2022-03-16] MEDS: KETOROLAC 60 MG/2 ML inj IM (00:40)
--- OUTSIDE RECORDS SUMMARY | 2022-03-16 00:40 | XMS_ITS | Clinical Summary ---
:2002 Author Organization [employer] [place] [address] Care Team Providers Name Role Phone Julita Skelton MD Primary Care Provider Allergies Active Allergy Reactions Severity Noted Date Comments Blood-Group Specific Other - Describe In 02/24/2022 Patient has probable Substance Comment Field passive D anti body and a nonspecific a ntibody. Blood products may be delayed. Draw p atient 24 hours prior to transfusion. Fo r [employer] testing, draw one red top and two [...] Encounters Date Type Specialty Care Team Description 03/15/2022 Telephone Julita Skelton, TAMIE gilbert MD 03/08/2022 Office Visit Julita Skelton, Blood Rfaael marion MD 03/08/2022 Travel 03/03/2022 Office Visit Julita Skelton, Hospital F/U (03/01 MD discharge) 03/03/2022 Travel 03/02/2022 Telephone [facility] 02/26/2022 Anesthesia Event Deepthi Garcia MD 02/24/2022 - Hospital Encounter HospitalistUnited Pr eeclampsia, severe, third trimester (Primary Dx); 03/01/2022 Ob Encounter for p ostpartum care of lactating mother Discharge Summary - Eduardo Hayes MD - 03/01/2022 7:52 AM CDT OB HOSPITALIST DISCHARGE AYALA ENGLISH ADMISSION DATE: 02/24/2022 DISCHARGE DATE: 03/01/2022 Primary OB Provider: Julita Skelton ([place]) Referring Provider: Julita Skelton ([place]) DELIVERY INFORMATION: Baby is a male Delivery [...] - specify city or individual [facility] Infants last name: Dawit feeding preference [facility] stay: Exclusive /Breastmilk Circumcision preference for male : Yes Preference for Hepatitis B V accine for ?: Yes HOSPITAL COURSE: Va Tan is a 21 y.o. female, whose Estimated Date of Delivery: 04/03/22. The patient was transferred to [facility] secondary to preeclampsia with severe features, severe based on el evated LFTs. Discharged from [facility] in stable condition on day# 3. [...] (36.7 ??C) 89 16 97 % -- 02/28/22 2051 137/69 -- -- - - -- -- [...] appointment(s): Return to Clinic in 4-6 wee ok When to follow up: Other Co mment [...] of discharge. [facility]? For the vaginal of a baby. LABS: [...] M VAGINAL Epidu Aziza 8 9 ALDRI Benso /2021 6d 35m 47m/0h 03m (4 lb JOHN ral ng CH ,BB n, 10.4 VABRENDEN Topete oz) DO Peg Complications: None Delivery Location: Hospital ([facility] 1999 L&D TRIAGE) OB Episode Summary Episode Dates Estimated Date of Pregravid Weight TWG (As of ) Delivery 08/23/2021 - Present 04/03/2022 94.6 kg (208 lb 9.6 17.2 kg (37 lb 14.4 oz) (03/16/2022) oz) Date GA Fund Present FHR Mvmt [...] MD .................. .. 03/08/2022 10:42 AM Family [facility] 03/03/2022 - 34w6d - Julita [...] alone Communication Method: Patient is active on [employer] and has been instructed that results/communications will be made via [employer] If a phone call is needed, the [...] Outpatient Provi arsh: Admission and discharge dates ([facility] - last 30 days): 02/24/2022-03/01/2022 Recommendations for outpatient provider from [facility] discharges (past 30 [...] 03/08/2022 2:00 PM Julita Skelton MD NFLD NF 03/14/2022 7:55 AM [facility] MD 03/01/2022 - 34w6d - [...] at 1600 was 131/66 Dr.Hert key called life insurance underwriter and stated that she wanted pt Labetalol [...] came down to 139/79 upon recheck. Aric arteaga VS continued per protocol. Will continue to [...] this note is different from the original. [facility] Progress Note. Patient [...] cine in the care of this patient. Danelle Jc, ELISA, LMT, RYT Integr [facility] Medicine Practitioner 10:23 AM Ext #[phone] 03/01/2022 - 34w6d - Rhiannon Cowart cia, MD OB Hospitalist [...] Freedman RN Problem: SAFETY Goal: MOTHER AND PHYSICAL [...] into room 2334 Re port received from ADITYA Ledbetter nurse, and bedside report given. Action: Patient [...] who will assume all cares. 03/01/2022 - 34benja - Khloe Bobby RNFor matting of this [...] SAFETY Goal: CRITICAL LAB VALUES REPORTED TO [facility]OUT HOSPITALIZATION Description: - Note lab results and info rm MD of critical values 02/25/2022 224 by Monico Llanes RN Note: At 2225 critical Magnesium level c alled to life insurance underwriter by lab at 6.5. Dr Castro called [...] Llanes RN Note: At 1915 lab called life insurance underwriter with a c ritical Magnesium level at [...] management-revise plan if necessary. 02/25/20222212 by Monico Llanes RN Note: At 2029 in room with [...] MONICO LLANES RN .................... 02/25/2022 10:20 PM 02/25/2022 2009 by Monico Llanes RN Note: Patient reported a headache she ra mike 08/11. Tylenol offered and given at 1949. Will continue to monitor. MONICO LLANES RN [...] Height: FHT: mod linda, +accels, no decels [place]:irregular CX: fingertip/high/anterior/med, [facility] ca theter placement attempt [...] Yoselyn Castro, 02/25/2022 8:41 PM 03/01/2022 - 34w6clarke - Monico Llanes, RN Problem: PAIN/COMFORT Goal: PATIENT'S PAIN IS </= STATED ACCEP TABLE COMFORT GOAL. Description: - Evaluate effectiveness of pain management-revise plan if necessary. Note: Patient reported a headache she ra mike 3/10. Tylenol offered and given at 1950. Will continue to monitor. MONICO LLANES RN .................... 02/25/2022 8:10 PM 03/01/2022 - 34w6clarke - Monico Llanes, RN Problem: SAFETY Goal: CRITICAL LAB VALUES REPORTED TO [facility]OSPITALIZATION Description: - Note lab results and info danica BROOKE of critical values Note: At 1915 lab called life insurance underwriter with a c ritical Magnesium level at [...] RN .................... 02/25/2022 3:41 PM 03/01/2022 - 34w6d - Brittany Adorno R N Problem: SAFETY Goal: CRITICAL LAB VALUES REPORTED TO [facility] HOSPITALIZATION Note: Report given to Monico Jeong RN at 151 5. Care relinquished. 03/01/2022 - 34w6d - Brittany Adorno R N Problem: PROGRESSION OF LABOR Goal: PRESUMED ADEQUATE OXYGENATIO N THROUGHOUT LABOR AND Note: [address] Mery posey. Pt agreeable to vaginal cytotec 1138 Vaginal cytotec administered 1445 second dose of Cytotec administered . Pt states she is feeling more cramping than before. 03/01/2022 - 34w6clarke - Milana Guido son, MD Cervidil removed. Cervix soft, posterior, closed/60/high P/ vaginal cytotec now, [facility] when possib le. 03/01/2022 - 34w6d - Milana Guido son, MD OB Hospitalist Induction Note 34w5d SUBJECTIVE: [...] .............. ...... 02/25/2022 10:00 AM 03/01/2022 - 346clarke - Gina Orozco RNF ormatting of this note might be different from the original. 0715: Report given to Brittany TOMAS. Safety checks completed. Cares relinquished. Gina Orozco RN .................... 7:18 AM 03/01/2022 - 34daren6clarke - Gina Orozco RNF ormatting of this note might be different from the original. 2235: Discussion with Dr. Hayes. Humaira ent requesting pain medication prior to Cervidil placement. Verbal order received for Fentanyl 50-100 mcg Q1H PRN. Discussion regarding lab draw frequency- plan to draw PreE labs at 0600 and discontinue the Q6H lab draws per Dr. Hayes. Gina Orozco RN .................... 11:04 PM 03/01/2022 - 34Gina Hernandez RNF ormatting of this note might be [...] Orozco RN .................... 7:24 PM 03/01/2022 - 34w6clarke - Allison Carter RN Problem: SAFETY Goal: PATIENT WILL BE KNOWLEDGEABLE REGA RDING NEWLY ORDERED MEDS, INTENDED AND SIDE EFFECTS OF EACH Note: 1514 Bedside report received from Sylvester Zapien RN. Assumed care of patient. Bedside safety check completed. 1914 Verbal report given to Gina Peña RN, patient sleeping at this time. Relinquished care of patient. 03/01/2022 - 34w6d Violeta Oh R N Problem: SAFETY Goal: PATIENT/FAMILY UNDERSTANDS [...] screen. 03/01/2022 - 34w6d - Violeta Jeffers V R N Problem: SAFETY Goal: INFANT/MOTHER SAFETY IS MAINTAINED DURING LABOR AND DELIVERY PERIOD Description: - Instruct patient/family o n safety and security measures. - Up with assist per fall risk assessmen t. Outcome: Transitioning or discharged wit h plan in place* Note: Transfer from [place] ED via am [place] for Upper gastric pain. Rule pre-eclampsia lab AST,alt was elevated And UA PCR was 0.30 ,They started amg lo ading dose and !st dose betamethasone at 0332. Admitted for cervical ripening for pre-e clampsia. Us at Bedside done and head down by .SENTHIL was seen today.Lab drawn TS,ALT,AST, GBS Ua PCR was sent .Denies any pain, TROTTER,blurry vision or epigastric pain.Lower extremities edema noted Violeta Jeffers RN .................... 02/24/2022 11:31 AM 03/01/2022 - 34w6clarke - Eduardo Hayes MD Patient was seen this morning by SENTHIL, di scussed that she has a diagnosis [...] MD .................. .. 02/21/2022 10:25 AM CC: [facility] 02/15/2022 - 33w2d - Julita Skelton MD Patient is here for routine pren atal care at 33w2d Concerns: Was at labor and delivery last night for abdominal pain. Had epigastric pain and pain across the upper abdomen. Had pain that worsened with lying down. Lasted for 2-3 hours. [place] like someone was pushing on upper abdomen. [...] MD .................. .. 02/15/2022 10:22 AM CC: [facility] 02/07/2022 - 32w1d - Julita Skelton MD [...] MD .................. .. 02/07/2022 10:22 AM CC: [facility] 01/26/2022 - 30w3d - Julita Skelton MD [...] vari, accels to 1 65. No decels [place]: No contractions. Will do growth ultrasound at [...] MD .................. .. 01/26/2022 1:31 PM CC: [facility] 01/10/2022 - 28w1d - Julita Skelton MD Patient is here for routine pren ata care at 28w1d Concerns: GTT today. Feels [...] MD .................. .. 01/10/2022 9:19 AM CC: [facility] 12/08/2021 - 23w3d - Julita Skelton MD [...] MD .................. .. 12/08/2021 11:19 AM CC: [facility] 11/08/2021 - 19w1d - Julita Skelton [...] for dinner meal. Last night went to [id number], took a couple bites. No nausea, no [...] MD .................. .. 11/08/2021 9:02 AM CC: [facility] 10/19/2021 - 16w2d - Julita Skelton MD [...] MD .................. .. 10/19/2021 10:55 AM CC: [facility] 09/21/2021 - w2d - Julita Skelton MD Clinic Note: First OB Visit 09/21/2021 Va Tan is a 21 y.o. wit h Estimated Date of Delivery: 04/03/22, here today for a first visit. No significant concerns. Nausea and vomi ting is ok. Feels tired but otherwise ok. 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 /Father of baby: Carlo De Dois Family history of hypertension, le ukemia, brain [...] ? Substances: Nicotine, Flavoring ? ? Devices: [employer] tank Substance and Sexual Activity ? ? [...] concerns. Julita Skelton MD .................... 4:19 PM [facility] [phone] CC: [facility] 08/23/2021 - 8w1d - Julita Skelton [...] Diabetes, cancer, asthma. Tolerating vitamin. Works at [employer] MEDICAL HISTORY Medical, surgical, family, and social [...] URINALYSIS W REFLEX MICROSCOPIC IF POSIT NORMAN [80875.2] Result Value Ref Range COLOR Yellow Yellow [...] 9 x 9 millimeters. Dictate d by Bogdna Bahena MD @ Aug 23 2021 12: 17PM (Electronically Signed) ASSESSMENT/PLAN: 1. Supervision of normal first in first trimester Plan: 1. Dating ultrasound today. KARISHMA by banner is 04/03 at [id number] 2. Routine OB labs ordered including typ [...] to call the office or log into [employer] with any questions or concerns. Julita Skelton [...] procedure are i n the results section. [facility] TUBING PR5 Routine 02/26/2022 12:44 Results for this AM CDT procedure are i n the results section. [facility] LABOR EPIDURAL Routine 02/26/2022 12:44 Resu lts for this INITIAL AM CDT procedure are i n the results section. EPIDURAL BLOCK Routine 02/26/2022 12:44 Results f or this AM CDT procedure are i n the results section. [facility] DRSG PR1 Routine 02/26/2022 12:44 Results fo r this AM CDT procedure are i n the results section. [facility] KIT EPIDURAL PR10 Routine 02/26/2022 12:44 [...] of2 resultswithin the time period is included. [facility] [employer] Method Time Signature ABORH A Rh 02/27/2022 [facility] Negative 6:00 PM CDT [facility] BLOOD BANK ANTIBODY Positive (A) Negative 02/27/2022 [facility] SCREEN 6:00 PM T [facility] BLOOD BANK SPECIMEN 03/02/22 02/27/2022 [facility] EXPIRATION 23:59 6:00 PM T HOSPITAL DATE/TIME LABORATORY BLOOD BANK Specimen Anatomical Collection Method / Collection Time Recei lionel Time (Source) Location / Volume Laterality Blood BLOOD SPECIMEN / Venipuncture / 02/27/2022 3:20 2021 3:29 Unknown Unknown PM CDT PM CDT Yoselyn Castro DO BLOOD BANK Performing Organization Address City/State/ZIP Code Phon e Number [facility] [address] [place] [address] BLOOD BANK (ABNORMAL) ANTIBODY IDENTIFICATION LAB USE ONLY (02/27/2022 3:20 PM CDT)Only the most recent of2 resultswithin the time period is included. [facility] [employer] Method Time Signature ANTIBODY Non-speci 02/27/2022 [facility] IDENTIFICATION fic (A) 6:05 PM CDT [facility] BLOOD BANK Specimen Anatomical Collection Method / Collection Time Recei lionel Time (Source) Location / Volume Laterality Blood BLOOD SPECIMEN / Venipuncture / 02/27/2022 3:20 2021 3:29 Unknown Unknown PM CDT PM CDT Narrative [facility] BLOOD BANK - 02/27/2022 6:05 PM CDT [...] is required, please contact the performing laboratory Yoselyn Castro BLOOD BANK Performing Organization Address City/[facility] Phon e Number [address] [address] BLOOD BANK ANTIBODY IDENTIFICATION EACH PANEL (02/27/2022 3:20 PM CDT)Only the most recent of2 resultswithin the time period is included. [facility] Method Time Signature QUANTITY 1 [facility] BLOOD BANK PANEL SHABBIR ID Panel [place] Antibody ID [facility] BLOOD BANK Specimen (Source) Anatomical Location Collection Method / Collectio n Time Received Time / Laterality [facility] Performing Organization Address City/[facility] Phon e Number [address] [address] BLOOD BANK RED BLOOD CELLS EA UNIT (02/27/2022 3:20 PM CDT)Only the most recent of2 results within the time period is included. [facility] Method Time Signature CROSSMATCH Compatible Compatible [facility] BLOOD BANK PRODUCT BLOOD A Rh Negative [facility] BLOOD BANK PRODUCT ID [id number] [facility] BLOOD BANK PRODUCT STATUS /[facility] BLOOD BANK PRODUCT RBC -1 LR [facility] BLOOD BANK PRODUCT CODE [id number] [facility] BLOOD BANK Specimen (Source) Anatomical Location Collection Method / Collectio n Time Received Time / Laterality Volume [facility] Performing Organization Address City/[facility] Phon e Number [address] [address] BLOOD BANK RH IMMUNE GLOBULIN PREP (02/27/2022 2:34 PM CDT) P athologist Signature QUANTITY 1 02/27/2022 [facility] 2:52 PM CDT LABORATORY BLOOD BANK Specimen Anatomical Collection Method / Collection Time Recei lionel Time (Source) Location / Volume Laterality Blood BLOOD SPECIMEN / Venipuncture / 02/27/2022 2:34 2021 2:44 Unknown Unknown PM CDT PM CDT Yoselyn Castro DO BLOOD BANK Performing Organization Address City/State/ZIP Code Phon e Number [facility] [address] [place] [address] BLOOD BANK (ABNORMAL) CBC W PLT NO DIFF (02/26/2022 7:34 AM CDT)Only the most recent of2 resultswithin the time period is included. Patholo gist Method Time Signature WHITE BLOOD 16.7 (H) 4.5 - 11.0 02/26/2022 [facility] COUNT thou/cu mm 7:57 AM T [facility]ITAL LABORATORY RED BLOOD COUNT 3.72 (L) 4.00 - 02/26/2022 [facility] 5.20 7:57 AM [facility] HOSPITAL mil/cu mm LABORATORY HEMOGLOBIN 10.6 (L) 12.0 - 02/26/2022 [facility] 16.0 g/dL 7:57 AM T [facility] LABORATORY HEMATOCRIT 31.7 (L) 33.0 - 02/26/2022 [facility] 51.0 % 7:57 AM [facility]PITAL LABORATORY MCV 85 80 - 100 02/26/2022 [facility] fL 7:57 AM T [facility] LABORATORY MCH 28.5 26.0 - 02/26/2022 [facility] 34.0 pg 7:57 AM [facility] LABORATORY MCHC 33.4 32.0 - 02/26/2022 [facility] 36.0 g/dL 7:57 AM [facility] LABORATORY RDW 13.1 11.5 - 02/26/2022 [facility] 15.5 % 7:57 AM T [facility]OSPITAL LABORATORY PLATELET COUNT 213 140 - 440 02/26/2022 [facility] thou/cu mm 7:57 AM [facility]PITAL LABORATORY MPV 10.9 6.5 - 11.0 02/26/2022 [facility] fL 7:57 AM [facility]PITAL LABORATORY NRBC 0.0 % 02/26/2022 [facility] 7:57 AM CDT HOSPITAL LABORATORY ABS NRBC 0.0 thou /cu 02/26/2022 [facility] 7:57 AM CDT HOSPITAL LABORATORY Specimen Anatomical Collection Method / Collection Time Recei lionel Time (Source) Location / Volume Laterality Blood BLOOD SPECIMEN / Venipuncture / 02/26/2022 7:34 2021 7:52 Unknown Unknown AM CDT AM CDT Yoselyn Castro DO HEMATOLOGY Performing Organization Address [facility] Phon e Number [facility] [address] [place] [phone] [place] [address] CREATININE (02/26/2022 7:34 AM CDT)Only the most recent of6 resultswithin the time period is included. athologist Signature CREATININE 0.80 0.57 - 1.11 02/26/2022 [facility] mg/dL 8:20 AM CDT LABORATORY eGFR >90 >90 02/26/2022 [facility] mL/min/1.73 8:20 AM CDT LABORATORY m2 Comment: [...] Yoselyn Castro DO CHEMISTRY Performing Organization Address City/[facility] Phon e Number [facility] [address] [place] [phone] [place] [address] AST (SGOT) (02/26/2022 7:34 AM CDT)Only the most recent of6 resultswithin the time period is included. athologist Signature AST (SGOT) 25 2 - 40 IU/L 02/26/2022 [facility] 8:22 AM CDT LABORATORY Specimen Anatomical Collection Method / Collection Time Recei lionel Time (Source) Location / Volume Laterality Blood BLOOD SPECIMEN / Venipuncture / 02/26/2022 7:34 2021 7:52 Unknown Unknown AM CDT AM CDT Yoselyn Castro DO CHEMISTRY Performing Organization Address City/State/ZIP Code Phon e Number [facility] [place] ZIP [place] [phone] [place] [address] (ABNORMAL) Magnesium - PRN (02/26/2022 7:34 AM CDT)Only the most recent of3 resultswithin the time period is included. P athologist Signature MAGNESIUM 4.7 (H) 1.7 - 2.2 02/26/2022 [facility] mg/dL 8:50 AM CDT LABORATORY Specimen Anatomical Collection Method / Collection Time Recei lionel Time (Source) Location / Volume Laterality Blood BLOOD SPECIMEN / Venipuncture / 02/26/2022 7:34 2021 7:52 Unknown Unknown AM CDT AM CDT Yoselyn Castro CHEMISTRY Performing Organization Address City/[facility] Code Phon e Number [facility] [address] [place] [place] [address] [phone] [place] [address] PATH TISSUE EXAM (02/26/2022 7:09 AM CDT) Component Value Ref Test Analysis Performed At Patholo gist Range Method Time Signature Case Report Pathology Report ?Case: [id number] ? 03/01/2022 [facility] Authorizing Provider: ??Lizbeth on, Yoselyn Peg, DO ? Collected: ? 02/26/2022 0709 ? 2:19 PM HEALTH Ordering Location: ? [facility] ?Received: ?02/27/2022 0733 ? CDT L ABORATORY-C Pathologist: ? Kristopher Iyer MD ? ENTRAL Specimen: ?Placenta ? LABORATORY Final A) PLACENTA, VAGINAL DELIVERY: [facility] Electronically Diagnosis 1. Third trimester stein [...] ?? Infant wt (g): 2110 grams ?? Infant sex: [...] entire surface. ??No other lesions are identified. Cannon Pinion Adjuster sections are submitted: 1. ?? membranes and [...] appropriate sections of all specimens. Additional 03/01/2022 [place] Information Interpreted at [facility], Central Laboratory - [address], [place] [address] 2:19 PM HEALTH CDT LABORATORY-C ENTRAL LABORATORY [...] 34w6d weeks Infant wt (g): 2110 grams Infant s ex: FemalePertinent maternal history- , Term, Premature, AB, Living: Diabetes: no Hypertension: yes Eclampsia: no Smoking: no Other: noneAut opsy info: Not applicable Yoselyn Castro DO PATHOLOGY/CYTOLOGY Performing Organization Address City/State/ZIP Code Phon e Number [facility] [address] [place] [address] LABORATORY-CENTRAL [address] LABORATORY [facility] [address] INTER[address] ZIP [place] [phone] [place] [address] [facility]CH[facility] KIT EPIDURAL PR10, [facility] DRSG PR1, [...] PLATELET COUNT 246 140 - 440 02/26/2022 [facility] L thou/cu mm 12:23 AM CDT LABORATORY MPV 10.8 6.5 - 11.0 02/26/2022 [facility] fL 12:23 AM CDT LABORATORY Specimen Anatomical Collection Method / Collection Time Recei lionel Time (Source) Location / Volume Laterality Blood BLOOD SPECIMEN / Non-Lab 02/26/2022 12:15 022 Unknown Venipuncture / AM CDT 12:21 AM CDT Unknown Deepthi Garcia MD HEMATOLOGY Performing Organization Address City/[facility]/ZIP Code Phon e Number [facility] [address] [place] [place] [phone] [place] [address] APTT (02/26/2022 12:15 AM CDT) P athologist Signature APTT 25 24 - 33 sec 02/26/2022 [facility] 12:33 AM CDT LABORATORY Specimen Anatomical Collection Method / Collection Time Recei lionel Time (Source) Location / Volume Laterality Blood BLOOD SPECIMEN / Non-Lab 02/26/2022 12:15 022 Unknown Venipuncture / AM CDT 12:21 AM CDT Unknown Narrative [facility] - 02/26/2022 12:33 AM CDT Therapeutic Range: 70-95 seconds Deepthi Garcia MD HEMATOLOGY Performing Organization Address [facility] Phon e Number [facility] [address] [place] [place], [place] [phone] [place] [address] (ABNORMAL) PROTIME-INR (02/26/2022 12:15 AM CDT) P athologist Signature INR 0.9 <1.3 02/26/2022 [facility] 12:32 AM CDT LABORATORY PROTIME 11.8 (L) 12.0 - 13.8 02/26/2022 [facility] sec 12:32 AM CDT LABORATORY Specimen Anatomical Collection Method / Collection Time Recei lionel Time (Source) Location / Volume Laterality Blood BLOOD SPECIMEN / Non-Lab 02/26/2022 12:15 022 Unknown Venipuncture / AM CDT 12:21 AM CDT Unknown Narrative [facility] - 02/26/2022 12:32 AM CDT ?Therapeutic [...] Deepthi Garcia MD HEMATOLOGY Performing Organization Address City/[facility]/ZIP Code Phon e Number [facility] [address] [place], [place] [phone] [place] [address] (ABNORMAL) ALT (SGPT) (02/25/2022 5:55 AM CDT)Only the most recent of4 results within the time period is included. P athologist Signature ALT (SGPT) 79 (H) 8 - 45 IU/L 02/25/2022 [facility] 6:34 AM CDT LABORATORY Specimen Anatomical Collection Method / Collection Time Recei lionel Time (Source) Location / Volume Laterality Blood BLOOD SPECIMEN / Non-Lab 02/25/2022 5:55 02/26/20 22 6:07 Unknown Venipuncture / AM CDT AM CDT Unknown Eduardo Hayes MD CHEMISTRY Performing Organization Address [facility]/ZIP Code Phon e Number [facility] [place], [place] [phone] [place] [address] Brain Natriuetric Peptide (BNP) (02/24/2022 9:49 AM CDT) athologist [facility] BRAIN MAINOR 18 <150 pg/mL 02/24/2022 [facility] PEPTIDE 10:30 AM CDT LABORATORY Specimen Anatomical Collection Method / Collection Time Recei lionel Time (Source) Location / Volume Laterality Blood BLOOD SPECIMEN / Non-Lab 02/24/2022 9:49 02/25/20 22 9:59 Unknown Venipuncture / AM CDT AM CDT Unknown Eduardo Hayes MD CHEMISTRY Performing Organization Address City/[facility]/ZIP [facility] [place] Phon e Number [facility] S[place], [place] [id number] [place] [address] VAGINAL/RECTAL OB STREP PCR (02/24/2022 9:41 AM CDT) Analysis Performed At Path logist Time Signature Vaginal/Rectal Negative 02/26/2022 [facility] OB Strep B PCR 12:32 PM CDT LABORATORY-C EN TRAL LABORATORY Specimen Anatomical Collection Method Collection Time Receive d Time (Source) Location / / Volume Laterality Other Non-Blood / 02/24/2022 9:41 AM 9:59 (Vaginal/Rectal) Unknown CDT AM CDT Eduardo Hayes MD MICROBIOLOGY Performing Organization Address City/State/ZIP Code Phon e Number [facility] [address] [place] [address] LABORATORY-CENTRAL 2000 LABORATORY (ABNORMAL) PROTEIN/CREAT RATIO,URINE (02/24/2022 9:41 AM CDT)Only the most recent of2 resultswithin the time period is included. athologist Signature PROTEIN 9 <=14 mg/dL 02/24/2022 [place] QUANT,RAND 10:25 AM CDT [facility] LABORATORY CREAT,RANDOM 45.3 mg/dL 02/24/2022 [place] URINE 10:25 AM CDT [facility] PROT/CREAT 0.2 (H) <0.2 02/24/2022 [place] RATIO,UR 10:25 AM CDT [facility] Specimen Anatomical Collection Method Collection Time Receive d Time (Source) Location / / Volume Laterality Urine URINE SPECIMEN / Non-Blood / 02/24/2022 9:41 AM 02/24 9:58 Unknown Unknown CDT AM CDT Eduardo Hayes MD URINE Performing Organization Address City/State/ZIP Code Phon e Number [facility] SEND[facility] INTERNAL ZIP [place], [place] [phone] [place] [address] (ABNORMAL) URINALYSIS MICROSCOPIC (02/15/2022 10:41 AM CDT)Only the most recent of2 resultswithin the time period is included. [facility] gist Method Time Signature RBC 0-2 0-2, None 02/15/2022 [facility] Seen /HPF 10:54 AM CDT [facility] WBC 0-2 0-2, 3-5, 02/15/2022 [facility] None Seen 10:54 AM CDT [facility] BACTERIA Few None 02/15/2022 [facility] Seen, 10:54 AM CDT [facility] Rare, Few CLINIC Bacteria/ HPF EPITHELIAL Moderate (A) None 02/15/2022 [facility] CELLS Seen, Few 10:54 AM CDT [facility] Epi/[facility]PF CLINIC Mucus Present 02/15/2022 [facility] 10:54 AM CDT [facility] Specimen Anatomical Collection Method Collection Time Receive d Time (Source) Location / / Volume Laterality Urine URINE SPECIMEN / Non-Blood / 02/15/2022 10:41 022 Unknown Unknown AM CDT 10:42 AM CDT Julita Skelton MD URINE Performing Organization Address City/State/ZIP Code Phon e Number [facility] [address] [place] [address] (ABNORMAL) UA W/ SEDIMENT EXAM REFLEXED PER CRITERIA (02/15/2022 10:41 AM CDT) Only the most recent of2 resultswithin the time period is included. [facility] Method Time Signature COLOR Yellow Yellow Color 02/15/2022 [facility] 10:54 AM [facility] CLARITY Slightly Clear 02/15/2022 [facility] Cloudy (A) Clarity 10:54 AM [facility] SPECIFIC 1.020 1.010, 02/15/2022 [facility] GRAVITY,URINE 1.015, 10:54 AM [facility] 1.020, 1.025 [facility] PH,URINE 7.0 6.0, 7.0, 02/15/2022 [facility] 8.0, 5.5, 10:54 AM [facility] 6.5, 7.5, T CLINIC 8.5 UROBILINOGEN, Normal Normal EU/dl 02/15/2022 [facility] 10:54 AM [facility] PROTEIN, Negative Negative 02/15/2022 [facility] URINE mg/dL 10:54 AM [facility] GLUCOSE, Negative Negative 02/15/2022 [facility] URINE mg/dL 10:54 AM [facility] KETONES,URINE Negative Negative 02/15/2022 [facility] mg/dL 10:54 AM [facility] BILIRUBIN,URI Negative Negative 02/15/2022 [facility] NE 10:54 AM [facility] OCCULT Negative Negative 02/15/2022 [facility] BLOOD,URINE 10:54 AM [facility] NITRITE Negative Negative 02/15/2022 [facility] 10:54 AM [facility] LEUKOCYTE Negative Negative 02/15/2022 [facility] ESTERASE 10:54 AM [facility] Specimen Anatomical Collection Method Collection Time Receive d Time (Source) Location / / Volume Laterality Urine URINE SPECIMEN / Non-Blood / 02/15/2022 10:41 022 Unknown Unknown AM CDT 10:42 AM CDT Julita Skelton MD URINE Performing Organization Address City/State/ZIP Code Phon e Number [facility] [address] [place] [address] URINE CULTURE (01/26/2022 2:58 PM CDT) [facility] gist Method Time Signature CULTURE 10-50,000 CFU/mL 01/28/2022 [facility] multiple 6:58 PM CDT LABORATORY-[place] organisms, TRAL probable LABORATORY contaminants Specimen Anatomical Collection Method Collection Time Receive d Time (Source) Location / / Volume Laterality Urine URINE SPECIMEN / Non-Blood / 01/26/2022 2:58 PM 01/26 2:58 Unknown Unknown CDT PM CDT Julita Skelton MD MICROBIOLOGY Performing Organization Address City/State/ZIP Code Phon e Number [facility] [address] [place] [address] LABORATORY-CENTRAL 2000 LABORATORY (ABNORMAL) CREATININE,ISTAT (01/18/2022 4:06 PM CDT) Analysis Performed At [facility] logist Time Signature CREATININE, 0.50 (L) 0.57 - 01/18/2022 [facility] POCT 1.11 mg/dL 4:09 PM CDT [facility] Comment: Caution: Patients taking Hydrox yurea have falsely increased iStat Creatinine results. Verify creatinine results order ing a Creatinine (44387.2) eGFR >90 >90 mL/min/1.73m2 01/18/2022 4:09 PM CDT [facility] Comment: As of 2021, eGFR is calcu [...] Organization Address City/State/ZIP Code Phon e Number [facility] [address] [place] [address] US OB BIOPHYSICAL PROFILE SINGLE WO NST [...] report s are released immediately into your [facility] medical record. ??You may view this report [...] provider. If you have questions, please contact [facility] care provider. INDICATION: COVID in COMPARISON: [...] logist Time Signature TREPONEMA Negative Negative 01/11/2022 [facility] 9:44 AM CDT LABORATORY-[place] TRAL LABORATORY Specimen Anatomical Collection Method / Collection Time Recei lionel Time (Source) Location / Volume Laterality Blood BLOOD SPECIMEN / Venipuncture / 01/10/2022 10:00 01/10 Unknown Unknown AM CDT 10:04 AM CDT Julita Skelton MD SEND OUTS Performing Organization Address City/State/ZIP Code Phon e Number [facility] [address] [place] [address] LABORATORY-CENTRAL 2000 LABORATORY ANTIBODY SCREEN (01/10/2022 10:00 AM CDT) Patholo gist Method Time Signature ANTIBODY Negative Negative 01/10/2022 [facility] SCREEN 5:31 PM CDT LAB-CENTRAL LAB BLOOD BANK SPECIMEN 01/13/22 01/10/2022 [facility] 23:59 5:31 PM CDT LAB-CENTRAL DATE/TIME LAB BLOOD BANK Specimen Anatomical Collection Method / Collection Time Recei lionel Time (Source) Location / Volume Laterality Blood BLOOD SPECIMEN / Venipuncture / 01/10/2022 10:00 01/10 Unknown Unknown AM CDT 10:04 AM CDT Julita Skelton MD BLOOD BANK Performing Organization Address City/State/ZIP Code Phon e Number [facility] LAB-CENTRAL LAB [address] [place], [place] [address] BLOOD BANK HEMOGLOBIN (01/10/2022 10:00 AM CDT) athologist Signature HEMOGLOBIN 12.5 12.0 - 16.0 01/10/2022 [facility] g/dL 10:07 AM CDT [facility] MCV 87 80 - 100 fL 01/10/2022 [facility] 10:07 AM CDT [facility] Specimen Anatomical Collection Method / Collection Time Recei lionel Time (Source) Location / Volume Laterality Blood BLOOD SPECIMEN / Venipuncture / 01/10/2022 10:00 01/10 Unknown Unknown AM CDT 10:04 AM CDT Julita Skelton MD HEMATOLOGY Performing Organization Address City/[facility]/ZIP Code Phon e Number [facility] [address] [place] [address] GLUCOSE,GESTATIONAL (01/10/2022 10:00 AM CDT) athologist Signature GLUCOSE,GESTAT 93 65 - 140 01/10/2022 [facility] IONAL mg/dL 10:12 AM CDT [facility] Specimen Anatomical Collection Method / Collection Time Recei lionel Time (Source) Location / Volume Laterality Blood BLOOD SPECIMEN / Venipuncture / 01/10/2022 10:00 01/10 Unknown Unknown AM CDT 10:04 AM CDT Julita Skelton MD CHEMISTRY Performing Organization Address City/State/ZIP Code Phon e Number [facility] [address] [place] [address] from Last 3 Months Insurance Payer Benefit Plan / Subscriber ID Effective Dates Phone Addre ss Type Group [employer] [id number] 2019-Prese [address] [place] [address] [employer]UE [employer] OF [id number] 2020-Prese [address] [place] [address] (Home) MARY JAIME [phone] [id number] (Work) [employer] Father [id number] (Home) [address] [phone] [place] ([place]) [place] [address] Advance Directives Latest Code Status on File Code Status Date Activated Date Inactivated Comments Full Code 02/24/2022 8:52 AM 03/01/2022 6:26 PM Code Status Discussion: Reviewed Preferences Care Teams Device Repair Technician Relationship Specialty Start Date End Date Julita Skelton MD PCP - General Family Practice 08/23/21 [facility] [place] [address]
[2022-03-16] MEDS: HYDROmorphone 0.5 mg/0.5 ml inj 1 MG IM (00:42)
[2022-03-16 01:15] VITALS: BP 118/78; PULSE 74; RESP 18; TEMP 36.7
[2022-03-16 01:20] VITALS: BP 118/78; PULSE 74; RESP 18; TEMP 36.7; O2SAT 99
== END 2022-03-16 01:15 | disposition home or self-care (01) ==
PROVIDERS: Emergency Provider Family Medicine; PCP Family Medicine
DX: K80.50 Calculus of bile duct without cholangitis or cholecystitis without obstruction (principal)
CPT/HCPCS: 94761; 96372; 99283; 99284; A9270; J1170; J1885

== ENCOUNTER 2022-03-27 09:16 | Day surgery (SDC) | payer BC, SELFPAY ==
[2022-03-27] VITALS (17 sets, daily range): BP systolic 110–143; BP diastolic 70–99; PULSE 51–98; RESP 14–18; TEMP 36.4–36.8; O2SAT 94–99; BMI 73.7
[2022-03-27] MEDS: LACTATED RINGERS 1000 ML 1,000 ML 100 ML IV (08:30)
--- NOTE | 2022-03-27 09:36 | SUR.PREOP ---
pT BROUGHT COVID TEST AND IT WAS NEGATIVE
[2022-03-27 09:41] LABS: HCG Qualitative* Negative (Negative)
--- NOTE | 2022-03-27 10:58 | SUR.PREOP ---
Pt brought covid test from home test negative
[2022-03-27] MEDS: BUPIVACAINE 0.25% 30 ML INJECTION (11:06)
[2022-03-27] MEDS: LIDOCAINE 0.5%-EPI 1:200,000 50 ML VIAL INJECTION (11:06)
--- NOTE | 2022-03-27 11:58 | W.ANESCHARGE ---
Anesthesia Charges Start Date/Time Anesthesia Start Date: 03/27/22 Anesthesia Start Time: 10:34 Stop Date/Time Anesthesia Stop Date: 03/27/22 Anesthesia Stop Time: 11:56 Summary Emergency: No
[2022-03-27] MEDS: fentaNYL 100 MCG/2 ML inj 50 MCG IVP (12:21)
--- NOTE | 2022-03-27 12:31 | W.ANESCHARGE ---
Anesthesia Charges Start Date/Time Anesthesia Start Date: 03/27/22 Anesthesia Start Time: 10:34 Stop Date/Time Anesthesia Stop Date: 03/27/22 Anesthesia Stop Time: 11:56 Summary Emergency: No
--- NOTE | 2022-03-27 14:43 | P.GSOP_ITS ---
Operative Note Date of procedure: 03/27/22 Type of Procedure: 1. Laparoscopic cholecystectomy. Procedure Description: After discussing the risks and benefits of the procedure, the patient signed informed consent.? The operative site was marked and the patient was brought to the operating room and placed on the operating table in supine position.? Care was taken to pad the patient's pressure points.?? The patient was then intubated by anesthesia.?? The operative site was then prepped and draped in the usual sterile fashion.? A time-out was then performed. A 5-mm laparoscopy port was placed in the left upper quadrant guided by a 5-mm laparoscope placed into a translucent trochar.~ Passage through the layers of the abdominal wall was visualized with the laparoscope.~ A pneumoperitoneum was established. A 0-degree 5-mm laparoscope was advanced into the abdomen. The abdomen was briefly surveyed, and no adhesions were noted. A 10-mm port were placed infraumbilically and two more 5 mm ports were placed on the right under direct visualization by laparoscope. The camera was then changed to 10 mm 30- degree scope and placed into the abdomen through the 10 mm port. The left upper quadrant port entrance was examined and no injury to intra-abdominal organs was identified. The gallbladder was identified, the fundus grasped and retracted cephalad. No acute inflammation was noted. The infundibulum was grasped and retracted laterally, exposing the peritoneum overlying the triangle of Calot. This was then divided and exposed in a blunt fashion and with hook cautery. Common bile duct was not identified but care was taken not to injure it. The cystic duct was clearly identified and bluntly dissected circumferentially. Cystic artery was identified and tissues around it were dissected off. The cystic artery was branching off on the gallbladder. The cystic artery was clipped with 5 mm clips first, and divided with Metzenbaum scissors. This allowed for better visualization of tissues posterior to the cystic duct. The cystic duct was then further dissected circumferentially with hook cautery. The cystic duct was clearly going into the gallbladder. The cystic duct was then doubly ligated with surgical clips on the patient's side and singly clipped on the gallbladder side and divided. The gallbladder was dissected from the liver bed in retrograde fashion using hookcautery. A prominent small vein was identified in the mid gallbladder fossa. This was clipped with a 5 mm clip on the side of the liver and divided with cautery near the gallbladder. The gallbladder was placed into an Endo-Catch bag and removed through the infraumbilical incision. Surgical site was examined for bleeding. No bleeding was seen in the surgical field. The fascia of the infraumbilical incision was then closed with 0-0 vicryl using Jose Francisco Natasha needle under direct visualization. Pneumoperitoneum was completely reduced after viewing removal of the trocars under direct vision. The skin was then closed with 4-0 monocryl and steristrips were applied. Instrument, sponge, and needle counts were correct at closure and at the conclusion of the case. The patient was transferred to PACU in stable condition. Findings: No acute inflammation noted. Anesthesia: GETA Surgeon: Michelle العلي MD Condition: stable Disposition: PACU
== END 2022-03-27 13:57 | disposition home or self-care (01) ==
PROVIDERS: Anesthesiology; PCP Family Medicine; Visit Provider Surgery
PROC: 0FT44ZZ Resection of Gallbladder, Percutaneous Endoscopic Approach (ICD-10-PCS; CPT 47562; principal; 2022-03-27 10:30)
DX: K80.10 Calculus of gallbladder with chronic cholecystitis without obstruction (principal)
CPT/HCPCS: 47562; 00790; 84703; J0330; J1100; J1885; J2250; J2405; J2704; J2710; J3010; J3490; J7120

== ENCOUNTER 2024-04-17 15:32 | Outpatient (CLI) | payer BC, SELFPAY ==
[2024-04-17] VITALS (31 sets, daily range): BP systolic 124–144; BP diastolic 78–85; PULSE 72–116; RESP 18; TEMP 36.4–36.6; O2SAT 98–100; BMI 37.4
[2024-04-17] MEDS: ONDANSETRON 2 MG/ML inj 4 MG IVP (17:21)
[2024-04-17] MEDS: LACTATED RINGERS 500 ML 500 ML IV (17:22)
--- OUTSIDE RECORDS SUMMARY | 2024-04-17 19:00 | XMS_ITS | Clinical Summary ---
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 Performing Organization Address City/[facility]/ZIP Co de Phone Number [facility] [address] [place] [address], [place] * ANTI HIV 1/2 (09/11/2023 3:45 PM CDT) Pathologist [facility] HIV-1/HIV-2 SCREEN Non-Reacti ve Non-Reacti ve 09/12/2023 2:46 PM CDT [facility] Comment:HIV-1 p24 and HIV-1/ HIV-2 Ab Not Detected. Blood BLOOD SPECIMEN / Unknown Venipuncture / Unknown 09/11/2023 3:45 PM CDT 09/11/2023 3:46 PM CDT Albania Skelton MD SEND OUTS [facility] [address] [place] [address], from Last 3 Months or Most Recently Relevant to Health Maintenance Advance Directives * Full Code (Latest Code Status on File) Date Activated Date Inactivated Comments 02/24/2022 8:52 AM 03/01/2022 6:26 PM Question Answer Comments Code Status Discussion: Reviewed Preferences Care Teams Va Underwriter Relationship Specialty Start Date End Date Albania Skelton MD [address] [place] [address] PCP - General Family Practice 08/23/21 Albania Skelton MD [address] [place] [address] Referring Provider Family Practice 09/28/23 Bogdan Malik MD [address] [facility] [address] [place] [address] Consulting Physician Cardiology - Pediatric 03/17/24 1
--- NOTE | 2024-04-17 19:29 | PC.OBNST ---
NST Note NST Note Start: 04/17/24 16:15 Freq: ONCE Status: Active Protocol: Document 04/17/24 19:10 PORTC (Rec: 04/17/24 19:28 PORTC Desktop) NST Note 2 Para (# of births) 1 EDC 05/11/24 Gestational Age In Weeks & Days 36 Weeks & 4 Days Patient Presented with Complaint(s) of Nausea and vomiting Reactive Yes Appropriate for Gestational Age Yes RN Maxine Fontaine RN Date 04/17/24 Reactive Yes Appropriate for Gestational Age Yes THOM Laurent RN Date 04/17/24 OB NST charge Yes Complete NST Note via Write Note Yes The provider's electronic signature indicates the NST is reactive/appropriate for gestational age. *Note to provider: If an addendum is required, open the patient's chart and click on the note under the Nurse/Allied Health tab.
--- OUTSIDE RECORDS SUMMARY | 2024-04-17 19:41 | XMS_ITS | Clinical Summary ---
Author Organization [employer] [facility] Address [place], [place] [address] Care Team Providers Care Instructional Assistant Name Role Phone Albania Skelton MD Primary Care Provider Albania Skelton MD Unavailable [phone] Bogdan Malik MD Unavailable [phone] Allergies Active Allergy Reactions Criticality Noted Date Comments Blood-Group Specific Substance Other - Describe In Comment Field 02/24/2022 Patient has probable passive D antibody and a nonspecific antibody. Blood products may be delayed. Draw patient 24 hours prior to transfusion. For [employer] testing, draw one red top and two [...] dose. 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 Supervision of high-risk Overview (03/13/2024): Va Tan : 2000 [facility] ULTRASOUND/TESTING PATIENT Support person name: Carlo ULTRASOUND TYPE: Growth/[facility] Echo REASON FOR VISIT: BMI >30, family [...] ADDED TO PATIENT CARE TEAM Yes GENETICS: [facility] 12/19 CARE COORDINATION: PERTINENT LABS: Labs reviewed? [...] Department Care Team Description 04/10/2024 8:20 AM ORDER ENTRY OB Encounter [facility] [address] [place] [address] Albania Skelton MD Care (35w4d) 04/10/2024 Travel 03/27/2024 8:20 AM CDT OB Encounter [facility] [address] [place] [address] Albania Skelton MD Care (33w4d/); Immunization/Inject ion 03/26/2024 Travel 03/18/2024 1:34 PM CDT - 03/18/2024 11:59 PM CDT Hospital Encounter [facility] [address] [facility] [address] [place] [address] Rhiannon Bauamnn MD Supervision of high risk in third trimester (Primary Dx); Family history of congenital heart disease in father; Obesity in , antepartum, third trimester 03/18/2024 Travel 03/13/2024 10:25 AM CDT OB Encounter [facility] [address] [place] [address] Albania Skelton MD Care (31w4d/) 03/13/2024 Travel 03/12/2024 Telephone [facility] [address] [place] [address] [place]oint[place] 03/10/2024 Telephone [facility] [address] [address] [place]oint[place] 03/06/2024 Telephone [facility] [address] [place] [address] [place], [place]oint[place] 03/04/2024 Telephone [facility] [address] [place] [address] Albania Skelton MD Vomiting 02/28/2024 9:35 AM CDT OB Encounter [address] [address] Albania Skelton MD Care (29w4d) 02/28/2024 8:45 AM CDT Office Visit [facility] [address] [place] [address] Albania Skelton MD Care (29w4d); Error-please disregard (appt cancellation) 02/28/2024 Travel 02/26/2024 Refill [facility] [address] [place] [address] Albania Skelton MD Refill Request (Famotidine) 02/25/2024 1:10 PM CDT Nurse/Clinic Staff Only [address] [address] Immunization/Inject ion (Rhogam) 02/25/2024 12:45 PM CDT Orders Only [address] [address] Lab, [place] [facility] 02/25/2024 Orders Only [facility] Scanner 1 scan: (1-Ord) [facility], MULTIPLE LABS, 02/25/2024 02/25/2024 Orders Only [facility] Scanner 1 scan: (1-Ord) [facility], MULTIPLE LABS, 02/25/2024 02/25/2024 Travel 02/13/2024 8:45 AM CDT Office Visit [facility] [address] [facility] [place] [address] Albania Skelton MD Care (27w3d) 02/13/2024 Travel 01/24/2024 Refill [facility] [address] [place] [address] Albania Skelton MD Refill Request (Famotidine) 01/21/2024 Refill [facility] [address] [place] [address] Albania Skelton MD Refill Request (Famotidine) from [...] CH,BB [facility] BenYoselyn abrams DO Complications:None Delivery Location:[facility] ( [facility] 1999 L&D TRIAGE) Current Summary Episode Dates [...] Skelton MD .................... 04/10/2024 8:43 AM CC: [facility] R ENTRY Progress Notes - OB Encounte r - [...] Costa Alicea MD 03/27/2024 8:36 AM PGY-2 [facility] Precepting Physician Documentation I have [...] 03/13/2024 - GA:31w4d 03/13/2024 - - Ernie Sketlon MD Patient is here for routine care [...] Skelton MD .................... 03/13/2024 10:57 AM CC: [facility] Progress Notes - OB Encounte r [...] and finished anatomy screen. Sent message to [facility] TDaP--given today Flu- given today Discussed signs/symptoms of labor and when to call Reviewed preeclampsia symptoms Rhogam was given Sunday Antibody screen was missed, but apparently can be added. RTC in 2 weeks. Albania Skelton MD .................... 02/28/2024 9:05 AM CC: [facility] Progress Notes - Office Visi t [...] Skelton MD .................... 12/26/2023 8:52 AM CC: [facility] Progress Notes - Hospital En counter - 12/20/2023 - GA:19w4d 12/20/2023 - w4d - Lisa Martines MS, [facility] / Clinic Note Genetic Counseling RE: Va Tan : 2000 MR: [id number] Partner name: Carlo (present) Referred By: Albania [...] improved when she involved appropriate support like MICROGRINDER OPERATOR. She said that after his MICROGRINDER OPERATOR appointment, Tru would talk often, and a similar experience with his motor skills after PT. Va noted that his spout positioner is suspicious that Tru does have autism [...] asymptomatic individuals but are associated with serious continuous churn buttermaker health risks. BAV is a common cause [...] Tru in a couple months to a pediatric intensive physician for evaluation. Va also saw Dr. Baumann [...] questions or concerns. Sincerely, Lisa Martines MS, [facility] Licensed Genetic Counselor Total time: 28 minutes in person [facility] - [address] , [address] [place] [address] 12/20/2023 - 19w4d - Rhiannon Baumann MD [...] needed. Services Provided: Procedures Code DETAIL ANATOMY 14703.0 Progress Notes - OB Encounte r - [...] as needed Follow up in 4 weeks. Albania Skelton MD .................... 11/28/2023 9:08 AM CC: [facility] Progress Notes - OB Encounte r - 11/02/2023 - GA:12w5d 11/02/2023 - 12wd - Ernie Skelton MD Patient is here for routine care at 12w5d Concerns: Feeling better with pepcid. Feeling less dizzy/nauseated. No cramping, bleeding, loss of fluid Labs today- none She is looking into a Milk Runner (has a friend who was recently certified) Hoping for water . Follow up in 4 weeks. Albania Skelton MD .................... 11/02/2023 7:39 AM CC: [facility] Progress Notes - OB Encounte r [...] Increase pepcid to twice daily. - Cancel: WI IV INFUSION THERAPY/PROPHYLAXIS /DX 1ST TO 1 HR - ondansetron (ZOFRAN ODT) 4 mg disintegrating tablet; Place 1 Tablet (4 mg) on the tongue every 8 hours if needed for Nausea/Vomiting. - WI IV INFUSION HYDRATION INITIAL 31 MIN-1 HOUR - WI INFUSION NORMAL SALINE SOLUTION 1000 CC - WI THER PROPH/DX NJX IV PUSH SINGLE/1ST SBST/DRUG Albania Skelton MD .................... 10/24/2023 3:00 PM CC: [facility] Progress Notes - OB Encounte r [...] Marital Status: partnered. 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 with first was complicated with preeclampsia with severe features. 34w3d -- The patient was transferred to [facility] secondary to preeclampsia with severe features, severe based on elevated LFTs. Labor was uncomplicated. She had a vaginal delivery at 34w6d gestation. Delivery was uncomplicated. The baby went to NICU. course was complicated by elevated blood pressures requiring initiation of anti-hypertensive medication. Did not have a great experience at [place]-- hoping to not have to deliver there. [...] MEDICINE 3. Screening for cervical cancer Z12.4 HOG HANDLER THIN PREP PAP SCREEN IMAGED [[id number]] 4. History of delivery, currently O09.899 AMB [...] Total time preparing to see this patient, aabj-pb-rlpt time, and coordinating care time on the same calendar date: 36 minutes. Albania Skelton MD .................... 09/27/2023 2:33 PM [facility] [phone] CC: [facility] Progress Notes - OB Encounte r [...] induced pre-term with Pre-eclampsia Occupation of patient: [employer] Name of Partner or Father of baby: [...] of estimated date of delivery: No Thalassemia (Sami, Belarusian, Mediterranean, or background): MCV less than 80: No Neural tube defect (Meningomyelocele, Spina bifida, or Anencephaly): No Congenital heart defect: Yes (Comment: Dad's great grandpa had PFO) Down syndrome: No Breezy-Sachs (Ashkenazi Sikh, Cajun, Korean Samoan): No Hamlet disease (Ashkenazi Sikh): No Familial dysautonomia (Ashkenazi Sikh): No Sickle cell disease or trait (): No Hemophilia or other blood disorders: No Muscular dystrophy: No Cystic fibrosis: No [place]'s chorea: No Intellectual disability and/or autism: Yes [...] of Beginnings book and book inserts, discussed awtz-lwy-sddrfjs medications, and follow up. - Encouraged patient to call clinic at [phone] with any vaginal bleeding, fluid leaking from [...] Comments Blood Pressure 113/73 04/10/2024 8:32 AM ORDER ENTRY Pulse 90 04/10/2024 8:32 AM ORDER ENTRY Temperature 36.9 ??C (98.4 ??F) 06/23/2022 2:55 PM CS T Respiratory Rate 16 03/01/2022 7:00 AM CDT Oxygen Saturation 98% 04/10/2024 8:32 AM ORDER ENTRY Inhaled Oxygen Concentration - - Weight 98.2 kg (216 lb 9.6 oz) 04/10/2024 8:32 A M ORDER ENTRY Height 168.9 cm (5' 6.5) 09/11/2023 2:43 PM CDT Body Mass Index 34.44 09/11/2023 2:43 PM CDT Plan of Treatment Upcoming Encounters Date Type Department Care Team (Late st Contact Info) Description 04/24/2024 10:00 AM ORDER ENTRY OB Encounter [facility] [address] [place] [address] Albania Skelton MD [address] [place] [address] 04/30/2024 10:00 AM ORDER ENTRY OB Encounter [facility] [address] [place] [address] Albania Skelton MD [address] [place] [address] 05/07/2024 10:25 AM ORDER ENTRY OB Encounter [facility] [address] [place] [address] Albania Skelton MD [address] [place] [address] 05/14/2024 10:25 AM ORDER ENTRY OB Encounter [facility] [address] [place] [address] Albania Skelton MD [address] [place] [address] Health Maintenance Due Date Last Done Comments [...] OB STREP PCR Routine 04/10/2024 9:22 AM ORDER ENTRY Supervision of high risk in third trimester CREATININE Routine 04/10/2024 9:13 AM ORDER ENTRY Hx of preeclampsia, prior , currently CBC W PLT NO DIFF Routine 04/10/2024 9:1 3 AM ORDER ENTRY Hx of preeclampsia, prior , currently AST (SGOT) Routine 04/10/2024 9:13 AM ORDER ENTRY Hx of preeclampsia, prior , currently ALT (SGPT) Routine 04/10/2024 9:13 AM ORDER ENTRY Hx of preeclampsia, prior , currently US [...] CDT SCAN-LABORATORY REPORT 4 12:00 AM CDT HOG HANDLER THIN PREP PAP SCREEN IMAGED Routine 09/27/2023 [...] VAGINAL/RECTAL OB STREP PCR (04/10/2024 9:22 AM ORDER ENTRY) Vaginal/Rectal OB Strep B PCR Negative 04/14/2024 10:37 AM ORDER ENTRY [facility] Other (Vaginal/Rectal) Non-Blood / Unknown 04/10/2024 9:22 AM ORDER ENTRY 04/10/2024 9:22 AM ORDER ENTRY Albania Skelton MD MICROBIOLOGY [facility] [address] [place] [id number] * (ABNORMAL) CBC W PLT NO DIFF (04/10/2024 9:13 AM ORDER ENTRY) WHITE BLOOD CELL COUNT 12.0(H) 3.8 - [...] BLOOD SPECIMEN / Unknown 04/10/2024 9:13 AM ORDER ENTRY 04/10/2024 9:14 AM ORDER ENTRY Albania Skelton MD HEMATOLOGY Performing Organization Address City/[facility]/ZIP Co de Phone Number [facility] [address] [place] [address], [place] [phone] [facility] [address] [place] [address] * CREATININE (04/10/2024 9:13 AM ORDER ENTRY) Only the most recent of2 resultswithin the time period is included. CREATININE 0.64 0.50 - 0.96 mg/dL [facility] EGFR 129 > OR = 60 mL/min/1.73 m2 [facility] Blood BLOOD SPECIMEN / Unknown 04/10/2024 9:13 AM ORDER ENTRY 04/10/2024 9:14 AM ORDER ENTRY Albania Skelton MD CHEMISTRY Performing Organization Address City/[facility]/ZIP Co de Phone Number [facility] [address] [place] [address], [place] [phone] [facility] [address] [place] [address] * ALT (SGPT) (04/10/2024 9:13 AM ORDER ENTRY) Only the most recent of2 resultswithin the time period is included. ALT 10 6 - 29 U/L [facility] Blood BLOOD SPECIMEN / Unknown 04/10/2024 9:13 AM ORDER ENTRY 04/10/2024 9:14 AM ORDER ENTRY Albania Skelton MD CHEMISTRY [facility] [address] [place] [address], [place] [phone] [facility] [address] [place] [address] * AST (SGOT) (04/10/2024 9:13 AM ORDER ENTRY) Only the most recent of2 resultswithin the time period is included. AST 13 10 - 30 U/L [facility] Blood BLOOD SPECIMEN / Unknown 04/10/2024 9:13 AM ORDER ENTRY 04/10/2024 9:14 AM ORDER ENTRY Albania Skelton MD CHEMISTRY [facility] [address] [place] [address], [place] [phone] [facility] [address] [place] [address] * Echocardiogram (CPT 12346) (03/18/2024 2:35 PM CDT) Anatomical Region Laterality [...] of the aorta. Services Provided: US ECHOCARDIOGRAM 07511.0 US DOPPLER COLOR FLOW VELOCITY MAP 53530.0 US DOPPLER ECHO SPECTRAL ?91235.0 Procedure Note Bogdan Malik MD - 03/18/2024 [...] coarctation of the aorta. Services Provided: US [id number] US DOPPLER COLOR FLOW VELOCITY BQJ78007.0 US DOPPLER ECHO SPECTRAL 29670.0 Rhiannon Baumann MD US * Growth Follow Up Any Trimester (CPT 41574) If BPP w/NST needed use Testing section [...] as needed. Medical Decision Making: Low Complexity [address] ?Limited Diagnoses including with BMI>30 ?Limited Data including review of prior ultrasound and review of prior external notes ?Minimal risk of morbidity or mortality to the fetus from additional testing. Services Provided: Procedures Code FOLLOW UP GROWTH ??& PEDS ECHO 62521.0 Procedure Note Angelique Haas MD - 03/18/2024 Referred By: ALBANIA SKELTON MD IndicationsCode 32 weeks gestation of lnfihgcsjV5M.32 Maternal Obesity - BMI >30 2021 34w6d [...] discussed asneeded. Medical Decision Making: Low Complexity 56614 Limited Diagnoses including with BMI>30 Limited Data including review of prior ultrasound and review of priorexternal notes Minimal risk of morbidity or mortality to the fetus from additionaltesting. Services Provided: ProceduresCode FOLLOW UP GROWTH & PEDS RHOR65068.0 Rhiannon Baumann MD US * TREPONEMA PALLIDUM (02/25/2024 2:03 PM CDT) Pathologist [facility] T. PALLIDUM AB NEGATIVE NEGATIVE [facility] [...] Skelton MD SEND OUTS Performing Organization Address City/[facility]/ZIP Co de Phone Number [facility] [address] [facility] [place] [place] [address], [place] [phone] [facility] [address] [facility] [address] * PLATELET COUNT (02/25/2024 2:03 PM CDT) [facility] PLATELET COUNT 311 140 - 400 Thousand/u L [facility] Blood BLOOD SPECIMEN / Unknown 02/25/2024 2:03 PM CDT 02/25/2024 2:03 PM CDT Albania Skelton MD HEMATOLOGY [facility] [address] [place] [address], [place] [phone] [facility] [address] [place] [address] * HEMOGLOBIN (02/25/2024 2:03 PM CDT) [facility] HEMOGLOBIN 11.7 11.7 - 15.5 g/dL [facility] Blood BLOOD SPECIMEN / Unknown 02/25/2024 2:03 PM CDT 02/25/2024 2:03 PM CDT Albania Skelton MD HEMATOLOGY [facility] [address] [place] [address], [facility] [address] [place] [address] * GLUCOSE,GESTATIONAL (02/25/2024 2:03 PM CDT) GLUCOSE, GESTATIONAL SCREEN (50G)-140 CUTOFF 108 <140 mg/dL [facility] Blood BLOOD SPECIMEN / Unknown 02/25/2024 2:03 PM CDT 02/25/2024 2:03 PM CDT Albania Skelton MD CHEMISTRY [facility] [address] [place] [address], [facility] [address] [place] [address] * SCAN-LABORATORY REPORT (02/25/2024 12:00 AM CDT) Only the most recent of2 resultswithin the time period is included. Scanner OTHER * HOG HANDLER THIN PREP PAP SCREEN IMAGED [[id number]] (09/27/2023 3:01 PM CDT) Case Report Gynecologic Cytology Report ? Case: [id number] ? Authorizing Provider: ??Albania Skelton MD ? Collected: ? 09/27/2023 1501 ? Ordering Location: ? [facility] ?? Received: ?09/27/2023 1526 ? Clinic ? First Screen: ?Adele Clark ? Specimen: ?HOG HANDLER ThinPrep Vial Screening, Cervical ? 10/10/2023 2:17 PM CDT [facility]AL [facility] INTERPRETATION/ RESULT NEGATIVE FOR INTRAEPITHELIAL LESION OR MALIGNANCY (NIL) (none) 10/10/2023 2:17 PM CDT [facility] NISM(S) Fungal organisms morphologically consistent with Rayna species 10/10/2023 2:17 PM CDT [facility] SPECIMEN ADEQUACY Satisfactory for evaluation No endocervical component seen in a patient 10/10/2023 2:17 PM CDT [facility] LABORATORY-C ENTRAL LABORATORY Date of LMP 07/11/2023 10/10/2023 2:17 PM CDT [facility]-C ENTRAL LABORATORY Last Pap Date first 10/10/2023 2:[address] [facility] Last Pap Result First Pap/Unknown 2:[address] [facility] Abnormal Pap or Helena Bx in last 5 years No 10/10/2023 2:[address] [facility] Menstrual Status 10/10/2023 2:17 PM CDT [facility] Helena Bx Done Today No 10/10/2023 2:17 PM CDT [facility] Additional Information None given 10/10/2023 2:[address] [facility] Comment: Cytology is screened at [facility] - [address], [place] [address] and [facility] - [address] [place] [address] and [facility] - [address] [place] [address] Interpreted at [facility] - [address], [place] [address] Automated Review Successful 10/10/2023 2:[address] [facility] Comment:Specimen processed s uccessfully by automated manager of employee relations device, ThinPrep Imaging System, [employer] Note The pap test is a [...] and malignant lesions. 10/10/2023 2:17 PM CDT [facility] Other (Cervical) Non-Blood / Unknown 09/27/2023 3:01 PM CDT 09/27/2023 3:26 PM CDT Albania Skelton MD PATHOLOGY/CYTOLOGY [facility] [address] [place] [address], [place] * HOG HANDLER PROBE - GC CHLAMYDIA DNA PCR [[id number]] (09/11/2023 3:47 PM CDT) Pathologist [facility] CHLAMYDIA PROBE Negative 5:25 AM CDT [facility] TRAL LABORATORY N GONORRHOEAE PROBE Negative 09/12/2023 5:25 AM CDT [facility] Other URINE SPECIMEN / Unknown Non-Blood / Unknown 09/11/2023 3:47 PM CDT 09/11/2023 3:47 PM CDT Albania Skelton MD MICROBIOLOGY Performing Organization Address [facility] Co de Phone Number [facility] [address] [place] [address], * ANTI HCV (09/11/2023 3:45 PM CDT) Pathologist [facility] HEPATITIS C ANTIBODY Non-Reacti ve Non-React kimberly 09/12/2023 2:40 PM CDT [facility] TRAL [facility]ORATORY Comment:Please note, per www .CDC.gov: [...] Skelton MD SEND OUTS Performing Organization Address City/[facility]/ZIP Co de Phone Number [facility] [address] [place] [address], [place] * ANTI HIV 1/2 (09/11/2023 3:45 PM CDT) Pathologist [facility] HIV-1/HIV-2 SCREEN Non-Reacti ve Non-Reacti ve 09/12/2023 2:46 PM CDT [facility] Comment:HIV-1 p24 and HIV-1/ HIV-2 Ab Not Detected. Blood BLOOD SPECIMEN / Unknown Venipuncture / Unknown 09/11/2023 3:45 PM CDT 09/11/2023 3:46 PM CDT Albania Skelton MD SEND OUTS [facility] [address] [place] [address], from Last 3 Months or Most Recently Relevant to Health Maintenance Advance Directives * Full Code (Latest Code Status on File) Date Activated Date Inactivated Comments 02/24/2022 8:52 AM 03/01/2022 6:26 PM Question Answer Comments Code Status Discussion: Reviewed Preferences Care Teams Instructional Assistant Relationship Specialty Start Date End Date Albnaia Skelton MD [address] [place] [address] PCP - General Family Practice 08/23/21 Albania Skelton MD [address] [place] [address] Referring Provider Family Practice 09/28/23 Bogdan Malik MD [address] [facility] [address] [place] [address] Consulting Physician Cardiology - Pediatric 03/17/24 1
== END 2024-04-17 19:10 | disposition home or self-care (01) ==
LOC: OB 18:58 → OB OUT 19:40 → OB 19:43
PROVIDERS: PCP Family Medicine; Visit Provider Family Medicine
DX: O26.893 Other specified pregnancy related conditions, third trimester (principal); R11.2 Nausea with vomiting, unspecified; Z3A.36 36 weeks gestation of pregnancy
CPT/HCPCS: 59025; G0463; J2405; J7120

== ENCOUNTER 2024-05-06 08:18 | Outpatient (CLI) | payer BC, SELFPAY ==
[2024-05-06] VITALS (23 sets, daily range): BP systolic 111–131; BP diastolic 57–75; PULSE 10–135; RESP 16–17; TEMP 36.4–36.9; O2SAT 95–98
--- OUTSIDE RECORDS SUMMARY | 2024-05-06 08:23 | XMS_ITS | Clinical Summary ---
Author Organization [facility] Address [place], [place] [address] Care Team Providers Care Voice Coach Name Role Phone Albania Skelton MD Primary Care Provider Albania Skelton MD Unavailable [phone] Bogdan Malik MD Unavailable [phone] Allergies Active Allergy Reactions Criticality Noted Date Comments Blood-Group Specific Substance Other - Describe In Comment Field 02/24/2022 Patient has probable passive D antibody and a nonspecific antibody. Blood products may be delayed. Draw patient 24 hours prior to transfusion. For [facility] testing, draw one red top and two purple top tubes for all Type and Screen orders. Medications Medication Sig Dispensed Refills Start Date End Date Status multivitamin no.36-folate no.6 1 mg chew 1 Tablet. 02/15/2022 Active aspirin chewable 81 mg chewable tabletIndications:Hx of preeclampsia, prior , currently Chew 1 Tablet (81 mg) by mouth once daily with a meal. 90 Tablet 3 09/27/2023 Active ondansetron (ZOFRAN ODT) 4 mg disintegrating tabletIndications:Naus ea and vomiting in prior to [address] 1 Tablet (4 mg) on the tongue every 8 hours if needed for Nausea/Vomiting . 30 Tablet 10/24/2023 Active sertraline (Zoloft) 50 mg tabletIndications:Post depression, anxiety Take 1 Tablet (50 mg) by mouth once daily. 90 Tablet 3 11/28/2023 Active hydrOXYzine HCL (ATARAX) 50 mg tabletIndications:Inso mnia, idiopathic Take 1 Tablet (50 mg) by mouth at bedtime if needed for Anxiety (sleep). 90 Tablet 3 03/13/2024 Active famotidine (PEPCID) 20 mg tabletIndications:Hear tburn in in third trimester Take 1 Tablet (20 mg) by mouth two times daily. 180 Tablet 1 03/13/2024 Active Active Problems Problem Noted Date Diagnosed Date Obesity in , antepartum, third trimeste r 03/18/2024 Family history of congenital heart disease in fa ther 03/18/2024 Family history of congenital heart defect 2023 Pap smear for cervical cancer screening 10/11/19 Overview (10/11/2023): 09/2023 NIL Plan: Pap test due in 3 years [facility] Supervision of high-risk Overview (03/13/2024): Va Tan : 2000 [facility] ULTRASOUND/TESTING PATIENT Support person name: Carlo ULTRASOUND TYPE: Growth/[facility] Echo REASON FOR VISIT: BMI [...] REFERRING PROVIDER/CLINIC: Albania Skelton MD - Sharla Ennisfield Primary MD approves scheduling of recommended ultrasounds/testing: Yes SPECIALISTS/CONSULTS: Include: Specialty MD Clinic Name Phone# LV [place] and ADDED TO PATIENT CARE TEAM Yes GENETICS: MPP [facility] 12/19 CARE COORDINATION: PERTINENT LABS: Labs reviewed? [...] patient 24 hours prior to transfusion. For [facility] testing, draw one red top and [...] ANTIBODY Non-Reactive Past Medical History: . Date No Significant Past Medical History Past Surgical History: . Laterality Date NO PREVIOUS SURGERY No data on file. Problems (from 08/23/21 to present) No problems associated with this episode. Tatyana Ramirez RN.....08/25/2021 1:48 PM Encounters Date Type Department Care Team Description 04/30/2024 10:00 AM [facility] OB Encounter [facility] [address] [place] [address] Albania Skelton MD Care (38+3) 04/30/2024 Travel 04/24/2024 10:00 AM [facility] OB Encounter [facility] [address] [place] [address] Albania Skelton MD Care (37w4d) 04/24/2024 Travel 04/10/2024 8:20 AM [facility] OB Encounter [facility] [address] [place] [address] Albania Skelton MD Care (35w4d) 04/10/2024 Travel 03/27/2024 8:20 AM CDT OB Encounter [facility] [address] [place] [address] Albania Skelton MD Care (33w4d/); Immunization/Inject ion 03/26/2024 Travel 03/18/2024 1:34 PM CDT - 03/18/2024 11:59 PM CDT Hospital Encounter [facility] [address] [facility] [address] [place] [address] Rhiannon Baumann MD Supervision of high risk in third trimester (Primary Dx); Family history of congenital heart disease in father; Obesity in , antepartum, third trimester 03/18/2024 Travel 03/13/2024 10:25 AM CDT OB Encounter [facility] [address] [facility] [place] [address] Albania Skelton MD Care (31w4d/) 03/13/2024 Travel 03/12/2024 Telephone [facility] [address] [place] [place] [address] [place] Appointment 03/10/2024 Telephone [facility] [address] [place] [address] [place] 03/06/2024 Telephone [facility] [address] [address] [place]oint[place] 03/04/2024 Telephone [facility] [address] [place] [address] Albania Skelton MD Vomiting 02/28/2024 9:35 AM CDT OB Encounter [facility] [address] [place] [address] Albania Skelton MD Care (29w4d) 02/28/2024 8:45 AM CDT Office Visit [facility] [address] [place] [address] Albania Skelton MD Care (29w4d); Error-please disregard (appt cancellation) 02/28/2024 Travel 02/26/[address] [address] Albania Skelton MD Refill Request (Famotidine) 02/25/2024 1:10 PM CDT Nurse/Clinic Staff Only [address] [address] Immunization/Inject ion (Rhogam) 02/25/2024 12:45 PM CDT Orders Only [address] [address] [place], [place] [facility] 02/25/2024 Orders Only [facility] Scanner 1 scan: (1-Ord) [facility]ULT[facility]LE LAB[facility], 02/25/2024 02/25/2024 Orders Only [facility] Scanner 1 scan: (1-Ord) [facility], 02/25/2024 02/25/2024 Travel 02/13/2024 8:45 AM CDT Office Visit [facility] [address] [place] [address] Albania Skelton MD Care (27w3d) 02/13/2024 Travel from Last 3 Months Immunizations Name [...] Livin g 8 9 ALDRI CH,BB [facility] mistry, Yoselyn Ruvalcaba DO Complications:None Delivery Location:Hospital ( [facility] [address] L&D TRIAGE) Current Summary Episode Dates Number of Fetuses Estimated Date of Delivery 09/11/2023 - Present (05/06/2024) 1 05/11/2024 (set by Yee Skelton MD on 09/21/2023 based on Ultrasound on 09/21/2023) Dating Summary Based On KARISHMA GA Diff Last Menstrual Period on 07/11/2023 04/16/2024 +3w4d Ultrasound on 09/21/2023 05/11/2024 Working GA:6w5d Alternate KARISHMA Entry 03/21/2024 +7w2d Vitals Pregravid Weight Height TWG (As of 05/06/2024) Pregrav id BMI 97.5 kg (215 lb) 1.689 m (5' 6.5) 0.09 kg (3.2 oz) 34 .19 Date GA Fund Present FHR Mvmt BP Weight Edema Alb Glu Ket Dil/ Eff/Sta 4 19w4d Inpatient data not displayed here. See encounter summary. 4 32w2d Inpatient data not displayed here. See encounter summary. Notes Progress Notes - OB Encounte r - 04/30/2024 - GA:38w3d 04/30/2024 - 38w3d - Ernie Skelton MD Patient is here for routine care at 38w3d Concerns: Continues with frequent contractions throughout the day. Some more painful than others. No bleeding, loss of fluid No Headache, vision changes, edema, right upper quadrant pain. Baby is moving well Thinks she lost her mucus plug. Cephalic positioning confirmed by US Labs today- none Results for orders placed or performed in visit on 04/10/24 ALT (SGPT) Collection Time: 04/10/24 9:13 AM Result Value Ref Range ALT 10 6 - 29 U/L AST (SGOT) Collection Time: 04/10/24 9:13 AM Result Value Ref Range AST 13 10 - 30 U/L CBC W PLT NO DIFF Collection Time: 04/10/24 9:13 AM Result Value Ref Range WHITE BLOOD CELL COUNT 12.0 (H) 3.8 - 10.8 Thousand/uL RED BLOOD CELL COUNT 4.22 3.80 - 5.10 Million/uL HEMOGLOBIN 11.9 11.7 - 15.5 g/dL HEMATOCRIT 36.6 35.0 - 45.0 % MCV 86.7 80.0 - 100.0 fL MCH 28.2 27.0 - 33.0 pg MCHC 32.5 32.0 - 36.0 g/dL RDW 11.8 11.0 - 15.0 % PLATELET COUNT 351 140 - 400 Thousand/uL MPV 10.2 7.5 - 12.5 fL CREATININE Collection Time: 04/10/24 9:13 AM Result Value Ref Range CREATININE 0.64 0.50 - 0.96 mg/dL EGFR 129 > OR = 60 mL/min/1.73m2 VAGINAL/RECTAL OB STREP PCR Collection Time: 04/10/24 9:22 AM Specimen: Vaginal/Rectal; Other Result Value Ref Range Vaginal/Rectal OB Strep B PCR Negative Discussed signs/symptoms of labor and when to call Reviewed preeclampsia symptoms-- she had with first . Continues to monitor blood pressure at home. Desires water , may try to call me if analytics consultant provider does not do water births. Albania Skelton MD .................... 04/30/2024 10:22 AM CC: [facility] Progress Notes - OB Encounte r - 04/24/2024 - GA:37w4d 04/24/2024 - 37w4d - Ernie Skelton MD Patient is here for routine care at 37w4d Concerns: very achey, having more pain. Some contractions, will go on for 10 minutes, then 3 hours off. Happens more frequently when active. No bleeding, loss of fluid No Headache, vision changes, edema, right upper quadrant pain. Baby is moving well Monitoring blood pressure at home, all < 140/90 Results for orders placed or performed in visit on 04/10/24 ALT (SGPT) Collection Time: 04/10/24 9:13 AM Result Value Ref Range ALT 10 6 - 29 U/L AST (SGOT) Collection Time: 04/10/24 9:13 AM Result Value Ref Range AST 13 10 - 30 U/L CBC W PLT NO DIFF Collection Time: 04/10/24 9:13 AM Result Value Ref Range WHITE BLOOD CELL COUNT 12.0 (H) 3.8 - 10.8 Thousand/uL RED BLOOD CELL COUNT 4.22 3.80 - 5.10 Million/uL HEMOGLOBIN 11.9 11.7 - 15.5 g/dL HEMATOCRIT 36.6 35.0 - 45.0 % MCV 86.7 80.0 - 100.0 fL MCH 28.2 27.0 - 33.0 pg MCHC 32.5 32.0 - 36.0 g/dL RDW 11.8 11.0 - 15.0 % PLATELET COUNT 351 140 - 400 Thousand/uL MPV 10.2 7.5 - 12.5 fL CREATININE Collection Time: 04/10/24 9:13 AM Result Value Ref Range CREATININE 0.64 0.50 - 0.96 mg/dL EGFR 129 > OR = 60 mL/min/1.73m2 VAGINAL/RECTAL OB STREP PCR Collection Time: 04/10/24 9:22 AM Specimen: Vaginal/Rectal; Other Result Value Ref Range Vaginal/Rectal OB Strep B PCR Negative Water consent signed today--understands not all of my colleagues do water births and is ok with this. I may be called to see if available for delivery if analytics consultant does not do water births. Discussed signs/symptoms of labor and when to call Reviewed preeclampsia symptoms RTC weekly until delivery Albania Skelton MD .................... 04/24/2024 10:48 AM CC: [facility] Progress Notes - OB Encounte r - [...] Skelton MD .................... 04/10/2024 8:43 AM CC: [facility] Progress Notes - OB Encounte r - [...] Costa Alicea MD 03/27/2024 8:36 AM PGY-2 [facility] Precepting Physician Documentation I have seen [...] r - 03/13/2024 - GA:31w4d 03/13/2024 - w4d - Ernie Skelton MD Patient is here [...] Skelton MD .................... 03/13/2024 10:57 AM CC: [facility] Progress Notes - OB Encounte r - 02/28/2024 - GA:29w4d 02/28/2024 - w4d - Ernie Skelton MD Patient is here [...] and finished anatomy screen. Sent message to [facility] TDaP--given today Flu- given today Discussed signs/symptoms of labor and when to call Reviewed preeclampsia symptoms Rhogam was given Sunday Antibody screen was missed, but apparently can be added. RTC in 2 weeks. Albania Skelton MD .................... 02/28/2024 9:05 AM CC: [facility] Progress Notes - Office Visi t - 02/28/2024 - GA:29w4d 02/28/2024 - w - Ernie Skelton MD duplicate Appt cancelled. This encounter was opened in error. Please disregard. Progress Notes - OB Encounte r - 12/26/2023 - GA:20w3d 12/26/2023 - 20w3d - Ernie Skelton MD Patient is here [...] Skelton MD .................... 12/26/2023 8:52 AM CC: [facility] Progress Notes - Hospital En counter - 12/20/2023 - GA:19w4d 12/20/2023 - 19w4d - Lisa Martines, , [facility] / Clinic Note Genetic Counseling RE: Va Donaldo Tan : 2000 MR: [id number] Partner name: Cralo (present) Referred By: Albania Skelton MD Indication [...] improved when she involved appropriate support like MILANESE KNITTING MACHINE OPERATOR. She said that after his MILANESE KNITTING MACHINE OPERATOR appointment, Tru would talk often, and a similar experience with his motor skills after PT. Va noted that his surgical processor is suspicious that Tru does have autism like Diana. Patient history notable for: Personal history of [...] asymptomatic individuals but are associated with serious retirement health risks. BAV is a common cause [...] development, further indicating a strong genetic component (Scott-William & Xu, 2020). When BAV is found [...] in a couple months to a pediatric speech therapist for evaluation. Va also saw Dr. Baumann today; please see their notes for further details regarding today's appointment. The couple verbalized their understanding of our consult today and have no further questions at this time. Insurance coverage cannot be guaranteed for any of the screening or testing which was discussed. Plan: Va elected to proceed with the level II ultrasound after today s consult. Thank you for allowing us to participate in your patient's care. Please do not hesitate to contact me with any additional questions or concerns. Sincerely, Lisa Martines MS, [facility] Licensed Genetic Counselor Total time: 28 minutes in person [facility] - [address], [address] [place] [address] 12/20/2023 - w4d - Rhiannon Baumann MD Referred By: ALBANIA SKELTNO MD Indications Code 19 weeks gestation of [...] needed. Services Provided: Procedures Code DETAIL ANATOMY 07717.0 Progress Notes - OB Encounte r - 11/28/2023 - GA:16w3d 11/28/2023 - 16w3d - Ernie Skelton MD Patient is here [...] Skelton MD .................... 11/28/2023 9:08 AM CC: [facility] Progress Notes - OB Encounte r - 11/02/2023 - GA:12w5d 11/02/2023 - 12w5d - Ernie Skelton MD Patient is here for routine care at 12w5d Concerns: Feeling better with pepcid. Feeling less dizzy/nauseated. No cramping, bleeding, loss of fluid Labs today- none She is looking into a Vp Of Technology (has a friend who was recently certified) Hoping for water . Follow up in 4 weeks. Albania Skelton MD .................... 11/02/2023 7:39 AM CC: [facility] Progress Notes - OB Encounte r [...] lb) LMP 07/11/2023 SpO2 100% BMI 30.37 kg/m General: Slightly pale Heart: regular rate and [...] Increase pepcid to twice daily. - Cancel: OH IV INFUSION THERAPY/PROPHYLAXIS /DX 1ST TO 1 HR - ondansetron (ZOFRAN ODT) 4 mg disintegrating tablet; Place 1 Tablet (4 mg) on the tongue every 8 hours if needed for Nausea/Vomiting. - OH IV INFUSION HYDRATION INITIAL 31 MIN-1 HOUR - OH INFUSION NORMAL SALINE SOLUTION 1000 CC - OH THER PROPH/DX NJX IV PUSH SINGLE/1ST SBST/DRUG Albania Skelton MD .................... 10/24/2023 3:00 PM CC: [facility] Progress Notes - OB Encounte r - 09/27/2023 - GA:7w4d 09/27/2023 - 7w - Costa Ut mary Santizo MD Clinic Note: First OB Visit 09/27/2023 [...] Marital Status: partnered. 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 with first was complicated with preeclampsia with severe features. 34w3d -- The patient was transferred to [facility] secondary to preeclampsia with severe features, severe based on elevated LFTs. Labor was uncomplicated. She had a vaginal delivery at 34w6d gestation. Delivery was uncomplicated. The baby went to NICU. course was complicated by elevated blood pressures requiring initiation of anti-hypertensive medication. Did not have a great experience at [facility]-- hoping to not have to deliver there. [...] oz) LMP 07/11/2023 SpO2 97% BMI 32.37 kg/m General Appearance: Alert, well-developed, well-nourished, with appropriate [...] MEDICINE 3. Screening for cervical cancer Z12.4 POWER BALLAST MACHINE OPERATOR THIN PREP PAP SCREEN IMAGED [[id number]] 4. History of delivery, currently O09.899 AMB [...] Total time preparing to see this patient, cxrm-kd-famt time, and coordinating care time on the same calendar date: 36 minutes. Albania Skelton MD .................... 09/27/2023 2:33 PM [facility] [phone] CC: [facility] Progress Notes - OB Encounte r [...] induced pre-term with Pre-eclampsia Occupation of patient: [employer] Name of Partner or Father of baby: [...] of estimated date of delivery: No Thalassemia (Lebanese, Equatorial Guinean, Mediterranean, or background): MCV less than 80: No Neural tube defect (Meningomyelocele, Spina bifida, or Anencephaly): No Congenital heart defect: Yes (Comment: Dad's great grandpa had PFO) Down syndrome: No Breezy-Sachs (Ashkenazi Voodoo, Cajun, Korean Arapahoe): No Hamlet disease (Ashkenazi Voodoo): No Familial dysautonomia (Ashkenazi Voodoo): No Sickle cell disease or trait (): No Hemophilia or other blood disorders: No Muscular dystrophy: No Cystic fibrosis: No Hertford's chorea: No Intellectual disability and/or autism: Yes [...] 3.2 oz) LMP 06/15/2023 (Approximate) BMI 33.90 kg/m ,URINE (no units) Date Value 03/23/2022 Negative ASSESSMENT/PLAN: ICD-10-CM 1. Encounter for supervision of other normal in first trimester Z34.81 2. Hx of preeclampsia, prior , currently O09.299 EDUCATION/PATIENT INSTRUCTIONS - Advised patient to start/continue vitamin. - Discussed risk of using alcohol, tobacco, other drugs in . - Discussed healthy lifestyle in . - Provided copy of Beginnings book and book inserts, discussed aexm-ghu-iwplaqu medications, and follow up. - Encouraged patient to call clinic at [phone] with any vaginal bleeding, fluid leaking from [...] Sign Reading Time Taken Comments Blood Pressure 111/74 04/30/2024 10:03 AM [facility] Pulse 110 04/30/2024 10:03 AM [facility] Temperature 36.9 C (98.4 F) 06/23/2022 2:55 PM [facility] Respiratory Rate 16 03/01/2022 7:00 AM CDT Oxygen Saturation 98% 04/30/2024 10:03 AM [facility] Inhaled Oxygen Concentration - - Weight 97.6 kg (215 lb 3.2 oz) 04/30/2024 10:03 AM [facility] Height 168.9 cm (5' 6.5) 09/11/2023 2:43 PM CDT Body Mass Index 34.21 09/11/2023 2:43 PM CDT Plan of Treatment Upcoming Encounters Date Type Department Care Team (Late st Contact Info) Description 05/07/2024 10:25 AM [facility] OB Encounter [facility] [address] [place] [address] Albania Skelton MD [address] [place] [address] 05/14/2024 10:25 AM [facility] OB Encounter [facility] [address] [place] [address] Albania Skelton MD [address] [place] [address] Health Maintenance Due Date Last Done Comments Depression screening for age 12+ 01/17/2024 01/16/2023, 12/08/2022, 12/04/2022, Additional history exists COVID-19 vaccine series () 02/03/2024 04/23/2021, 03/10/2021 BMI (ht and wt on [...] OB STREP PCR Routine 04/10/2024 9:22 AM [facility] Supervision of high risk in third trimester CREATININE Routine 04/10/2024 9:13 AM [facility] Hx of preeclampsia, prior , currently CBC W PLT NO DIFF Routine 04/10/2024 9:1 3 AM [facility] Hx of preeclampsia, prior , currently AST (SGOT) Routine 04/10/2024 9:13 AM [facility] Hx of preeclampsia, prior , currently ALT (SGPT) Routine 04/10/2024 9:13 AM [facility] Hx of preeclampsia, prior , currently US [...] CDT SCAN-LABORATORY REPORT 4 12:00 AM CDT POWER BALLAST MACHINE OPERATOR THIN PREP PAP SCREEN IMAGED Routine 09/27/2023 [...] VAGINAL/RECTAL OB STREP PCR (04/10/2024 9:22 AM [facility]) Vaginal/Rectal OB Strep B PCR Negative 04/14/2024 10:37 AM [facility] TRAL LABORATORY Other (Vaginal/Rectal) Non-Blood / Unknown 04/10/2024 9:22 AM [facility] 04/10/2024 9:22 AM [facility] Albania Skelton MD MICROBIOLOGY [facility] [address] [place] [address], * (ABNORMAL) CBC W PLT NO DIFF (04/10/2024 9:13 AM [facility]) WHITE BLOOD CELL COUNT 12.0(H) 3.8 - [...] BLOOD SPECIMEN / Unknown 04/10/2024 9:13 AM [facility] 04/10/2024 9:14 AM [facility] Albania Skelton MD HEMATOLOGY Performing Organization Address [facility]/ZIP Co de Phone Number [facility] [address] [place] [address], [facility] [address] [facility] [place] [address] * CREATININE (04/10/2024 9:13 AM [facility]) Only the most recent of2 resultswithin the time period is included. CREATININE 0.64 0.50 - 0.96 mg/dL [facility] [place] EGFR 129 > OR = 60 mL/min/1.73 m2 [facility] [place] Blood BLOOD SPECIMEN / Unknown 04/10/2024 9:13 AM [facility] 04/10/2024 9:14 AM [facility] Albania Skelton MD CHEMISTRY Performing Organization Address [facility]/ZIP Co de Phone Number [facility] [address] [place] [address], [place] [phone] [facility] [address] [facility] [place] [address] * ALT (SGPT) (04/10/2024 9:13 AM [facility]) Only the most recent of2 resultswithin the time period is included. ALT 10 6 - 29 U/L [facility] [place] Blood BLOOD SPECIMEN / Unknown 04/10/2024 9:13 AM [facility] 04/10/2024 9:14 AM [facility] Albania Skelton MD CHEMISTRY Performing Organization Address [facility]/ZIP Co de Phone Number [facility] [address] [place] [address], [facility] [address] [place] [address] * AST (SGOT) (04/10/2024 9:13 AM [facility]) Only the most recent of2 resultswithin the time period is included. AST 13 10 - 30 U/L [facility] Navarrete Blood BLOOD SPECIMEN / Unknown 04/10/2024 9:13 AM [facility] 04/10/2024 9:14 AM [facility] Albania Skelton MD CHEMISTRY Performing Organization Address [facility] Co de Phone Number [facility] [address] [place] [address], [facility] [address] [place] [address] * Echocardiogram (CPT 86281) (03/18/2024 2:35 PM CDT) Anatomical Region Laterality Modality HEART Ultrasound 03/18/2024 2:23 PM CDT Narrative 03/18/2024 2:56 PM CDT Levocardia. Leftward stomach. Atrial situs solitus. Atrioventricular concordance and ventriculoarterial concordance. Biphasic inflow across both the tricuspid and mitral valves. No tricuspid or mitral insufficiency. Widely patent aortic valve and pulmonary valve, normal velocity. Patent foramen ovale with normal right left flow. Usual displacement of the fossa ovalis towards the [...] of the aorta. Services Provided: US ECHOCARDIOGRAM 23796.0 US DOPPLER COLOR FLOW VELOCITY MAP 47792.0 US DOPPLER ECHO SPECTRAL 85695.0 Procedure Note Bogdan Malik MD - 03/18/2024 [...] coarctation of the aorta. Services Provided: US [id number] US DOPPLER COLOR FLOW VELOCITY [id number] US DOPPLER ECHO SPECTRAL 28410.0 Rhiannon Baumann MD US * Growth Follow Up Any Trimester (CPT 61743) If BPP w/NST needed use Testing section for order (03/18/2024 2:35 PM CDT) Anatomical Region Laterality Modality , 2or 3 TRIMESTER Ultrasound 03/18/2024 1:37 PM CDT Narrative 03/18/2024 2:46 PM CDT Referred By: ALBANIA SKELTON MD Indications Code 32 weeks gestation of Z3A.32 [...] as needed. Medical Decision Making: Low Complexity 75781 Limited Diagnoses including with BMI>30 Limited Data including review of prior ultrasound and review of prior external notes Minimal risk of morbidity or mortality to the fetus from additional testing. Services Provided: Procedures Code FOLLOW UP GROWTH & PEDS ECHO 74099.0 Procedure Note Angelique Haas MD - 03/18/2024 Referred By: ALBANIA SKELTON MD IndicationsCode 32 weeks gestation of [id number].32 Maternal Obesity - BMI >30 2021 34w6d [...] government regulations related to the Cures act requirethat this note be released to the patient immediately, sometimes before the referringprovider has been contacted. A portion of the information was presented verbally to thepatient. The remainder is submitted as background for the referring provider, to be discussed asneeded. Medical Decision Making: Low Complexity [address] Limited Diagnoses including with BMI>30 Limited Data including review of prior ultrasound and review of priorexternal notes Minimal risk of morbidity or mortality to the fetus from additionaltesting. Services Provided: ProceduresCode FOLLOW UP GROWTH & PEDS [id number] Rhiannon Baumann MD * TREPONEMA PALLIDUM (02/25/2024 2:03 PM CDT) T. PALLIDUM AB NEGATIVE NEGATIVE [facility] [place] Comment: No antibodies to T. pallidum (the [...] Skelton MD SEND OUTS Performing Organization Address [facility]/ZIP Co de Phone Number [facility] [address] [place] [address], [place] [phone] [facility] [address] [place] [address] * PLATELET COUNT (02/25/2024 2:03 PM CDT) PLATELET COUNT 311 140 - 400 Thousand/u L [facility] Blood BLOOD SPECIMEN / Unknown 02/25/2024 2:03 PM CDT 02/25/2024 2:03 PM CDT Albania Skelton MD HEMATOLOGY Performing Organization Address [facility]/ZIP Co de Phone Number [facility] [address] [place] [address], [place] [phone] [facility] [address] [place] [address] * HEMOGLOBIN (02/25/2024 2:03 PM CDT) HEMOGLOBIN 11.7 11.7 - 15.5 g/dL [facility] Blood BLOOD SPECIMEN / Unknown 02/25/2024 2:03 PM CDT 02/25/2024 2:03 PM CDT Albania Skelton MD HEMATOLOGY Performing Organization Address [facility]/ZIP Co de Phone Number [facility] [address] [place] [address], [place] [phone] [facility] [address] [place] [address] * GLUCOSE,GESTATIONAL (02/25/2024 2:03 PM CDT) GLUCOSE, GESTATIONAL SCREEN (50G)-140 CUTOFF 108 <140 mg/dL [facility] [place] Blood BLOOD SPECIMEN / Unknown 02/25/2024 2:03 PM CDT 02/25/2024 2:03 PM CDT Albania Skelton MD CHEMISTRY [facility] [address] [place] [address], [facility] [address] [place] [address] * SCAN-LABORATORY REPORT (02/25/2024 12:00 AM CDT) Only the most recent of2 resultswithin the time period is included. Scanner OTHER * POWER BALLAST MACHINE OPERATOR THIN PREP PAP SCREEN IMAGED [[id number]] (09/27/2023 3:01 PM CDT) Case Report Gynecologic Cytology Report Case: [id number] Authorizing Provider: Albania Skelton MD Collected: 09/27/2023 1501 Ordering Location: [facility] Received: 09/27/2023 1526 Clinic First Screen: Adele Clark Specimen: POWER BALLAST MACHINE OPERATOR ThinPrep Vial Screening, Cervical 10/10/2023 2:17 PM CDT [facility] EN[facility]AL LABORATORY INTERPRETATION/ RESULT NEGATIVE FOR INTRAEPITHELIAL LESION OR MALIGNANCY (NIL) (none) 10/10/2023 2:17 PM CDT [facility] ENTRAL LABORATORY NISM(S) Fungal organisms morphologically consistent with Rayna species 10/10/2023 2:17 PM CDT [facility] ENTRAL LABORATORY SPECIMEN ADEQUACY Satisfactory for evaluation No endocervical component seen in a patient 10/10/2023 2:17 PM CDT [facility] EN[facility]AL LABORATORY Date of LMP 07/11/2023 10/10/2023 2:17 PM CDT [facility]-C ENTRAL LABORATORY Last Pap Date first 10/10/2023 2:17 PM CDT [facility] ENTRUT LABORATORY Last Pap Result First Pap/Unknown 2:17 PM CDT [facility]- ENTRAL LABORATORY Abnormal Pap or [place] Bx in last 5 years No 10/10/2023 2:17 PM CDT [facility] ENTRAL LABORATORY Menstrual Status 10/10/2023 2:17 PM CDT [facility] ENTRAL LABORATORY [place] Bx Done Today No 10/10/2023 2:17 PM CDT [facility] ENTRUT LABORATORY Additional Information None given 10/10/2023 2:17 PM CDT [facility] Comment: Cytology is screened at [facility] - [address], [place] [address] and [facility] - [address] [place] [address] and [facility] - [address] [place] [address] [facility] - [address], [place] [address] Automated Review Successful 10/10/2023 2:17 PM CDT [facility] Comment:Specimen processed s uccessfully by automated printing supervisor device, ThinPrep Imaging System, [employer] Note The pap test is a [...] and malignant lesions. 10/10/2023 2:17 PM CDT [facility] Other (Cervical) Non-Blood / Unknown 09/27/2023 3:01 PM CDT 09/27/2023 3:26 PM CDT Albania Skelton MD PATHOLOGY/[facility]TOLOGY [facility] [address] [place] [address], [place] * POWER BALLAST MACHINE OPERATOR PROBE - GC CHLAMYDIA DNA PCR [[id number]] (09/11/2023 3:47 PM CDT) Pathologist [facility] CHLAMYDIA PROBE Negative 5:25 AM CDT [facility] TRAL LABORATORY N GONORRHOEAE PROBE Negative 09/12/2023 5:25 AM CDT [facility] TRAL LAB[facility] Other URINE SPECIMEN / Unknown Non-Blood / Unknown 09/11/2023 3:47 PM CDT 09/11/2023 3:47 PM CDT Albania Skelton MD MICROBIOLOGY Performing Organization Address [facility] Co de Phone Number [facility] [address] [place] [address], * ANTI HCV (09/11/2023 3:45 PM CDT) Pathologist [facility] HEPATITIS C ANTIBODY Non-Reacti ve Non-React kimberly 09/12/2023 2:40 PM CDT [facility] TRAL LAB[facility] Comment:Please note, per www [...] Skelton MD SEND OUTS Performing Organization Address City/[facility]/ZIP Co de Phone Number [facility] [address] [place] [address], [place] * ANTI HIV 1/2 (09/11/2023 3:45 PM CDT) Pathologist [facility] HIV-1/HIV-2 SCREEN Non-Reacti ve Non-Reacti ve 09/12/2023 2:46 PM CDT [facility] TRAL LAB[facility] Comment:HIV-1 p24 and HIV-1/ HIV-2 Ab Not Detected. Blood BLOOD SPECIMEN / Unknown Venipuncture / Unknown 09/11/2023 3:45 PM CDT 09/11/2023 3:46 PM CDT Albania Skelton MD SEND OUTS [facility]-CENTRAL LABORATORY [address] [place] [address], [place] from Last 3 Months or Most Recently Relevant to Health Maintenance Advance Directives * Full Code (Latest Code Status on File) Date Activated Date Inactivated Comments 02/24/2022 8:52 AM 03/01/2022 6:26 PM Question Answer Comments Code Status Discussion: Reviewed Preferences Care Teams Voice Coach Relationship Specialty Start Date End Date Albania Skelton MD [address] [place] [address] PCP - General Family Practice 08/23/21 Albania Skelton MD [address] [place] [address] Referring Provider Family Practice 09/28/23 Bogdan Malik MD [address] [facility] [address] [place] [address] Consulting Physician Cardiology - Pediatric 03/17/24 1
[2024-05-06] MEDS: LACTATED RINGERS 1000 ML 1,000 ML IV (09:53)
[2024-05-06] MEDS: ONDANSETRON 2 MG/ML inj 4 MG IVP (09:53)
[2024-05-06 10:50] LABS: Appearance Urine Cloudy (Clear); Bilirubin Urine 1+ (Negative); Blood Urine Negative (Negative); Color Urine Dark yellow (Yellow); Glucose Urine Negative (Negative); Ketones Urine 3+ (Negative); Leukocyte Esterase Urine Negative (Negative); Nitrite Urine Negative (Negative); Protein Urine 2+ (Negative); Specific Gravity Urine >= 1.030 (1.000-1.030); Urobilinogen Urine 0.2 (0.2-1.0)
[2024-05-06 11:17] LABS: Bacteria Urine Moderate; RBC Urine 0-2 (0-2); Squamous Epithelial Cell Urine Many (None-Few); WBC Urine 0-2 (0-5)
[2024-05-06 11:22] LABS: Basophils Percent Auto 0.2 % (0.0-3.0); Eosinophils Percent Auto 0.2 % (0.0-7.0); Hematocrit 36.7 % (33.0-51.0); Hemoglobin* 11.9 gm/dL (12.0-16.0); Immature Granulocytes Pct Auto 0.3 %; Lymphocytes Percent Auto 14.8 % (20-44); Mean Corpuscular HGB Conc 32 gm/dL (32-36); Mean Corpuscular Hemoglobin 27 pg (26-34); Mean Corpuscular Volume 85 fL (80-100); Monocytes Percent Auto 6.5 % (0.0-11.0); Platelet Count* 290 K/uL (140-440); RDW Coefficient of Variation % 13.2 % (11.5-15.5); Red Blood Count 4.34 m/uL (4.00-5.20); White Blood Count* 11.74 K/uL (4.50-11.00)
[2024-05-06 11:26] LABS: Slide Review Reflex No
[2024-05-06 11:35] LABS: Albumin* 3.6 g/dL (3.3-5.0); Chloride* 103 mmol/L (96-114); Sodium* 133 mmol/L (135-149)
[2024-05-06 11:36] LABS: Potassium* 4.2 mmol/L (3.6-5.1)
[2024-05-06 11:38] LABS: Alanine Aminotransferase* 11 U/L (4-35); Alkaline Phosphatase* 197 U/L (40-150); Anion Gap 8 mEq/L (7-15); Aspartate Amino Transferase* 17 U/L (12-35); Bilirubin Total* 0.3 mg/dL (0.1-1.5); Blood Urea Nitrogen* 8 mg/dL (5-24); Carbon Dioxide* 22 mmol/L (20-32); Creatinine* 0.5 mg/dL (0.5-1.5); Estimated Glomerular Filt Rate 137 ml/min; Glucose* 89 mg/dL (60-115); Total Protein* 6.6 g/dL (6.0-8.3)
[2024-05-06 12:01] LABS: Total Protein Urine 12 mg/dL
[2024-05-06 12:02] LABS: Creatinine Urine 311.5 mg/dL; Protein Creatinine Ratio Urine 0.04 (0-0.19)
--- NOTE | 2024-05-06 14:26 | PC.OBNST ---
NST Note NST Note Start: 05/06/24 08:26 Freq: ONCE Status: Active Protocol: Document 05/06/24 13:40 KSO (Rec: 05/06/24 14:25 KSO Desktop) NST Note 2 Para (# of births) 1 EDC 05/11/24 Gestational Age In Weeks & Days 39 Weeks & 2 Days Patient Presented with Complaint(s) of Contractions/cramping,Nausea and vomiting Reactive Yes Appropriate for Gestational Age Yes RN Noah Sigala RN Date 05/06/24 Reactive Yes Appropriate for Gestational Age Yes RN Dr. Skelton Date 05/06/24 OB NST charge Yes Complete NST Note via Write Note Yes The provider's electronic signature indicates the NST is reactive/appropriate for gestational age. *Note to provider: If an addendum is required, open the patient's chart and click on the note under the Nurse/Allied Health tab.
== END 2024-05-06 13:45 | disposition home or self-care (01) ==
LOC: OB OUT 08:21 → OB 08:21
PROVIDERS: PCP Family Medicine; Visit Provider Family Medicine
DX: O47.1 False labor at or after 37 completed weeks of gestation (principal); Z3A.39 39 weeks gestation of pregnancy
CPT/HCPCS: 36415; 59025; 80053; 81001; 81003; 82570; 84156; 85025; 87086; G0463; J2405; J7120

== ENCOUNTER 2024-05-06 21:01 | Outpatient (CLI) | payer BC, SELFPAY ==
[2024-05-06 21:03] VITALS: BP 133/76; TEMP 36.6
--- OUTSIDE RECORDS SUMMARY | 2024-05-06 21:04 | XMS_ITS | Clinical Summary ---
Author Organization Applimation [facility] Address [place], [place] [address] Care Team Providers Care Wiper Blender Name Role Phone Albania Skelton MD Primary Care Provider Albania Skelton MD Unavailable [phone] Bogdan Malik MD Unavailable [phone] Allergies Active Allergy Reactions Criticality Noted Date Comments Blood-Group Specific Substance Other - Describe In Comment Field 02/24/2022 Patient has probable passive D antibody and a nonspecific antibody. Blood products may be delayed. Draw patient 24 hours prior to transfusion. For Applimation testing, draw one red top and two [...] Plan: Pap test due in 3 years [facility] Supervision of high-risk Overview (03/13/2024): Va Tan : 2000 [facility] ULTRASOUND/TESTING PATIENT Support person name: Carlo ULTRASOUND TYPE: Growth/[facility] Echo REASON FOR VISIT: BMI >30, [...] REFERRING PROVIDER/CLINIC: Albania Skelton MD - Sharla Tampico Primary MD approves scheduling of recommended ultrasounds/testing: Yes SPECIALISTS/CONSULTS: Include: Specialty MD Clinic Name Phone# LV NV and ADDED TO PATIENT CARE TEAM Yes GENETICS: MPP CGC 12/19 CARE COORDINATION: PERTINENT LABS: Labs reviewed? [...] weeks to assess spine views 09/11/2023 Overview (05/06/2024): Estimated Date of Delivery: 05/11/24 by 6w5d US NOT c/w LMP Patient's last menstrual period was 07/11/2023. Hx severe preeclampsia Desires water , may try to call [place] if carpet installation specialist provider does not do water births. Waterbirth consent signed GBS: Vaginal/Rectal OB Strep B PCR Date Value Ref Range Status 04/10/2024 Negative Final 28wk labs: GLUCOSE, GESTATIONAL SCREEN (50G)-140 CUTOFF Date Value Ref Range Status 02/25/2024 108 <140 mg/dL Final HEMOGLOBIN Date Value Ref Range Status 02/25/2024 11.7 11.7 - 15.5 g/dL Final T. PALLIDUM AB Date Value Ref Range Status 02/25/2024 NEGATIVE NEGATIVE Final Last Tdap: 02/28/24 Last Flu vaccine: 02/28/24 RSV vaccine: 03/27/24 OB Labs: ABORH Date Value Ref Range [...] Department Care Team Description 04/30/2024 10:00 AM ROLLER HELPER OB Encounter [facility] [address] [place] [address] Albania Skelton MD Care (38+3) 04/30/2024 Travel 04/24/2024 10:00 AM ROLLER HELPER OB Encounter [facility] [address] [place] [address] Albania Skelton MD Care (37w4d) 04/24/2024 Travel 04/10/2024 8:20 AM ROLLER HELPER OB Encounter [facility] [address] [place] [address] Albania Skelton MD Care (35w4d) 04/10/2024 Travel 03/27/2024 8:20 AM CDT OB Encounter [facility] [address] [place] [address] Albania Skelton MD Care (33w4d/); Immunization/Inject ion 03/26/2024 Travel 03/18/2024 1:34 PM CDT - 03/18/2024 11:59 PM CDT Hospital Encounter [facility] [address] [place] [address] Rhiannon Baumann MD Supervision of high risk in third trimester (Primary Dx); Family history of congenital heart disease in father; Obesity in , antepartum, third trimester 03/18/2024 Travel 03/13/2024 10:25 AM CDT OB Encounter [facility] [address] [place] [address] Albania Skelton MD Care (31w4d/) 03/13/2024 Travel 03/12/2024 Telephone [facility] [address] [place] [address] Phys, In Appointment 03/10/2024 Telephone [facility] [address] [facility] [address] [place] [address] Phys, In Appointment 03/06/2024 Telephone [facility] [address] [address] Phys, In Appointment 03/04/2024 Telephone [facility] [address] [place] [address] Albania Skelton MD Vomiting 02/28/2024 9:35 AM CDT OB Encounter [facility] [address] [place] [address] Albania Skelton MD Care (29w4d) 02/28/2024 8:45 AM CDT Office Visit [facility] [address] [place] [address] Albania Skelton MD Care (29w4d); Error-please disregard (appt cancellation) 02/28/2024 Travel 02/26/2024 Refill [facility] [address] [place] [address] Albania Skelton MD Refill Request (Famotidine) 02/25/2024 1:10 PM CDT Nurse/Clinic Staff Only [facility] [address] [place] [address] Immunization/Inject ion (Rhogam) 02/25/2024 12:45 PM CDT Orders Only [facility] [address] [place] [address] Lab, [place] [facility] 02/25/2024 Orders Only [facility] Scanner 1 scan: (1-Ord) [facility], MULTIPLE LABS, 02/25/2024 02/25/2024 Orders Only [facility] Scanner 1 scan: (1-Ord) [facility], MULTIPLE LABS, 02/25/2024 02/25/2024 Travel 02/13/2024 8:45 AM CDT Office Visit [facility] [address] [place] [address] Albania Skelton MD Care (27w3d) 02/13/2024 Travel [...] Livin g 8 9 ALDRI CH,BB VA Dumas n, Yoselyn Ruvalcaba DO Complications:None Delivery Location:[facility] ( [address] L&D TRIAGE) Current Summary Episode Dates Number [...] , may try to call me if carpet installation specialist provider does not do water births. Albania Skelton MD .................... 04/30/2024 10:22 AM CC: [facility] ER HELPER Progress Notes - OB Encounte r - [...] to see if available for delivery if carpet installation specialist does not do water births. Discussed signs/symptoms of labor and when to call Reviewed preeclampsia symptoms RTC weekly until delivery Albania Skelton MD .................... 04/24/2024 10:48 AM CC: [facility] ER HELPER Progress Notes - OB Encounte r - [...] Skelton MD .................... 04/10/2024 8:43 AM CC: [facility] ER HELPER Progress Notes - OB Encounte r - [...] Costa Alicea MD 03/27/2024 8:36 AM PGY-2 [facility] Precepting Physician Documentation I have [...] Skelton MD .................... 03/13/2024 10:57 AM CC: [facility] Progress Notes - OB Encounte r [...] and finished anatomy screen. Sent message to [facility] TDaP--given today Flu- given today Discussed signs/symptoms of labor and when to call Reviewed preeclampsia symptoms Rhogam was given Sunday Antibody screen was missed, but apparently can be added. RTC in 2 weeks. Albania Skelton MD .................... 02/28/2024 9:05 AM CC: [facility] Progress Notes - Office Visi t - 02/28/2024 - GA:29w4d 02/28/2024 - w - Ernie Skelton MD duplicate Appt cancelled. This encounter was opened in error. Please disregard. Progress Notes - OB Encounte r - 12/26/2023 - GA:20w3d 12/26/2023 - w - Ernei Skelton MD Patient is here for routine [...] Skelton MD .................... 12/26/2023 8:52 AM CC: [facility] Progress Notes - Hospital En counter - 12/20/2023 - GA:19w4d 12/20/2023 - - Lisa Martines MS, [facility] [place] Clinic Note Genetic Counseling RE: Va Fulton Britney : 2000 MR: [id number] Partner name: Carlo (present) Referred By: Albania [...] improved when she involved appropriate support like PSYCH NURSE. She said that after his PSYCH NURSE appointment, Tru would talk often, and a similar experience with his motor skills after PT. Va noted that his box office attendant is suspicious that Tru does have autism [...] asymptomatic individuals but are associated with serious intermediate card tender health risks. BAV is a common cause [...] Tru in a couple months to a wood heel finisher for evaluation. Va also saw Dr. Baumann [...] questions or concerns. Sincerely, Lisa Martines MS, [facility] Licensed Genetic Counselor Total time: 28 minutes in person [facility] - [address] , [address] [place] [address] 12/20/2023 - 19w4d - Rhiannon Baumann MD [...] needed. Services Provided: Procedures Code DETAIL ANATOMY 51752.0 Progress Notes - OB Encounte r - [...] Skelton MD .................... 11/28/2023 9:08 AM CC: [facility] Progress Notes - OB Encounte r - 11/02/2023 - GA:12w5d 11/02/2023 - 12w5d - Ernie Skelton MD Patient is here for routine care at 12w5d Concerns: Feeling better with pepcid. Feeling less dizzy/nauseated. No cramping, bleeding, loss of fluid Labs today- none She is looking into a Cotton Bag Clipper (has a friend who was recently certified) Hoping for water . Follow up in 4 weeks. Albania Skelton MD .................... 11/02/2023 7:39 AM CC: [facility] Progress Notes - OB Encounte r - 10/24/2023 - GA:11w3d 10/24/2023 - 113d - Ernie Skelton MD Patient is here [...] Increase pepcid to twice daily. - Cancel: OK IV INFUSION THERAPY/PROPHYLAXIS /DX 1ST TO 1 HR - ondansetron (ZOFRAN ODT) 4 mg disintegrating tablet; Place 1 Tablet (4 mg) on the tongue every 8 hours if needed for Nausea/Vomiting. - OK IV INFUSION HYDRATION INITIAL 31 MIN-1 HOUR - OK INFUSION NORMAL SALINE SOLUTION 1000 CC - OK THER PROPH/DX NJX IV PUSH SINGLE/1ST SBST/DRUG Albania Skelton MD .................... 10/24/2023 3:00 PM CC: [facility] Progress Notes - OB Encounte r - 09/27/2023 - GA:7w4d 09/27/2023 - 7w4d - Costa Nv mary Santizo MD Clinic Note: First OB [...] Marital Status: partnered. 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 with first was complicated with preeclampsia with severe features. 34w3d -- The patient was transferred to [facility] secondary to preeclampsia with severe features, severe based on elevated LFTs. Labor was uncomplicated. She had a vaginal delivery at 34w6d gestation. Delivery was uncomplicated. The baby went to NICU. course was complicated by elevated blood pressures requiring initiation of anti-hypertensive medication. Did not have a great experience at [facility]-- hoping to not have to deliver there. [...] MEDICINE 3. Screening for cervical cancer Z12.4 SCRATCH BRUSHER THIN PREP PAP SCREEN IMAGED [[id number]] 4. History of delivery, currently O09.899 AMB [...] Total time preparing to see this patient, [id number]-[id number] time, and coordinating care time on the same calendar date: 36 minutes. Albania Skelton MD .................... 09/27/2023 2:33 PM [facility] [phone] CC: [facility] Progress Notes - OB Encounte [...] days of possible very light period in Fe from -) Current symptoms include: Nausea:No Vomiting:No Breast tenderness:Yes Vaginal bleeding:No Vaginal discharge:No Pelvic cramping:No Fatigue:Yes Previous Delivery Type: induced pre-term with Pre-eclampsia Occupation of patient: [employer] Name of Partner or Father of [...] of estimated date of delivery: No Thalassemia (Armenian, Hungarian, Mediterranean, or background): MCV less than 80: No Neural tube defect (Meningomyelocele, Spina bifida, or Anencephaly): No Congenital heart defect: Yes (Comment: Dad's great grandpa had PFO) Down syndrome: No Berezy-Sachs (Ashkenazi Anabaptist, Cajun, British Virgin Islander Erin): No Hamlet disease (Ashkenazi Anabaptist): No Familial dysautonomia (Ashkenazi Anabaptist): No Sickle cell disease or trait (): No Hemophilia or other blood disorders: No Muscular dystrophy: No Cystic fibrosis: No Leydi's chorea: No Intellectual disability and/or autism: Yes [...] of Beginnings book and book inserts, discussed nbzy-pfr-syoyxgc medications, and follow up. - Encouraged patient to call clinic at [phone] with any vaginal bleeding, fluid leaking from [...] Comments Blood Pressure 111/74 04/30/2024 10:03 AM ROLLER HELPER Pulse 110 04/30/2024 10:03 AM ROLLER HELPER Temperature 36.9 C (98.4 F) 06/23/2022 2:55 PM ROLLER HELPER Respiratory Rate 16 03/01/2022 7:00 AM CDT Oxygen Saturation 98% 04/30/2024 10:03 AM ROLLER HELPER Inhaled Oxygen Concentration - - Weight 97.6 kg (215 lb 3.2 oz) 04/30/2024 10:03 AM ROLLER HELPER Height 168.9 cm (5' 6.5) 09/11/2023 2:43 PM CDT Body Mass Index 34.21 09/11/2023 2:43 PM CDT Plan of Treatment Upcoming Encounters Date Type Department Care Team (Late st Contact Info) Description 05/07/2024 10:25 AM ROLLER HELPER OB Encounter [facility] [address] [facility] [place] [address] Albania Skelton MD [address] [place] [address] 05/14/2024 10:25 AM ROLLER HELPER OB Encounter [facility] [address] [facility] [place] [address] Albania Skelton MD [address] [place] [address] Health Maintenance Due Date Last Done Comments [...] OB STREP PCR Routine 04/10/2024 9:22 AM ROLLER HELPER Supervision of high risk in third trimester CREATININE Routine 04/10/2024 9:13 AM ROLLER HELPER Hx of preeclampsia, prior , currently CBC W PLT NO DIFF Routine 04/10/2024 9:1 3 AM ROLLER HELPER Hx of preeclampsia, prior , currently AST (SGOT) Routine 04/10/2024 9:13 AM ROLLER HELPER Hx of preeclampsia, prior , currently ALT (SGPT) Routine 04/10/2024 9:13 AM ROLLER HELPER Hx of preeclampsia, prior , currently US [...] CDT SCAN-LABORATORY REPORT 4 12:00 AM CDT SCRATCH BRUSHER THIN PREP PAP SCREEN IMAGED Routine 09/27/2023 [...] VAGINAL/RECTAL OB STREP PCR (04/10/2024 9:22 AM ROLLER HELPER) Vaginal/Rectal OB Strep B PCR Negative 04/14/2024 10:37 AM ROLLER HELPER [facility] TRAL LABORATORY Other (Vaginal/Rectal) Non-Blood / Unknown 04/10/2024 9:22 AM ROLLER HELPER 04/10/2024 9:22 AM ROLLER HELPER Albania Skelton MD MICROBIOLOGY [facility]AL LAB[facility]ATORY [address] [place] [address], * (ABNORMAL) CBC W PLT NO DIFF (04/10/2024 9:13 AM ROLLER HELPER) WHITE BLOOD CELL COUNT 12.0(H) 3.8 - [...] BLOOD SPECIMEN / Unknown 04/10/2024 9:13 AM ROLLER HELPER 04/10/2024 9:14 AM ROLLER HELPER Albania Skelton MD HEMATOLOGY Performing Organization Address [facility]/ZIP Co de Phone Number [employer] [facility] [address] [place] [address], [place] [phone] [facility] [address] [place] [address] * CREATININE (04/10/2024 9:13 AM ROLLER HELPER) Only the most recent of2 resultswithin the time period is included. CREATININE 0.64 0.50 - 0.96 mg/dL [facility] [place] EGFR 129 > OR = 60 mL/min/1.73 m2 [facility] [place] Blood BLOOD SPECIMEN / Unknown 04/10/2024 9:13 AM ROLLER HELPER 04/10/2024 9:14 AM ROLLER HELPER Albania Skelton MD CHEMISTRY Performing Organization Address [facility]/ZIP Co de Phone Number [employer] [facility] [address] [place] [address], [place] [phone] [facility] [address] [place] [address] * ALT (SGPT) (04/10/2024 9:13 AM ROLLER HELPER) Only the most recent of2 resultswithin the time period is included. ALT 10 6 - 29 U/L [facility] Blood BLOOD SPECIMEN / Unknown 04/10/2024 9:13 AM ROLLER HELPER 04/10/2024 9:14 AM ROLLER HELPER Albania Skelton MD CHEMISTRY Performing Organization Address [facility] Co de Phone Number [employer] [address] [address], [place] [phone] [facility] [address] [place] [address] * AST (SGOT) (04/10/2024 9:13 AM ROLLER HELPER) Only the most recent of2 resultswithin the time period is included. AST 13 10 - 30 U/L [facility] l[place] Blood BLOOD SPECIMEN / Unknown 04/10/2024 9:13 AM ROLLER HELPER 04/10/2024 9:14 AM ROLLER HELPER Albania Skelton MD CHEMISTRY Performing Organization Address [facility] de Phone Number [employer] [facility] [address] [place] [address], [facility] [address] [place] [address] * Echocardiogram (CPT 42142) (03/18/2024 2:35 PM CDT) Anatomical Region Laterality [...] of the aorta. Services Provided: US ECHOCARDIOGRAM 09633.0 US DOPPLER COLOR FLOW VELOCITY MAP 68435.0 US DOPPLER ECHO SPECTRAL 60274.0 Procedure Note Bogdan Malik MD - 03/18/2024 [...] coarctation of the aorta. Services Provided: US [id number] US DOPPLER COLOR FLOW VELOCITY NVM89456.0 US DOPPLER ECHO SPECTRAL 44747.0 Rhiannon Baumann MD US * Growth Follow Up Any Trimester (CPT 21093) If BPP w/NST needed use Testing section [...] as needed. Medical Decision Making: Low Complexity 38145 Limited Diagnoses including with BMI>30 Limited Data including review of prior ultrasound and review of prior external notes Minimal risk of morbidity or mortality to the fetus from additional testing. Services Provided: Procedures Code FOLLOW UP GROWTH & PEDS ECHO 66568.0 Procedure Note Angelique Haas MD - 03/18/2024 Referred By: ALBANIA SKELTON MD IndicationsCode 32 weeks gestation of [id number].32 Maternal Obesity - BMI >30 2021 34w6d [...] discussed asneeded. Medical Decision Making: Low Complexity 04377 Limited Diagnoses including with BMI>30 Limited Data including review of prior ultrasound and review of priorexternal notes Minimal risk of morbidity or mortality to the fetus from additionaltesting. Services Provided: ProceduresCode FOLLOW UP GROWTH & PEDS [id number] Rhiannon Baumann MD * TREPONEMA PALLIDUM (02/25/2024 2:03 PM CDT) T. PALLIDUM AB NEGATIVE NEGATIVE [facility] Comment: No antibodies to T. pallidum [...] Skelton MD SEND OUTS Performing Organization Address [facility]/ZIP Co de Phone Number [facility] [address] [place] [address], [place] [phone] [facility] [address] [place] [address] * PLATELET COUNT (02/25/2024 2:03 PM CDT) PLATELET COUNT 311 140 - 400 Thousand/u L [facility] [place] Blood BLOOD SPECIMEN / Unknown 02/25/2024 2:03 PM CDT 02/25/2024 2:03 PM CDT Albania Seklton MD HEMATOLOGY Performing Organization Address [facility] Co de Phone Number [facility] [address] [place] [address], [place] [phone] [facility] [address] [place] [address] * HEMOGLOBIN (02/25/2024 2:03 PM CDT) HEMOGLOBIN 11.7 11.7 - 15.5 g/dL [facility] Blood BLOOD SPECIMEN / Unknown 02/25/2024 2:03 PM CDT 02/25/2024 2:03 PM CDT Albania Skelton MD HEMATOLOGY Performing Organization Address [facility]/ZIP Co de Phone Number [facility] [address] [place] [address], [place] [phone] [facility] [address] [facility] [[email or web address] [address] * GLUCOSE,GESTATIONAL (02/25/2024 2:03 PM CDT) GLUCOSE, GESTATIONAL SCREEN (50G)-140 CUTOFF 108 <140 mg/dL [facility] [place] Blood BLOOD SPECIMEN / Unknown 02/25/2024 2:03 PM CDT 02/25/2024 2:03 PM CDT Albania Skelton MD CHEMISTRY [employer] [facility] [address] [place] [address], [facility] [address] [facility] [[email or web address] [address] * SCAN-LABORATORY REPORT (02/25/2024 12:00 AM CDT) Only the most recent of2 resultswithin the time period is included. Scanner OTHER * SCRATCH BRUSHER THIN PREP PAP SCREEN IMAGED [[id number]] (09/27/2023 3:01 PM CDT) Case Report Gynecologic Cytology Report Case: [id number] Authorizing Provider: Albania Skelton MD Collected: 09/27/2023 1501 Ordering Location: [facility] Received: 09/27/2023 [facility] First Screen: Adele Clark Specimen: SCRATCH BRUSHER ThinPrep Vial Screening, Cervical 10/10/2023 2:17 PM CDT [facility]- ENTRAL LABORATORY INTERPRETATION/ RESULT NEGATIVE FOR INTRAEPITHELIAL LESION OR MALIGNANCY (NIL) (none) 10/10/2023 2:17 PM CDT [facility] LAB[facility] NISM(S) Fungal organisms morphologically consistent with Rayna species 10/10/2023 2:17 PM CDT [facility]-C ENTRAL LABORATORY SPECIMEN ADEQUACY Satisfactory for evaluation No endocervical component seen in a patient 10/10/2023 2:17 PM CDT [facility]-C ENTRAL LABORATORY Date of LMP 07/11/2023 10/10/2023 2:17 PM CDT [facility]- ENTRAL LABORATORY Last Pap Date first 10/10/2023 2:17 PM CDT [facility] ENTRAL LABORATORY Last Pap Result First Pap/Unknown 2:17 PM CDT [facility]- ENTRAL LABORATORY Abnormal Pap or [place] Bx in last 5 years No 10/10/2023 2:17 PM CDT [facility] ENTRAL LABORATORY Menstrual Status 10/10/2023 2:17 PM CDT [facility] ENTRAL LABORATORY [place] Bx Done Today No 10/10/2023 2:17 PM CDT [facility] ENTRAL LABOR[facility]ORY Additional Information None given 10/10/2023 2:17 PM CDT [facility] Comment: Cytology is screened at [facility] - [address], [place] [address] and [facility] - [address] [place] [address] and [facility] - [address] [place] [address] Interpreted at [facility] - [address], [place] [address] Automated Review Successful 10/10/2023 2:17 PM CDT [facility] EN[facility]AL LAB[facility] Comment:Specimen processed s uccessfully by automated broach operator device, ThinPrep Imaging System, [employer] Note The pap test is a [...] and malignant lesions. 10/10/2023 2:17 PM CDT [facility] EN[facility]AL LABORATORY Other (Cervical) Non-Blood / Unknown 09/27/2023 3:01 PM CDT 09/27/2023 3:26 PM CDT Albania Skelton MD PATHOLOGY/CYTOLOGY [facility] [address] [place] [address], [place] * SCRATCH BRUSHER PROBE - GC CHLAMYDIA DNA PCR [[id number]] (09/11/2023 3:47 PM CDT) CHLAMYDIA PROBE Negative 5:25 AM CDT [facility] TRAL LABORATORY N GONORRHOEAE PROBE Negative 09/12/2023 5:25 AM CDT [facility] Other URINE SPECIMEN / Unknown Non-Blood / Unknown 09/11/2023 3:47 PM CDT 09/11/2023 3:47 PM CDT Albania Skelton MD MICROBIOLOGY Performing Organization Address [facility] Co de Phone Number [facility] [address] [place] [address], [place] * ANTI HCV (09/11/2023 3:45 PM CDT) Pathologist [facility] HEPATITIS C ANTIBODY Non-Reacti ve Non-React kimberly 09/12/2023 2:40 PM CDT [facility] Comment:Please note, per www .CDC.gov: If [...] Skelton MD SEND OUTS Performing Organization Address City/[facility]/ZIP Co de Phone Number [facility] [address] [place] [address], [place] * ANTI HIV 1/2 (09/11/2023 3:45 PM CDT) Pathologist [facility] HIV-1/HIV-2 SCREEN Non-Reacti ve Non-Reacti ve 09/12/2023 2:46 PM CDT [facility] TRAL LABORATORY Comment:HIV-1 p24 and HIV-1/ HIV-2 Ab Not Detected. Blood BLOOD SPECIMEN / Unknown Venipuncture / Unknown 09/11/2023 3:45 PM CDT 09/11/2023 3:46 PM CDT Albania Skelton MD SEND OUTS [facility]AL LABORATORY [address] [place] [address], from Last 3 Months or Most Recently Relevant to Health Maintenance Advance Directives * Full Code (Latest Code Status on File) Date Activated Date Inactivated Comments 02/24/2022 8:52 AM 03/01/2022 6:26 PM Question Answer Comments Code Status Discussion: Reviewed Preferences Care Teams Wiper Blender Relationship Specialty Start Date End Date Albania Skelton MD [address] [place] [address] PCP - General Family Practice 08/23/21 Albania Skelton MD [address] [place] [address] Referring Provider Family Practice 09/28/23 Bogdan Malik MD [address] [address] Consulting Physician Cardiology - Pediatric 03/17/24 1
--- NOTE | 2024-05-06 22:46 | CRLHL7_ITS ---
For Patients: As a result of the Century Cures Act, medical imaging exams and procedure reports are released immediately into your electronic medical record. You may view this report before your referring provider. If you have questions, please contact your health care provider. INDICATION: Per provider request. TECHNIQUE: Ultrasound OB pelvis transabdominal. Real-time cárdenas-scale imaging of the fetus was performed without stress testing. COMPARISON: None. FINDINGS: Sonographic imaging demonstrates a single living intrauterine gestation. Fetus demonstrates a regular cardiac rate of 141 beats per minute. Fetus has a cephalic orientation. Posterior placenta. Normal amniotic fluid volume with single deepest pocket of 7.9 cm 2/2. motion 2/2. tone 2/2. breathing movements 2/2. IMPRESSION: Single viable intrauterine with a biophysical profile 01/09. Dictated by Terence Forde MD @ 05/07/2024 12:20:46 AM (Electronically Signed)
--- NOTE | 2024-05-08 12:00 | PC.OBNST ---
NST Note NST Note Start: 05/06/24 21:05 Freq: ONCE Status: Discharge Protocol: Document 05/07/24 00:10 CJM (Rec: 05/07/24 00:24 CJM No Response) NST Note 2 Para (# of births) 1 EDC 05/11/24 Gestational Age In Weeks & Days 39 Weeks & 3 Days High Risk Factors History of Labor/ Delivery Patient Presented with Complaint(s) of Contractions/cramping Reactive Yes Appropriate for Gestational Age Yes THOM Leonardo RN Date 05/07/24 Reactive Yes Appropriate for Gestational Age Yes THOM Marie RN Date 05/07/24 OB NST charge Yes Complete NST Note via Write Note Yes The provider's electronic signature indicates the NST is reactive/appropriate for gestational age. *Note to provider: If an addendum is required, open the patient's chart and click on the note under the Nurse/Allied Health tab.
== END 2024-05-07 00:10 | disposition home or self-care (01) ==
LOC: OB OUT 21:02 → OB 21:03
PROVIDERS: PCP Family Medicine; Visit Provider Family Medicine
DX: Z34.93 Encounter for supervision of normal pregnancy, unspecified, third trimester (principal); Z3A.39 39 weeks gestation of pregnancy
CPT/HCPCS: 59025; 76819; G0463

== ENCOUNTER 2024-05-07 07:21 | Inpatient (IN) | payer BC, SELFPAY ==
[2024-05-07] VITALS (43 sets, daily range): BP systolic 105–136; BP diastolic 58–87; PULSE 85–130; RESP 16–20; TEMP 36.3–36.9; O2SAT 87–100; BMI 35.2
--- OUTSIDE RECORDS SUMMARY | 2024-05-07 07:20 | XMS_ITS | Clinical Summary ---
Author Organization [facility] Address [place], [place] [address] Care Team Providers Care Correspondence Coordinator Name Role Phone Albania Skelton MD Primary Care Provider Albania Skelton MD Unavailable [phone] Bogdan Malik MD Unavailable [phone] Allergies Active Allergy Reactions Criticality Noted Date Comments Blood-Group Specific Substance Other - Describe In Comment Field 02/24/2022 Patient has probable passive D antibody and a nonspecific antibody. Blood products may be delayed. Draw patient 24 hours prior to transfusion. For [facility] testing, draw one red top and two [...] Plan: Pap test due in 3 years [facility] Supervision of high-risk Overview (03/13/2024): Va Tan : 2000 [facility] ULTRASOUND/TESTING PATIENT Support person name: Carlo ULTRASOUND TYPE: Growth/[facility] Echo REASON FOR VISIT: BMI [...] REFERRING PROVIDER/CLINIC: Albania Skelton MD - Sharla Sayre Primary MD approves scheduling of recommended ultrasounds/testing: [...] , may try to call Costa if seasonal tax preparer provider does not do water births. Waterbirth [...] Department Care Team Description 04/30/2024 10:00 AM DIRECTOR SOCIAL OB Encounter [facility] [address] [place] [address] Albania Skelton MD Care (38+3) 04/30/2024 Travel 04/24/2024 10:00 AM DIRECTOR SOCIAL OB Encounter [facility] [address] [place] [address] Albania Skelton MD Care (37w4d) 04/24/2024 Travel 04/10/2024 8:20 AM DIRECTOR SOCIAL OB Encounter [facility] [address] [place] [address] Albania Skelton MD Care (35w4d) 04/10/2024 Travel 03/27/2024 8:20 AM CDT OB Encounter [facility] [address] [place] [address] Albania Skelton MD Care (33w4d/); Immunization/Inject ion 03/26/2024 Travel 03/18/2024 1:34 PM CDT - 03/18/2024 11:59 PM CDT Hospital Encounter [facility] [address] [place] [address] Rhiannon Baumann MD Supervision of high risk in third trimester (Primary Dx); Family history of congenital heart disease in father; Obesity in , antepartum, third trimester 03/18/2024 Travel 03/13/2024 10:25 AM CDT OB Encounter [facility] [address] [place] [address] Albania Skelton MD Care (31w4d/) 03/13/2024 Travel 03/12/2024 Telephone [facility] [address] [place] [address] Phys, [place] Appointment 03/10/2024 Telephone [facility] [address] [facility] [address] [place] [address] Phys, [place] Appointment 03/06/2024 Telephone [facility] [address] [address] Phys, [place] Appointment 03/04/2024 Telephone [facility] [address] [place] [address] Albania Skelton MD Vomiting 02/28/2024 9:35 AM CDT OB Encounter [facility] [address] [place] [address] Albania Skelton MD Care (29w4d) 02/28/2024 8:45 AM CDT Office Visit [facility] [address] [place] [address] Albania Skelton MD Care (29w4d); Error-please disregard (appt cancellation) 02/28/2024 Travel 02/26/2024 Refill [facility] [address] [place] [address] Albania Skelton MD Refill Request (Famotidine) 02/25/2024 1:10 PM CDT Nurse/Clinic Staff Only [facility] [address] [place] [address] Immunization/Inject ion (Rhogam) 02/25/2024 12:45 PM CDT Orders Only [facility] [address] [place] [address] Lab, [place] Lab 02/25/2024 Orders Only [facility] Scanner 1 scan: (1-Ord) [facility], MULTIPLE LABS, 02/25/2024 02/25/2024 Orders Only [facility] Scanner 1 scan: (1-Ord) [facility], MULTIPLE LABS, 02/25/2024 02/25/2024 Travel 02/13/2024 8:45 AM CDT Office Visit [facility] [address] [place] [address] Albania Skelton MD Care (27w3d) 02/13/2024 Travel [...] Dumas n, Yoselyn Ruvalcaba DO Complications:None Delivery Location:[facility] ( [address] L&D TRIAGE) Current Summary Episode Dates Number of Fetuses Estimated Date of Delivery 09/11/2023 - Present (05/07/2024) 1 05/11/2024 (set by Yee Skelton MD on 09/21/2023 based on Ultrasound on 09/21/2023) Dating Summary Based On KARISHMA GA Diff Last Menstrual Period on 07/11/2023 04/16/2024 +3w4d Ultrasound on 09/21/2023 05/11/2024 Working GA:6w5d Alternate KARISHMA Entry 03/21/2024 +7w2d Vitals Pregravid Weight Height TWG (As of 05/07/2024) Pregrav id BMI 97.5 kg (215 lb) [...] , may try to call me if seasonal tax preparer provider does not do water births. Albania Skelton MD .................... 04/30/2024 10:22 AM CC: [facility] CTOR SOCIAL Progress Notes - OB Encounte r - [...] to see if available for delivery if seasonal tax preparer does not do water births. Discussed signs/symptoms of labor and when to call Reviewed preeclampsia symptoms RTC weekly until delivery Albania Skelton MD .................... 04/24/2024 10:48 AM CC: [facility] CTOR SOCIAL Progress Notes - OB Encounte r - [...] Skelton MD .................... 04/10/2024 8:43 AM CC: [facility] CTOR SOCIAL Progress Notes - OB Encounte r - [...] Costa Alicea MD 03/27/2024 8:36 AM PGY-2 [facility] Precepting Physician Documentation I have seen [...] Skelton MD .................... 03/13/2024 10:57 AM CC: [facility] Progress Notes - OB Encounte [...] and finished anatomy screen. Sent message to [facility] TDaP--given today Flu- given today Discussed signs/symptoms of labor and when to call Reviewed preeclampsia symptoms Rhogam was given Sunday Antibody screen was missed, but apparently can be added. RTC in 2 weeks. Albania Skelton MD .................... 02/28/2024 9:05 AM CC: [facility] Progress Notes - Office Visi t - 02/28/2024 - GA:29w4d 02/28/2024 - w - Ernie Skelton MD duplicate Appt cancelled. This encounter was opened in error. Please disregard. Progress Notes - OB Encounte r - 12/26/2023 - GA:20w3d 12/26/2023 - w - Ernie Skelton MD Patient is here [...] Skelton MD .................... 12/26/2023 8:52 AM CC: [facility] Progress Notes - Hospital En counter - 12/20/2023 - GA:19w4d 12/20/2023 - - Lisa Martines MS, [facility] / Clinic Note Genetic Counseling RE: Va Fulton Britney : 2000 MR: [id number] Partner name: Carlo (present) Referred By: Albania [...] improved when she involved appropriate support like HEARINGS REPORTER. She said that after his HEARINGS REPORTER appointment, Tru would talk often, and a similar experience with his motor skills after PT. Va noted that his oil rig driller is suspicious that Tru does have autism [...] asymptomatic individuals but are associated with serious parts counterman health risks. BAV is a common cause [...] Tru in a couple months to a public health nurse for evaluation. Va also saw Dr. Baumann [...] questions or concerns. Sincerely, Lisa Martines MS, [facility] Licensed Genetic Counselor Total time: 28 minutes in person [facility] - [address] , [address] [place] [address] 12/20/2023 - 19w4d - Rhiannon Baumann MD [...] needed. Services Provided: Procedures Code DETAIL ANATOMY 38983.0 Progress Notes - OB Encounte r - [...] Skelton MD .................... 11/28/2023 9:08 AM CC: [facility] Progress Notes - OB Encounte r - 11/02/2023 - GA:12w5d 11/02/2023 - 12w5d - Ernie Skelton MD Patient is here for routine care at 12w5d Concerns: Feeling better with pepcid. Feeling less dizzy/nauseated. No cramping, bleeding, loss of fluid Labs today- none She is looking into a Meteorology Professor (has a friend who was recently certified) Hoping for water . Follow up in 4 weeks. Albania Skelton MD .................... 11/02/2023 7:39 AM CC: [facility] Progress Notes - OB Encounte r [...] Increase pepcid to twice daily. - Cancel: VA IV INFUSION THERAPY/PROPHYLAXIS /DX 1ST TO 1 HR - ondansetron (ZOFRAN ODT) 4 mg disintegrating tablet; Place 1 Tablet (4 mg) on the tongue every 8 hours if needed for Nausea/Vomiting. - VA IV INFUSION HYDRATION INITIAL 31 MIN-1 HOUR - VA INFUSION NORMAL SALINE SOLUTION 1000 CC - VA THER PROPH/DX NJX IV PUSH SINGLE/1ST SBST/DRUG Albania Skelton MD .................... 10/24/2023 3:00 PM CC: [facility] Progress Notes - OB Encounte r - 09/27/2023 - GA:7w4d 09/27/2023 - 7w4d - Costa Ak mary Santizo MD Clinic Note: First OB [...] Marital Status: partnered. 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 with first was complicated with preeclampsia with severe features. 34w3d -- The patient was transferred to [facility] secondary to preeclampsia with severe features, severe based on elevated LFTs. Labor was uncomplicated. She had a vaginal delivery at 34w6d gestation. Delivery was uncomplicated. The baby went to NICU. course was complicated by elevated blood pressures requiring initiation of anti-hypertensive medication. Did not have a great experience at [place]-- hoping to not have to deliver there. [...] MEDICINE 3. Screening for cervical cancer Z12.4 TEACHER BALLET THIN PREP PAP SCREEN IMAGED [[id number]] 4. History of delivery, currently O09.899 AMB [...] Total time preparing to see this patient, cpfr-uo-ufjl time, and coordinating care time on the same calendar date: 36 minutes. Albania Skelton MD .................... 09/27/2023 2:33 PM [facility] [phone] CC: [facility] Progress Notes - OB [...] induced pre-term with Pre-eclampsia Occupation of patient: [employer] Name of Partner or Father of baby: [...] of estimated date of delivery: No Thalassemia (Lao, Trinidadian, Mediterranean, or background): MCV less than 80: No Neural tube defect (Meningomyelocele, Spina bifida, or Anencephaly): No Congenital heart defect: Yes (Comment: Dad's great grandpa had PFO) Down syndrome: No Breezy-Sachs (Ashkenazi Mosque, Cajun, [place]ian [place]): No Hamlet disease (Ashkenazi Mosque): No Familial dysautonomia (Ashkenazi Mosque): No Sickle cell disease or trait (): [...] of Beginnings book and book inserts, discussed gixm-efq-xadgjal medications, and follow up. - Encouraged patient to call clinic at [phone] with any vaginal bleeding, fluid leaking from [...] Comments Blood Pressure 111/74 04/30/2024 10:03 AM DIRECTOR SOCIAL Pulse 110 04/30/2024 10:03 AM DIRECTOR SOCIAL Temperature 36.9 C (98.4 F) 06/23/2022 2:55 PM DIRECTOR SOCIAL Respiratory Rate 16 03/01/2022 7:00 AM CDT Oxygen Saturation 98% 04/30/2024 10:03 AM DIRECTOR SOCIAL Inhaled Oxygen Concentration - - Weight 97.6 kg (215 lb 3.2 oz) 04/30/2024 10:03 AM DIRECTOR SOCIAL Height 168.9 cm (5' 6.5) 09/11/2023 2:43 PM CDT Body Mass Index 34.21 09/11/2023 2:43 PM CDT Plan of Treatment Upcoming Encounters Date Type Department Care Team (Late st Contact Info) Description 05/07/2024 10:25 AM DIRECTOR SOCIAL OB Encounter [facility] [address] [facility] [place] [address] Albania Skelton MD [address] [place] [address] 05/14/2024 10:25 AM DIRECTOR SOCIAL OB Encounter [facility] [address] [facility] [place] [address] Albania Skelton MD [address] [place] [address] Health Maintenance Due Date Last Done Comments [...] OB STREP PCR Routine 04/10/2024 9:22 AM DIRECTOR SOCIAL Supervision of high risk in third trimester CREATININE Routine 04/10/2024 9:13 AM DIRECTOR SOCIAL Hx of preeclampsia, prior , currently CBC W PLT NO DIFF Routine 04/10/2024 9:1 3 AM DIRECTOR SOCIAL Hx of preeclampsia, prior , currently AST (SGOT) Routine 04/10/2024 9:13 AM DIRECTOR SOCIAL Hx of preeclampsia, prior , currently ALT (SGPT) Routine 04/10/2024 9:13 AM DIRECTOR SOCIAL Hx of preeclampsia, prior , currently US [...] CDT SCAN-LABORATORY REPORT 4 12:00 AM CDT TEACHER BALLET THIN PREP PAP SCREEN IMAGED Routine 09/27/2023 [...] VAGINAL/RECTAL OB STREP PCR (04/10/2024 9:22 AM DIRECTOR SOCIAL) Vaginal/Rectal OB Strep B PCR Negative 04/14/2024 10:37 AM DIRECTOR SOCIAL [facility] TRAL LABORATORY Other (Vaginal/Rectal) Non-Blood / Unknown 04/10/2024 9:22 AM DIRECTOR SOCIAL 04/10/2024 9:22 AM DIRECTOR SOCIAL Albania Skelton MD MICROBIOLOGY [facility]-CENTRAL LABORATORY [address] [place] [address], * (ABNORMAL) CBC W PLT NO DIFF (04/10/2024 9:13 AM DIRECTOR SOCIAL) WHITE BLOOD CELL COUNT 12.0(H) 3.8 - [...] BLOOD SPECIMEN / Unknown 04/10/2024 9:13 AM DIRECTOR SOCIAL 04/10/2024 9:14 AM DIRECTOR SOCIAL Albania Skelton MD HEMATOLOGY Performing Organization Address [facility]/ZIP Co de Phone Number [employer] [facility] [address] [place] [address], [place] [phone] [facility] [address] [facility] [place] [address] * CREATININE (04/10/2024 9:13 AM DIRECTOR SOCIAL) Only the most recent of2 resultswithin the time period is included. CREATININE 0.64 0.50 - 0.96 mg/dL [facility] [place] EGFR 129 > OR = 60 mL/min/1.73 m2 [facility] Blood BLOOD SPECIMEN / Unknown 04/10/2024 9:13 AM DIRECTOR SOCIAL 04/10/2024 9:14 AM DIRECTOR SOCIAL Albania Skelton MD CHEMISTRY Performing Organization Address [facility]/ZIP Co de Phone Number [employer] [facility] [address] [place] [address], [place] [phone] [facility] [address] [place] [address] * ALT (SGPT) (04/10/2024 9:13 AM DIRECTOR SOCIAL) Only the most recent of2 resultswithin the time period is included. ALT 10 6 - 29 U/L [facility] Blood BLOOD SPECIMEN / Unknown 04/10/2024 9:13 AM DIRECTOR SOCIAL 04/10/2024 9:14 AM DIRECTOR SOCIAL Albania Skelton MD CHEMISTRY Performing Organization Address [facility] Co de Phone Number [employer] [address] [address], [place] [phone] [facility] [address] [place] [address] * AST (SGOT) (04/10/2024 9:13 AM DIRECTOR SOCIAL) Only the most recent of2 resultswithin the time period is included. AST 13 10 - 30 U/L [facility] [place] Blood BLOOD SPECIMEN / Unknown 04/10/2024 9:13 AM DIRECTOR SOCIAL 04/10/2024 9:14 AM DIRECTOR SOCIAL Albania Skelton MD CHEMISTRY Performing Organization Address [facility] de Phone Number [employer] [facility] [address] [place] [address], [facility] [address] [place] [address] * Echocardiogram (CPT 83635) (03/18/2024 2:35 PM CDT) Anatomical Region Laterality [...] of the aorta. Services Provided: US ECHOCARDIOGRAM 34502.0 US DOPPLER COLOR FLOW VELOCITY MAP 46409.0 US DOPPLER ECHO SPECTRAL 54702.0 Procedure Note Bogdan Malik MD - 03/18/2024 [...] coarctation of the aorta. Services Provided: US IOLKSAXROSQKLM05384.0 US DOPPLER COLOR FLOW VELOCITY QWQ11367.0 US DOPPLER ECHO SPECTRAL 98981.0 Rhiannon Baumann MD US * Growth Follow Up Any Trimester (CPT 22676) If BPP w/NST needed use Testing section [...] as needed. Medical Decision Making: Low Complexity 73786 Limited Diagnoses including with BMI>30 Limited Data including review of prior ultrasound and review of prior external notes Minimal risk of morbidity or mortality to the fetus from additional testing. Services Provided: Procedures Code FOLLOW UP GROWTH & PEDS ECHO 05907.0 Procedure Note Angelique Haas MD - 03/18/2024 Referred By: ALBANIA SKELTON MD IndicationsCode 32 weeks gestation of xdqlroxiiQ3D.32 Maternal Obesity - BMI >30 2021 34w6d [...] discussed asneeded. Medical Decision Making: Low Complexity 967[address] Limited Diagnoses including with BMI>30 Limited Data including review of prior ultrasound and review of priorexternal notes Minimal risk of morbidity or mortality to the fetus from additionaltesting. Services Provided: ProceduresCode FOLLOW UP GROWTH & PEDS [id number] Rhiannon Baumann MD * TREPONEMA PALLIDUM (02/25/2024 2:03 PM CDT) T. PALLIDUM AB NEGATIVE NEGATIVE [facility] [place] Comment: No antibodies to T. [...] Skelton MD SEND OUTS Performing Organization Address [facility]/ZIP Co de Phone Number [facility] [address] [place] [address], [place] [phone] [facility] [address] [place] [address] * PLATELET COUNT (02/25/2024 2:03 PM CDT) PLATELET COUNT 311 140 - 400 Thousand/u L [facility] [place] Blood BLOOD SPECIMEN / Unknown 02/25/2024 2:03 PM CDT 02/25/2024 2:03 PM CDT Albania Skelton MD HEMATOLOGY Performing Organization Address [facility] Co de Phone Number [facility] [address] [place] [address], [place] [phone] [facility] [address] [place] [address] * HEMOGLOBIN (02/25/2024 2:03 PM CDT) HEMOGLOBIN 11.7 11.7 - 15.5 g/dL [facility] Blood BLOOD SPECIMEN / Unknown 02/25/2024 2:03 PM CDT 02/25/2024 2:03 PM CDT Albania Skelton MD HEMATOLOGY Performing Organization Address [facility]/ZIP Co de Phone Number [facility] [address] [place] [address], [place] [phone] [facility] [address] [place] [address] * GLUCOSE,GESTATIONAL (02/25/2024 2:03 PM CDT) GLUCOSE, GESTATIONAL SCREEN (50G)-140 CUTOFF 108 <140 mg/dL [facility] [place] Blood BLOOD SPECIMEN / Unknown 02/25/2024 2:03 PM CDT 02/25/2024 2:03 PM CDT Albania Skelton MD CHEMISTRY [employer] [facility] [address] [place] [address], [facility] [address] [place] [address] * SCAN-LABORATORY REPORT (02/25/2024 12:00 AM CDT) Only the most recent of2 resultswithin the time period is included. Scanner OTHER * TEACHER BALLET THIN PREP PAP SCREEN IMAGED [[id number]] (09/27/2023 3:01 PM CDT) Case Report Gynecologic Cytology Report Case: [id number] Authorizing Provider: Albania Skelton MD Collected: 09/27/2023 1501 Ordering Location: [facility] Received: 09/27/2023 [facility] First Screen: Adele Clark Specimen: TEACHER BALLET ThinPrep Vial Screening, Cervical 10/10/2023 2:[address] [facility]- ENTRAL LABORATORY INTERPRETATION/ RESULT NEGATIVE FOR INTRAEPITHELIAL LESION OR MALIGNANCY (NIL) (none) 10/10/2023 2:[address] [facility]C ENTRAL LABORATORY NISM(S) Fungal organisms morphologically consistent with Rayna species 10/10/2023 2:[address] [facility] LABORATORY-C ENTRAL LABORATORY SPECIMEN ADEQUACY Satisfactory for evaluation No endocervical component seen in a patient 10/10/2023 2:[address] [facility] LABOR[facility]-C ENTRAL LABORATORY Date of LMP 07/11/2023 10/10/2023 2:17 PM CDT [facility]- ENTRAL LABORATORY Last Pap Date first 10/10/2023 2:17 PM CDT [facility]-C ENTRAL LABORATORY Last Pap Result First Pap/Unknown 2:17 PM CDT [facility]- ENTRAL LABORATORY Abnormal Pap or [place] Bx in last 5 years No 10/10/2023 2:17 PM CDT [facility]-C ENTRAL LABORATORY Menstrual Status 10/10/2023 2:17 PM CDT [facility]- ENTRAL LABORATORY [place] Bx Done Today No 10/10/2023 2:17 PM CDT [facility] ENTRAL LABORATORY Additional Information None given 10/10/2023 2:17 PM CDT [facility] ENTRAL LABORATORY Comment: Cytology is screened at [facility] - [address], [place] [address] and [facility] - [address] [place] [address] and [facility] - [address] [place] [address] Interpreted at [facility] - [address], [place] [address] Automated Review Successful 10/10/2023 2:17 PM CDT [facility] ENTRAL LABORATORY Comment:Specimen processed s uccessfully by automated inspector and clipper device, ThinPrep Imaging System, [employer] Note The pap test is a [...] and malignant lesions. 10/10/2023 2:17 PM CDT [facility] ENTRAL LABORATORY Other (Cervical) Non-Blood / Unknown 09/27/2023 3:01 PM CDT 09/27/2023 3:26 PM CDT Albania Skelton MD PATHOLOGY/CYTOLOGY [facility] [address] [place] [address], [place] * TEACHER BALLET PROBE - GC CHLAMYDIA DNA PCR [[id number]] (09/11/2023 3:47 PM CDT) CHLAMYDIA PROBE Negative 5:25 AM CDT [facility] TRAL LABORATORY N GONORRHOEAE PROBE Negative 09/12/2023 5:25 AM CDT [facility] TRAL LABORATORY Other URINE SPECIMEN / Unknown Non-Blood / Unknown 09/11/2023 3:47 PM CDT 09/11/2023 3:47 PM CDT Albania Skelton MD MICROBIOLOGY Performing Organization Address [facility] Co de Phone Number [facility] [address] [place] [address], [place] * ANTI HCV (09/11/2023 3:45 PM CDT) Pathologist [facility] HEPATITIS C ANTIBODY Non-Reacti ve Non-React kimberly 09/12/2023 2:40 PM CDT [facility] Comment:Please note, per www .CDC.gov: [...] OUTS Performing Organization Address City/[facility]/ZIP Co de Phone Number [facility] [address] [place] [address], [place] * ANTI HIV 1/2 (09/11/2023 3:45 PM CDT) Pathologist [facility] HIV-1/HIV-2 SCREEN Non-Reacti ve Non-Reacti ve 09/12/2023 2:[address] [facility] TRAL LABORATORY Comment:HIV-1 p24 and HIV-1/ HIV-2 Ab Not Detected. Blood BLOOD SPECIMEN / Unknown Venipuncture / Unknown 09/11/2023 3:45 PM CDT 09/11/2023 3:46 PM CDT Albania Skelton MD SEND OUTS [facility] LABORATORY-CENTRAL LABORATORY [address] [place] [address], from Last 3 Months or Most Recently Relevant to Health Maintenance Advance Directives * Full Code (Latest Code Status on File) Date Activated Date Inactivated Comments 02/24/2022 8:52 AM 03/01/2022 6:26 PM Question Answer Comments Code Status Discussion: Reviewed Preferences Care Teams Correspondence Coordinator Relationship Specialty Start Date End Date Albania Skelton MD [address] [place] [address] PCP - General Family Practice 08/23/21 Albania Skelton MD [address] [place] [address] Referring Provider Family Practice 09/28/23 Bogdan Malik MD [address] [address] Consulting Physician Cardiology - Pediatric 03/17/24 1
--- NOTE | 2024-05-07 08:00 | PM.OBHPLI ---
OB - H&P: HPI Labor/Induction History of Present Illness Time Seen by Provider: 08:00 Date Seen: 05/07/24 Chief Complaint: The patient is a 23 year old 2 para 1 at 39.3 weeks gestation by 6 week ultrasound (off of LMP) , who presents with SROM of thick meconium fluid and active labor. Chief complaint: Maternity : 2 Para: 1 Narrative: Va Tan is a 23 year old 2 para 1 at 39.3 weeks gestation by 6 week ultrasound (off of LMP) , who presents with SROM of thick meconium fluid and active labor. Patient was in for rule out labor overnight, was fingertip dilated. Presented at 7 am after SROM and painful contractions since 3am. Noted on pad to have Thick meconium fluid. Patient has history of preeclampsia with severe features during first (delivering at 34 weeks gestation). Notably had lap thao shortly after delivery. Has not had any elevated bp in this and feels well without any signs/symptoms of preeclampsia. Patient is Rh Negative, GBS negative History of Present Dating criteria: based on 1st trimester US only care: good care Ultrasounds: normal 1st trimester US and normal mid trimester US (Echo was done for paternal history of congenital heart disease. Normal level 2 and echo. had normal growth at 32 weeks 35th precentile) complications comment: history of pre-E with first baby. Has been on asa. Medical complications: none Labs Blood type: A (-) negative Rubella: immune RPR/VDLR: nonreactive GBS status: negative HBsAG: negative Review of Systems Status of ROS: Reports: 10 or more systems reviewed and unremarkable except as noted in History and below Meds Home Medications and Allergies Home Medications ?Medication ?Instructions ?Recorded ?Confirmed ?Type aspirin 81 mg chewable tablet 81 mg PO DAILY 02/15/22 05/07/24 History multivitamin (Daily Multi-Vitamin 1 tab PO DAILY 03/24/22 05/07/24 History tablet) ondansetron 4 mg disintegrating 4 mg 03/27/22 History tablet hydroxyzine HCl 25 mg tablet 25 mg PO BID 04/17/24 05/07/24 History sertraline 50 mg tablet 50 mg PO DAILY 04/17/24 05/07/24 History Allergies Allergy/AdvReac Type Severity Reaction Status Date / Time BLOOD GROUP SPECIFIC Allergy Mild OTHER- SEE Uncoded 03/27/22 09:50 SUBSTANCE COMMENT OB - H&P: Exam Physical Exam: Vital signs: Pulse BP Pulse Ox 85 123/71 90 05/07/24 07:35 05/07/24 07:35 05/07/24 07:30 Constitutional: Constitutional: mild distress (with contractions) Comments: standing at bedside. Routine HEENT Exam: Head: Present atraumatic Routine Neck Exam: Neck: Present full ROM Routine Respiratory Exam: Respiratory: Present CTA bilaterally Routine Cardiovascular Exam: Cardiovascular: RRR, S1 and S2 Routine Abdominal Exam: Comments: Gravid, nontender Detailed Labor and Delivery Exam: Patient Gravid: Yes Dilation (cm): 3 Effacement (%): 80 Cervix position: posterior Consistency: medium Contraction frequency (min): 3 Tachysystole: No Contraction intensity: Strong/Firm Fetus (Single): Station: -2 Amniotic Membrane Status: SROM Amniotic Membrane Fluid Description: Meconium Stained (thick meconium) Heart Rate Baseline: 145 Monitor Accelerations: Present Monitor Decelerations: None [facility] Variability: Moderate (6-25) Routine Skin Exam: Present intact Routine Neurological Exam: Present alert and oriented X3 Routine Psychiatric Exam: Present normal affect OB - Problem Based A/P Additional Plan (1) Term : Problem details: in labor, s/p SROM at home Status: Acute (2) Thick meconium stained amniotic fluid: Problem details: Desired water , but discussed per policy unable to do this safely. Dr. Donnelly will be at delivery for peds. Status: Acute Delivery/Labor/Induction Plan Plan: expectant management
[2024-05-07] MEDS: LACTATED RINGERS 1000 ML 1,000 ML 500 ML IV (08:45)
[2024-05-07 09:06] LABS: Basophils Percent Auto 0.2 % (0.0-3.0); Eosinophils Percent Auto 0.6 % (0.0-7.0); Hematocrit 38.2 % (33.0-51.0); Hemoglobin* 12.7 gm/dL (12.0-16.0); Immature Granulocytes Pct Auto 0.5 %; Lymphocytes Percent Auto 13.3 % (20-44); Mean Corpuscular HGB Conc 33 gm/dL (32-36); Mean Corpuscular Hemoglobin 27 pg (26-34); Mean Corpuscular Volume 83 fL (80-100); Neutrophils Percent Auto 77.4 % (42.0-72.0); Platelet Count* 324 K/uL (140-440); RDW Coefficient of Variation % 13.1 % (11.5-15.5); Red Blood Count 4.63 m/uL (4.00-5.20); White Blood Count* 13.31 K/uL (4.50-11.00)
[2024-05-07 09:17] LABS: Slide Review Reflex No
[2024-05-07] MEDS: LIDOCAINE 2% (PF) 5 ML VIAL EPIDURAL (09:33)
[2024-05-07] MEDS: ROPIVACAINE 0.2% 200 ML 400 MG EPIDURAL (09:35)
--- NOTE | 2024-05-07 09:36 | P.ANBPRC_ITS ---
[facility] Medical History (Updated 05/07/24 @ 08:15 by Julita Skelton MD) Adjustment disorder with mixed anxiety and depressed mood ?F43.23 - Adjustment disorder with mixed anxiety and depressed mood (ICD-10) Pre-eclampsia, severe, third trimester ?O14.13 - Severe pre-eclampsia, third trimester (ICD-10) Surgical History No significant past surgical history Social History Smoking Status: Current every day smoker Do you use any of these nicotine containing products: Vaping Products Second hand tobacco smoke exposure: No How often do you have a drink containing alcohol: never How often do you have six or more drinks on one occasion: Never AUDIT-C Alcohol total score: 0 Non-prescribed substance use: denies use Caffeine: No Are you using contraception or practicing any form of control: No Meds Home Medications and Allergies Home Medications ?Medication ?Instructions ?Recorded ?Confirmed ?Type aspirin 81 mg chewable tablet 81 mg PO DAILY 02/15/22 05/07/24 History multivitamin (Daily Multi-Vitamin 1 tab PO DAILY 03/24/22 05/07/24 History tablet) ondansetron 4 mg disintegrating 4 mg 03/27/22 History tablet hydroxyzine HCl 25 mg tablet 25 mg PO BID 04/17/24 05/07/24 History sertraline 50 mg tablet 50 mg PO DAILY 04/17/24 05/07/24 History Allergies Allergy/AdvReac Type Severity Reaction Status Date / Time BLOOD GROUP SPECIFIC Allergy Mild OTHER- SEE Uncoded 03/27/22 09:50 SUBSTANCE COMMENT Results Labs Labs: Laboratory Results - last 24 hr 05/07/24 08:55 WBC 13.31 H RBC 4.63 Hgb 12.7 Hct 38.2 MCV 83 MCH 27 MCHC 33 RDW Coeff of Farhan 13.1 Plt Count 324 Neut % (Auto) 77.4 H Lymph % (Auto) 13.3 L Schleicher % (Auto) 8.0 Eos % (Auto) 0.6 Baso % (Auto) 0.2 Neut # (Auto) 10.30 H Lymph # (Auto) 1.80 Schleicher # (Auto) 1.10 H Eos # (Auto) 0.10 Baso # (Auto) 0.00 Abs Immat Gran (auto) 0.10 Imm/Tot Granulo (auto) 0.5 Vital Signs Vital Signs: Last Vital Signs Pulse 110 H 05/07/24 09:35 BP 136/78 05/07/24 09:35 Pulse Ox 98 05/07/24 09:36 Weight: 96.162 kg Height: 165.1 cm Anesthesia Procedures Epidural Insertion Patient Location: OB Start Time: :15 Stop Time: 10:15 Start Date: 05/07/24 Stop Date: 05/07/24 Reason for Block: procedure for pain Patient Position: sitting Performed By: Rell Parra Preanesthetic Checklist: IV checked, risks and benefits discussed, monitors and equipment checked, pre-op evaluation, timeout performed and anesthesia consent Prep: chlorhexidine gluconate Monitoring: blood pressure monitoring, continuous pulse oximetry and heart rate Approach: midline Vertebral Space: lumbar (1-5) Epidural Technique: CLARI saline Needle Type: Tuohy needle Injection Technique: continuous catheter Needle gauge: 17 Needle Length (cm): 10 cm Needle Insertion Depth (cm): 7 Catheter Gauge: 19 Catheter Type: multi-orifice Catheter at skin depth (cm): 15 Test Dose Result: negative and lidocaine 1.5% with epinephrine 1 to 200,000
[2024-05-07] MEDS: fentaNYL 100 MCG/2 ML inj EPIDURAL (09:42)
--- NOTE | 2024-05-07 09:43 | P.OBPN_ITS ---
Subjective Time Seen by Provider: 09:43 Date Seen: 05/07/24 Narrative: I was called to bedside as patient was involuntarily pushing. By the time I got to bedside she was 6-7 cm and receiving epidural. Patient states contractions are intense and she is exhausted. Objective Exam: Very uncomfortable with contractions. Vital Signs: Last Vital Signs Pulse 102 H 05/07/24 09:43 BP 121/80 05/07/24 09:43 Pulse Ox 100 05/07/24 09:41 Pelvic Exam Dilation (cm): 7-8 Effacement (%): 100 Station: -1 Contractions Monitor mode: External Contraction Frequency: 2-3 Contraction pattern: Regular Contraction intensity: Strong/Firm Pitocin Rate (mU/min): 0 Assessment Assessment: active labor Station: -1 Amniotic Membrane Status: SROM Status: Category l Heart Rate Baseline: 145 [facility] Variability: Moderate (6-25) Monitor Accelerations: Present Tracing Comments: one decel, contractions not tracing, ?early Labor Progress: Progressing well without intervention. Maternal Status: Becoming more comfortable with epidural, still a lot of pressure with contractions. Plan Plan: - anticipate KRYSTINA - Dr Donnelly to come when pushing for peds back up
[2024-05-07] MEDS: OXYTOCIN 30 unit/500 ML in NS 30 UNIT/500 ML BAG 295 UNIT IVPB (11:03)
--- NOTE | 2024-05-07 11:14 | W.PM.VAGDE_ITS ---
OB Procedure Vag Delivery Mother Details Mother Details: The patient is a 23 year-old, 2, Para 1, admitted on 05/07/24 at 39.3 Days gestation. : 2 Para: 1 Weeks Gestation: 39.3 Admission Date: 05/07/24 Additional Details Amniotic Membrane Status: SROM Amniotic Membrane Rupture Date: 05/07/24 Amniotic Membrane Rupture Time: 07:00 Amniotic Membrane Fluid Description: Meconium Stained Analgesia/Anesthesia Type: None, Epidural, Local, Intrathecal, General, Fentanyl, Spinal and Nitrous Oxide Waterbirth: No Pitcoin: No Intrapartal Events: None Labor Onset: 03:30 Complete: 10:23 Pushin:30 Heart: heart tones during second stage were reassuring. Would have decels with pushing, but return to baseline of 160 between pushes. Delivery Details Delivery Date: 05/07/24 Delivery Time: 10:53 Route of delivery: Infant Gender: Female Infant Viability: Alive; Heart Rate Present Position at Delivery: OA Delivery Details: Patient presented after presentation in labor and SROM at home (Thick meconium fluid). Arrived at labor and delivery just after SROM at 7 am and was 3 cm on admission. Progressed well, receiving epidural for analgesia around 7 cm with moderate response. Patient became complete at 1023 and began pushing at 1030. She pushed very effectively delivering a viable female infant over intact perineum via spontaneous vaginal delivery. Infant was delivered onto maternal abdomen. Cord was clamped and cut by FOB who was in attendance at delivery. Baby was briefly taken to warmer to be assessed by Dr Donnelly who was in attendance at delivery for meconium fluid but returned without intervention (ple ase see her note for details). Infant weight pending. 1 Minute Interval Total Score: 8 5 Minute Interval Total Score: 9 Additional Details Shoulder Dystocia: No Placenta Delivery Time: 11:00 Placental Delivery Description: Spontaneous Procedure Done: Global Blood Loss: 100 Laceration: Periurethral - 1st Degree (left periurethral laceration, no suturing required as was hemostatic) Blood Loss Measurement Type: QBL Bakri Used: No Sponge/Need Count Correct: Yes Cord Vessel Description: 3 Vessels Event Summary Status: Mother and were stable after delivery. Planning on breast feeding.
[2024-05-07] MEDS: IBUPROFEN 600 MG TABLET PO (12:20)
[2024-05-08 01:35] VITALS: BP 120/76; PULSE 88; RESP 20; TEMP 36.6; O2SAT 97
[2024-05-08] MEDS: IBUPROFEN 600 MG TABLET PO (04:30)
[2024-05-08 04:38] VITALS: BP 117/88; PULSE 76; RESP 16; TEMP 36.8; O2SAT 98
[2024-05-08 06:39] LABS: Hemoglobin* 10.9 gm/dL (12.0-16.0)
[2024-05-08] MEDS: SERTRALINE 50 MG TABLET PO (09:07)
[2024-05-08] MEDS: DOCUSATE SODIUM 100 MG CAPSULE PO (09:07)
[2024-05-08 09:08] VITALS: BP 112/75; PULSE 76; RESP 16; TEMP 36.9; O2SAT 98
--- NOTE | 2024-05-08 12:03 | P.DS_ITS ---
DS: Providers Provider Time Seen by Provider: 06:30 Date Seen: 05/08/24 Date of admission: 05/07/24 07:21 Primary care physician: Julita Skelton MD Admitting Clinician: Barbara Donnelly MD Attending Physician on discharge: Barbara Donnelly MD Date of Discharge: 05/08/24 DS: Diagnosis Discharge Diagnosis (1) (normal spontaneous vaginal delivery): Status: Acute (2) Term : Status: Acute Problem details: arrived in spontaneous labor after SROM Exam Const: Vital Signs, click to edit/add: Vital Signs - 24 hr 05/07/24 12:04 05/07/24 12:04 05/07/24 12:17 Temperature Pulse Rate 93 Pulse Rate [Blood Pressure Cuff] Respiratory Rate 16 16 Blood Pressure 118/59 L Blood Pressure [Le ft Arm] Pulse Oximetry Oxygen Delivery Me thod 05/07/24 12:18 05/07/24 12:34 05/07/24 12:34 Temperature Pulse Rate 93 86 Pulse Rate [Blood Pressure Cuff] Respiratory Rate 16 Blood Pressure 117/63 123/67 Blood Pressure [Le ft Arm] Pulse Oximetry Oxygen Delivery Me thod 05/07/24 12:48 05/07/24 12:48 05/07/24 16:27 Temperature 98.3 F 98.5 F Pulse Rate 88 Pulse Rate [Blood Pressure Cuff] 89 Respiratory Rate 16 16 Blood Pressure 125/64 Blood Pressure [Le ft Arm] 120/77 Pulse Oximetry Oxygen Delivery Me thod Room Air 05/07/24 20:45 05/08/24 01:35 05/08/24 04:38 Temperature 97.6 F 97.8 F 98.2 F Pulse Rate Pulse Rate [Blood Pressure Cuff] 91 88 76 Respiratory Rate 20 20 16 Blood Pressure Blood Pressure [Le ft Arm] 117/71 120/76 117/88 Pulse Oximetry 95 97 98 Oxygen Delivery Me thod Room Air Room Air Room Air 05/08/24 09:08 Temperature 98.5 F Pulse Rate Pulse Rate [Blood Pressure Cuff] 76 Respiratory Rate 16 Blood Pressure Blood Pressure [Le ft Arm] 112/75 Pulse Oximetry 98 Oxygen Delivery Me thod Room Air Common normals: no apparent distress and oriented x3 HENMT: Common normals: normocephalic and head/scalp atraumatic Head and scalp: normocephalic and atraumatic Eye: Common normals: EOMs intact bilaterally Neck & C-Spine: Common normals: full ROM Resp: Common normals: normal respiratory effort and clear to auscultation bilaterally Auscultation: clear to auscultation bilaterally Cardio: Common normals: regular rate, regular rhythm and no murmurs Rate: regular rate Rhythm: regular rhythm : Common normals: no CVA tenderness Bladder/kidney exam: no CVA tenderness Uterus: U/U and firm Back & Pelvis: Common normals: no CVA tenderness Extremity: Common normals: full ROM and no calf tenderness (mild pedal edema (trace)) Neuro: Common normals: oriented x3 Skin: Common normals: no rashes or lesions noted General skin exam: no rashes or lesions noted OB - DS: Summary Hospital Course Hospital Course: The patient is a 23 year old G 2 P 2 at 39.3 weeks gestation that was admitted to the Center on 05/07/24 for active labor. She had an uncomplicated vaginal delivery. She delivered a viable female infant. She is breast feeding. the patient has done well. Peripartum Data Infant delivery method: Vaginal Laceration description: Periurethral - 1st Degree complications: none [place] Gender: Female Infant Discharge Plan: Home Status at Discharge Functional status at discharge: independent ambulation Overall status at discharge: patient is back to baseline Time Spent with Patient Time attestation: Total time spent providing and/or coordinating discharge services: Time spent: Less than 30 minutes Discharge Plan Discharge Disposition: Home, Self-Care Date of Admission: 05/07/24 07:21 Attending Provider on Discharge: Julita Skelton Primary Care Provider: Julita Skelton Condition: Improved Anticipated Discharge Date/Time: 05/08/24 13:00 Discharge Medications: Continued hydroxyzine HCl 25 mg tablet 25 mg PO BID sertraline 50 mg tablet 50 mg PO DAILY multivitamin [Daily Multi-Vitamin] Tablet 1 tab PO DAILY ondansetron 4 mg tablet,disintegrating 4 mg Patient Comments: DISSOLVE 1 TABLET ON THE TONGUE EVERY 6 HOURS NEEDED Discontinued aspirin 81 mg tablet,chewable 81 mg PO DAILY Discharge Orders: Discharge Order (Routine); Ordered 05/08/24 Ordered By: Julita Skelton Patient Education: OB Vaginal/Breast Feeding Activity Level: No Restrictions Activity Detail: Pelvic rest x 6 weeks (nothing in the vagina) Discharge Diet: Regular Follow Up Appointments: Julita Skelton MD [Primary Care Provider] - Forms: [employer] Info Instructions Discharge Comments: Please continue to monitor for symptoms of preeclampsia and check daily blood pressures at home. Call with symptoms or BP >140/90 Please continue tylenol/motrin at home for pain management Please follow up with me in 6 weeks at visit, sooner with concerns.
--- NOTE | 2024-05-08 13:17 | PM.ANPOST ---
Post Anesthesia Note Post Anesthesia Note Patient seen: Inpatient Respiratory Status: adequate Cardiovascular Status: adequate Mental Status: baseline Pain: adequate Temp: baseline Anesthetic awareness: N/A Complications: none Follow care: none
[2024-05-09 00:46] LABS: Rapid Plasma Reagin (RPR) Non Reactive (Non Reactive)
--- OUTSIDE RECORDS SUMMARY | 2024-05-09 09:21 | XMS_ITS | Clinical Summary ---
Author Organization [facility] Address [place], [place] [address] Care Team Providers Care Car Ferry Captain Name Role Phone Albania Skelton MD Primary Care Provider Albania Skelton MD Unavailable [phone] Bogdan Malik MD Unavailable [phone] Allergies Active Allergy Reactions Criticality Noted Date Comments Blood-Group Specific Substance Other - Describe In Comment Field 02/24/2022 Patient has probable passive D antibody and a nonspecific antibody. Blood products may be delayed. Draw patient 24 hours prior to transfusion. For [employer] testing, draw one red top and two [...] Plan: Pap test due in 3 years [facility] Supervision of high-risk Overview (03/13/2024): Va Tan : 2000 [facility] ULTRASOUND/TESTING PATIENT Support person name: Carlo ULTRASOUND TYPE: Growth/[facility] Echo REASON FOR VISIT: BMI >30, [...] REFERRING PROVIDER/CLINIC: Albania Skelton MD - Sharla Corinth Primary MD approves scheduling of recommended ultrasounds/testing: [...] , may try to call [facility] if post tronic machine operator provider does not do water births. Waterbirth [...] Encounters Date Type Department Care Team Description 05/08/2024 Orders Only [facility] Scanner 1 scan: (1-Ord) [place], HGB, 05/08/2024 05/08/2024 Orders Only [facility] Scanner 1 scan: (1-Ord) [facility] HGB, 05/08/2024 05/07/2024 Orders Only [facility] Scanner 1 scan: (1-Ord) [facility], MULTIPLE LAB RESULTS, 05/07/2024 05/07/2024 Orders Only [facility] Scanner 1 scan: (1-Ord) [facility], MULTIPLE LAB RESULTS, 05/07/2024 05/06/2024 Orders Only [facility] Scanner 1 scan: (1-Ord) [place], ULTRASOUND OB BIOPHYSICAL PROFILE, 05/06/2024 05/06/2024 Orders Only [facility] Scanner 1 scan: (1-Ord) [facility], URINE, 05/06/2024 05/06/2024 Orders Only [facility] Scanner 1 scan: (1-Ord) [facility], MULTIPLE LAB RESULTS , 05/06/2024 04/30/2024 10:00 AM LEVER MILLER OB Encounter [facility] [address] [place] [address] Albania Skelton MD Care (38+3) 04/30/2024 Travel 04/24/2024 10:00 AM LEVER MILLER OB Encounter [facility] [address] [address] Albania Skelton MD Care (37w4d) 04/24/2024 Travel 04/10/2024 8:20 AM LEVER MILLER OB Encounter [facility] [address] [place] [address] Albania Skelton MD Care (35w4d) 04/10/2024 Travel 03/27/2024 8:20 AM CDT OB Encounter [facility] [address] [place] [address] Albania Skelton MD Care (33w4d/); Immunization/Inject ion 03/26/2024 Travel 03/18/2024 1:34 PM CDT - 03/18/2024 11:59 PM CDT Hospital Encounter [facility] [address] [place] [address] Rhiannon Baumann MD Supervision of high risk in third trimester (Primary Dx); Family history of congenital heart disease in father; Obesity in , antepartum, third trimester 03/18/2024 Travel 03/13/2024 10:25 AM CDT OB Encounter [facility] [address] [place] [address] Albania Skelton MD Care (31w4d/) 03/13/2024 Travel 03/12/2024 Telephone [facility] [address] [place] [address] [place] Appoint[place] 03/10/2024 Telephone [facility] [address] [place] [address] [place]oint[place] 03/06/2024 Telephone [facility] [address] [place] [address] [place], [place] Appointment 03/04/2024 Telephone [facility] [address] [facility] [place] [address] Albania Skelton MD Vomiting 02/28/2024 9:35 AM CDT OB [facility] [address] Albania Skelton MD Care (29w4d) 02/28/2024 8:45 AM CDT Office Visit [facility] [place] [address] Albania Skelton MD Care (29w4d); Error-please disregard (appt cancellation) 02/28/2024 Travel 02/26/2024 Refill [facility] [address] [place] [address] Albania Skelton MD Refill Request (Famotidine) 02/25/2024 1:10 PM CDT Nurse/Clinic Staff Only [facility] [place] [address] Immunization/Inject ion (Rhogam) 02/25/2024 12:45 PM CDT Orders Only [facility] [place] [address] Lab, [place] Lab 02/25/2024 Orders Only [facility] Scanner 1 scan: (1-Ord) [facility], MULTIPLE LABS, 02/25/2024 02/25/2024 Orders Only [facility] Scanner 1 scan: (1-Ord) [facility], MULTIPLE LABS, 02/25/2024 02/25/2024 Travel 02/13/2024 8:45 AM CDT Office Visit [facility] [place] [facility] [place] [address] Albania Skelton MD Care (27w3d) 02/13/2024 Travel [...] Dumas n, Yoselyn Ruvalcaba DO Complications:None Delivery Location:Hospital ( [facility] [address]AGE) Current Summary Episode Dates Number of Fetuses Estimated Date of Delivery 09/11/2023 - Present (05/09/2024) 1 05/11/2024 (set by Yee Skelton MD on 09/21/2023 based on Ultrasound on 09/21/2023) Dating Summary Based On [facility] [place] Diff Last Menstrual Period on 07/11/2023 04/16/2024 +3w4d Ultrasound on 09/21/2023 05/11/2024 Working GA:6w5d Alternate [facility] Entry 03/21/2024 +7w2d Vitals Pregravid Weight Height TWG (As of 05/09/2024) Pregrav id BMI 97.5 kg (215 lb) [...] , may try to call me if post tronic machine operator provider does not do water births. Albania Skelton MD .................... 04/30/2024 10:22 AM CC: [facility] R MILLER Progress Notes - OB Encounte r - [...] to see if available for delivery if post tronic machine operator does not do water births. Discussed signs/symptoms of labor and when to call Reviewed preeclampsia symptoms RTC weekly until delivery Albania Skelton MD .................... 04/24/2024 10:48 AM CC: [facility] R MILLER Progress Notes - OB Encounte r - 04/10/2024 - GA:35w4d 04/10/2024 - - Ernie Skelton MD Patient is [...] Skelton MD .................... 04/10/2024 8:43 AM CC: [facility] R MILLER Progress Notes - OB Encounte r - 03/27/2024 - GA:33w4d 03/27/2024 - - Kathryn Alicea MD Images from the [...] Costa Alicea MD 03/27/2024 8:36 AM PGY-2 [facility] Precepting Physician Documentation I have [...] Skelton MD .................... 03/13/2024 10:57 AM CC: [facility] Progress Notes - OB Encounte [...] and finished anatomy screen. Sent message to [facility] TDaP--given today Flu- given today Discussed [...] Skelton MD .................... 12/26/2023 8:52 AM CC: [facility] Progress Notes - Hospital En counter - 12/20/2023 - GA:19w4d 12/20/2023 - - Lisa Martines MS, [facility] / Clinic Note Genetic Counseling RE: Va Tan : 2000 MR: [id number] Partner name: Carlo (present) Referred By: Albania [...] improved when she involved appropriate support like REGENERATION OPERATOR. She said that after his REGENERATION OPERATOR appointment, Tru would talk often, and a similar experience with his motor skills after PT. Va noted that his apprentice is suspicious that Tru does have autism [...] asymptomatic individuals but are associated with serious correction health risks. BAV is a common cause [...] Tru in a couple months to a neonatal pediatric nurse for evaluation. Va also saw Dr. [...] questions or concerns. Sincerely, Lisa Martines MS, [facility] Licensed Genetic Counselor Total time: 28 minutes in person [facility] - [address], [address] [place] [id number] Electronically signed by Lisa Martines MS, [facility] at 12/20/2023 1:00 PM CDT 12/20/2023 - w4d - Rhiannon Baumann MD [...] needed. Services Provided: Procedures Code DETAIL ANATOMY 29051.0 Progress Notes - OB Encounte r - [...] Skelton MD .................... 11/28/2023 9:08 AM CC: [facility] Progress Notes - OB Encounte r - 11/02/2023 - GA:12w5d 11/02/2023 - 12w5d - Ernie Skelton MD Patient is here for routine care at 12w5d Concerns: Feeling better with pepcid. Feeling less dizzy/nauseated. No cramping, bleeding, loss of fluid Labs today- none She is looking into a Merchandise Buyer (has a friend who was recently certified) Hoping for water . Follow up in 4 weeks. Albania Skelton MD .................... 11/02/2023 7:39 AM CC: [facility] Progress Notes - OB Encounte r - [...] Increase pepcid to twice daily. - Cancel: [place] IV INFUSION THERAPY/PROPHYLAXIS /DX 1ST TO 1 HR - ondansetron (ZOFRAN ODT) 4 mg disintegrating tablet; Place 1 Tablet (4 mg) on the tongue every 8 hours if needed for Nausea/Vomiting. - [place] IV INFUSION HYDRATION INITIAL 31 MIN-1 HOUR - [place] INFUSION NORMAL SALINE SOLUTION 1000 CC - [place] THER PROPH/DX NJX IV PUSH SINGLE/1ST SBST/DRUG Albania Skelton MD .................... 10/24/2023 3:00 PM CC: [facility] Progress Notes - OB Encounte r - 09/27/2023 - GA:7w4d 09/27/2023 - 7w4d - Me mary Skeltonan, MD Clinic Note: First OB Visit 09/27/2023 [...] Marital Status: partnered. 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 with first was complicated with preeclampsia with severe features. 34w3d -- The patient was transferred to [facility] secondary to preeclampsia with severe features, severe based on elevated LFTs. Labor was uncomplicated. She had a vaginal delivery at 34w6d gestation. Delivery was uncomplicated. The baby went to NICU. course was complicated by elevated blood pressures requiring initiation of anti-hypertensive medication. Did not have a great experience at [facility]-- hoping to not have to deliver there. [...] Some Days Substances: Nicotine, THC, Flavoring Devices: RefCaseStackble tank Substance and Sexual Activity Alcohol use: [...] MEDICINE 3. Screening for cervical cancer Z12.4 MARKETING SUPPORT MANAGER THIN PREP PAP SCREEN IMAGED [[id number]] 4. History of delivery, currently O09.899 AMB [...] Total time preparing to see this patient, [id number] time, and coordinating care time on the same calendar date: 36 minutes. Albania Skelton MD .................... 09/27/2023 2:[address] [facility] [phone] CC: [facility] Progress Notes - OB Encounte r - 09/11/2023 - GA:5w2d 09/11/2023 - 5wBarbara Townsend RN SUBJECTIVE: Va Tan is a 23 [...] pre-term with Pre-eclampsia Occupation of patient: [employer] Name of Partner or Father of [...] of estimated date of delivery: No Thalassemia (Cameroonian, Mongolian, Mediterranean, or background): MCV less than 80: No Neural tube defect (Meningomyelocele, Spina bifida, or Anencephaly): No Congenital heart defect: Yes (Comment: Dad's great grandpa had PFO) Down syndrome: No Breezy-Sachs (Ashkenazi Faith, Cajun, Vincentian Bucks): No Hamlet disease (Ashkenazi Faith): No Familial dysautonomia (Ashkenazi Faith): No Sickle cell disease or trait (): No Hemophilia or other blood disorders: No Muscular dystrophy: No Cystic fibrosis: No Chesterfield's chorea: No Intellectual disability and/or autism: Yes [...] of Beginnings book and book inserts, discussed [id number] medications, and follow up. - Encouraged patient to call clinic at [phone] with any vaginal bleeding, fluid leaking from [...] Comments Blood Pressure 111/74 04/30/2024 10:03 AM LEVER MILLER Pulse 110 04/30/2024 10:03 AM LEVER MILLER Temperature 36.9 C (98.4 F) 06/23/2022 2:55 PM LEVER MILLER Respiratory Rate 16 03/01/2022 7:00 AM CDT Oxygen Saturation 98% 04/30/2024 10:03 AM LEVER MILLER Inhaled Oxygen Concentration - - Weight 97.6 kg (215 lb 3.2 oz) 04/30/2024 10:03 AM LEVER MILLER Height 168.9 cm (5' 6.5) 09/11/2023 2:43 PM CDT Body Mass Index 34.21 09/11/2023 2:43 PM CDT Plan of Treatment Upcoming Encounters Date Type Department Care Team (Late st Contact Info) Description 05/14/2024 10:25 AM LEVER MILLER OB Encounter [facility] [address] [place] [address] Albania Skelton MD [address] [place] [address] Health Maintenance Due Date Last Done Comments Depression screening for age 12+ 01/17/2024 01/16/2023, 12/08/2022, 12/04/2022, Additional history exists COVID-19 vaccine series ( season) 2024 04/23/2021, 03/10/2021 BMI (ht and wt on same day) for age 18+ 09/10/2024 09/11/2023, 03/23/2022, 03/08/2022, Additional history exists Chlamydia for age 16-24 09/10/2024 09/11/19 24, 08/23/2021, 03/02/2021, Additional history exists Pap test for age 21-65 09/26/2026 09/27/2023 Tetanus booster 02/27/2034 02/28/2024, 08/0 02/2022, 08/28/2014 Pneumococcal series for age 6-64 Aged Out 04/08/2004, 08/18/2003, 2002 No longer eligible based on patient's age to complete this topic HPV series for age 9-26 Completed 09/11/2017, 08/28 Meningococcal series for age 11-21 Completed 08/08/2018, 08/28/2014 HIV for age 15-65 Completed 09/11/2023, 08/23/2021 Hepatitis C screening for age 18-79 Completed 09/11/2023, 08/23/2021 Influenza for age 9-49 Completed 4, 02/07/2022, 02/23/2021, Additional history exists Tdap Completed 02/28/2024, 08/0 02/2022, 08/28/2014 RSV vaccine for adults or Completed 03/27/2024 Procedures Procedure Name Priority Date/Time Associated Diagnosis Comments SCAN-LABORATORY REPORT 4 12:00 AM LEVER MILLER SCAN-LABORATORY REPORT 4 12:00 AM LEVER MILLER SCAN-LABORATORY REPORT 4 12:00 AM LEVER MILLER SCAN-LABORATORY REPORT 4 12:00 AM LEVER MILLER SCAN-PATHOLOGY REPORT 05/06/2024 12:00 AM LEVER MILLER SCAN-LABORATORY REPORT 4 12:00 AM LEVER MILLER SCAN-ULTRASOUND REPORT 4 12:00 AM LEVER MILLER VAGINAL/RECTAL OB STREP PCR Routine 04/10/2024 9:22 AM LEVER MILLER Supervision of high risk in third trimester CREATININE Routine 04/10/2024 9:13 AM LEVER MILLER Hx of preeclampsia, prior , currently CBC W PLT NO DIFF Routine 04/10/2024 9:1 3 AM LEVER MILLER Hx of preeclampsia, prior , currently AST (SGOT) Routine 04/10/2024 9:13 AM LEVER MILLER Hx of preeclampsia, prior , currently ALT (SGPT) Routine 04/10/2024 9:13 AM LEVER MILLER Hx of preeclampsia, prior , currently US [...] CDT SCAN-LABORATORY REPORT 4 12:00 AM CDT MARKETING SUPPORT MANAGER THIN PREP PAP SCREEN IMAGED Routine 09/27/2023 [...] Recently Relevant to Health Maintenance Results * SCAN-LABORATORY REPORT (05/08/2024 12:00 AM LEVER MILLER) Only the most recent of7 resultswithin the time period is included. Scanner OTHER * SCAN-PATHOLOGY REPORT (05/06/2024 12:00 AM LEVER MILLER) Scanner OTHER * SCAN-ULTRASOUND REPORT (05/06/2024 12:00 AM LEVER MILLER) Anatomical Region Laterality Modality Other Scanner OTHER * VAGINAL/RECTAL OB STREP PCR (04/10/2024 9:22 AM LEVER MILLER) Vaginal/Rectal OB Strep B PCR Negative 04/14/2024 10:37 AM LEVER MILLER [facility] TRAL LABORATORY Other (Vaginal/Rectal) Non-Blood / Unknown 04/10/2024 9:22 AM LEVER MILLER 04/10/2024 9:22 AM LEVER MILLER Albania Skelton MD MICROBIOLOGY [facility] [address] [place] [address], * (ABNORMAL) CBC W PLT NO DIFF (04/10/2024 9:13 AM LEVER MILLER) WHITE BLOOD CELL COUNT 12.0(H) 3.8 - [...] BLOOD SPECIMEN / Unknown 04/10/2024 9:13 AM LEVER MILLER 04/10/2024 9:14 AM LEVER MILLER Albania Skelton MD HEMATOLOGY Performing Organization Address [facility]/ZIP Co de Phone Number [employer] [address] [address], [place] [phone] [facility] [address] [place] [address] * CREATININE (04/10/2024 9:13 AM LEVER MILLER) Only the most recent of2 resultswithin the time period is included. CREATININE 0.64 0.50 - 0.96 mg/dL [facility] EGFR 129 > OR = 60 mL/min/1.73 m2 [facility] Blood BLOOD SPECIMEN / Unknown 04/10/2024 9:13 AM LEVER MILLER 04/10/2024 9:14 AM LEVER MILLER Albania Skelton MD CHEMISTRY Performing Organization Address City/[facility]/ZIP Co de Phone Number [employer] [facility] [address] [place] [address], [place] [phone] [facility] [address] [place] [address] * ALT (SGPT) (04/10/2024 9:13 AM LEVER MILLER) Only the most recent of2 resultswithin the time period is included. ALT 10 6 - 29 U/L [facility] Blood BLOOD SPECIMEN / Unknown 04/10/2024 9:13 AM LEVER MILLER 04/10/2024 9:14 AM LEVER MILLER Albania Skelton MD CHEMISTRY Performing Organization Address [facility] Co de Phone Number [employer] [facility] [address] [place] [address], [facility] [address] [place] [address] * AST (SGOT) (04/10/2024 9:13 AM LEVER MILLER) Only the most recent of2 resultswithin the time period is included. AST 13 10 - 30 U/L [facility] Blood BLOOD SPECIMEN / Unknown 04/10/2024 9:13 AM LEVER MILLER 04/10/2024 9:14 AM LEVER MILLER Albania Skelton MD CHEMISTRY Performing Organization Address [facility] Co de Phone Number [employer] [facility] [address] [facility] [place] [address], [facility] [address] [place] [address] * Echocardiogram (CPT 52983) (03/18/2024 2:35 PM CDT) Anatomical Region Laterality [...] of the aorta. Services Provided: US ECHOCARDIOGRAM 75438.0 US DOPPLER COLOR FLOW VELOCITY MAP 71904.0 US DOPPLER ECHO SPECTRAL 76450.0 Procedure Note Bogdan Malik MD - 03/18/2024 [...] coarctation of the aorta. Services Provided: US [id number] US DOPPLER COLOR FLOW VELOCITY [id number] US DOPPLER ECHO SPECTRAL 08464.0 Rhiannon Baumann MD US * Growth Follow Up Any Trimester (CPT 27782) If BPP w/NST needed use Testing section [...] as needed. Medical Decision Making: Low Complexity 63121 Limited Diagnoses including with BMI>30 Limited Data including review of prior ultrasound and review of prior external notes Minimal risk of morbidity or mortality to the fetus from additional testing. Services Provided: Procedures Code FOLLOW UP GROWTH & PEDS ECHO 46349.0 Procedure Note Angelique Haas MD - 03/18/2024 Referred By: ALBANIA SKELTON MD IndicationsCode 32 weeks gestation of [id number].32 Maternal Obesity - BMI >30 2021 34w6d [...] discussed asneeded. Medical Decision Making: Low Complexity 53867 Limited Diagnoses including with BMI>30 Limited Data including review of prior ultrasound and review of priorexternal notes Minimal risk of morbidity or mortality to the fetus from additionaltesting. Services Provided: ProceduresCode FOLLOW UP GROWTH & PEDS [id number] Rhiannon Baumann MD US * TREPONEMA PALLIDUM (02/25/2024 2:03 PM CDT) T. PALLIDUM AB NEGATIVE NEGATIVE [facility] Comment: No antibodies to T. [...] PM CDT Albania Skelton MD SEND OUTS [facility] [address] [place] [address], [place] [phone] [facility] [address] [place] [address] * PLATELET COUNT (02/25/2024 2:03 PM CDT) PLATELET COUNT 311 140 - 400 Thousand/u L [facility] Blood BLOOD SPECIMEN / Unknown 02/25/2024 2:03 PM CDT 02/25/2024 2:03 PM CDT Albania Skelton MD HEMATOLOGY Performing Organization Address [facility]/ZIP Co de Phone Number [facility] [address] [place] [address], [place] [phone] [facility] [address] [place] [address] * HEMOGLOBIN (02/25/2024 2:03 PM CDT) HEMOGLOBIN 11.7 11.7 - 15.5 g/dL [facility] Blood BLOOD SPECIMEN / Unknown 02/25/2024 2:03 PM CDT 02/25/2024 2:03 PM CDT Albania Skelton MD HEMATOLOGY [facility] [address] [place] [address], [place] [phone] [facility] [address] [place] [address] * GLUCOSE,GESTATIONAL (02/25/2024 2:03 PM CDT) GLUCOSE, GESTATIONAL SCREEN (50G)-140 CUTOFF 108 <140 mg/dL [employer] [facility] Blood BLOOD SPECIMEN / Unknown 02/25/2024 2:03 PM CDT 02/25/2024 2:03 PM CDT Albania Skelton MD CHEMISTRY [employer] [facility] [address] [place] [address], [facility] [address] [facility] [place] [address] * MARKETING SUPPORT MANAGER THIN PREP PAP SCREEN IMAGED [[id number]] (09/27/2023 3:01 PM CDT) Case Report Gynecologic Cytology Report Case: [id number] Authorizing Provider: Albania Skelton MD Collected: 09/27/2023 1501 Ordering Location: [facility] Received: 09/27/2023 1526 Clinic First Screen: Adele Clark Specimen: MARKETING SUPPORT MANAGER ThinPrep Vial Screening, Cervical 10/10/2023 2:17 PM CDT [facility] INTERPRETATION/ RESULT NEGATIVE FOR INTRAEPITHELIAL LESION OR MALIGNANCY (NIL) (none) 10/10/2023 2:17 PM CDT [facility]AL LABORATORY NISM(S) Fungal organisms morphologically consistent with Rayna species 10/10/2023 2:17 PM CDT [facility]AL LABORAT[facility] SPECIMEN ADEQUACY Satisfactory for evaluation No endocervical component seen in a patient 10/10/2023 2:17 PM CDT [facility]AL LABORATORY Date of LMP 07/11/2023 10/10/2023 2:17 PM CDT [facility] Last Pap Date first 10/10/2023 2:17 PM CDT [facility] Last Pap Result First Pap/Unknown 2:17 PM CDT [facility] Abnormal Pap or Ravenna Bx in last 5 years No 10/10/2023 2:17 PM CDT [facility] Menstrual Status 10/10/2023 2:17 PM CDT [facility] Ravenna Bx Done Today No 10/10/2023 2:17 PM CDT [facility] Additional Information None given 10/10/2023 2:17 PM CDT [facility] Comment: Cytology is screened at [facility] - [address], [place] [address] and [facility] - [address] [place] [address] and [facility] - [address] [place] [address] [facility] - [address], [place] [address] Automated Review Successful 10/10/2023 2:17 PM CDT [facility] Comment:Specimen processed s uccessfully by automated paper goods machine operator device, ThinPrep Imaging System, [employer] Note The pap test is a [...] and malignant lesions. 10/10/2023 2:17 PM CDT [facility] Other (Cervical) Non-Blood / Unknown 09/27/2023 3:01 PM CDT 09/27/2023 3:26 PM CDT Albania Skelton MD PATHOLOGY/CYTOLOGY [facility] [address] [place] [address], [place] * MARKETING SUPPORT MANAGER PROBE - GC CHLAMYDIA DNA PCR [[id number]] (09/11/2023 3:47 PM CDT) CHLAMYDIA PROBE Negative 5:25 AM CDT [facility] TRAL LABORATORY N GONORRHOEAE PROBE Negative 09/12/2023 5:25 AM CDT [facility] TR[facility] LAB[facility]ORY Other URINE SPECIMEN / Unknown Non-Blood / Unknown 09/11/2023 3:47 PM CDT 09/11/2023 3:47 PM CDT Albania Skelton MD MICROBIOLOGY Performing Organization Address [facility] Co de Phone Number [facility] [address] [place] [address], * ANTI HCV (09/11/2023 3:45 PM CDT) Pathologist [place] Healthcare HEPATITIS C ANTIBODY Non-Reacti ve Non-React kimberly 09/12/2023 2:40 PM CDT [facility] Comment:Please note, per www [...] Skelton MD SEND OUTS Performing Organization Address [facility] Co de Phone Number [facility] [address] [place] [address], [place] * ANTI HIV 1/2 (09/11/2023 3:45 PM CDT) Pathologist [facility] HIV-1/HIV-2 SCREEN Non-Reacti ve Non-Reacti ve 09/12/2023 2:46 PM CDT [facility] Comment:HIV-1 p24 and HIV-1/ HIV-2 Ab Not Detected. Blood BLOOD SPECIMEN / Unknown Venipuncture / Unknown 09/11/2023 3:45 PM CDT 09/11/2023 3:46 PM CDT [place] Skelton MD SEND OUTS [facility] [address] [place] [address], from Last 3 Months or Most Recently Relevant to Health Maintenance Advance Directives * Full Code (Latest Code Status on File) Date Activated Date Inactivated Comments 02/24/2022 8:52 AM 03/01/2022 6:26 PM Question Answer Comments Code Status Discussion: Reviewed Preferences Care Teams Car Ferry Captain Relationship Specialty Start Date End Date Albania Skelton MD [address] [place] [address] PCP - General Family Practice 08/23/21 Albania Skelton MD [address] [place] [address] Referring Provider Family Practice 09/28/23 Bogdan Malik MD [address] [place] [address] Consulting Physician Cardiology - Pediatric 03/17/24 1
== END 2024-05-08 12:45 | disposition home or self-care (01) | DRG 560 ==
LOC: OB OUT 07:22 → OB 05-08 06:57
PROVIDERS: Admitting Provider Family Medicine; PCP Family Medicine; Visit Provider Family Medicine
DX: O77.0 Labor and delivery complicated by meconium in amniotic fluid (principal); O99.344 Other mental disorders complicating childbirth; F43.23 Adjustment disorder with mixed anxiety and depressed mood; O70.0 First degree perineal laceration during delivery; O26.893 Other specified pregnancy related conditions, third trimester; Z67.11 Type A blood, Rh negative; O99.334 Smoking (tobacco) complicating childbirth; F17.290 Nicotine dependence, other tobacco product, uncomplicated; Z87.59 Personal history of other complications of pregnancy, childbirth and the puerperium; Z37.0 Single live birth; Z3A.39 39 weeks gestation of pregnancy; O47.1 False labor at or after 37 completed weeks of gestation
CPT/HCPCS: 01967; 36415; 85018; 85025; 86592; 86850; 86870; 86880; 86900; 86901; G0463; A9270; J2371; J2795; J3010; J7120

== ENCOUNTER 2025-01-05 18:46 | Emergency (ER) | payer BC, SELFPAY ==
--- OUTSIDE RECORDS SUMMARY | 2025-01-05 18:48 | XMS_ITS | Clinical Summary ---
Author Organization [facility] Address [address] [place] [address] Care Team Providers Care Hose Seamer Name Role Phone Julita Skelton MD Primary Care Provider [phone] Julita Skelton MD Unavailable [phone] Bogdan Malik MD Unavailable [phone] Allergies Active Allergy Reactions Criticality Noted Date Comments Blood-Group Specific Substance Other - Describe In Comment Field 02/24/2022 Patient has probable passive D antibody and a nonspecific antibody. Blood products may be delayed. Draw patient 24 hours prior to transfusion. For [facility] testing, draw one red top and two purple top tubes for all Type and Screen orders. Medications multivitamin no.36-folate no.6 1 mg chew 1 Tablet. 2 Active sertraline (Zoloft) 50 mg tabletIndicatio ns: depression,Post anxiety (HC) 25 mg daily x 1 week, then increase to 50 mg daily if tolerating 90 Tablet 5 Active hydrOXYzine HCL 50 mg tabletIndicatio ns:Insomnia, idiopathic Take 1 Tablet (50 mg) by mouth every 8 hours if needed (anxiety/sleep) . 30 Tablet 5 Active Hospital, Clinic, or Other Facility Administered Medication Ordered Dose Route Frequency Start Date End Date Status levonorgestrel (MIRENA) 21 mcg/24 hours (8 yrs) 52 mg intrauterine device (IUD) 1 DeviceIndications:Encounter for IUD insertion 1 Device IU Q 8 YEARS 07/02/2024 Active Active Problems Problem Noted Date Diagnosed Date Obesity in , antepartum, third trimeste r 03/18/2024 Family history of congenital heart disease in fa ther 03/18/2024 Family history of congenital heart defect 2023 Pap smear for cervical cancer screening 10/11/19 Overview (10/11/2023): 09/2023 NIL Plan: Pap test due in 3 years [facility] Supervision of high-risk 4 Overview (03/13/2024): Va Tan : 2002 [facility] ULTRASOUND/TESTING PATIENT Support person name: Carlo ULTRASOUND TYPE: Growth/[facility] Echo REASON FOR VISIT: BMI >30, [...] 349 grams, percentile: 83. ECHO: REFERRING PROVIDER/CLINIC: Julita Skelton MD - Sharla Cordero Primary MD approves scheduling of recommended ultrasounds/testing: Yes SPECIALISTS/CONSULTS: Include: Specialty MD Clinic Name Phone# [place] and ADDED TO PATIENT CARE TEAM Yes GENETICS: [facility] 12/19 CARE COORDINATION: PERTINENT [...] Desires water , may try to call [facility] if premium cancellation clerk provider does not do water births. Waterbirth [...] patient 24 hours prior to transfusion. For [facility] testing, draw one red top and [...] mixed anxiety and depre ssed mood 07/09/2018 Resolved Problems Problem Noted Date Diagnosed Date [...] Encounters Date Type Department Care Team Description 01/05/2025 Nurse Triage [facility] [address] [place] [address] Julita Skelton MD Pelvis Pain/problem 11/27/2024 9:10 AM CDT Office Visit [facility] [address] [place] [address] Julita Skelton MD Medication Management (Discuss sleep and anxiety medication/) 11/27/2024 Travel 11/12/2024 Telephone [facility] [address] [place] [address] Julita Skelton MD from Last 3 Months Immunizations Immunization Administration Dates Next Due DTaP 02/21/2008, 7,04/08/2004,08/13,2002 [...] Given: Yes Alcohol Use Standard Drinks/Week Comments Yes 0 (1 standard drink = 0.6 oz pur e alcohol) special occasions PHQ-2 Answer Date Recorded PHQ-2 TOTAL SCORE 3 11/27/2024 Social Connections Answer Date Recorded Do you often feel lonely or isolated from those around you? 4 11/27/2024 Financial Resource Strain Answer Date R ecorded Difficulty of Paying Living Expenses 3 11/27/2024 Difficulty of Paying Living Expenses Not on file 11/27/2024 Food Insecurity Answer Date Recorded Do you worry your food will run out before you are able to buy more? 1 11/27/2024 Transportation Needs Answer Date Record ed Does lack of transportation keep you from medica l appointments? 1 11/27/2024 Does lack of transportation keep you from work, meetings or getting things that you need? 1 11/27/2024 Housing Stability Answer Date Recorded What is your housing situation today? 1 11/27/2024 Utilities Answer Date Recorded Do you have trouble paying f or utilities (for example, heat, electricity, water, phone)? 1 11/27/2024 Comments Unknown Sex and Gender Information Value Date Recorded Sex Assigned at Not on file Legal Sex Female 5:26 AM KENNEL MANAGER Gender Identity Not on file Sexual Orientation Not on file Obstetrics History Para Term AB IAB SAB Ectopic Multiple Livin g Live Births 2 2 1 1 0 0 0 0 0 2 2 Date Outcome GA Total Labor Labor/2nd/3rd Weight Sex Type Anes PTL Greyson A1 A5 Name Clin 2021 34w 6d 44h 35m 43h 45m/0h 47m/0h 03m 2.11 kg (4 lb 10.4 oz) M VAGINA L JOHN Epidur al Livin g 8 9 ALDRI CH,BB VA Dumas n, Yoselyn Ruvalcaba DO Complications:None Delivery Location:Hospital ( [facility] [address] L&D TRIAGE) 2023 Term 39w 4d Vag Livin g Eileen Sharp sa, MD Complications:Meconium in am niotic fluid Delivery Location:Hospital Last Filed Vital Signs Vital Sign Reading Time Taken Comments Blood Pressure 109/71 11/27/2024 9:34 AM CDT Pulse 79 11/27/2024 9:34 AM CDT Temperature 36.8 C (98.3 F) 05/14/2024 11:09 AM KENNEL MANAGER Respiratory Rate 16 03/01/2022 7:00 AM CDT Oxygen Saturation 97% 11/27/2024 9:34 AM CDT Inhaled Oxygen Concentration - - Weight 84.8 kg (187 lb) 11/27/2024 9:34 AM CDT Height 168.9 cm (5' 6.5) 09/11/2023 2:43 PM CDT Body Mass Index 29.73 09/11/2023 2:43 PM CDT Plan of Treatment Health Maintenance Due Date Last Done Comments COVID-19 vaccine series ( season) 2024 04/23/2021, 03/10/2021 BMI (ht and wt on same day) for age 18+ 09/10/2024 09/11/2023, 03/23/2022, 03/08/2022, Additional history exists Chlamydia for age 16-24 09/10/2024 09/11/19 24, 08/23/2021, 03/02/2021, Additional history exists Influenza Vaccine (#1) 2025 , 02/07/2022, 02/23/2021, Additional history exists Depression screening for age 12+ 11/27/2025 11/27/2024, 06/10/2024, 01/16/2023, Additional history exists Pap test for age 21-65 09/26/2026 09/27/2023 Tetanus booster 02/27/2034 02/28/2024, 08/0 02/2022, 08/28/2014 Hepatitis B series for 19+ Completed 04/08, 08/18/2003, 2002 Pneumococcal series for age 6-49 Aged Out 04/08/2004, 08/18/2003, 2002 No longer eligible based on patient's age to complete this topic HPV series for age 9-26 Completed 09/11/2017, 08/28 HIV for age 15-65 Completed 09/11/2023, 08/23/2021 Hepatitis C screening for age 18-79 Completed 09/11/2023, 08/23/2021 Procedures Procedure Name Priority Date/Time Associated Diagnosis Comments HIP HOP ARTIST THIN PREP PAP SCREEN IMAGED Routine 09/27/2023 3:01 PM CDT Screening for cervical cancer GC CHLAMYDIA TRACH PROBE Routine 09/11/2023 3:47 PM CDT Encounter for supervision of other normal in first trimester (HC) ANTI HIV 1/2 Routine 09/11/2023 3:45 PM CDT Encounter for supervision of other normal in first trimester (HC) ANTI HCV Routine 09/11/2023 3:45 PM CDT Encounter for supervision of other normal in first trimester (HC) from Last 3 Months or Most Recently Relevant to Health Maintenance Results * HIP HOP ARTIST THIN PREP PAP SCREEN IMAGED [[id number]] (09/27/2023 3:01 PM CDT) Case Report Gynecologic Cytology Report Case: [id number] Authorizing Provider: Julita Skelton MD Collected: 09/27/2023 1501 Ordering Location: [facility] Received: 09/27/2023 1526 Clinic First Screen: Adele Clark Specimen: HIP HOP ARTIST ThinPrep Vial Screening, Cervical 10/10/2023 2:17 PM CDT [facility] INTERPRETATION/ RESULT NEGATIVE FOR INTRAEPITHELIAL LESION OR MALIGNANCY (NIL) (none) 10/10/2023 2:17 PM CDT [facility] at 1417 CDT ORGANISM(S) Fungal organisms morphologically consistent with Rayna species 10/10/2023 2:17 PM CDT [facility] SPECIMEN ADEQUACY Satisfactory for evaluation No endocervical component seen in a patient 10/10/2023 2:17 PM CDT [facility] Date of LMP 07/11/2023 10/10/2023 2:17 PM CDT [facility] Last Pap Date first 10/10/2023 2:17 PM CDT [facility] Last Pap Result First Pap/Unknown 2:17 PM CDT [facility] Abnormal Pap or [place] Bx in last 5 years No 10/10/2023 2:17 PM CDT [facility] Menstrual Status 10/10/2023 2:17 PM CDT [facility] [place] Bx Done Today No 10/10/2023 2:17 PM CDT [facility] Additional Information None given 10/10/2023 2:17 PM CDT [facility] Comment: Cytology is screened at [facility] - [address], [place] [address] and [facility] - [address] [place] [address] and [facility] - [address] [place] [address] Interpreted at [facility] - [address], [place] [address] Automated Review Successful 10/10/2023 2:17 PM CDT [facility] Comment:Specimen processed s uccessfully by automated digital advisor device, ThinPrep Imaging System, [employer] Note The pap test is a [...] and malignant lesions. 10/10/2023 2:17 PM CDT [facility] Other (Cervical) Non-Blood / Unknown 09/27/2023 3:01 PM CDT 09/27/2023 3:26 PM CDT Julita Skelton MD PATHOLOGY/CYTOLOGY Final Re sult Performing Organization Address [facility] Co de Phone Number [facility] [address] [place] [address], [place] * HIP HOP ARTIST PROBE - GC CHLAMYDIA DNA PCR [[id number]] (09/11/2023 3:47 PM CDT) CHLAMYDIA PROBE Negative 5:25 AM CDT [facility] N GONORRHOEAE PROBE Negative 09/12/2023 5:25 AM CDT [facility] Other URINE SPECIMEN / Unknown Non-Blood / Unknown 09/11/2023 3:47 PM CDT 09/11/2023 3:47 PM CDT Julita Skelton MD MICROBIOLOGY Final Resul t Performing Organization Address [facility]/ZIP Co de Phone Number [facility] [address] [place] [id number], [place] * ANTI HCV (09/11/2023 3:45 PM CDT) HEPATITIS C ANTIBODY Non-Reacti ve Non-React kimberly [...] 3:45 PM CDT 09/11/2023 3:46 PM CDT us Julita Skelton MD SEND OUTS Final Resul t Performing Organization Address City/[facility]/ZIP Co de Phone Number [facility] [address] [address], * ANTI HIV 1/2 (09/11/2023 3:45 PM CDT) HIV-1/HIV-2 SCREEN Non-Reacti ve Non-Reacti ve 09/12/2023 2:46 PM CDT [facility] Comment:HIV-1 p24 and HIV-1/ HIV-2 Ab Not Detected. Blood BLOOD SPECIMEN / Unknown Venipuncture / Unknown 09/11/2023 3:45 PM CDT 09/11/2023 3:46 PM CDT us Julita Skelton MD SEND OUTS Final Resul t Performing Organization Address City/[facility] Co de Phone Number [facility] [address] [place] [address], from Last 3 Months or Most Recently Relevant to Health Maintenance Insurance [facility] [employer] Advance Directives * Full Code (Latest Code Status on File) Date Activated Date Inactivated Comments 02/24/2022 8:52 AM 03/01/2022 6:26 PM Question Answer Comments Code Status Discussion: Reviewed Preferences Care Teams Hose Seamer Relationship Specialty Start Date End Date Julita Skelton MD [address] [place] [place] [address] PCP - General Family Practice 08/23/21 Julita Skelton MD [address] [place] [place] [address] Referring Provider Family Practice 09/28/23 Bogdan Malik MD [address] [address] Consulting Physician Cardiology - Pediatric 03/17/24 1
[2025-01-05 18:52] VITALS: BP 124/80; PULSE 80; RESP 16; TEMP 36.3; O2SAT 99; BMI 29.2
--- NOTE | 2025-01-05 20:38 | CRLHL7_ITS ---
For Patients: As a result of the Century Cures Act, medical imaging exams and procedure reports are released immediately into your electronic medical record. You may view this report before your referring provider. If you have questions, please contact your health care provider. INDICATION: Right lower quadrant pain, nausea, diarrhea. TECHNIQUE: CT abdomen and pelvis acquired with 100 cc Omnipaque 350 IV contrast. COMPARISON: None. FINDINGS: Lower chest: Unremarkable. Liver: Unremarkable. Normal in size and attenuation. No suspicious masses. Gallbladder and bile ducts: Prior cholecystectomy. Pancreas: Unremarkable. No mass or inflammation. Spleen: Unremarkable. Normal in size. No masses. Adrenal glands: Unremarkable. No nodules. Kidneys: Unremarkable. No suspicious masses, stones, or hydronephrosis. GI tract: Focal hyperemia of the terminal ileum. Normal in caliber. No sign of mass or inflammation. Normal appendix. Vasculature: Abdominal aorta is normal in caliber. Mesenteric arteries are patent. Lymph nodes: Few mildly enlarged ileocolic lymph nodes Peritoneum/Abdominal Wall: Unremarkable. No sign of mass or infiltration. No free air or significant free fluid. Pelvis: Intrauterine device. Bones: Unremarkable for age. IMPRESSION: Focal hyperemia of the terminal ileum concerning for terminal ileitis in the appropriate clinical setting. Few mildly enlarged ileocolic lymph nodes, likely reactive. No appendicitis. Please note that all CT scans at this facility use dose modulation, iterative reconstruction, and/or weight-based dosing when appropriate to reduce radiation dose to as low as reasonably achievable. Dictated by Jeovany Hodges MD @ 01/05/2025 9:49:54 PM (Electronically Signed)
--- NOTE | 2025-01-05 20:42 | ED_ITS ---
HPI - General Adult General Chief complaint: Abdominal Pain Stated complaint: bad abd. pain Time Seen by Provider: 01/05/25 20:24 Source: patient Mode of arrival: ambulatory Limitations: no limitations History of Present Illness HPI narrative: 24-year-old female coming in today complaining of abdominal pain that started yesterday. She describes the pain being located across the entire abdomen. Moving makes it worse. Nothing seems to make it better. It is a constant /10. Had her in tears yesterday, had a hard time sleeping last night. Complains of feeling nauseated because of the pain, denies vomiting. No fevers or chills. Had multiple episodes of loose stools over the last 12 hours. She denies any increased urinary frequency or urgency, no dysuria. No significant changes in pain when she eats. Appetite has been less than usual. Patient is 8 months . Past surgical history significant for cholecystectomy. Family history is significant for Crohn's disease in her mother. Related Data Previous Rx's ?Medication ?Instructions ?Recorded prednisone 20 mg tablet 40 mg (2 x 20 mg) PO DAILY 5 days 01/05/25 #10 tabs Allergies Allergy/AdvReac Type Severity Reaction Status Date / Time BLOOD GROUP SPECIFIC Allergy Mild OTHER- SEE Uncoded 03/27/22 09:50 SUBSTANCE COMMENT Review of Systems Status of ROS: Reports: 10 or more systems reviewed and unremarkable except as noted in History and below [facility] Medical History Thick meconium stained amniotic fluid ?P96.83 - Meconium staining (ICD-10) Term ?Z34.90 - Encounter for supervision of normal , unspecified, unspecified trimester (ICD-10) History of COVID-19 ?Z86.16 - Personal history of COVID-19 (ICD-10) Pre-eclampsia ?O14.90 - Unspecified pre-eclampsia, unspecified trimester (ICD-10) Adjustment disorder with mixed anxiety and depressed mood ?F43.23 - Adjustment disorder with mixed anxiety and depressed mood (ICD-10) Pre-eclampsia, severe, third trimester ?O14.13 - Severe pre-eclampsia, third trimester (ICD-10) Surgical History No significant past surgical history Social History What is your current living situation?: I presently have a place to live Problems where you live: no known problems In the past 12 months, utilities in danger of being shut off: no In past 12 months, lack of transportation kept you from medical appts, meetings, work, or getting things needed for daily living: no In the past 12 mos, have been you worried that your food would run out before you had money to buy more?: never true In the past 12 mos, the food you bought just didn't last and you didn't have money to buy more?: never true Smoking Status: Current every day smoker Do you use any of these nicotine containing products: Vaping Products Second hand tobacco smoke exposure: No How often do you have a drink containing alcohol: never How often do you have six or more drinks on one occasion: Never AUDIT-C Alcohol total score: 0 Non-prescribed substance use: denies use Caffeine: No How often does anyone, including family, friends and others, physically hurt you : never How often does anyone, including family, friends and others, insult or talk down to you: never How often does anyone, including family, friends and others, threaten you with harm: never How often does anyone, including family, friends and others, scream or curse at you: never Are you using contraception or practicing any form of control: No Exam Narrative: Exam Narrative: Well-nourished well-developed patient in no acute distress. Alert and oriented. Answers questions appropriately. Mood and affect are appropriate. Thoughts are goal oriented and rational. No tangential or magical thinking noted. Patient speaks in full sentences without needing to catch her breath. HEENT: Normocephalic atraumatic. Pupils are equally round reactive to light. Extraocular muscles are intact. Conjunctivae are moist without any icterus noted. Moist mucous membranes. Cardiovascular: Heart is regular rate and rhythm S1 and S2 are present without any murmurs. Lungs: Clear to auscultation bilaterally no wheezes rhonchi or rales are appr eciated. Abdomen: Soft and nondistended with normal bowel sounds. Patient's pain localizes to the right lower quadrant. She does have mild rebound tenderness in the area. Extremities: Bilateral lower extremities are without edema. Skin: Well perfused without any obvious rashes. Const: Vital Signs, click to edit/add: Vital Signs - 24 hr 01/05/25 18:52 01/05/25 22:17 Temperature 97.4 F L Pulse Rate [Pulse Oximeter] 80 74 Respiratory Rate 16 16 Blood Pressure [Ri ght Upper Arm] 124/80 120/51 L Pulse Oximetry 99 99 Oxygen Delivery Me thod Room Air Room Air Course Course ED Course: Differential diagnoses includes appendicitis, colitis, enteritis. Less likely due to the location but not impossible would be pancreatitis, hepatitis or gastritis. Also considered things like inflammatory bowel disease, mesenteric ischemia. IV established, labs drawn and abdominal CT ordered. Lab work was unremarkable. UA grossly abnormal-patient is menstruating. CT was concerning for terminal ileitis. Vital Signs Vital signs: Initial Vital Signs Temperature 97.4 F L 01/05/25 18:52 Temperature Source Temporal Artery Scan 01/05/25 18:52 Pulse Rate 80 01/05/25 18:52 Pulse Rhythm Regular 01/05/25 18:52 Respiratory Rate 16 01/05/25 18:52 Blood Pressure 124/80 01/05/25 18:52 Blood Pressure Mean 94 01/05/25 18:52 Blood Pressure Position Sitting 01/05/25 18:52 Pulse Oximetry 99 01/05/25 18:52 Oxygen Delivery Method Room Air 01/05/25 18:52 Vital Signs Temperature 97.4 F L 01/05/25 18:52 Pulse Rate 80 01/05/25 18:52 Respiratory Rate 16 01/05/25 18:52 Blood Pressure 124/80 01/05/25 18:52 Pulse Oximetry 99 01/05/25 18:52 Oxygen Delivery Method Room Air 01/05/25 18:52 Temperature 97.4 F L 01/05/25 18:52 Pulse Rate 74 01/05/25 22:17 Respiratory Rate 16 01/05/25 22:17 Blood Pressure 120/51 L 01/05/25 22:17 Pulse Oximetry 99 01/05/25 22:17 Oxygen Delivery Method Room Air 01/05/25 22:17 Medical Decision Making MDM Narrative Medical decision making narrative: 24-year-old female with terminal ileitis. Family medical history positive for Crohn's disease in a first-degree relative. Will treat the patient with prednisone at this time. She is going to follow up with her primary care provider and schedule ongoing management which should include a colonoscopy. Lab Data Lab results reviewed: Yes I reviewed the patient's lab results Labs: Lab Results 01/05/25 01/05/25 Range/Units 20:45 20:53 WBC 11.02 H (4.50-11.00) K/uL RBC 4.86 (4.00-5.20) m/uL Hgb 13.8 (12.0-16.0) gm/dL Hct 42.3 (33.0-51.0) % MCV 87 (80-100) fL MCH 28 (26-34) pg MCHC 33 (32-36) gm/dL RDW Coeff of Farhan 13.5 (11.5-15.5) % Plt Count 329 (140-440) K/uL Neut % (Auto) 56.6 (42.0-72.0) % Lymph % (Auto) 34.0 (20-44) % [place] % (Auto) 6.1 (0.0-11.0) % Eos % (Auto) 2.0 (0.0-7.0) % Baso % (Auto) 0.4 (0.0-3.0) % Neut # (Auto) 6.20 (1.7-7.0) K/uL Lymph # (Auto) 3.70 H (0.90-2.90) K/uL [place] # (Auto) 0.70 (0.00-0.90) K/UL Eos # (Auto) 0.20 (0.00-0.50) K/uL Baso # (Auto) 0.00 (0.00-0.30) K/uL Abs Immat Gran (auto) 0.10 (0.00-0.30) K/uL Imm/Tot Granulo (auto) 0.9 % Sodium 138 (135-149) mmol/L Potassium 3.9 (3.6-5.1) mmol/L Chloride 101 (96-114) mmol/L Carbon Dioxide 26 (20-32) mmol/L Anion Gap 11 (7-15) mEq/L BUN 12 (5-24) mg/dL Creatinine 0.8 (0.5-1.5) mg/dL Estimated Creat Clear 95.25 Estimated GFR 107 ml/min Glucose 91 (60-115) mg/dL Lactate 0.6 (0.5-1.9) mmol/L Calcium 10.0 (8.4-10.6) mg/dL Total Bilirubin 0.5 (0.1-1.5) mg/dL Direct Bilirubin 0.2 (0.0-0.5) mg/dL AST 22 (12-35) U/L ALT 18 (4-35) U/L Alkaline Phosphatase 67 (40-150) U/L Total Protein 7.7 (6.0-8.3) g/dL Albumin 4.9 (3.3-5.0) g/dL Lipase 49 (23-300) U/L Urine Color Yellow (Yellow) Urine Appearance Clear (Clear) Urine pH 6.0 (5.0-8.5) Ur Specific Kenn[place] 1.015 (1.000-1.030) Urine Protein Negative (Negative) Urine Glucose (UA) Negative (Negative) Urine Ketones Trace A (Negative) Urine Blood 3+ A (Negative) Urine Nitrite Negative (Negative) Urine Bilirubin Negative (Negative) Urine Urobilinogen 2.0 A (0.2-1.0) Ur Leukocyte Esterase 1+ A (Negative) Urine RBC 2-5 A (0-2) Urine WBC 2-5 (0-5) Ur Squamous Epith Cells Few (None-Few) Urine Bacteria Few A (None) Urine HCG, Qual Negative (Negative) Imaging Data CT scan - abdomen: Attestation: I have reviewed the pertinent imaging results. Radiologist's impression: TECHNIQUE: CT abdomen and pelvis acquired with 100 cc Omnipaque 350 IV contrast. COMPARISON: None. FINDINGS: Lower chest: Unremarkable. Liver: Unremarkable. Normal in size and attenuation. No suspicious masses. Gallbladder and bile ducts: Prior cholecystectomy. Pancreas: Unremarkable. No mass or inflammation. Spleen: Unremarkable. Normal in size. No masses. Adrenal glands: Unremarkable. No nodules. Kidneys: Unremarkable. No suspicious masses, stones, or hydronephrosis. GI tract: Focal hyperemia of the terminal ileum. Normal in caliber. No sign of mass or inflammation. Normal appendix. Vasculature: Abdominal aorta is normal in caliber. Mesenteric arteries are patent. Lymph nodes: Few mildly enlarged ileocolic lymph nodes Peritoneum/Abdominal Wall: Unremarkable. No sign of mass or infiltration. No free air or significant free fluid. Pelvis: Intrauterine device. Bones: Unremarkable for age. IMPRESSION: Focal hyperemia of the terminal ileum concerning for terminal ileitis in the appropriate clinical setting. Few mildly enlarged ileocolic lymph nodes, likely reactive. No appendicitis. Discharge Plan Discharge Clinical Impression: Ileitis, terminal Patient Disposition: Home, Self-Care Condition: Stable Additional Instructions: You will need to follow-up with your primary care provider this week to make sure that you are improving, and to scheduled follow-up management which will include tapering of your steroids over several weeks and a colonoscopy. Today, you will be given 5 days of a steroid, so you will need to see your provider before the 5 days are up. Prescriptions: New prednisone 20 mg tablet 40 mg PO DAILY 5 Days Qty: 10 0RF Follow Up/Referrals: Julita Skelton MD [Primary Care Provider, Family Practice] Stand Alone Forms: [employer] Info Instructions
[2025-01-05 20:58] LABS: Appearance Urine Clear (Clear)
[2025-01-05 21:00] LABS: Lactate* 0.6 mmol/L (0.5-1.9)
[2025-01-05 21:04] LABS: Hematocrit 42.3 % (33.0-51.0); Hemoglobin* 13.8 gm/dL (12.0-16.0); Immature Granulocytes Abs Auto 0.10 K/uL (0.00-0.30); Immature Granulocytes Pct Auto 0.9 %; Mean Corpuscular HGB Conc 33 gm/dL (32-36); Mean Corpuscular Hemoglobin 28 pg (26-34); Mean Corpuscular Volume 87 fL (80-100); RDW Coefficient of Variation % 13.5 % (11.5-15.5); Red Blood Count 4.86 m/uL (4.00-5.20); White Blood Count* 11.02 K/uL (4.50-11.00)
[2025-01-05 21:06] LABS: Ur HCG Qualitative* Negative (Negative)
[2025-01-05 21:06] LABS: Lymphocytes Absolute Auto 3.70 K/uL (0.90-2.90); Slide Review Reflex No
[2025-01-05 22:17] VITALS: BP 120/51; PULSE 74; RESP 16; O2SAT 99
[2025-01-05 22:20] LABS: Albumin* 4.9 g/dL (3.3-5.0); Chloride* 101 mmol/L (96-114); Potassium* 3.9 mmol/L (3.6-5.1); Sodium* 138 mmol/L (135-149)
[2025-01-05 22:23] LABS: Alanine Aminotransferase* 18 U/L (4-35); Alkaline Phosphatase* 67 U/L (40-150); Anion Gap 11 mEq/L (7-15); Aspartate Amino Transferase* 22 U/L (12-35); Bilirubin Direct* 0.2 mg/dL (0.0-0.5); Bilirubin Total* 0.5 mg/dL (0.1-1.5); Blood Urea Nitrogen* 12 mg/dL (5-24); Calcium* 10.0 mg/dL (8.4-10.6); Carbon Dioxide* 26 mmol/L (20-32); Creatinine* 0.8 mg/dL (0.5-1.5); Est. Creatinine Clearance* 95.25; Estimated Glomerular Filt Rate 107 ml/min; Glucose* 91 mg/dL (60-115); Total Protein* 7.7 g/dL (6.0-8.3)
== END 2025-01-05 23:09 | disposition home or self-care (01) ==
PROVIDERS: Emergency Provider Family Medicine; PCP Family Medicine
DX: K50.00 Crohn's disease of small intestine without complications (principal)
CPT/HCPCS: 36415; 74177; 80048; 80076; 81001; 81025; 83605; 83690; 85025; 87086; 96374; 99284; 99285; J1885; Q9967

== ENCOUNTER 2025-05-25 17:20 | Observation (INO) | payer BC, SELFPAY ==
--- OUTSIDE RECORDS SUMMARY | 2025-03-12 22:30 | XMS_ITS | Continuity of Care Document ---
Author Organization [facility] Address [address] [address] [place] [address] Phone Care Team Providers Care Executive Steward Name Role Phone No Information Unavailable Unavailable Allergies, Adverse Reactions, Alerts Substance Reaction Status Criticality No Known Allergies Active No Inform ation Medications Medication Instructions Dosage Effective Dates (start - stop) Status Comments colestipol 1 gram tablet take two grams (two tablets) at night. If no effect can increase the dose to two tablets morning and night - Active 90DS requested prednisone 20 mg tablet take 2 tablet by oral route every day 40 MG - Active hydroxyzine HCl 50 mg tablet take 1 tablet by oral route every day 50 MG - Active sertraline 50 mg tablet take 0.5 tablet by oral route every day 25 MG - Active Procedures Procedure Date Established Level 4 Moderate Colonoscopy Flex; W/bx 1/mx Level Iv-surg Path Gross/micro 25 Offic/outpt E&m New Moderate Routine Serum Collection Advance Directives Directive Yes / No Effective Date File Name No Information Encounters Encounter Description Practice Location Reason(s) For Visit Diagnoses Date Provider Providers Copied on Encounter [facility], [address] [address], [place], [id number], [place] tel:[phone] No Information No Information [facility], [address] [address], [place], [id number], [place] tel:[phone] [facility] No Information 0 5 Chaz Wolf. [address] [facility], [facility] [address], [place], [id number], [place]. [phone] Established Level 4 Moderate [facility], [address] [address], [place], [place], [id number], [place] tel:[phone] [facility] GI Symptoms or Concerns (chief complaint) Terminal ileitis without complication 0 5 Chaz Wolf. [address] [facility], [facility] [address], [place], [id number], [place]. [phone] Referring Provider: Referral Self, USE FOR SELF REFERRALS. [facility], [address] [address], [place], [place], [id number], [place] tel:[phone] [facility] GI Symptoms or Concerns (chief complaint) Colorectal polyp detected on colonoscopyTermi nal ileitis without complicationNoni nfective gastroenteritis and colitis, unspecifiedPolyp of colon Feb- 5 Chaz Wolf. [address], [id number], [place]. [phone] Referring Provider: Referral Self, USE FOR SELF REFERRALS. Offic/outpt E&m New Moderate [facility], [address] [address], [place], [place], [id number], [place] tel:[phone] [facility] GI Symptoms or Concerns (chief complaint) Chronic diarrheaWeight lossAbnormal CT scan, gastrointestinal tract Jan-2 5 Chaz Wolf. [address] [facility], [facility] [address], [place], [id number], [place]. [phone] Referring Provider: Julita Skelton MD, [address] [place] [address], [address]. tel:[phone] [facility], [address] [address], [place], [place], [id number], [place] tel:[phone] [facility] No Information 0 5 Brendan Jorge. [address] [facility], [place] [address], [place], [place], [id number], . tel:[phone] Family History Family Member Type Diagnosis Age At Onset Father Problem (finding) Alcoholism Mother Problem (finding) Crohn's disease Father Problem (finding) Gallbladder disease Immunizations Vaccine Date Status Comments Respiratory syncytial virus (RSV), vaccine, bivalent, protein subunit RSV prefusion F, diluent reconstituted, 0.5 mL, preservative free administered Note: [facility] bi-direct ional interface ; Source: Other Registry tetanus toxoid, reduced diphtheria toxoid, and acellular pertussis vaccine, adsorbed administered Note: [facility] b i-directional interface ; Source: Other Registry Afluria Qd administered Note: [facility] bi-directional interface ; Source: Other Registry tetanus toxoid, reduced diphtheria toxoid, and acellular pertussis vaccine, adsorbed administered Note: [facility] b i-directional interface ; Source: Other Registry SARS-COV-2 (COVID-19) vaccin e, mRNA, spike protein, LNP, preservative free, 100 mcg/0.5mL dose or 50 mcg/0.25mL dose administered Note: [facility] bi -directional interface ; Source: Other Registry SARS-COV-2 (COVID-19) vaccin e, mRNA, spike protein, LNP, preservative free, 100 mcg/0.5mL dose or 50 mcg/0.25mL dose administered Note: [facility] bi -directional interface ; Source: Other Registry Afluria Qd administered Note: [facility] bi-directional interface ; Source: Other Registry Influenza administered Note: [facility] bi-d irectional interface ; Source: Other Registry Afluria Qd administered Note: [facility] bi-directional interface ; Source: Other Registry meningococcal oligosaccharid e (groups A, C, Y and W-135) diphtheria toxoid conjugate vaccine (MCV4O) administered Note: [facility] bi-direct ional interface ; Source: Other Registry Afluria Qd administered Note: [facility] bi-directional interface ; Source: Other Registry Havrix pediatric administered Note: [facility] bi-directional interface ; Source: Other Registry Human Papillomavirus 9-zaire t vaccine administered Note: [facility] bi-direct ional interface ; Source: Other Registry Havrix pediatric administered Note: [facility] bi-directional interface ; Source: Other Registry human papilloma virus vaccin e, quadrivalent administered Note: [facility] bi-direct ional interface ; Source: Other Registry meningococcal polysaccharide (groups A, C, Y and W-135) diphtheria toxoid conjugate vaccine (MCV4P) administered Note: [facility] bi-direct ional interface ; Source: Other Registry tetanus toxoid, reduced diphtheria toxoid, and acellular pertussis vaccine, adsorbed administered Note: [facility] b i-directional interface ; Source: Other Registry varicella virus vaccine administered Note : [facility] bi-directional interface ; Source: Other Registry poliovirus vaccine, inactivated administe red Note: [facility] bi- directional interface ; Source: Other Registry measles, mumps and rubella v irus vaccine administered Note: [facility] bi-direct ional interface ; Source: Other Registry diphtheria, tetanus toxoids and acellular pertussis vaccine administered Note: [facility] b i-directional interface ; Source: Other Registry diphtheria, tetanus toxoids and acellular pertussis vaccine administered Note: [facility] b i-directional interface ; Source: Other Registry varicella virus vaccine administered Note : [facility] bi-directional interface ; Source: Other Registry poliovirus vaccine, inactivated administe red Note: [facility] bi- directional interface ; Source: Other Registry Pneumovax administered Note: [facility] bi-d irectional interface ; Source: Other Registry measles, mumps and rubella v irus vaccine administered Note: [facility] bi-direct ional interface ; Source: Other Registry Haemophilus influenzae type b conjugate and Hepatitis B vaccine administered Note: [facility] bi- directional interface ; Source: Other Registry diphtheria, tetanus toxoids and acellular pertussis vaccine administered Note: [facility] b i-directional interface ; Source: Other Registry poliovirus vaccine, inactivated administe red Note: [facility] bi- directional interface ; Source: Other Registry Pneumovax administered Note: [facility] bi-d irectional interface ; Source: Other Registry Haemophilus influenzae type b conjugate and Hepatitis B vaccine administered Note: [facility] bi- directional interface ; Source: Other Registry diphtheria, tetanus toxoids and acellular pertussis vaccine administered Note: [facility] b i-directional interface ; Source: Other Registry poliovirus vaccine, inactivated administe red Note: [facility] bi- directional interface ; Source: Other Registry Pneumovax administered Note: [facility] bi-d irectional interface ; Source: Other Registry Haemophilus influenzae type b conjugate and Hepatitis B vaccine administered Note: [facility] bi- directional interface ; Source: Other Registry diphtheria, tetanus toxoids and acellular pertussis vaccine administered Note: [facility] b i-directional interface ; Source: Other Registry Payers Payer name Insurance type Covered alliance party ID Authoriza tion(s) No Information Social History Type Description Quantity Date Captured Comments Sex Female Smoking Status No Information Chief Complaint And Reason For Visit No Information Reason For Referral Reason For Referral No Information Plan Of Treatment Date Type Action Status Goal Hep A Vaccine (). Due on due Goal Smoking status. Due on due Goal DEXA Bone Density Study. Due on due Goal Vitamin D, 25-Hydroxy. Due o n due Goal Hep B Vaccine (1st). Due on due Goal HPV (1st) due Goal Colonoscopy. Due on 026 due Goal HPV (3rd) due Goal HPV (2nd) due Goal Influenza. Due on due Goal Cervical PAP smear. Due on O due Goal Prevnar 20. Due on due Goal Hep B Vaccine (2nd) due Goal Hep A Vaccine (2nd) due Goal Dermatology - Skin Screening . Due on due Goal Tdap. Due on due Goal Vitamin D, 25-Hydroxy. Due o n due Goal Hep A Vaccine (1st). Due on due Goal Tdap. Due on due Goal Cervical PAP smear. Due on O due Goal HPV (2nd) due Goal HPV (3rd) due Goal Smoking status. Due on due Goal Influenza. Due on due Goal Dermatology - Skin Screening . Due on due Goal Prevnar 20. Due on due Goal DEXA Bone Density Study. Due on due Goal Hep A Vaccine (2nd) due Goal Colonoscopy. Due on 026 due Goal Hep B Vaccine (1st). Due on due Goal Hep B Vaccine (2nd) due Goal HPV (1st) due History Of Present Illness Encounter Date Complaint History Of Prese nt Illness GI Symptoms or Concerns 24F with anxiety/depression on sertraline and hydroxyzine, who presents to clinic for follow-up regarding ileitis, abdominal pain, diarrhea.Patient has been having symptoms since the beginning of summer 2024. She reported straight diarrhea 4-5 times per day. No blood in the stool. Little bit of drop in weight although she is . She was seen at an ED in [place] for workup which showed possible ileitis. She has been on prednisone which did seem to help with symptoms. We did a colonoscopy which showed active ileitis without chronicity. She is now off steroids.She reports ongoing symptoms of diarrhea. She reports this is fairly unchanged. She does admit that even before this more severe episode she was having loose stool after her cholecystectomy a couple of years ago. She remains with some abdominal pain although the pain seems to have lessened in frequency and now is maybe once every week or 2.She does not take any NSAIDs..Social history: vapes nicotineFamily history: mom had Crohn's disease, no colon cancer, no celiac Surgeries: cholecystectomy around 2021 or reviewed prior workup: - CT abdomen/pelvis: Focal hyperemia of the terminal ileum, normal in caliber, no mass or inflammation. Otherwise normal CT- Hemoglobin 13.8, MCV 87- CMP, albumin 4.9, lipase normal- Colonoscopy 02/2025: Active ileitis without chronicity, normal colon GI Symptoms or Concerns GI Symptoms or Concerns 24F with anxiety/depression on sertraline and hydroxyzine, who presents to clinic for evaluation of abnormal imaging and diarrhea.Patient reports that she has been having straight diarrhea for 2-1/2 months. She has bowel movements about 4-5 times per day. No blood in the stool. She also notes that her weight has dropped, although she also notes that she is 8 months . She thinks that she did not gain as much weight during as was expected.A couple of weeks ago over the weekend she began having lower abdominal cramping pain which got much worse. Precipitated an ED visit in [place] with workup as below on Sunday. She was put on prednisone 20 mg for 5 days. It seemed to help a bit. When she went off the prednisone things got worse. So she went back on prednisone she remains on 20 mg. Last dose is today.She notes some left knee pain which gets worse throughout the day. No rashes, no vision issues.Social history: vapes nicotineFamily history: mom had Crohn's disease, no colon cancer, no celiac I reviewed prior workup: - CT abdomen/pelvis: Focal hyperemia of the terminal ileum, normal in caliber, no mass or inflammation. Otherwise normal CT- Hemoglobin 13.8, MCV 87- CMP, albumin 4.9, lipase normal Functional Status Date Functional Assessmen t No Information Instructions Date Instruction Additional Infor mation No Information Assessments Type Assessment Date No Information Patient Care Teams Name Effective Dates (start - stop) Status Members No Information
[2025-05-25 17:49] VITALS: BP 146/85; PULSE 94; RESP 20; TEMP 36.6; O2SAT 98; BMI 28.7
[2025-05-25 18:36] LABS: PCR FLU A Negative PCR FLU A (Negative); PCR FLU B Negative PCR FLU B (Negative); PCR RSV Negative PCR RSV (Negative); SARS PCR* Negative SARS-CoV-2 (Negative)
--- NOTE | 2025-05-25 19:21 | ED.ABDPAIN ---
HPI - Abdominal Pain General Date Seen: 05/25/25 Chief Complaint: Abdominal Pain Stated Complaint: Abdomen pain Time Seen by Provider: 05/25/25 19:21 Source: patient, RN notes reviewed and old records reviewed Mode of arrival: ambulatory Limitations: no limitations History of Present Illness HPI narrative: Va is a very pleasant 24-year-old female proved notes previous ?abdominal problems and ?ruled out for Crohn's disease with colonoscopy comes to the emergency room for evaluation regarding abdominal pain. Patient notes that on Sunday night May 22 she began experiencing lower abdominal pain below her umbilicus which was not unusual for her at times. The following morning she began experiencing scratchiness of her throat some labored breathing which she states continued to today. Yesterday she suddenly had increasing abdominal pain especially in the lower abdomen. She states that 3 months ago she presented with something similar and she was worked up for Crohn's but had a colonoscopy which was normal. She went to urgent care today and was told she need to be checked out for an appendicitis or ovarian cyst. Va notes taking a test this morning which was negative. She is in vault in a monogamous relationship and denies any possibility of STI. She has no vaginal drainage discharge or burning with urination. She does note that her urine has been quite concentrated in spite efforts to push fluids. She does not know of any ill contacts. She denies a fever but notes that she has been having episodes of feeling hot and then very cold. She notes that she has loose stools but this is a chronic issue for her. Mother has a history of Crohn's disease Related Data Home Medications ?Medication ?Instructions ?Recorded ?Confirmed No Known Home Medications 05/25/25 05/25/25 Allergies Allergy/AdvReac Type Severity Reaction Status Date / Time BLOOD GROUP SPECIFIC Allergy Mild OTHER- SEE Uncoded 05/25/25 15:13 SUBSTANCE COMMENT Review of Systems Status of ROS Reports: 10 or more systems reviewed and unremarkable except as noted in History and below Const Reports: chills and fatigue; Denies: fever Eyes Denies: change in vision ENMT Reports: throat pain and nasal congestion; Denies: neck pain Cardio Denies: chest pain, swelling of feet/ankles, lightheadedness or shortness of breath with exertion Resp Reports: cough (Occasional); Denies: shortness of breath GI Reports: abdominal pain and diarrhea (Chronic); Denies: nausea, vomiting, constipation or blood in stool Denies: painful urination or urinary frequency Musculo Denies: back pain, neck pain or extremity pain Neuro Denies: headache Endo Reports: fatigue [facility] Medical History Thick meconium stained amniotic fluid ?P96.83 - Meconium staining (ICD-10) Term ?Z34.90 - Encounter for supervision of normal , unspecified, unspecified trimester (ICD-10) History of COVID-19 ?Z86.16 - Personal history of COVID-19 (ICD-10) Pre-eclampsia ?O14.90 - Unspecified pre-eclampsia, unspecified trimester (ICD-10) Adjustment disorder with mixed anxiety and depressed mood ?F43.23 - Adjustment disorder with mixed anxiety and depressed mood (ICD-10) Pre-eclampsia, severe, third trimester ?O14.13 - Severe pre-eclampsia, third trimester (ICD-10) Surgical History No significant past surgical history Social History What is your current living situation?: I presently have a place to live Problems where you live: no known problems In the past 12 months, utilities in danger of being shut off: no In past 12 months, lack of transportation kept you from medical appts, meetings, work, or getting things needed for daily living: no In the past 12 mos, have been you worried that your food would run out before you had money to buy more?: never true In the past 12 mos, the food you bought just didn't last and you didn't have money to buy more?: never true Smoking Status: Current every day smoker Do you use any of these nicotine containing products: Vaping Products Second hand tobacco smoke exposure: No How often do you have a drink containing alcohol: never How often do you have six or more drinks on one occasion: Never AUDIT-C Alcohol total score: 0 Non-prescribed substance use: denies use Caffeine: No How often does anyone, including family, friends and others, physically hurt you: never How often does anyone, including family, friends and others, insult or talk down to you: never How often does anyone, including family, friends and others, threaten you with harm: never How often does anyone, including family, friends and others, scream or curse at you: never Are you using contraception or practicing any form of control: No Exam Narrative: Exam Narrative: Patient is alert and oriented. She is nontoxic in appearance. She is seen in room 8. External ears eyes nose clear. Neck is supple. Lips are moist. Neck heart with regular rate and rhythm abdomen shows discomfort in the right lower quadrant. No masses are palpated. Extremities without edema no calf tenderness. Bowel sounds are present. Const: Vital Signs, click to edit/add: Vital Signs - 24 hr 05/25/25 17:49 05/25/25 20:16 Temperature 97.9 F 97.7 F Pulse Rate [Pulse Oximeter] 94 51 L Respiratory Rate 20 19 Blood Pressure [Ri ght Upper Arm] 146/85 H 121/81 Pulse Oximetry 98 97 Oxygen Delivery Me thod Room Air Room Air Documenting provider has reviewed patient's vital signs: yes Course Course ED Course: Differential diagnosis includes but is not limited to acute appendicitis, colitis, gastroenteritis, influenza, pyelonephritis, UTI. At this time will place IV , draw labs to include CBC, comprehensive, CRP. Will obtain urinalysis. Will also do hCG, strep a, triple viral swab. Will also obtain chest x-ray. CT of the abdomen and pelvis pending negative hCG. Reevaluation(s) Reevaluation #1: Patient noted continued discomfort after Toradol Zofran. Have given her morphine 4 mg. Nursing staff notes that patient had an episode of vomiting in spite of anti emetic and continues to feel significant discomfort. Have ordered Dilaudid 0.5 mg IV. Reevaluation #2: Patient has CT that does show terminal ileitis. No evidence of appendicitis. At this time she continues to feel nauseated. Will try Benadryl 25 mg Compazine 2.5 mg IV. Urinary ketones are at 4+ and thus we will given additional L of fluids. Plan on admission as patient is unable to take p.o. in is requiring IV pain medications, additional IV fluids. Vital Signs Vital signs: Initial Vital Signs Temperature 97.9 F 05/25/25 17:49 Temperature Source Temporal Artery Scan 05/25/25 17:49 Pulse Rate 94 05/25/25 17:49 Respiratory Rate 20 05/25/25 17:49 Blood Pressure 146/85 H 05/25/25 17:49 Blood Pressure Mean 105 05/25/25 17:49 Pulse Oximetry 98 05/25/25 17:49 Oxygen Delivery Method Room Air 05/25/25 17:49 Vital Signs Temperature 97.9 F 05/25/25 17:49 Pulse Rate 94 05/25/25 17:49 Respiratory Rate 20 05/25/25 17:49 Blood Pressure 146/85 H 05/25/25 17:49 Pulse Oximetry 98 05/25/25 17:49 Oxygen Delivery Method Room Air 05/25/25 17:49 Temperature 97.7 F 05/25/25 20:16 Pulse Rate 51 L 05/25/25 20:16 Respiratory Rate 19 05/25/25 20:16 Blood Pressure 121/81 05/25/25 20:16 Pulse Oximetry 97 05/25/25 20:16 Oxygen Delivery Method Room Air 05/25/25 20:16 Medications Administered Medications: Discontinued Medications Generic Name Dose Route Start Last Admin Trade Name Freq PRN Reason Stop Dose Admin Hydromorphone HCl 0.5 mg 05/25/25 22:25 05/25/25 22:28 Hydromorphone 0.5 Mg/0.5 Ml Inj IVP 05/25/25 22:26 0.5 mg ONCE ONE Administration Sodium Chloride 1,000 mls @ 1,000 mls/hr 05/25/25 23:21 05/25/25 23:24 0.9 % Sodium Chloride 1000 Ml IV 05/26/25 00:20 1,000 mls/hr .Q1H NICOLE Administration Ketorolac Tromethamine 15 mg 05/25/25 19:38 05/25/25 19:58 Ketorolac 15 Mg/Ml Inj IVP 05/25/25 19:39 15 mg ONCE ONE Administration Morphine Sulfate 4 mg 05/25/25 21:04 05/25/25 21:15 Morphine 4 Mg/Ml Inj IVP 05/25/25 21:05 4 mg ONCE ONE Administration Ondansetron HCl 4 mg 05/25/25 21:04 05/25/25 21:13 Ondansetron 2 Mg/Ml Inj IVP 05/25/25 21:05 4 mg ONCE ONE Administration MDM - Abdominal Pain MDM Narrative Medical decision making narrative: 1. Terminal ileitis-patient notes previous workup for Crohn's but was told she does not have it based of of colonoscopy. She is clearly in significant discomfort with vomiting. She notes chronic diarrhea so this is not new to her. She is afebrile and her white count is normal but her CRP is elevated at 4.7. Positive family history in mother. Will likely need repeat colonoscopy. 2. Nausea and vomiting-moderate improved with the Zofran. Currently she has received Compazine and Benadryl. No evidence of bowel obstruction. Trial of fluids failed in the ED. 3. Abdominal pain-pain treated with Toradol, morphine and finally Dilaudid. I do not think patient will be able to take p.o. medications for pain control at home. 4. Disposition -admit under the care of of [facility] physician Dr Regalado. Unfortunately patient has not improved to the point of being able to go home. She does have 4+ ketones at this time and CT evidence of terminal ileitis. She is requiring IV medications for both the control of her discomfort as well as nausea. Therefore I do think she will likely need two nights of admission in order to improved. Medical Records Attestation: I reviewed the patient's medical records. Lab Data Attestation: I reviewed the patient's lab results. Labs: Lab Results 05/25/25 05/25/25 05/25/25 Range/Units 17:50 20:00 21:49 WBC 6.84 (4.50-11.00) K/uL RBC 5.08 (4.00-5.20) m/uL Hgb 14.2 (12.0-16.0) gm/dL Hct 42.9 (33.0-51.0) % MCV 84 (80-100) fL MCH 28 (26-34) pg MCHC 33 (32-36) gm/dL RDW Coeff of Farhan 13.0 (11.5-15.5) % Plt Count 279 (140-440) K/uL Neut % (Auto) 48.8 (42.0-72.0) % Lymph % (Auto) 32.5 (20-44) % [place] % (Auto) 13.2 H (0.0-11.0) % Eos % (Auto) 4.8 (0.0-7.0) % Baso % (Auto) 0.6 (0.0-3.0) % Neut # (Auto) 3.34 (1.7-7.0) K/uL Lymph # (Auto) 2.22 (0.90-2.90) K/uL [place] # (Auto) 0.90 (0.00-0.90) K/UL Eos # (Auto) 0.33 (0.00-0.50) K/uL Baso # (Auto) 0.04 (0.00-0.30) K/uL Abs Immat Gran (auto) 0.01 (0.00-0.30) K/uL Imm/Tot Granulo (auto) 0.1 % Sodium 138 (135-149) mmol/L Potassium 3.9 (3.6-5.1) mmol/L Chloride 101 (96-114) mmol/L Carbon Dioxide 24 (20-32) mmol/L Anion Gap 13 (7-15) mEq/L BUN 11 (5-24) mg/dL Creatinine 0.8 (0.5-1.5) mg/dL Estimated Creat Clear 95.25 Estimated GFR 107 ml/min Glucose 88 (60-115) mg/dL Calcium 9.7 (8.4-10.6) mg/dL Magnesium 2.0 (1.5-2.6) mg/dL Total Bilirubin 0.6 (0.1-1.5) mg/dL AST 25 (12-35) U/L ALT 31 (4-35) U/L Alkaline Phosphatase 69 (40-150) U/L C-Reactive Protein 4.7 H (0.5-1.0) mg/dL Total Protein 8.1 (6.0-8.3) g/dL Albumin 5.0 (3.3-5.0) g/dL Urine Color Yellow (Yellow) Urine Appearance Clear (Clear) Urine pH 6.5 (5.0-8.5) Ur Specific [place] >= 1.030 (1.000-1.030) Urine Protein 1+ A (Negative) Urine Glucose (UA) Negative (Negative) Urine Ketones 4+ A (Negative) Urine Blood Negative (Negative) Urine Nitrite Negative (Negative) Urine Bilirubin 1+ A (Negative) Urine Urobilinogen 1.0 (0.2-1.0) Ur Leukocyte Esterase Negative (Negative) Urine RBC 0-2 (0-2) Urine WBC 0-2 (0-5) Ur Squamous Epith Cells Many A (None-Few) Amorphous Sediment Moderate A (None) Urine Bacteria None (None) Urine Mucus Moderate A (None) Urine HCG, Qual Negative (Negative) SARS-CoV-2 (PCR) Negative SARS-CoV-2 (Negative) Influenza Type A (PCR) Negative PCR FLU A (Negative) Influenza Type B (PCR) Negative PCR FLU B (Negative) RSV (PCR) Negative PCR RSV (Negative) Group A Strep DNA NOT DETECTED (Not Detectd) Lab Acknowledgement 05/25/25 Range/Units 23:53 WBC (4.50-11.00) K/uL RBC (4.00-5.20) m/uL Hgb (12.0-16.0) gm/dL Hct (33.0-51.0) % MCV (80-100) fL MCH (26-34) pg MCHC (32-36) gm/dL RDW Coeff of Farhan (11.5-15.5) % Plt Count (140-440) K/uL Neut % (Auto) (42.0-72.0) % Lymph % (Auto) (20-44) % [place] % (Auto) (0.0-11.0) % Eos % (Auto) (0.0-7.0) % Baso % (Auto) (0.0-3.0) % Neut # (Auto) (1.7-7.0) K/uL Lymph # (Auto) (0.90-2.90) K/uL [place] # (Auto) (0.00-0.90) K/UL Eos # (Auto) (0.00-0.50) K/uL Baso # (Auto) (0.00-0.30) K/uL Abs Immat Gran (auto) (0.00-0.30) K/uL Imm/Tot Granulo (auto) % Sodium (135-149) mmol/L Potassium (3.6-5.1) mmol/L Chloride (96-114) mmol/L Carbon Dioxide (20-32) mmol/L Anion Gap (7-15) mEq/L BUN (5-24) mg/dL Creatinine (0.5-1.5) mg/dL Estimated Creat Clear Estimated GFR ml/min Glucose (60-115) mg/dL Calcium (8.4-10.6) mg/dL Magnesium (1.5-2.6) mg/dL Total Bilirubin (0.1-1.5) mg/dL AST (12-35) U/L ALT (4-35) U/L Alkaline Phosphatase (40-150) U/L C-Reactive Protein (0.5-1.0) mg/dL Total Protein (6.0-8.3) g/dL Albumin (3.3-5.0) g/dL Urine Color (Yellow) Urine Appearance (Clear) Urine pH (5.0-8.5) Ur Specific [place] (1.000-1.030) Urine Protein (Negative) Urine Glucose (UA) (Negative) Urine Ketones (Negative) Urine Blood (Negative) Urine Nitrite (Negative) Urine Bilirubin (Negative) Urine Urobilinogen (0.2-1.0) Ur Leukocyte Esterase (Negative) Urine RBC (0-2) Urine WBC (0-5) Ur Squamous Epith Cells (None-Few) Amorphous Sediment (None) Urine Bacteria (None) Urine Mucus (None) Urine HCG, Qual (Negative) SARS-CoV-2 (PCR) (Negative) Influenza Type A (PCR) (Negative) Influenza Type B (PCR) (Negative) RSV (PCR) (Negative) Group A Strep DNA (Not Detectd) Lab Acknowledgement Test Added Imaging Data CT scan - abdomen: Attestation: I have reviewed the pertinent imaging results. My impression: By my read no evidence of bowel obstruction or appendicitis Radiologist's impression: Lower chest: Unremarkable. Liver: Unremarkable. Gallbladder and bile ducts: Cholecystectomy. No suspicious biliary dilatation. Pancreas: Unremarkable. Spleen: Unremarkable. Adrenal glands: Unremarkable. Kidneys: Symmetric renal enhancement. No hydronephrosis or hydroureter. No obstructing calculi. GI tract: Mild right lower quadrant fat stranding adjacent to the mildly thick-walled terminal ileum. Adjacent appendix appears normal in caliber. No bowel obstruction. Vasculature: No abdominal aortic aneurysm. Grossly patent vasculature. Lymph nodes: No suspicious lymphadenopathy. Peritoneum/Abdominal Wall: No ascites or pneumoperitoneum. No acute abdominal wall abnormality. Pelvis: Right ovarian corpus luteum/involuting cyst measuring 1.6 cm. Intrauterine device grossly in satisfactory position. Normal bladder. Bones: No acute abnormality. IMPRESSION: 1. Mild wall thickening of the terminal ileum with mild surrounding fat stranding, likely indicative of nonspecific terminal ileitis. 2. Right ovarian corpus luteum/involuting hemorrhagic cyst measuring 1.6 cm. 3. Normal caliber appendix. Discharge Plan Discharge Prescriptions: No Action No Known Home Medications Follow Up/Referrals: Julita Skelton MD [Primary Care Provider, Family Practice]
--- NOTE | 2025-05-25 19:38 | XR_ITS ---
Patient: MELY ORTIZ Facility:?[facility] Patient ID:?[id number] Site Patient ID:?[id number]. Site :?[id number] Study:?XRay-Chest 1v CXR PORTABLE-05/25/2025 7:55:09 PM Ordering Physician:?Tae Beth Final Report: Indication: Chest pain. Technique: Chest 1 view. Comparison: None. Findings/Impression: Cardiovascular and mediastinum: Heart size is normal. Unremarkable mediastinum. Lungs and pleural space: Lungs are clear. No sign of infiltrate or mass. No sign of pleural effusion. No pneumothorax. Bones and soft tissues: No acute findings. Dictated by Mik Valente MD @ 05/25/2025 8:33:40 PM (Electronic Signature)
[2025-05-25 20:11] LABS: Hematocrit* 42.9 % (33.0-51.0); Hemoglobin* 14.2 gm/dL (12.0-16.0); Immature Granulocytes Abs Auto 0.01 K/uL (0.00-0.30); Immature Granulocytes Pct Auto 0.1 %; Lymphocytes Absolute Auto 2.22 K/uL (0.90-2.90); Mean Corpuscular HGB Conc 33 gm/dL (32-36); Mean Corpuscular Hemoglobin 28 pg (26-34); Mean Corpuscular Volume 84 fL (80-100); RDW Coefficient of Variation % 13.0 % (11.5-15.5); Red Blood Count* 5.08 m/uL (4.00-5.20); White Blood Count* 6.84 K/uL (4.50-11.00)
[2025-05-25 20:14] LABS: Slide Review Reflex No
[2025-05-25 20:16] VITALS: BP 121/81; PULSE 51; RESP 19; TEMP 36.5; O2SAT 97
[2025-05-25 20:25] LABS: Albumin* 5.0 g/dL (3.3-5.0); Chloride* 101 mmol/L (96-114); Potassium* 3.9 mmol/L (3.6-5.1); Sodium* 138 mmol/L (135-149)
[2025-05-25 20:28] LABS: Alanine Aminotransferase* 31 U/L (4-35); Alkaline Phosphatase* 69 U/L (40-150); Anion Gap 13 mEq/L (7-15); Aspartate Amino Transferase* 25 U/L (12-35); Bilirubin Total* 0.6 mg/dL (0.1-1.5); Blood Urea Nitrogen* 11 mg/dL (5-24); Carbon Dioxide* 24 mmol/L (20-32); Creatinine* 0.8 mg/dL (0.5-1.5); Est. Creatinine Clearance* 95.25; Estimated Glomerular Filt Rate 107 ml/min; Total Protein* 8.1 g/dL (6.0-8.3)
[2025-05-25 20:29] LABS: Calcium* 9.7 mg/dL (8.4-10.6); Glucose* 88 mg/dL (60-115)
[2025-05-25 20:36] LABS: Strep A DNA Probe* NOT DETECTED (Not Detectd)
[2025-05-25] MEDS: ONDANSETRON 2 MG/ML inj 4 MG IVP (21:13)
[2025-05-25] MEDS: MORPHINE 4 MG/ML INJ IVP (21:15)
[2025-05-25 22:11] LABS: Appearance Urine Clear (Clear)
[2025-05-25 22:14] LABS: Ur HCG Qualitative* Negative (Negative)
--- NOTE | 2025-05-25 22:16 | CRLHL7_ITS ---
For Patients: As a result of the Century Cures Act, medical imaging exams and procedure reports are released immediately into your electronic medical record. You may view this report before your referring provider. If you have questions, please contact your health care provider. INDICATION: Abdominal pain. TECHNIQUE: CT abdomen and pelvis acquired with 82 cc Isovue 370 IV contrast. COMPARISON: CT abdomen pelvis 01/05/2025. FINDINGS: Lower chest: Unremarkable. Liver: Unremarkable. Gallbladder and bile ducts: Cholecystectomy. No suspicious biliary dilatation. Pancreas: Unremarkable. Spleen: Unremarkable. Adrenal glands: Unremarkable. Kidneys: Symmetric renal enhancement. No hydronephrosis or hydroureter. No obstructing calculi. GI tract: Mild right lower quadrant fat stranding adjacent to the mildly thick-walled terminal ileum. Adjacent appendix appears normal in caliber. No bowel obstruction. Vasculature: No abdominal aortic aneurysm. Grossly patent vasculature. Lymph nodes: No suspicious lymphadenopathy. Peritoneum/Abdominal Wall: No ascites or pneumoperitoneum. No acute abdominal wall abnormality. Pelvis: Right ovarian corpus luteum/involuting cyst measuring 1.6 cm. Intrauterine device grossly in satisfactory position. Normal bladder. Bones: No acute abnormality. IMPRESSION: 1. Mild wall thickening of the terminal ileum with mild surrounding fat stranding, likely indicative of nonspecific terminal ileitis. 2. Right ovarian corpus luteum/involuting hemorrhagic cyst measuring 1.6 cm. 3. Normal caliber appendix. Please note that all CT scans at this facility use dose modulation, iterative reconstruction, and/or weight-based dosing when appropriate to reduce radiation dose to as low as reasonably achievable. Dictated by Carlo Phillips MD @ 05/25/2025 11:40:59 PM (Electronically Signed)
[2025-05-25] MEDS: PROCHLORPERAZINE 5 MG/ML VIAL 2.5 MG IVP (23:59)
[2025-05-26 01:53] VITALS: BP 118/70; PULSE 62; RESP 16; TEMP 36.7; O2SAT 97
--- NOTE | 2025-05-26 02:28 | W.PM.TELEH&P ---
Telehealth- H&P: HPI History of Present Illness Date Seen: 05/26/25 Chief complaint: Abdomen pain Narrative: Va Tan is seen as an Interactive Telehealth visit. Va Tan is a 24 year old female who presented with nausea vomiting and right lower quadrant pain. The patient has had chronic diarrhea and loose stools for about a year and a half. She has a family history notable for Crohn's disease in her mother and ulcerative colitis in her grandparent. Several months ago she had a evaluation for severe abdominal pain at that time she underwent colonoscopy she believes she had biopsies and she was told that they were normal. In the past when she has had these flares of diarrhea and worsening pain she has been treated with steroids with some improvement of her symptoms however when she saw gastroenterology they wanted to get her off steroids so that they could adequately evaluate her symptoms. Patient reports over the past 3 to 4 days she has had poor appetite. About 3 days prior to admission she did have some sore throat and shortness of breath. Then 2 days prior to admission she developed sharp right lower quadrant pain with Significant nausea and vomiting. She continued to have diarrhea but was not much different than usual. She did not notice any blood in the stools. She did not notice any fevers or chills. Given the right lower quadrant pain they did recommend she be evaluated in the ER for possible appendicitis. In the ER she underwent imaging which was concerning for terminal ileitis. Pain was somewhat difficult to control but eventually after receiving hydromorphone the pain was better. She also had difficult to control nausea but with diphenhydramine and Compazine the nausea also improved. Review of Systems Status of ROS: Reports: 10 or more systems reviewed and unremarkable except as noted in History and below [facility] Medical History Thick meconium stained amniotic fluid ?P96.83 - Meconium staining (ICD-10) Term ?Z34.90 - Encounter for supervision of normal , unspecified, unspecified trimester (ICD-10) History of COVID-19 ?Z86.16 - Personal history of COVID-19 (ICD-10) Pre-eclampsia ?O14.90 - Unspecified pre-eclampsia, unspecified trimester (ICD-10) Adjustment disorder with mixed anxiety and depressed mood ?F43.23 - Adjustment disorder with mixed anxiety and depressed mood (ICD-10) Pre-eclampsia, severe, third trimester ?O14.13 - Severe pre-eclampsia, third trimester (ICD-10) Surgical History No significant past surgical history Social History What is your current living situation?: I presently have a place to live Problems where you live: no known problems In the past 12 months, utilities in danger of being shut off: no In past 12 months, lack of transportation kept you from medical appts, meetings, work, or getting things needed for daily living: no In the past 12 mos, have been you worried that your food would run out before you had money to buy more?: never true In the past 12 mos, the food you bought just didn't last and you didn't have money to buy more?: never true Smoking Status: Current every day smoker Do you use any of these nicotine containing products: Vaping Products Second hand tobacco smoke exposure: No How often do you have a drink containing alcohol: never How often do you have six or more drinks on one occasion: Never AUDIT-C Alcohol total score: 0 Non-prescribed substance use: denies use Caffeine: No How often does anyone, including family, friends and others, physically hurt you: never How often does anyone, including family, friends and others, insult or talk down to you: never How often does anyone, including family, friends and others, threaten you with harm: never How often does anyone, including family, friends and others, scream or curse at you: never Are you using contraception or practicing any form of control: No Meds Home Medications and Allergies Home Medications ?Medication ?Instructions ?Recorded ?Confirmed ?Type No Known Home Medications 05/25/25 05/25/25 History Allergies Allergy/AdvReac Type Severity Reaction Status Date / Time BLOOD GROUP SPECIFIC Allergy Mild OTHER- SEE Uncoded 05/25/25 15:13 SUBSTANCE COMMENT Exam Narrative Exam Narrative: Physical Exam GENERAL: ?vital signs reviewed, well developed and nourished, in no distress HEENT: pupils are equal round and reactive to light, extraocular movements are grossly within normal limits and oral mucosa is Slightly dry NECK: Supple without lymphadenopathy or thyromegaly according to nursing staff examination observation HEART: borderline bradycardicrate and regular rhythm without any rubs, murmurs, or gallops. LUNGS: Clear to auscultation bilaterally with good air movement throughout ABDOMEN: Observation from nurse assisted exam, abdomen appears soft, mild lower abdominal tenderness without rebound or guarding, and nondistended with Positive bowel sounds noted. EXTREMITIES: Strength and sensation is observed to be grossly within normal limits in the upper and lower extremities.? No focal strength deficit is observed. SKIN:? Observed warm and dry with color normal Const Vital Signs, click to edit/add: Vital Signs - 24 hr 05/25/25 17:49 05/25/25 20:16 Temperature 97.9 F 97.7 F Pulse Rate [Pulse Oximeter] 94 51 L Respiratory Rate 20 19 Blood Pressure [Right Upper Arm] 146/85 H 121/81 Pulse Oximetry 98 97 Oxygen Delivery Method Room Air Room Air Hospitalist - H&P: Result Labs Labs: Short CBC 05/25/25 Range/Units 20:00 WBC 6.84 (4.50-11.00) K/uL Hgb 14.2 (12.0-16.0) gm/dL Hct 42.9 (33.0-51.0) % Plt Count 279 (140-440) K/uL BMP 05/25/25 20:00 Sodium 138 Potassium 3.9 Chloride 101 Carbon Dioxide 24 BUN 11 Creatinine 0.8 Glucose 88 Calcium 9.7 Liver Function 05/25/25 Range/Units 20:00 Total Bilirubin 0.6 (0.1-1.5) mg/dL AST 25 (12-35) U/L ALT 31 (4-35) U/L Alkaline Phosphatase 69 (40-150) U/L Albumin 5.0 (3.3-5.0) g/dL Urine 05/25/25 Range/Units 21:49 Urine Color Yellow (Yellow) Urine Appearance Clear (Clear) Urine pH 6.5 (5.0-8.5) Ur Specific [place] >= 1.030 (1.000-1.030) Urine Protein 1+ A (Negative) Urine Glucose (UA) Negative (Negative) Assessment and Plan Assessment and plan (1) Ileitis, terminal: Status: Acute (2) Nausea vomiting and diarrhea: Status: Acute (3) Ovarian cyst: Status: Acute Plan Terminal ileitis Concern for inflammatory bowel disease No leukocytosis Need to rule out C. difficile prior to consideration of steroids, will check C. difficile now Also will check fecal calprotectin IV fluids, antiemetics and pain medicine as needed for symptom control Depending on how quickly patient's symptoms improve could consider steroid pulse with taper versus supportive care. Patient should follow-up with gastroenterology Unable to to personally review images due to system issues. Able to review official read Nausea, vomiting Supportive care IV fluids prior to admission home medications that were felt to be needed immediately have been ordered. The remainder of the home medications will await pharmacy reconciliation and will be ordered by the attending provider in the a.m. Telehealth Visit: Today's History and Physical is provided via interactive telehealth by Dr. Melecio Aguiar MD. Patient is located at [facility]. Provider is located at [facility]. Nursing staff assisted with the patient's exam. The visit being done today meets criteria for a telehealth visit and the patient or patients parent/guardian is aware the visit is a telehealth visit. Camera Start Time: 201 Camera End Time: 212 Medical Complexity: high complexity due to need for parenteral opioids ~~~~~~~~~~~~~~~~ Dr. Melecio Aguiar Telehealth: Statement Statement Telehealth Visit: Today's History and Physical is provided via interactive telehealth by Melecio Aguiar MD.? Patient is located at [facility].? Provider is located at [facility].? Nursing staff assisted with the patient's exam. The visit being done today meets criteria for a telehealth visit and the patient or patient?s parent/guardian is aware the visit is a telehealth visit.
[2025-05-26 03:00] VITALS: BP 112/65; PULSE 62; RESP 16; TEMP 36.7; O2SAT 98
[2025-05-26] MEDS: LACTATED RINGERS 1000 ML 1,000 ML 75 ML IV (03:21)
[2025-05-26] MEDS: NICOTINE 2 MG GUM BUCCAL (03:26)
[2025-05-26 07:55] VITALS: BP 105/62; PULSE 50; RESP 16; TEMP 36.6; O2SAT 100
[2025-05-26 07:59] LABS: Lactate* 0.7 mmol/L (0.5-1.9)
[2025-05-26 08:04] LABS: Hematocrit* 36.5 % (33.0-51.0); Hemoglobin* 12.0 gm/dL (12.0-16.0); Mean Corpuscular HGB Conc 33 gm/dL (32-36); Mean Corpuscular Hemoglobin 28 pg (26-34); Mean Corpuscular Volume 86 fL (80-100); Red Blood Count* 4.25 m/uL (4.00-5.20); White Blood Count* 5.52 K/uL (4.50-11.00)
[2025-05-26 08:07] LABS: Slide Review Reflex No
[2025-05-26 08:14] LABS: Chloride* 104 mmol/L (96-114)
[2025-05-26 08:15] LABS: Potassium* 4.4 mmol/L (3.6-5.1); Sodium* 137 mmol/L (135-149)
[2025-05-26 08:17] LABS: Blood Urea Nitrogen* 12 mg/dL (5-24); Creatinine* 0.7 mg/dL (0.5-1.5); Est. Creatinine Clearance* 108.86; Estimated Glomerular Filt Rate 125 ml/min
[2025-05-26 08:18] LABS: Anion Gap 8 mEq/L (7-15); Calcium* 8.6 mg/dL (8.4-10.6); Carbon Dioxide* 25 mmol/L (20-32); Glucose* 86 mg/dL (60-115)
[2025-05-26 08:27] LABS: HCG Qualitative Serum* Negative (Negative)
--- NOTE | 2025-05-26 11:48 | PC.NURSE ---
Discharge: Patient pleasant and cooperative. Patient vitally stable, lungs clear, BS WNL, IV removed, catheter intact. Patient rates pain 1/10, abdominal tenderness with palpation. Patient tolerated breakfasts eating majority of meal with no increased pain or nausea. Patient is independent. Patient urinating well well no BM. Patient signed discharge paperwork, there was no belongings sheet. Patient had no further questions regarding discharge information. Patient left the floor by foot with partner and belongings at 1146.
--- NOTE | 2025-05-26 15:54 | PM.DS1 ---
DS: Providers Provider Date Seen: 05/26/25 Date of admission: 05/26/25 09:37 Primary care physician: Julita Skelton MD Admitting Clinician: Melecio Aguiar MD Attending Physician on discharge: Aislinn Cisneros MD [facility] Date of Discharge: 05/26/25 DS: Diagnosis Discharge Diagnosis (1) Ileitis, terminal: Status: Acute Problem details: -found on CT during workup for this abdominal pain. Query IBD? -discharged with a p.r.n., self start budesonide prescription -[facility] to see as an outpatient (2) Abdominal pain: Status: Acute Problem details: -resolved overnight (3) Ovarian cyst: Status: Acute Problem details: Simple cyst noted on CT. PCP to see in follow-up. DS: Summary Hospital Course Hospital Course: HIGH YIELD CARE NOTES FOR FOLLOW-UP -history, imaging suggest likely IBD diagnosis -terminal ileitis noticed on CT -gastroenterology follow-up arranged BRIEF HOSPITAL COURSE: Patient was admitted overnight. Her workup in the ED suggested acute flare of IBD. She currently has not carry this diagnosis. A strong family history and a personal clinical history of intermittent abdominal pain and diarrhea. No romina hematochezia noted. Her pain resolved overnight. Was tolerating a normal diet on the morning of discharge. We discussed the findings of terminal ileitis on her CT and how this is suspicious for an IBD diagnosis. She has already established with a computer systems software architect at [facility]. Outpatient follow-up was arranged. She was not given oral or IV steroids. She was not started on any IBD medications. I did send her home with instructions on how to self start budesonide is orally if her pain were to return. We also discussed follow-up with her PCP which was arranged and GI. DISCHARGE MEDICATIONS: See Reconciled list - SIGNIFICANT CHANGES: Self start regimen with budesonide Specific instructions to the patient and follow-up are outlined below. REVIEW OF SYSTEMS No new chest pain or dyspnea Pain controlled No voiding difficulties Tolerating diet challenge PHYSICAL EXAM: CONSTITUTIONAL: Conversive, good historian. A/O. Knows setting and context. GENERAL: Well-developed, in no respiratory distress. VITAL SIGNS: see record. HEENT: Sclerae are anicteric. No petechiae. CARDIAC: rhythm is regular. There is no S3 or rub. No harsh murmurs. Extremities show trace edema with symmetrical pulses. PULM: good air entry with no wheeze. NEURO: Speech is fluent. A brief neurologic exam is negative. ABDOMEN: SOFT. NO GUARDING. SKIN: No rashes, petechiae, concerning changes PSYCHIATRIC: Euthymic. DISPOSITION: Home with family Time spent on discharge 37 minutes. Status at Discharge Functional status at discharge: independent ambulation Overall status at discharge: patient is progressing back to baseline Time Spent with Patient Time attestation: Total time spent providing and/or coordinating discharge services: Time spent: Greater than 30 minutes Exam Const: Vital Signs, click to edit/add: Vital Signs - 24 hr 05/25/25 17:49 05/25/25 20:16 05/26/25 01:53 Temperature 97.9 F 97.7 F 98.0 F Pulse Rate [Pulse Oximeter] 94 51 L Pulse Rate [Right Pulse Oximeter] 62 Respiratory Rate 20 19 16 Blood Pressure [Ri ght Arm] 118/70 Blood Pressure [Ri ght Upper Arm] 146/85 H 121/81 Pulse Oximetry 98 97 97 Oxygen Delivery Me thod Room Air Room Air Room Air 05/26/25 03:00 05/26/25 07:55 05/26/25 07:55 Temperature 98.0 F 97.8 F Pulse Rate [Pulse Oximeter] Pulse Rate [Right Pulse Oximeter] 62 50 L 50 L Respiratory Rate 16 16 16 Blood Pressure [Ri ght Arm] 112/65 105/62 Blood Pressure [Ri ght Upper Arm] Pulse Oximetry 98 100 Oxygen Delivery Me thod Room Air DS: Data Data Completed and Pending Completed studies during hospitalization: Procedures Delivery of Products of Conception, External Approach (05/07/24) Repair Perineum Skin, External Approach (05/07/24) Labs on day of discharge: Labs from last 24 hours 05/26/25 05/26/25 05/26/25 08:00 07:53 07:33 WBC 5.52 RBC 4.25 Hgb 12.0 Hct 36.5 MCV 86 MCH 28 MCHC 33 RDW Coeff of Farhan Plt Count 225 Neut % (Auto) Lymph % (Auto) [place] % (Auto) Eos % (Auto) Baso % (Auto) Neut # (Auto) Lymph # (Auto) [place] # (Auto) Eos # (Auto) Baso # (Auto) Abs Immat Gran (auto) Imm/Tot Granulo (auto) Sodium 137 Potassium 4.4 Chloride 104 Carbon Dioxide 25 Anion Gap 8 BUN 12 Creatinine 0.7 Estimated Creat Clear 108.86 Estimated GFR 125 Glucose 86 Lactate 0.7 Calcium 8.6 Magnesium Total Bilirubin AST ALT Alkaline Phosphatase C-Reactive Protein 3.1 H Total Protein Albumin Lipase 22 L HCG, Qual Negative Urine Color Urine Appearance Urine pH Ur Specific [place] Urine Protein Urine Glucose (UA) Urine Ketones Urine Blood Urine Nitrite Urine Bilirubin Urine Urobilinogen Ur Leukocyte Esterase Urine RBC Urine WBC Ur Squamous Epith Cells Amorphous Sediment Urine Bacteria Urine Mucus Urine HCG, Qual SARS-CoV-2 (PCR) Influenza Type A (PCR) Influenza Type B (PCR) RSV (PCR) Group A Strep DNA Lab Acknowledgement Test Added 05/25/25 05/25/25 05/25/25 23:53 21:49 20:00 WBC 6.84 RBC 5.08 Hgb 14.2 Hct 42.9 MCV 84 MCH 28 MCHC 33 RDW Coeff of Farhan 13.0 Plt Count 279 Neut % (Auto) 48.8 Lymph % (Auto) 32.5 [place] % (Auto) 13.2 H Eos % (Auto) 4.8 Baso % (Auto) 0.6 Neut # (Auto) 3.34 Lymph # (Auto) 2.22 [place] # (Auto) 0.90 Eos # (Auto) 0.33 Baso # (Auto) 0.04 Abs Immat Gran (auto) 0.01 Imm/Tot Granulo (auto) 0.1 Sodium 138 Potassium 3.9 Chloride 101 Carbon Dioxide 24 Anion Gap 13 BUN 11 Creatinine 0.8 Estimated Creat Clear 95.25 Estimated GFR 107 Glucose 88 Lactate Calcium 9.7 Magnesium 2.0 Total Bilirubin 0.6 AST 25 ALT 31 Alkaline Phosphatase 69 C-Reactive Protein 4.7 H Total Protein 8.1 Albumin 5.0 Lipase HCG, Qual Urine Color Yellow Urine Appearance Clear Urine pH 6.5 Ur Specific [place] >= 1.030 Urine Protein 1+ A Urine Glucose (UA) Negative Urine Ketones 4+ A Urine Blood Negative Urine Nitrite Negative Urine Bilirubin 1+ A Urine Urobilinogen 1.0 Ur Leukocyte Esterase Negative Urine RBC 0-2 Urine WBC 0-2 Ur Squamous Epith Cells Many A Amorphous Sediment Moderate A Urine Bacteria None Urine Mucus Moderate A Urine HCG, Qual Negative SARS-CoV-2 (PCR) Influenza Type A (PCR) Influenza Type B (PCR) RSV (PCR) Group A Strep DNA NOT DETECTED Lab Acknowledgement Test Added 05/25/25 17:50 WBC RBC Hgb Hct MCV MCH MCHC RDW Coeff of Farhan Plt Count Neut % (Auto) Lymph % (Auto) [place] % (Auto) Eos % (Auto) Baso % (Auto) Neut # (Auto) Lymph # (Auto) [place] # (Auto) Eos # (Auto) Baso # (Auto) Abs Immat Gran (auto) Imm/Tot Granulo (auto) Sodium Potassium Chloride Carbon Dioxide Anion Gap BUN Creatinine Estimated Creat Clear Estimated GFR Glucose Lactate Calcium Magnesium Total Bilirubin AST ALT Alkaline Phosphatase C-Reactive Protein Total Protein Albumin Lipase HCG, Qual Urine Color Urine Appearance Urine pH Ur Specific [place] Urine Protein Urine Glucose (UA) Urine Ketones Urine Blood Urine Nitrite Urine Bilirubin Urine Urobilinogen Ur Leukocyte Esterase Urine RBC Urine WBC Ur Squamous Epith Cells Amorphous Sediment Urine Bacteria Urine Mucus Urine HCG, Qual SARS-CoV-2 (PCR) Negative SARS-CoV-2 Influenza Type A (PCR) Negative PCR FLU A Influenza Type B (PCR) Negative PCR FLU B RSV (PCR) Negative PCR RSV Group A Strep DNA Lab Acknowledgement Discharge Plan Discharge Disposition: Home, Self-Care Date of Admission: 05/26/25 09:37 Attending Provider on Discharge: Aislinn Cisneros Primary Care Provider: Julita Skelton Condition: Improved Anticipated Discharge Date/Time: 05/26/25 11:03 Discharge Medications: New budesonide 9 mg tablet,delayed and ext.release 9 mg PO QAM Qty: 7 0RF Discharge Orders: Discharge Order (Routine); Ordered 05/26/25 Ordered By: Aislinn Cisneros Patient Education: Budesonide (By mouth), Abdominal Pain (DC) Additional Instructions: 1. follow-up with Dr. Phani Ware at [facility]. We will fax our records and CT report over to him. 2. automotive upholsterer the Budesonide and start if needed; if you start it - take the whole week but put a call into [facility] if you need it, so they know. Activity Level: Activity as Tolerated Discharge Diet: Regular Follow Up Appointments: Luciano Ware MD [Referring, Gastroenterology] - 07/02/25 1:40 pm Referral Note: [facility] - [id number] [place] [address] Julita Skelton MD [Primary Care Provider, Family Practice] - 06/11/25 12:45 pm Referral Note: [facility] for hospital follow-up. Forms: Bilibot Info Instructions
== END 2025-05-26 11:46 | disposition home or self-care (01) ==
LOC: ED 05-26 01:08 → MEDSURG 05-26 09:41
PROVIDERS: Family Medicine; Admitting Provider Internal Medicine; Emergency Provider Family Medicine; PCP Family Medicine; Visit Provider Internal Medicine
DX: K50.00 Crohn's disease of small intestine without complications (principal); R10.31 Right lower quadrant pain; N83.201 Unspecified ovarian cyst, right side
CPT/HCPCS: 36415; 71045; 74177; 80048; 80053; 81001; 81025; 83605; 83690; 83735; 83993; 84703; 85025; 85027; 86140; 87493; 87631; 87651; 96374; 96375; 99285; G0378; J0780; J1171; J1200; J1885; J2270; J2405; J7030; J7120; Q9967